=== PATIENT | male | born 1935 | race Caucasian/White ===

== ENCOUNTER 2016-11-05 12:48 | Emergency (ER) | payer OTHER ==
[~2016-11-05] VITALS: Ht 170.2 cm; Wt 73.5 kg
[~2016-11-05 12:48] MED LIST: ASPCH81X PO; ATOR10TA88 PO; DIPHTAB PO; FINA5TAB PO; FURO-85 PO; IPRA0.037 NAE; ISOS30TA3 PO; METO25TA3 PO; NTRSL3 UT; POTA10CA28 PO; TIMO0.2534 OPL; ZNTT/150 PO
[2016-11-05 12:53] VITALS: TEMP 36.5; Ht 170.2 cm; Wt 73.5 kg
--- NOTE | 2016-11-05 14:02 | DIAGNOSTIC IMAGING REPORT ---
SINGLE VIEW PELVIS CLINICAL HISTORY: Fall with pelvic pain. FINDINGS: An AP pelvic radiograph is compared to study dated 05/27/2009. The skeletal structures are osteopenic. No fracture is seen in the hips or bony pelvis. 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 No periprostatic lucency is identified. 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 Sclerotic change is noted in the sacroiliac joints. Lumbosacral spondylosis is partially imaged. Calcified enthesophytes arise from the anterior superior iliac spine bilaterally. The overlying soft tissues are within normal limits. Pelvic phleboliths are noted. IMPRESSION: 1. No fracture is seen in the hips or bony pelvis. 2. Osteopenia, right hip arthroplasty, and arthritic change as above. Electronically signed by: Michael Go M.D. 11/05/2016 2:01 PM Dictated Date/Time: 11/05/2016 2:00 PM
--- NOTE | 2016-11-05 14:33 | DIAGNOSTIC IMAGING REPORT ---
LUMBAR SPINE 5 VIEWS CLINICAL HISTORY: Fall with low back pain. FINDINGS: Five views of the lumbar spine are obtained. No prior studies are available for comparison at the time of dictation. The skeletal structures are osteopenic. There is no radiographic evidence of fracture or malalignment involving the lumbar spine. Vertebral body height is maintained. A mild and age indeterminant superior endplate compression deformity is noted involving T12. There is minimal anterolisthesis at L4-L5. Alignment is otherwise preserved. Anterior osteophytes are seen throughout. The transverse and spinous processes appear intact. There is no evidence of spondylolysis. Moderate facet arthropathy is seen in the mid to lower lumbar spine. Moderate degenerative disc space narrowing is seen at L4-L5 and L5-S1. Mild degenerative disc space narrowing is noted at the remaining lumbar levels. The visualized bony pelvis appears intact. A right hip arthroplasty is in near-anatomic alignment. There is a nonobstructed abdominal bowel gas pattern. A large phlebolith is noted in the left hemipelvis. There is mild atherosclerotic calcification of the abdominal aorta. IMPRESSION: 1. There is no radiographic evidence of fracture or malalignment involving the lumbosacral spine. 2. There is a mild and age-indeterminant superior endplate compression deformity of T12. No retropulsed fragments are identified. Correlate for point tenderness at this level. 3. Osteopenia and lumbosacral spondylosis as above. Dictated: 11/05/2016 1:57 PM Transcribed: 11/05/2016 2:33 PM Hiral Electronically signed by: Michael Go M.D. 11/05/2016 2:34 PM Dictated Date/Time: 11/05/2016 1:57 PM
--- NOTE | 2016-11-05 14:38 | EMERGENCY ROOM VISIT NOTE ---
History Report prepared by Shamikaibhardeep: Narda Robins Under the Supervision of: Dr. Pascual Maharaj D.O. First contact with patient: 12:50 Chief Complaint: FALL Stated Complaint: FALL, BACK AND HIP PAIN History of Present Illness The patient is a 81 year old male who presents to the Emergency Room from [facility] with complaints of constant mid-back pain that began this afternoon. The patient was trying to sit down on his bed, but missed his bed and sat straight on the floor. His back pain began after the incident. The pain is worse with movement. He denies any other injuries from the fall. Currently he does not have any hip pain. Source of History: patient Onset: this afternoon Position: back (mid) Timing: constant Modifying Factors (Worsening): movement Review of Systems See HPI for pertinent positives & negatives. A total of 10 systems reviewed and were otherwise negative. Past Medical & Surgical Medical Problems: (1) No Known Active Medical Problems Family History No pertinent family history stated. Social History Smoking Status: Never Smoker Housing Status: lives with significant other Occupation Status: retired Current/Historical Medications Scheduled Aspirin (Aspirin Chewable), 81 MG PO DAILY Atorvastatin (Lipitor), 10 MG PO DAILY Finasteride (Proscar), 5 MG PO DAILY Isosorbide Mononitrate Ext Rel (Imdur Ext Rel), 30 MG PO DAILY Metoprolol Succinate (Toprol Xl), 25 MG PO DAILY Nitroglycerin (Nitrostat), 0.3 MG UT PRN Ranitidine (Zantac), 150 MG PO BID Timolol Maleate 0.5% Oph (Timoptic 0.5% Oph), 1 DROPS OPL QPM Scheduled PRN Diphenhydramine-Acetaminophen (Pain Reliever Pm), 1 TAB PO DAILY PRN for Itching Furosemide (Lasix), 20 MG PO DAILY PRN for SWELLING Ipratropium [place] (Nasal) (Atrovent Nasal [place]), 2 SPRY BLANQUITA QID PRN for RHINITIS Potassium Chloride (Micro-K Ext Rel), 10 MEQ PO DAILY PRN for SWELLING Allergies Coded Allergies: Pseudoephedrine (Unverified Allergy, Severe, URINARY RETENTION, 10/01/09) Guaifenesin & Derivatives (Verified Allergy, Unknown, inability to urinate , 03/26/16) Sulfa Drugs (Unverified Allergy, Unknown, _, 03/26/16) Latex1 -Allergic Contact Dermititis (Unverified Adverse Reaction, Intermediate, ITCHING/BURNING, 05/10/09) Physical Exam Vital Signs Date Time Temp Pulse Resp B/P Pulse Ox O2 Delivery O2 Flow Rate FiO2 11/05/16 12:53 36.5 51 18 172/97 92 Room Air Physical Exam CONSTITUTIONAL/VITAL SIGNS: Reviewed / noted above. GENERAL: Non-toxic in appearance. INTEGUMENTARY: Warm, dry, and [place]. HEAD: Normocephalic. EYES: without scleral icterus or trauma. ENT/OROPHARYNX: clear and moist. LYMPHADENOPATHY/NECK: Is supple without lymphadenopathy or meningismus. RESPIRATORY: Lungs clear and equal. CARDIOVASCULAR: Regular rate and rhythm. GI/ABDOMEN: Soft and nontender. No organomegaly or pulsatile mass. No rebound or guarding. Normal bowel sounds. EXTREMITIES: Warm and well perfused. BACK: No CVA tenderness. NEUROLOGICAL: Intact without focal deficits. PSYCHIATRIC: normal affect. MUSCULOSKELETAL: Normally developed with good muscle tone. Medical Decision & Procedures ER Provider Diagnostic Interpretation: Radiology results as stated below per my review and radiologist interpretation: SINGLE VIEW PELVIS CLINICAL HISTORY: Fall with pelvic pain. FINDINGS: An AP pelvic radiograph is compared to study dated 05/27/2009. The skeletal structures are osteopenic. No fracture is seen in the hips or bony pelvis. 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 No periprostatic lucency is identified. 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 Sclerotic change is noted in the sacroiliac joints. Lumbosacral spondylosis is partially imaged. Calcified enthesophytes arise from the anterior superior iliac spine bilaterally. The overlying soft tissues are within normal limits. Pelvic phleboliths are noted. IMPRESSION: 1. No fracture is seen in the hips or bony pelvis. 2. Osteopenia, right hip arthroplasty, and arthritic change as above. Electronically signed by: Michael Go M.D. 11/05/2016 2:01 PM Dictated Date/Time: 11/05/2016 2:00 PM LUMBAR SPINE 5 VIEWS CLINICAL HISTORY: Fall with low back pain. FINDINGS: Five views of the lumbar spine are obtained. No prior studies are available for comparison at the time of dictation. The skeletal structures are osteopenic. There is no radiographic evidence of fracture or malalignment involving the lumbar spine. Vertebral body height is maintained. A mild and age indeterminant superior endplate compression deformity is noted involving T12. There is minimal anterolisthesis at L4-L5. Alignment is otherwise preserved. Anterior osteophytes are seen throughout. The transverse and spinous processes appear intact. There is no evidence of spondylolysis. Moderate facet arthropathy is seen in the mid to lower lumbar spine. Moderate degenerative disc space narrowing is seen at L4-L5 and L5-S1. Mild degenerative disc space narrowing is noted at the remaining lumbar levels. The visualized bony pelvis appears intact. A right hip arthroplasty is in near-anatomic alignment. There is a nonobstructed abdominal bowel gas pattern. A large phlebolith is noted in the left hemipelvis. There is mild atherosclerotic calcification of the abdominal aorta. IMPRESSION: 1. There is no radiographic evidence of fracture or malalignment involving the lumbosacral spine. 2. There is a mild and age-indeterminant superior endplate compression deformity of T12. No retropulsed fragments are identified. Correlate for point tenderness at this level. 3. Osteopenia and lumbosacral spondylosis as above. Dictated: 11/05/2016 1:57 PM Transcribed: 11/05/2016 2:33 PM Hiral Electronically signed by: Michael Go M.D. 11/05/2016 2:34 PM Dictated Date/Time: 11/05/2016 1:57 PM ED Course 1256: Previous medical records were reviewed. The patient was evaluated in room C6. A complete history and physical examination was performed. 1439: On reevaluation, the patient is resting comfortably. I discussed the results and findings with the patient. He verbalized agreement of the treatment plan. The patient was discharged home. Medical Decision Differential includes close head injury, intracranial bleed, facial trauma, cervical spine trauma, chest and thoracic trauma, abdominal and intra-abdominal trauma, spine neurologic trauma, extremity trauma. This is an 81-year-old male who presents to the ED after fall. The patient states that he was sitting down and missed his bed and sat on the floor. He states that he has pain in his back since the episode that occurred earlier today. He is brought here for evaluation. He denies loss of consciousness or striking his head. He denies any numbness or tingling or weakness in extremity. He has no abdominal pains or chest pains or shortness of breath. His exam did not reveal any obvious injuries. He is full range of motion of his legs and arms. There is no discomfort with this. He does report discomfort in the low back but this is not worsened with palpation. There is no obvious injury to the back. X-ray of the pelvis did not show any acute traumatic injury. X-ray of the lumbar spine did not show any acute process. There is an age indeterminate deformity in the T12 vertebrae. This does not represent the area of the patient's discomfort. Patient is felt to be stable for discharge. Impression Primary Impression: Fall Scribe Attestation The scribe's documentation has been prepared under my direction and personally reviewed by me in its entirety. I confirm that the note above accurately reflects all work, treatment, procedures, and medical decision making performed by me. Departure Information Dispostion Home / Self-Care Referrals ANDREA WEISS (PCP) Patient Instructions My [facility] Additional Instructions Follow-up with your doctor for further care and evaluation in 1-2 days as needed. Return to the emergency department for worsening or new symptoms or any concerns. You have been examined and treated today on an emergency basis only. This is not a substitute for, or an effort to provide, complete comprehensive medical care. It is impossible to recognize and treat all injuries or illnesses in a single emergency department visit. It is therefore important that you follow up closely with your doctor. Call as soon as possible for an appointment.
[2016-11-05 14:46] VITALS: BP 176/95; PULSE 50; O2SAT 96
[2016-11-05] MEDS ORDERED: PRED1SUS17 OPR (15:00)
[2016-11-05] MEDS ORDERED: [UNRECOGNIZED DRUG - CODE] PO (15:00)
[2016-11-05] MEDS ORDERED: ACET-1311 PO (15:00)
== END 2016-11-05 14:49 | disposition home or self-care (01) ==
LOC: C.EDC 12:48 → EDBD 12:48 → C.EDC 14:49
DX: M54.6 Pain in thoracic spine (principal); W17.89XA Other fall from one level to another, initial encounter; Z79.82 Long term (current) use of aspirin

== ENCOUNTER 2016-11-29 07:32 | Emergency (ER) | payer OTHER ==
[~2016-11-29] VITALS: Ht 162.6 cm; Wt 73.0 kg
[~2016-11-29 07:32] MED LIST changes: +ACET-1311 PO; +ATOR10TA82 PO; -ATOR10TA88 PO; +PRED1SUS17 OPR; +[UNRECOGNIZED DRUG - CODE] PO
[2016-11-29 07:38] VITALS: TEMP 37; Ht 162.6 cm; Wt 73.0 kg
[2016-11-29] MEDS ORDERED: CETI10TA62 PO (08:06)
--- NOTE | 2016-11-29 08:08 | DIAGNOSTIC IMAGING REPORT ---
PELVIS 1 OR 2 VIEW ROUTINE CLINICAL HISTORY: Hip pain status post trauma COMPARISON STUDY: 11/05/2016 FINDINGS: There are postsurgical changes of a total right hip arthroplasty. No fractures or dislocations are visualized. There are mild osteoarthritic changes present on the left. 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 No acute fractures or dislocations identified. Electronically signed by: Glen Olvera M.D. 11/29/2016 8:07 AM Dictated Date/Time: 11/29/2016 8:06 AM
[2016-11-29] MEDS ORDERED: IPRA0.03 NAE (08:12)
[2016-11-29] MEDS ORDERED: TIMO0.5S2 OPL (08:12)
--- NOTE | 2016-11-29 09:04 | EMERGENCY ROOM VISIT NOTE ---
History Report prepared by Malcolm: Susie Meza Under the Supervision of: Dr. Pascual Maharaj D.O. First contact with patient: 07:36 Chief Complaint: HIP PAIN Stated Complaint: HIP PAIN/FALL History of Present Illness The patient is a 81 year old male who presents to the Emergency Room with complaints of persistent right hip pain after falling out of bed this morning. [facility] from [facility] by EMS. He reports that he rolled out of bed and onto the floor.The patient's hip is red and sunken in which is not normal for him according to the nursing staff. He denies any other complaints. Source of History: patient, nursing staff Onset: this morning Position: pelvis Quality: other (pain) Timing: other (persistent) Note: Pt denies any other symptoms. Review of Systems See HPI for pertinent positives & negatives. A total of 10 systems reviewed and were otherwise negative. Past Medical & Surgical Medical Problems: (1) No Known Active Medical Problems Family History Noncontributory secondary to age. Social History Smoking Status: Never Smoker Marital Status: Housing Status: lives with significant other Occupation Status: retired Current/Historical Medications Scheduled Acetaminophen (Tylenol), 650 MG PO Q6 Aspirin (Aspirin Chewable), 81 MG PO DAILY Atorvastatin (Lipitor), 10 MG PO DAILY Cetirizine Hcl (Qc All Day Allergy), 1 TAB PO HS Finasteride (Proscar), 5 MG PO DAILY Ipratropium [place] (Nasal) (Ipratropium [place]), 2 SPRAYS BLANQUITA QID Isosorbide Mononitrate Ext Rel (Imdur Ext Rel), 30 MG PO DAILY Metoprolol Succinate (Toprol Xl), 25 MG PO DAILY Nitroglycerin (Nitrostat), 0.3 MG UT PRN Prednisolone Acetate (Ophth) (Prednisolone Acetate), 1 DROP OPR DAILY Ranitidine (Zantac), 150 MG PO BID Timolol Maleate (Ophth) (Timoptic-Xe 0.5% Oph), 1 DROPS OPL HS Scheduled PRN Diphenhydramine Hcl (Siladryl Allergy), 5-10 ML PO QID PRN for Itching Diphenhydramine-Acetaminophen (Pain Reliever Pm), 1 TAB PO DAILY PRN for Itching Furosemide (Lasix), 20 MG PO DAILY PRN for SWELLING Potassium Chloride (Micro-K Ext Rel), 10 MEQ PO DAILY PRN for SWELLING Allergies Coded Allergies: Pseudoephedrine (Unverified Allergy, Severe, URINARY RETENTION, 11/29/16) Guaifenesin & Derivatives (Verified Allergy, Unknown, inability to urinate , 11/29/16) Sulfa Drugs (Unverified Allergy, Unknown, _, 11/29/16) Latex1 -Allergic Contact Dermititis (Unverified Adverse Reaction, Intermediate, ITCHING/BURNING, 11/29/16) Physical Exam Vital Signs Date Time Temp Pulse Resp B/P Pulse Ox O2 Delivery O2 Flow Rate FiO2 11/29/16 08:32 65 18 190/104 93 Room Air 11/29/16 07:38 37.0 64 18 197/114 95 Room Air Physical Exam CONSTITUTIONAL/VITAL SIGNS: Reviewed / noted above. GENERAL: Non-toxic in appearance. INTEGUMENTARY: Warm, dry, and [place]. HEAD: Normocephalic. EYES: without scleral icterus or trauma. ENT/OROPHARYNX: clear and moist. LYMPHADENOPATHY/NECK: Is supple without lymphadenopathy or meningismus. RESPIRATORY: Lungs clear and equal. CARDIOVASCULAR: Regular rate and rhythm. GI/ABDOMEN: Soft and nontender. No organomegaly or pulsatile mass. No rebound or guarding. Normal bowel sounds. EXTREMITIES: Warm and well perfused. No obvious injuries, no pain with full ROM of both lower and upper extremities. BACK: No CVA tenderness. NEUROLOGICAL: Intact without focal deficits. PSYCHIATRIC: normal affect. MUSCULOSKELETAL: Normally developed with good muscle tone. Medical Decision & Procedures ER Provider Diagnostic Interpretation: X ray results and stated below per my interpretation and radiology interpretation. PELVIS 1 OR 2 VIEW ROUTINE CLINICAL HISTORY: Hip pain status post trauma COMPARISON STUDY: 11/05/2016 FINDINGS: There are postsurgical changes of a total right hip arthroplasty. No fractures or dislocations are visualized. There are mild osteoarthritic changes present on the left. 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 No acute fractures or dislocations identified. Electronically signed by: Glen Olvera M.D. 11/29/2016 8:07 AM Dictated Date/Time: 11/29/2016 8:06 AM ED Course 0739: Previous medical records were reviewed. The patient was evaluated in room B7. A complete history and physical examination was performed. 0859: On reevaluation, the patient is resting comfortably. I discussed the results and findings with the patient. He verbalized agreement of the treatment plan. He was discharged home. Medical Decision Differential includes close head injury, intracranial bleed, facial trauma, cervical spine trauma, chest and thoracic trauma, abdominal and intra-abdominal trauma, spine neurologic trauma, extremity trauma. This is a 81-year-old male who presents to the ED from a local nursing facility. He presents after a fall out of bed. He had reportedly complained of some right-sided hip pain but he has no complaints at this time on evaluation. His exam was essentially normal. There is no obvious trauma noted. He has full range of motion of all extremities. No pain. Pelvis x-ray did not show any acute abnormality. The patient was told the results of the test. He is felt to be stable for discharge. Impression Primary Impression: Fall Scribe Attestation The scribe's documentation has been prepared under my direction and personally reviewed by me in its entirety. I confirm that the note above accurately reflects all work, treatment, procedures, and medical decision making performed by me. Departure Information Dispostion Home / Self-Care Referrals ANDREA WEISS (PCP) Patient Instructions My [facility] Additional Instructions Follow-up with your doctor as needed. X-ray did not show any injury to the bony structures of your pelvis or hips.
[2016-11-29 10:40] VITALS: BP 169/109; PULSE 75; O2SAT 94
== END 2016-11-29 10:48 | disposition home or self-care (01) ==
LOC: EDBD 07:32 → C.EDB 07:33
DX: M25.551 Pain in right hip (principal); W06.XXXA Fall from bed, initial encounter; Y92.193 Bedroom in other specified residential institution as the place of occurrence of the external cause; Y93.84 Activity, sleeping; Z79.82 Long term (current) use of aspirin; Z96.641 Presence of right artificial hip joint

== ENCOUNTER 2016-12-05 10:34 | Emergency (ER) | payer OTHER ==
[~2016-12-05] VITALS: Ht 177.8 cm; Wt 70.0 kg
[~2016-12-05 10:34] MED LIST changes: +CETI10TA62 PO; +IPRA0.03 NAE; -IPRA0.037 NAE; -TIMO0.2534 OPL; +TIMO0.5S2 OPL
[2016-12-05 10:38] VITALS: TEMP 37; Ht 177.8 cm; Wt 70.0 kg
[2016-12-05] MEDS ORDERED: ACETAMINOPHEN 500 MG TAB PO STA (10:41)
--- NOTE | 2016-12-05 10:44 | EMERGENCY ROOM VISIT NOTE ---
History Report prepared by Malcolm: Jonathan Dang Under the Supervision of: Dr. Kunal Ingram D.O. First contact with patient: 10:34 Stated Complaint: FALL/ LF HIP PAIN History of Present Illness The patient is an 81 year old male who presents to the Emergency Room from [facility] with complaints of persistent left hip pain on movement that occurred 2 days ago after a fall. Per EMS, the patient's left hip does not bother him when he is not moving. When the patient is standing, the patient rates the pain as a 7 out of 10 in severity. He also notes back pain from the fall and left leg pain when sitting up in bed. The patient mentioned the fall to the staff at [facility] yesterday. Any loss of consciousness, abdominal pain, or neck pain was denied, and the patient got himself up after the fall. He has not had any x-rays of his hip yet. His current blood pressure is 150/90. The patient has a history of encephalopathy, per EMS. Source of History: patient, EMS Onset: 2 days ago Position: other (left hip) Symptom Intensity: 7/10 in severity Timing: other (persistent ) Modifying Factors (Worsening): movement Associated Symptoms: + back pain, No LOC, No abdominal pain, No neck pain Note: Associated symptoms: Left leg pain when sitting up in bed. Review of Systems See HPI for pertinent positives & negatives. A total of 10 systems reviewed and were otherwise negative. Past Medical & Surgical Medical Problems: (1) Encephalopathy Family History Family history omitted secondary to advanced age. Social History Marital Status: Housing Status: long-term Occupation Status: retired Current/Historical Medications Scheduled Acetaminophen (Tylenol), 650 MG PO Q6 Aspirin (Aspirin Chewable), 81 MG PO DAILY Atorvastatin (Lipitor), 10 MG PO DAILY Cetirizine Hcl (Qc All Day Allergy), 1 TAB PO HS Finasteride (Proscar), 5 MG PO DAILY Ipratropium [place] (Nasal) (Ipratropium [place]), 2 SPRAYS BLANQUITA QID Isosorbide Mononitrate Ext Rel (Imdur Ext Rel), 30 MG PO DAILY Metoprolol Succinate (Toprol Xl), 25 MG PO DAILY Nitroglycerin (Nitrostat), 0.3 MG UT PRN Prednisolone Acetate (Ophth) (Prednisolone Acetate), 1 DROP OPR DAILY Ranitidine (Zantac), 150 MG PO BID Timolol Maleate (Ophth) (Timoptic-Xe 0.5% Oph), 1 DROPS OPL HS Scheduled PRN Diphenhydramine Hcl (Siladryl Allergy), 5-10 ML PO QID PRN for Itching Diphenhydramine-Acetaminophen (Pain Reliever Pm), 1 TAB PO DAILY PRN for Itching Furosemide (Lasix), 20 MG PO DAILY PRN for SWELLING Potassium Chloride (Micro-K Ext Rel), 10 MEQ PO DAILY PRN for SWELLING Allergies Coded Allergies: Pseudoephedrine (Unverified Allergy, Severe, URINARY RETENTION, 11/29/16) Guaifenesin & Derivatives (Verified Allergy, Unknown, inability to urinate , 11/29/16) Sulfa Drugs (Unverified Allergy, Unknown, _, 11/29/16) Latex1 -Allergic Contact Dermititis (Unverified Adverse Reaction, Intermediate, ITCHING/BURNING, 11/29/16) Physical Exam Vital Signs Date Time Temp Pulse Resp B/P Pulse Ox O2 Delivery O2 Flow Rate FiO2 12/05/16 13:17 58 16 173/93 96 Room Air 12/05/16 12:46 53 12/05/16 12:20 57 16 195/110 98 Room Air 12/05/16 12:18 96 Room Air 12/05/16 12:18 95 Room Air 12/05/16 11:32 55 180/104 95 Room Air 53 182/95 55 182/112 12/05/16 11:24 58 16 140/86 12/05/16 10:38 37.0 55 16 173/95 92 Room Air Physical Exam GENERAL: Patient is awake but listless, starts to fall asleep easily when not verbally stimulated. EYES: The conjunctivae are clear. The pupils are round and reactive. EARS, NOSE, MOUTH AND THROAT: The nose is without any evidence of any deformity. Mucous membranes are dry tongue is midline NECK: The neck is nontender and supple. RESPIRATORY: Lung sounds diminished throughout but no tachypnea or conversational dyspnea noted CARDIOVASCULAR: Regular rate and rhythm noted there no murmurs rubs or gallops normal S1 normal S2 GASTROINTESTINAL: The abdomen is soft. Bowel sounds are present in all quadrants. Abdomen is nontender BACK: Diffuse lumbar spine tenderness to palpation, range of motion appeared intact. MUSCULOSKELETAL/EXTREMITIES: Patient had pain with range of motion of both hips , no shortening or deformity noted. SKIN: Pedal edema was noted bilaterally. NEUROLOGIC: Patient is oriented to person, place, and situation. Gait was slow and unsteady. No facial droop or unilateral weakness noted. Medical Decision & Procedures ER Provider Diagnostic Interpretation: Radiology results as stated below per my review and radiologist interpretation: LEFT PELVIS/UNILATERAL HIP 2-3VIEWS CLINICAL HISTORY: fall trauma. Pain. COMPARISON: None. DISCUSSION: Pre-existing total right hip arthroplasty. Moderate degenerative change left hip. No well-defined acute bony abnormality. No evidence for acetabular protrusion. There is no evidence for soft tissue swelling. IMPRESSION: Degenerative and postoperative change. No acute process. Electronically signed by: Desean Miller M.D. 12/05/2016 11:22 AM Dictated Date/Time: 12/05/2016 11:21 AM LUMBAR SPINE 5 VIEWS CLINICAL HISTORY: Fall with low back pain. FINDINGS: Five views of the lumbar spine are compared to study dated 11/05/2016. The skeletal structures are osteopenic. There is no radiographic evidence of fracture or malalignment involving the lumbar spine. Vertebral body height is maintained. A mild and chronic compression deformity is again seen involving T12. There is minimal anterolisthesis at L4-L5. Alignment is otherwise preserved. Anterior osteophytes are seen throughout. The transverse and spinous processes appear intact. There is no evidence of spondylolysis. Moderate facet arthropathy is seen in the mid to lower lumbar spine. Moderate degenerative disc space narrowing is seen at L4-L5 and L5-S1. Mild degenerative disc space narrowing is noted at the remaining lumbar levels. The visualized bony pelvis appears intact. A right hip arthroplasty is partially visualized. There is a nonobstructed abdominal bowel gas pattern. A large phlebolith is noted in the left hemipelvis. There is mild atherosclerotic calcification of the abdominal aorta. IMPRESSION: 1. There is no radiographic evidence of fracture or malalignment involving the lumbosacral spine. 2. There is a mild chronic superior endplate compression deformity of T12. 3. Osteopenia and lumbosacral spondylosis as above. Electronically signed by: Michael Go M.D. 12/05/2016 11:22 AM Dictated Date/Time: 12/05/2016 11:20 AM CHEST 2 VIEWS ROUTINE CLINICAL HISTORY: fall trauma COMPARISON STUDY: No previous studies for comparison. FINDINGS: Mild bibasilar atelectatic and or contusion-type change. Mid and upper lungs are clear. No evidence pneumothorax. IMPRESSION: Mild bibasilar atelectatic and/or contusion-type change given history of trauma. Electronically signed by: Desean Miller M.D. 12/05/2016 11:21 AM Dictated Date/Time: 12/05/2016 11:20 AM RIGHT FEMUR 2 VIEWS ROUTINE CLINICAL HISTORY: fall Right trauma. Pain. COMPARISON: None. DISCUSSION: Total right hip arthroplasty in good position. No acute bony abnormality. Cortical margins are intact. There is no evidence for soft tissue swelling. IMPRESSION: No acute process status post total right hip arthroplasty Electronically signed by: Desean Miller M.D. 12/05/2016 11:23 AM Dictated Date/Time: 12/05/2016 11:[address] CT DOSE: 638.56 mGycm HISTORY: Mental status change EVALUATE ALTERED MENTAL STATUS/WEAKNESS TECHNIQUE: Multiaxial CT images of the head were performed without the use of intravenous contrast. Comparison: 03/26/2016 Findings: The paranasal sinuses and mastoid air cells are clear. Moderate chronic small vessel change of periventricular deep white matter regions. No acute intracranial abnormality. No acute intracranial hemorrhage. No midline shift. Impression: Age-related chronic small vessel change as well as atrophy. No acute intracranial abnormality. Electronically signed by: Desean Miller M.D. 12/05/2016 12:03 PM Dictated Date/Time: 12/05/2016 12:[address] DOSE: 415.19 mGycm HISTORY: Trauma. Pain. fall TECHNIQUE: Multiaxial CT images of the cervical spine were performed and reformatted in the sagittal and coronal plane without the use of contrast. COMPARISON: None. FINDINGS: No fractures. No subluxation. Prevertebral soft tissues and the C1-C2 interval are intact. No pneumothorax. Considerable degenerative change throughout. Prevertebral soft tissues are unremarkable. IMPRESSION: Considerable degenerative change. No acute bony abnormality. Electronically signed by: Desean Miller M.D. 12/05/2016 12:09 PM Dictated Date/Time: 12/05/2016 12:07 PM Laboratory Results 12/05/16 11:30 Red Blood Count 4.49, Mean Corpuscular Volume 89.3, Mean Corpuscular Hemoglobin 30.7, Mean Corpuscular Hemoglobin Concent 34.4, Mean Platelet Volume 10.1, Neutrophils (%) (Auto) 56.7, Lymphocytes (%) (Auto) 24.5, Monocytes (%) (Auto) 13.9, Eosinophils (%) (Auto) 4.3, Basophils (%) (Auto) 0.4, Neutrophils # (Auto ) 4.64, Lymphocytes # (Auto) 2.01, Monocytes # (Auto) 1.14, Eosinophils # (Auto ) 0.35, Basophils # (Auto) 0.03 12/05/16 11:30 Test 12/05/16 11:30 12/05/16 12:10 White Blood Count 8.19 K/uL (4.8-10.8) Red Blood Count 4.49 M/uL (4.7-6.1) Hemoglobin 13.8 g/dL (14.0-18.0) Hematocrit 40.1 % (42-52) Mean Corpuscular Volume 89.3 fL (80-100) Mean Corpuscular Hemoglobin 30.7 pg (25-34) Mean Corpuscular Hemoglobin Concent 34.4 g/dl (32-36) Platelet Count 201 K/uL (130-400) Mean Platelet Volume 10.1 fL (7.4-10.4) Neutrophils (%) (Auto) 56.7 % Lymphocytes (%) (Auto) 24.5 % Monocytes (%) (Auto) 13.9 % Eosinophils (%) (Auto) 4.3 % Basophils (%) (Auto) 0.4 % Neutrophils # (Auto) 4.64 K/uL (1.4-6.5) Lymphocytes # (Auto) 2.01 K/uL (1.2-3.4) Monocytes # (Auto) 1.14 K/uL (0.11-0.59) Eosinophils # (Auto) 0.35 K/uL (0-0.5) Basophils # (Auto) 0.03 K/uL (0-0.2) RDW Standard Deviation 43.2 fL (36.4-46.3) RDW Coefficient of Variation 13.2 % (11.5-14.5) Immature Granulocyte % (Auto) 0.2 % Immature Granulocyte # (Auto) 0.02 K/uL (0.00-0.02) Prothrombin Time 10.3 SECONDS (9.0-12.0) Prothromb Time International Ratio 1.0 (0.9-1.1) Activated Partial Thromboplast Time 26.1 SECONDS (21.0-31.0) Partial Thromboplastin Ratio 1.0 Venous Blood pH 7.40 (7.36-7.41) Venous Blood Partial Pressure CO2 45 mmHg (38.0-50.0) Venous Blood Partial Pressure O2 24 mmHg Venous Blood HCO3 27 mmol/L Venous Blood Oxygen Saturation < 60.0 % Venous Blood Base Excess 1.9 mmol/L Anion Gap 6.0 mmol/L (3-11) Est Creatinine Clear Calc Drug Dose 51.3 ml/min Estimated GFR () 72.1 Estimated GFR (Non- 62.2 BUN/Creatinine Ratio 13.9 (10-20) Calcium Level 8.9 mg/dl (8.5-10.1) Phosphorus Level 2.8 mg/dl (2.5-4.9) Magnesium Level 2.4 mg/dl (1.8-2.4) Total Bilirubin 0.8 mg/dl (0.2-1) Direct Bilirubin 0.2 mg/dl (0-0.2) Aspartate Amino Transf (AST/SGOT) 43 U/L (15-37) Alanine Aminotransferase (ALT/SGPT) 50 U/L (12-78) Alkaline Phosphatase 69 U/L (45-117) Ammonia 15.0 umol/L (11-32) Total Creatine Kinase 91 U/L (39-308) Creatine Kinase MB 1.4 ng/ml (0.5-3.6) Creatine Kinase MB Ratio 1.5 (0-3.0) Troponin I < 0.015 ng/ml (0-0.045) Pro-B-Type Natriuretic Peptide 1798 pg/ml (0-1800) Total Protein 7.2 gm/dl (6.4-8.2) Albumin 3.4 gm/dl (3.4-5.0) Lipase 128 U/L (73-393) Thyroid Stimulating Hormone (TSH) 3.170 uIu/ml (0.300-4.500) Urine Color YELLOW Urine Appearance CLEAR (CLEAR) Urine pH 7.5 (4.5-7.5) Urine Specific [place] 1.014 (1.000-1.030) Urine Protein NEG (NEG) Urine Glucose (UA) NEG (NEG) Urine Ketones NEG (NEG) Urine Occult Blood NEG (NEG) Urine Nitrite NEG (NEG) Urine Bilirubin NEG (NEG) Urine Urobilinogen NEG (NEG) Urine Leukocyte Esterase NEG (NEG) Laboratory results per my review. ECG Indication: other (fall) Rate (beats per minute): 50 Rhythm: sinus bradycardia Findings: no ectopy, other (no acute ST segment abnormalities, LVH noted by voltage criteria) Change: no significant change (from May 10 2009) ED Course 1033: The patient was evaluated in room A12B. A complete history and physical examination were performed. 1041: Ordered Tylenol Tab 1000 mg PO. 1258: Upon reevaluation, the patient is resting comfortably. I discussed the results and treatment plan with him. He verbalized agreement of the treatment plan. The patient was discharged home. Medical Decision Nursing notes reviewed. Differential diagnosis: Etiologies such as metabolic, infection, hypo/hyperglycemia, electrolyte abnormalities, cardiac sources, intracerebral event, toxicologic, neurologic, as well as others were entertained. Additional history was obtained from the personal [facility]. Additional history is obtained from the prehospital personnel. The patient is an 81-year-old male who presented to the emergency department for multiple reasons. The patient lives at a personal [facility] and apparently he has frequent falls. The patient fell a few days ago and was complaining of hip pain. His story is not completely straightforward initially I was told he had left hip pain but then the patient also complained of right hip pain. We had to call the [facility] to get full history and apparently they were also concerned because the patient has been more confused than usual. I discussed the patient's laboratory and radiographic studies with him. He was not found have any acute disease on CT the head. He was awake and alert and able to follow commands. He was able to ambulate with assistance. It does appear the patient may be at his baseline at this time. The emergency Department manager case called the personal [facility] again to be sure that they were comfortable sending the patient back as no acute process was found at this time. I encouraged him to continue all medications as prescribed and have the patient evaluated by his primary care physician within the next few days. Her also encouraged to help the patient ambulate and encouraged him to use a walker is much possible. Her also encouraged return the emergency Department immediately if symptoms change worsen or the need arises. Impression Primary Impression: Altered mental status Additional Impressions: Frequent falls Low back pain Contusion of left hip Scribe Attestation The scribe's documentation has been prepared under my direction and personally reviewed by me in its entirety. I confirm that the note above accurately reflects all work, treatment, procedures, and medical decision making performed by me. Departure Information Dispostion Home / Self-Care Referrals Ronald Yang M.D. [facility] Forms HOME CARE DOCUMENTATION FORM, IMPORTANT VISIT INFORMATION, WORK / SCHOOL INSTRUCTIONS Patient Instructions ED Contusion Hip, Falls Prevent Home, [facility] Additional Instructions Follow-up with your family doctor soon as possible. Continue all medications as prescribed. Return to the emergency Department immediately if symptoms change worsen or the need arises. Continue to use your walker when you ambulate. Problem Qualifiers Primary Impression: Altered mental status Altered mental status type: unspecified Qualified Codes: R41.82 - Altered mental status, unspecified Additional Impressions: Low back pain Chronicity: chronic Back pain laterality: unspecified Sciatica presence: without sciatica Qualified Codes: M54.5 - Low back pain; G89.29 - Other chronic pain Contusion of left hip Encounter type: subsequent encounter Qualified Codes: S70.02XD - Contusion of left hip, subsequent encounter
--- NOTE | 2016-12-05 11:23 | DIAGNOSTIC IMAGING REPORT ---
CHEST 2 VIEWS ROUTINE CLINICAL HISTORY: fall trauma COMPARISON STUDY: No previous studies for comparison. FINDINGS: Mild bibasilar atelectatic and or contusion-type change. Mid and upper lungs are clear. No evidence pneumothorax. IMPRESSION: Mild bibasilar atelectatic and/or contusion-type change given history of trauma. Electronically signed by: Desean Miller M.D. 12/05/2016 11:21 AM Dictated Date/Time: 12/05/2016 11:20 AM
--- NOTE | 2016-12-05 11:24 | DIAGNOSTIC IMAGING REPORT ---
LEFT PELVIS/UNILATERAL HIP 2-3VIEWS CLINICAL HISTORY: fall trauma. Pain. COMPARISON: None. DISCUSSION: Pre-existing total right hip arthroplasty. Moderate degenerative change left hip. No well-defined acute bony abnormality. No evidence for acetabular protrusion. There is no evidence for soft tissue swelling. IMPRESSION: Degenerative and postoperative change. No acute process. Electronically signed by: Desean Miller M.D. 12/05/2016 11:22 AM Dictated Date/Time: 12/05/2016 11:21 AM
--- NOTE | 2016-12-05 11:24 | DIAGNOSTIC IMAGING REPORT ---
LUMBAR SPINE 5 VIEWS CLINICAL HISTORY: Fall with low back pain. FINDINGS: Five views of the lumbar spine are compared to study dated 11/05/2016. The skeletal structures are osteopenic. There is no radiographic evidence of fracture or malalignment involving the lumbar spine. Vertebral body height is maintained. A mild and chronic compression deformity is again seen involving T12. There is minimal anterolisthesis at L4-L5. Alignment is otherwise preserved. Anterior osteophytes are seen throughout. The transverse and spinous processes appear intact. There is no evidence of spondylolysis. Moderate facet arthropathy is seen in the mid to lower lumbar spine. Moderate degenerative disc space narrowing is seen at L4-L5 and L5-S1. Mild degenerative disc space narrowing is noted at the remaining lumbar levels. The visualized bony pelvis appears intact. A right hip arthroplasty is partially visualized. There is a nonobstructed abdominal bowel gas pattern. A large phlebolith is noted in the left hemipelvis. There is mild atherosclerotic calcification of the abdominal aorta. IMPRESSION: 1. There is no radiographic evidence of fracture or malalignment involving the lumbosacral spine. 2. There is a mild chronic superior endplate compression deformity of T12. 3. Osteopenia and lumbosacral spondylosis as above. Electronically signed by: Michael Go M.D. 12/05/2016 11:22 AM Dictated Date/Time: 12/05/2016 11:20 AM
--- NOTE | 2016-12-05 11:26 | DIAGNOSTIC IMAGING REPORT ---
RIGHT FEMUR 2 VIEWS ROUTINE CLINICAL HISTORY: fall Right trauma. Pain. COMPARISON: None. DISCUSSION: Total right hip arthroplasty in good position. No acute bony abnormality. Cortical margins are intact. There is no evidence for soft tissue swelling. IMPRESSION: No acute process status post total right hip arthroplasty Electronically signed by: Desean Miller M.D. 12/05/2016 11:23 AM Dictated Date/Time: 12/05/2016 11:22 AM
[2016-12-05 11:42] LABS: BASO % 0.4 %; BASO ABS # 0.03 K/uL (0-0.2); COMPLETE YES; EOS % 4.3 %; HEMATOCRIT 40.1 % (42-52); IG% 0.2 %; LYMPH % 24.5 %; LYMPH ABS # 2.01 K/uL (1.2-3.4); MEAN CELL VOLUME 89.3 fL (80-100); MEAN CORPUSCULAR HEMOGLOBIN 30.7 pg (25-34); MEAN CORPUSCULAR HGB CONC 34.4 g/dl (32-36); MEAN PLATELET VOLUME 10.1 fL (7.4-10.4); MONO % 13.9 %; NEUT % 56.7 %; PLATELET COUNT 201 K/uL (130-400); RED BLOOD COUNT 4.49 M/uL (4.7-6.1); WHITE BLOOD COUNT 8.19 K/uL (4.8-10.8)
[2016-12-05 11:45] LABS: VEN BLOOD GAS BASE EXCESS 1.9 mmol/L; VENOUS BLOOD GAS PCO2 45 mmHg (38.0-50.0); VENOUS BLOOD GAS PO2 24 mmHg
[2016-12-05 11:46] LABS: VEN BLD GAS O2 SATURATION < 60.0 %
[2016-12-05 11:55] LABS: PROTHROMBIN TIME (PATIENT) 10.3 SECONDS (9.0-12.0)
[2016-12-05 12:08] LABS: ALT/SGPT 50 U/L (12-78); AST/SGOT 43 U/L (15-37); BLOOD UREA NITROGEN 15 mg/dl (7-18); BUN/CREATININE RATIO 13.9 (10-20); CALCIUM 8.9 mg/dl (8.5-10.1); CARBON DIOXIDE 28 mmol/L (21-32); CHLORIDE 107 mmol/L (98-107); GLUCOSE 79 mg/dl (70-99); MAGNESIUM 2.4 mg/dl (1.8-2.4); POTASSIUM 3.9 mmol/L (3.5-5.1); SODIUM 141 mmol/L (136-145)
--- NOTE | 2016-12-05 12:08 | DIAGNOSTIC IMAGING REPORT ---
HEAD CT NONCONTRAST CT DOSE: 638.56 mGycm HISTORY: Mental status change EVALUATE ALTERED MENTAL STATUS/WEAKNESS TECHNIQUE: Multiaxial CT images of the head were performed without the use of intravenous contrast. Comparison: 03/26/2016 Findings: The paranasal sinuses and mastoid air cells are clear. Moderate chronic small vessel change of periventricular deep white matter regions. No acute intracranial abnormality. No acute intracranial hemorrhage. No midline shift. Impression: Age-related chronic small vessel change as well as atrophy. No acute intracranial abnormality. Electronically signed by: Desean Miller M.D. 12/05/2016 12:03 PM Dictated Date/Time: 12/05/2016 12:01 PM
--- NOTE | 2016-12-05 12:11 | DIAGNOSTIC IMAGING REPORT ---
CERVICAL SPINE CT CT DOSE: 415.19 mGycm HISTORY: Trauma. Pain. fall TECHNIQUE: Multiaxial CT images of the cervical spine were performed and reformatted in the sagittal and coronal plane without the use of contrast. COMPARISON: None. FINDINGS: No fractures. No subluxation. Prevertebral soft tissues and the C1-C2 interval are intact. No pneumothorax. Considerable degenerative change throughout. Prevertebral soft tissues are unremarkable. IMPRESSION: Considerable degenerative change. No acute bony abnormality. Electronically signed by: Desean Miller M.D. 12/05/2016 12:09 PM Dictated Date/Time: 12/05/2016 12:07 PM
[2016-12-05 12:16] LABS: ALKALINE PHOSPHATASE 69 U/L (45-117); CKMB/CK RATIO 1.5 (0-3.0); PHOSPHORUS 2.8 mg/dl (2.5-4.9)
[2016-12-05 12:18] VITALS: O2SAT 95
[2016-12-05 12:29] LABS: URINE APPEARANCE CLEAR (CLEAR); URINE BILIRUBIN NEG (NEG); URINE COLOR YELLOW; URINE NITRITE NEG (NEG); URINE PH 7.5 (4.5-7.5); URINE SPECIFIC GRAVITY 1.014 (1.000-1.030); UROBILINOGEN NEG (NEG)
[2016-12-05 12:36] LABS: MANUAL MICROSCOPIC REQUIRED? NO; REVIEW REQ? NO
[2016-12-05 13:17] VITALS: BP 173/93; PULSE 58; O2SAT 96
== END 2016-12-05 13:44 | disposition home or self-care (01) ==
LOC: EDBD 10:34 → C.EDA 10:36
DX: R41.82 Altered mental status, unspecified (principal); M54.5 Low back pain; S70.02XA Contusion of left hip, initial encounter; W19.XXXA Unspecified fall, initial encounter; Y92.129 Unspecified place in nursing home as the place of occurrence of the external cause; G93.40 Encephalopathy, unspecified; Z79.82 Long term (current) use of aspirin; Z79.899 Other long term (current) drug therapy

== ENCOUNTER → 2017-01-12 | Outpatient (CLI) | payer OTHER ==
[~2017-01-12] MED LIST changes: -ATOR10TA82 PO; +ATOR10TA88 PO
[2017-01-12 19:31] LABS: URINE APPEARANCE CLEAR (CLEAR); URINE BILIRUBIN NEG (NEG); URINE COLOR DK YELLOW; URINE NITRITE NEG (NEG); URINE SPECIFIC GRAVITY 1.028 (1.000-1.030); UROBILINOGEN NEG (NEG)
[2017-01-12 19:35] LABS: MANUAL MICROSCOPIC REQUIRED? NO; REVIEW REQ? NO
== END | disposition home or self-care (01) ==
LOC: C.LABSPEC 17:36
PROVIDERS: ATTEND Family Medicine
DX: R30.0 Dysuria (principal)

== ENCOUNTER → 2017-01-18 | Outpatient (CLI) | payer OTHER ==
[~2017-01-18] MED LIST changes: +ATOR10TA82 PO; -ATOR10TA88 PO
[2017-01-18 12:08] LABS: BASO % 0.3 %; BASO ABS # 0.02 K/uL (0-0.2); COMPLETE YES; EOS % 4.4 %; HEMATOCRIT 43.2 % (42-52); LYMPH % 36.8 %; LYMPH ABS # 2.53 K/uL (1.2-3.4); MEAN CELL VOLUME 91.5 fL (80-100); MEAN CORPUSCULAR HEMOGLOBIN 30.9 pg (25-34); MEAN CORPUSCULAR HGB CONC 33.8 g/dl (32-36); MEAN PLATELET VOLUME 10.7 fL (7.4-10.4); MONO % 9.9 %; NEUT % 48.6 %; PLATELET COUNT 212 K/uL (130-400); RED BLOOD COUNT 4.72 M/uL (4.7-6.1); WHITE BLOOD COUNT 6.88 K/uL (4.8-10.8)
[2017-01-18 12:54] LABS: ALT/SGPT 24 U/L (12-78); BLOOD UREA NITROGEN 14 mg/dl (7-18); BUN/CREATININE RATIO 12.5 (10-20); CARBON DIOXIDE 24 mmol/L (21-32); CHLORIDE 108 mmol/L (98-107); GLUCOSE 80 mg/dl (70-99); POTASSIUM 4.2 mmol/L (3.5-5.1); SODIUM 140 mmol/L (136-145)
[2017-01-18 12:59] LABS: CALCIUM 9.4 mg/dl (8.5-10.1)
[2017-01-18 13:05] LABS: ALB/GLOB RATIO 0.9 (0.9-2); ALKALINE PHOSPHATASE 63 U/L (45-117); AST/SGOT 22 U/L (15-37)
== END | disposition home or self-care (01) ==
LOC: C.LABWYN 15:48
PROVIDERS: ATTEND Family Medicine
DX: R41.82 Altered mental status, unspecified (principal)

== ENCOUNTER → 2017-04-20 | Outpatient (CLI) | payer OTHER ==
[~2017-04-20] MED LIST changes: -ATOR10TA82 PO; +ATOR10TA88 PO
[2017-04-20 08:43] LABS: URINE APPEARANCE TURBID (CLEAR); URINE BILIRUBIN NEG (NEG); URINE COLOR DK YELLOW; URINE EPITHELIAL CELL AUTO 0-5 /lpf (0-5); URINE NITRITE NEG (NEG); URINE SPECIFIC GRAVITY 1.028 (1.000-1.030); UROBILINOGEN NEG (NEG)
[2017-04-20 08:44] LABS: MANUAL MICROSCOPIC REQUIRED? NO; REVIEW REQ? NO
== END | disposition home or self-care (01) ==
LOC: C.LABWYN 07:39
PROVIDERS: ATTEND Family Medicine
DX: R41.82 Altered mental status, unspecified (principal); R35.0 Frequency of micturition

== ENCOUNTER → 2017-04-26 | Outpatient (CLI) | payer OTHER ==
[2017-04-26 12:28] LABS: HEMATOCRIT 39.2 % (42-52); MEAN CELL VOLUME 93.3 fL (80-100); MEAN CORPUSCULAR HEMOGLOBIN 30.2 pg (25-34); MEAN CORPUSCULAR HGB CONC 32.4 g/dl (32-36); PLATELET COUNT 179 K/uL (130-400); WHITE BLOOD COUNT 6.18 K/uL (4.8-10.8)
[2017-04-26 13:03] LABS: ALT/SGPT 16 U/L (12-78); AST/SGOT 15 U/L (15-37); BLOOD UREA NITROGEN 20 mg/dl (7-18); BUN/CREATININE RATIO 18.6 (10-20); CALCIUM 8.4 mg/dl (8.5-10.1); CARBON DIOXIDE 24 mmol/L (21-32); CHLORIDE 112 mmol/L (98-107); GLUCOSE 79 mg/dl (70-99); POTASSIUM 3.8 mmol/L (3.5-5.1); SODIUM 141 mmol/L (136-145)
[2017-04-26 13:05] LABS: ALB/GLOB RATIO 0.7 (0.9-2); ALKALINE PHOSPHATASE 62 U/L (45-117)
== END | disposition home or self-care (01) ==
LOC: C.LABWYN 15:19
PROVIDERS: ATTEND Internal Medicine
DX: I25.10 Atherosclerotic heart disease of native coronary artery without angina pectoris (principal); I10 Essential (primary) hypertension; G93.40 Encephalopathy, unspecified; R41.0 Disorientation, unspecified

== ENCOUNTER → 2017-08-02 | Outpatient (CLI) | payer OTHER ==
[~2017-08-02] MED LIST changes: +ATOR10TA82 PO; -ATOR10TA88 PO
[2017-08-02 12:55] LABS: BLOOD UREA NITROGEN 21 mg/dl (7-18); CALCIUM 9.1 mg/dl (8.5-10.1); CARBON DIOXIDE 26 mmol/L (21-32); CHLORIDE 106 mmol/L (98-107); CREATININE 1.28 mg/dl (0.60-1.40); GLUCOSE 84 mg/dl (70-99); POTASSIUM 4.1 mmol/L (3.5-5.1); SODIUM 139 mmol/L (136-145)
== END | disposition home or self-care (01) ==
LOC: C.LABWYN 10:07
PROVIDERS: ATTEND Internal Medicine
DX: E87.6 Hypokalemia (principal)

== ENCOUNTER 2017-10-24 09:48 | Emergency (ER) | payer OTHER ==
[~2017-10-24] VITALS: Ht 172.7 cm; Wt 78.0 kg
[~2017-10-24 09:48] MED LIST changes: -METO25TA3 PO; +METO25TA4 PO; +RANI150T85 PO; -ZNTT/150 PO
[2017-10-24] MEDS ORDERED: SODIUM CHLORIDE 0.9% 1000ML 1,000 ML IV STA (09:54)
[2017-10-24 10:06] VITALS: TEMP 36.6; Ht 172.7 cm; Wt 78.0 kg
[2017-10-24] MEDS ORDERED: ROPI0.25 PO (10:13)
--- NOTE | 2017-10-24 10:31 | DIAGNOSTIC IMAGING REPORT ---
CHEST ONE VIEW PORTABLE HISTORY: 82 years-old Male EVALUATE ALTERED MENTAL STATUS/WEAKNESS acute altered mental status with weakness and lethargy COMPARISON: Chest radiographs 12/05/2016 TECHNIQUE: Portable upright AP view of the chest FINDINGS: Cardiac silhouette is mildly enlarged, unchanged. Atherosclerosis of the aorta. Calcified granuloma the right lung base. There is mild pulmonary vascular congestion with linear subsegmental bibasilar opacities. The chest appear grossly intact. IMPRESSION: 1. Cardiomegaly with mild pulmonary vascular congestion. 2. Subsegmental bibasilar opacities favor atelectasis. The above report was generated using voice recognition software. It may contain grammatical, syntax or spelling errors. Electronically signed by: Michael Gan M.D. 10/24/2017 10:30 AM Dictated Date/Time: 10/24/2017 10:27 AM
[2017-10-24 10:33] LABS: BASO % 0.2 %; BASO ABS # 0.01 K/uL (0-0.2); EOS % 1.7 %; EOS ABS # 0.09 K/uL (0-0.5); HEMATOCRIT 39.8 % (42-52); HEMOGLOBIN 13.4 g/dL (14.0-18.0); IG# 0.01 K/uL (0.00-0.02); LYMPH % 28.6 %; LYMPH ABS # 1.48 K/uL (1.2-3.4); MEAN CELL VOLUME 90.7 fL (80-100); MEAN CORPUSCULAR HEMOGLOBIN 30.5 pg (25-34); MEAN CORPUSCULAR HGB CONC 33.7 g/dl (32-36); MEAN PLATELET VOLUME 10.4 fL (7.4-10.4); MONO % 7.7 %; NEUT % 61.6 %; NEUT ABS # 3.18 K/uL (1.4-6.5); PLATELET COUNT 198 K/uL (130-400); RED CELL DISTRIBUTION WIDTH CV 13.2 % (11.5-14.5); RED CELL DISTRIBUTION WIDTH SD 43.8 fL (36.4-46.3); WHITE BLOOD COUNT 5.17 K/uL (4.8-10.8)
[2017-10-24 10:48] LABS: PTT PATIENT 23.1 SECONDS (21.0-31.0)
[2017-10-24 10:52] LABS: ALBUMIN 3.2 gm/dl (3.4-5.0); ALT/SGPT 19 U/L (12-78); AST/SGOT 16 U/L (15-37); BLOOD UREA NITROGEN 20 mg/dl (7-18); CALCIUM 9.3 mg/dl (8.5-10.1); CARBON DIOXIDE 27 mmol/L (21-32); CREATININE 1.36 mg/dl (0.60-1.40); GLUCOSE 165 mg/dl (70-99); LIPASE 167 U/L (73-393); POTASSIUM 3.9 mmol/L (3.5-5.1); SODIUM 136 mmol/L (136-145)
--- NOTE | 2017-10-24 10:58 | DIAGNOSTIC IMAGING REPORT ---
HEAD WITHOUT CONTRAST (CT) CLINICAL HISTORY: 82 years-old Male with EVALUATE ALTERED MENTAL STATUS/WEAKNESS. Acutely altered mental status TECHNIQUE: Multiple axial CT images of the head were obtained without contrast. A dose lowering technique was utilized adhering to the principles of ALARA. CT DOSE: 537.48 mGy.cm COMPARISON: Head CT 12/05/2016 FINDINGS: No acute intracranial hemorrhage, midline shift, intracranial mass, hydrocephalus, territorial ischemia or abnormal extra-axial collection. Moderate atrophy with ex vacuo ventriculomegaly. Confluent areas of decreased attenuation are present within the subcortical, deep and periventricular white matter of the cerebral hemispheres bilaterally compatible with chronic microvascular ischemic changes. 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 Cerebral vascular calcifications are seen at the level of the skull base. The calvarium is intact. The paranasal sinuses, mastoid air cells, and middle ear cavities are clear. Mild rightward bowing and spurring of the nasal septum. Soft tissues are unremarkable. The orbits are symmetric. IMPRESSION: Chronic changes as above without acute intracranial abnormality. The above report was generated using voice recognition software. It may contain grammatical, syntax or spelling errors. Electronically signed by: Michael Gan M.D. 10/24/2017 10:57 AM Dictated Date/Time: 10/24/2017 10:53 AM
[2017-10-24 11:00] LABS: ALKALINE PHOSPHATASE 64 U/L (45-117); CKMB 1.2 ng/ml (0.5-3.6); TOTAL PROTEIN 7.6 gm/dl (6.4-8.2)
--- NOTE | 2017-10-24 13:03 | EMERGENCY ROOM VISIT NOTE ---
History Report prepared by Malcolm: Mahsa Sow Under the Supervision of: Dr. Pascual Maharaj D.O. 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 The patient is a resident at [facility]. Per EMS, the patient was found to be more tired than usual today and was sent to the ED by ambulance for further evaluation. The patient denies any pain at this time. The HPI is limited secondary to the patient's AMS. 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 Review of Systems ROS is limited secondary to the patient's AMS. Past Medical & Surgical Medical Problems: (1) Encephalopathy (2) Facial laceration (3) Head injury (4) Hypertension Family History Non-pertinent due to advanced age. Social History Smoking Status: Never Smoker Marital Status: Housing Status: prison Occupation Status: retired Current/Historical Medications Scheduled Acetaminophen (Tylenol), 650 MG PO Q6 Aspirin (Aspirin Chewable), 81 MG PO DAILY Atorvastatin (Lipitor), 10 MG PO DAILY Cetirizine Hcl (Qc All Day Allergy), 1 TAB PO HS Finasteride (Proscar), 5 MG PO DAILY Ipratropium [place] (Nasal) (Ipratropium [place]), 2 SPRAYS BLANQUITA QID Isosorbide Mononitrate Ext Rel (Imdur Ext Rel), 30 MG PO DAILY Metoprolol Succinate (Toprol Xl), 25 MG PO DAILY Nitroglycerin (Nitrostat), 0.3 MG UT PRN Ranitidine (Zantac), 150 MG PO BID Ropinirole (Requip), 0.25 MG PO HS Timolol Maleate (Ophth) (Timoptic-Xe 0.5% Oph), 1 DROPS OPL HS Scheduled PRN Diphenhydramine Hcl (Siladryl Allergy), 5-10 ML PO QID PRN for Itching Diphenhydramine-Acetaminophen (Pain Reliever Pm), 1 TAB PO DAILY PRN for Itching Furosemide (Lasix), 20 MG PO DAILY PRN for SWELLING Potassium Chloride (Micro-K Ext Rel), 10 MEQ PO DAILY PRN for SWELLING Allergies Coded Allergies: Pseudoephedrine (Unverified Allergy, Severe, URINARY RETENTION, 10/24/17) Guaifenesin & Derivatives (Verified Allergy, Unknown, inability to urinate , 10/24/17) Sulfa Drugs (Unverified Allergy, Unknown, _, 10/24/17) Latex1 -Allergic Contact Dermititis (Unverified Adverse Reaction, Intermediate, ITCHING/BURNING, 10/24/17) Physical Exam Vital Signs Date Time Temp Pulse Resp B/P (MAP) Pulse Ox O2 Delivery O2 Flow Rate FiO2 10/24/17 13:16 51 16 119/72 98 Room Air 10/24/17 13:02 49 20 134/75 96 Room Air 10/24/17 10:56 47 16 134/75 93 Room Air 10/24/17 10:06 36.6 49 16 135/86 94 Room Air 10/24/17 10:05 50 Physical Exam CONSTITUTIONAL/VITAL SIGNS: Reviewed / noted above. GENERAL: Non-toxic in appearance, generally weak slow to respond but answers questions. INTEGUMENTARY: Warm, dry, and [place]. HEAD: Normocephalic. EYES: without scleral icterus or trauma. ENT/OROPHARYNX: clear and moist. LYMPHADENOPATHY/NECK: Is supple without lymphadenopathy or meningismus. RESPIRATORY: Lungs clear and equal. CARDIOVASCULAR: Regular rate and rhythm. GI/ABDOMEN: Soft and nontender. No organomegaly or pulsatile mass. No rebound or guarding. Normal bowel sounds. EXTREMITIES: Warm and well perfused. BACK: No CVA tenderness. NEUROLOGICAL: Intact without focal deficits. PSYCHIATRIC: normal affect. MUSCULOSKELETAL: Normally developed with good muscle tone. Medical Decision & Procedures ER Provider Diagnostic Interpretation: Radiology results as stated below per my review and radiologist interpretation: HEAD WITHOUT CONTRAST (CT) CLINICAL HISTORY: 82 years-old Male with EVALUATE ALTERED MENTAL STATUS/WEAKNESS. Acutely altered mental status TECHNIQUE: Multiple axial CT images of the head were obtained without contrast. A dose lowering technique was utilized adhering to the principles of ALARA. CT DOSE: 537.48 mGy.cm COMPARISON: Head CT 12/05/2016 FINDINGS: No acute intracranial hemorrhage, midline shift, intracranial mass, hydrocephalus, territorial ischemia or abnormal extra-axial collection. Moderate atrophy with ex vacuo ventriculomegaly. Confluent areas of decreased attenuation are present within the subcortical, deep and periventricular white matter of the cerebral hemispheres bilaterally compatible with chronic microvascular ischemic changes. 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 Cerebral vascular calcifications are seen at the level of the skull base. The calvarium is intact. The paranasal sinuses, mastoid air cells, and middle ear cavities are clear. Mild rightward bowing and spurring of the nasal septum. Soft tissues are unremarkable. The orbits are symmetric. IMPRESSION: Chronic changes as above without acute intracranial abnormality. The above report was generated using voice recognition software. It may contain grammatical, syntax or spelling errors. Electronically signed by: Michael Gan M.D. 10/24/2017 10:57 AM Dictated Date/Time: 10/24/2017 10:53 AM CHEST ONE VIEW PORTABLE HISTORY: 82 years-old Male EVALUATE ALTERED MENTAL STATUS/WEAKNESS acute altered mental status with weakness and lethargy COMPARISON: Chest radiographs 12/05/2016 TECHNIQUE: Portable upright AP view of the chest FINDINGS: Cardiac silhouette is mildly enlarged, unchanged. Atherosclerosis of the aorta. Calcified granuloma the right lung base. There is mild pulmonary vascular congestion with linear subsegmental bibasilar opacities. The chest appear grossly intact. IMPRESSION: 1. Cardiomegaly with mild pulmonary vascular congestion. 2. Subsegmental bibasilar opacities favor atelectasis. The above report was generated using voice recognition software. It may contain grammatical, syntax or spelling errors. Electronically signed by: Michael Gan M.D. 10/24/2017 10:30 AM Dictated Date/Time: 10/24/2017 10:27 AM Laboratory Results 10/24/17 10:10 Red Blood Count 4.39, Mean Corpuscular Volume 90.7, Mean Corpuscular Hemoglobin 30.5, Mean Corpuscular Hemoglobin Concent 33.7, Mean Platelet Volume 10.4, Neutrophils (%) (Auto) 61.6, Lymphocytes (%) (Auto) 28.6, Monocytes (%) (Auto) 7.7, Eosinophils (%) (Auto) 1.7, Basophils (%) (Auto) 0.2, Neutrophils # (Auto) 3.18, Lymphocytes # (Auto) 1.48, Monocytes # (Auto) 0.40, Eosinophils # (Auto) 0.09, Basophils # (Auto) 0.01 10/24/17 10:10 Test 10/24/17 10:10 10/24/17 11:05 White Blood Count 5.17 K/uL (4.8-10.8) Red Blood Count 4.39 M/uL (4.7-6.1) Hemoglobin 13.4 g/dL (14.0-18.0) Hematocrit 39.8 % (42-52) Mean Corpuscular Volume 90.7 fL (80-100) Mean Corpuscular Hemoglobin 30.5 pg (25-34) Mean Corpuscular Hemoglobin Concent 33.7 g/dl (32-36) Platelet Count 198 K/uL (130-400) Mean Platelet Volume 10.4 fL (7.4-10.4) Neutrophils (%) (Auto) 61.6 % Lymphocytes (%) (Auto) 28.6 % Monocytes (%) (Auto) 7.7 % Eosinophils (%) (Auto) 1.7 % Basophils (%) (Auto) 0.2 % Neutrophils # (Auto) 3.18 K/uL (1.4-6.5) Lymphocytes # (Auto) 1.48 K/uL (1.2-3.4) Monocytes # (Auto) 0.40 K/uL (0.11-0.59) Eosinophils # (Auto) 0.09 K/uL (0-0.5) Basophils # (Auto) 0.01 K/uL (0-0.2) RDW Standard Deviation 43.8 fL (36.4-46.3) RDW Coefficient of Variation 13.2 % (11.5-14.5) Immature Granulocyte % (Auto) 0.2 % Immature Granulocyte # (Auto) 0.01 K/uL (0.00-0.02) Prothrombin Time 10.2 SECONDS (9.0-12.0) Prothromb Time International Ratio 1.0 (0.9-1.1) Activated Partial Thromboplast Time 23.1 SECONDS (21.0-31.0) Partial Thromboplastin Ratio 0.9 Anion Gap 6.0 mmol/L (3-11) Est Creatinine Clear Calc Drug Dose 39.8 ml/min Estimated GFR () 55.4 Estimated GFR (Non- 47.8 BUN/Creatinine Ratio 14.6 (10-20) Calcium Level 9.3 mg/dl (8.5-10.1) Magnesium Level 2.3 mg/dl (1.8-2.4) Total Bilirubin 0.5 mg/dl (0.2-1) Direct Bilirubin 0.1 mg/dl (0-0.2) Aspartate Amino Transf (AST/SGOT) 16 U/L (15-37) Alanine Aminotransferase (ALT/SGPT) 19 U/L (12-78) Alkaline Phosphatase 64 U/L (45-117) Total Creatine Kinase 44 U/L (39-308) Creatine Kinase MB 1.2 ng/ml (0.5-3.6) Creatine Kinase MB Ratio 2.7 (0-3.0) Troponin I < 0.015 ng/ml (0-0.045) Total Protein 7.6 gm/dl (6.4-8.2) Albumin 3.2 gm/dl (3.4-5.0) Lipase 167 U/L (73-393) Thyroid Stimulating Hormone (TSH) 4.400 uIu/ml (0.300-4.500) Urine Color YELLOW Urine Appearance CLEAR (CLEAR) Urine pH 5.5 (4.5-7.5) Urine Specific [place] 1.014 (1.000-1.030) Urine Protein NEG (NEG) Urine Glucose (UA) NEG (NEG) Urine Ketones NEG (NEG) Urine Occult Blood NEG (NEG) Urine Nitrite NEG (NEG) Urine Bilirubin NEG (NEG) Urine Urobilinogen NEG (NEG) Urine Leukocyte Esterase NEG (NEG) Urine WBC (Auto) 0 /hpf (0-5) Urine RBC (Auto) 0-4 /hpf (0-4) Urine Hyaline Casts (Auto) 0 /lpf (0-5) Urine Epithelial Cells (Auto) 0-5 /lpf (0-5) Urine Bacteria (Auto) NEG (NEG) Laboratory results as stated above per my review. Medications Administered Medications (Trade) Dose Ordered Sig/Omar Route Start Time Stop Time Status Last Admin Dose Admin Sodium Chloride 1,000 ml @ 250 mls/hr Q4H STAT IV 10/24/17 09:54 10/24/17 13:53 10/24/17 10:16 250 MLS/HR ECG Per My Interpretation Indication: altered mental status Rate (beats per minute): 50 Rhythm: sinus bradycardia Findings: no ectopy, other (no ST elevations) ED Course 0950: Previous medical records were reviewed. The patient was evaluated in room A2. A complete history and physical examination was performed. 0954: NSS 1000 ml @ 250 mls/hr IV 1303: I reassessed the patient at this time. He is feeling better and resting comfortably. I discussed the results and treatment plan with the patient. I answered all pertaining questions that he had. He expressed understanding and verbalized agreement. The patient will be discharged home. Medical Decision Differentials include: Acute coronary syndrome, myocardial infarction, CVA, TIA , anemia, infection, pneumonia, UTI, pyelonephritis, poor nutrition, dehydration , electrolyte disturbance, and hypoglycemia. This is an 82-year-old male who presents to the ED with a chief complaint of lethargy, per the nursing facility where he resides. The patient denies any complaints. He is somewhat of a poor historian but was able to answer basic questions without confusion. The patient's exam reveals some generalized weakness but no focal deficits. A CT scan of the brain was negative for acute disease as well as a chest x-ray. CBC, complete metabolic panel, troponin, TSH and urine did not show abnormality. The patient was told the results of the test. He is felt to be stable for [facility]. Medication Reconcilliation Current Medication List: was personally reviewed by me Blood Pressure Screening Patient's blood pressure: Normal blood pressure Impression Primary Impression: Weakness Scribe Attestation The scribe's documentation has been prepared under my direction and personally reviewed by me in its entirety. I confirm that the note above accurately reflects all work, treatment, procedures, and medical decision making performed by me. Departure Information Dispostion Home / Self[facility]Care [facility] Additional Instructions Follow-up with your doctor for further care and evaluation in 1-2 days. Return to the emergency department for worsening or new symptoms or any concerns. You have been examined and treated today on an emergency basis only. This is not a substitute for, or an effort to provide, complete comprehensive medical care. It is impossible to recognize and treat all injuries or illnesses in a single emergency department visit. It is therefore important that you follow up closely with your doctor. Call as soon as possible for an appointment.
[2017-10-24 16:11] VITALS: BP 142/76; PULSE 47; O2SAT 98
== END 2017-10-24 16:35 | disposition home or self-care (01) ==
LOC: EDBD 09:48 → C.EDA 09:49
DX: R53.1 Weakness (principal); R00.1 Bradycardia, unspecified; G93.40 Encephalopathy, unspecified; I10 Essential (primary) hypertension; Z79.82 Long term (current) use of aspirin; Z88.8 Allergy status to other drugs, medicaments and biological substances; Z88.2 Allergy status to sulfonamides; Z91.040 Latex allergy status

== ENCOUNTER 2017-11-08 06:15 | Inpatient (IN) | payer OTHER ==
[~2017-11-08] VITALS: Ht 175.3 cm; Wt 71.6 kg
[2017-11-08] VITALS (7 sets, daily range): BP systolic 161–182; BP diastolic 81–99; PULSE 55–82; TEMP 36.5–36.8; O2SAT 94–99; Ht 175.3 cm; Wt 71.6 kg
[~2017-11-08 06:15] MED LIST changes: -PRED1SUS17 OPR; +ROPI0.25 PO
[2017-11-08] MEDS ORDERED: DiphenhydrAMINE HCL 50 MG/ML VIAL IV STA (06:30)
[2017-11-08] MEDS ORDERED: EpINEphrine INJ 1MG/ML AMP 1 MG/ML AMP IM STA (06:30)
[2017-11-08] MEDS ORDERED: DEXAMETHASONE INJ 6 MG in SYRINGE 0 ML IV STA (06:30)
[2017-11-08] MEDS ORDERED: RANITIDINE HCL 50 MG/100 ML D5W IV STA (06:30)
[2017-11-08] MEDS ORDERED: SODIUM CHLORIDE 0.9% 1000ML 250 ML IV STA (06:32)
[2017-11-08] MEDS ORDERED: LEVALBUTEROL 1.25MG/0.5ML NEB INH STA (06:32)
[2017-11-08] MEDS ORDERED: IPRATROPIUM BROMIDE NEB SOLN 0.02% 2.5 ML VIAL INH STA (06:32)
[2017-11-08] MEDS ORDERED: METO50TA8 PO (06:41)
[2017-11-08 06:42] LABS: BASO % 0.2 %; BASO ABS # 0.02 K/uL (0-0.2); EOS % 2.1 %; EOS ABS # 0.19 K/uL (0-0.5); HEMATOCRIT 39.5 % (42-52); HEMOGLOBIN 14.3 g/dL (14.0-18.0); IG# 0.02 K/uL (0.00-0.02); LYMPH % 22.4 %; MEAN CELL VOLUME 89.2 fL (80-100); MEAN CORPUSCULAR HEMOGLOBIN 32.3 pg (25-34); MEAN CORPUSCULAR HGB CONC 36.2 g/dl (32-36); MEAN PLATELET VOLUME 10.6 fL (7.4-10.4); MONO % 11.2 %; NEUT % 63.9 %; NEUT ABS # 5.69 K/uL (1.4-6.5); PLATELET COUNT 187 K/uL (130-400); RED CELL DISTRIBUTION WIDTH CV 13.2 % (11.5-14.5); RED CELL DISTRIBUTION WIDTH SD 43.3 fL (36.4-46.3); WHITE BLOOD COUNT 8.92 K/uL (4.8-10.8)
[2017-11-08] MEDS ORDERED: DEXAMETHASONE **PF** INJ 10 MG/ML VIAL ONE (06:44)
[2017-11-08] MEDS ORDERED: CALC1CHW46 PO (06:49)
[2017-11-08 06:52] LABS: PTT PATIENT 26.8 SECONDS (21.0-31.0)
--- NOTE | 2017-11-08 06:52 | DIAGNOSTIC IMAGING REPORT ---
CHEST ONE VIEW PORTABLE CLINICAL HISTORY: 82 years-old Male presenting with EVALUATE RESPIRATORY DISTRESS.DYSPNEA. TECHNIQUE: Portable upright AP view of the chest was obtained. COMPARISON: 10/24/2017. FINDINGS: Atherosclerosis of aortic arch. Cardiac silhouette enlarged. Mildly low lung volumes, unchanged. Minimal basilar opacities, increased from prior. No large effusion or pneumothorax. Deformity of the proximal left humeral metaphysis likely posttraumatic. Upper abdomen normal. IMPRESSION: 1. Cardiomegaly. Bibasilar opacities increased from prior indicate developing pulmonary edema, bibasilar atelectasis, or aspiration. Electronically signed by: Demarcus Aguilar M.D. 11/08/2017 6:51 AM Dictated Date/Time: 11/08/2017 6:49 AM
[2017-11-08 06:53] LABS: ALBUMIN 3.1 gm/dl (3.4-5.0); ALT/SGPT 19 U/L (12-78); AST/SGOT 18 U/L (15-37); BLOOD UREA NITROGEN 12 mg/dl (7-18); CALCIUM 8.9 mg/dl (8.5-10.1); CARBON DIOXIDE 22 mmol/L (21-32); CREATININE 1.16 mg/dl (0.60-1.40); GLUCOSE 99 mg/dl (70-99); POTASSIUM 3.9 mmol/L (3.5-5.1); SODIUM 134 mmol/L (136-145)
[2017-11-08 07:02] LABS: ALKALINE PHOSPHATASE 64 U/L (45-117); TOTAL PROTEIN 7.6 gm/dl (6.4-8.2)
[2017-11-08] MEDS ORDERED: HydrALAZINE HCL 20 MG/ML VIAL IV STA (07:27)
--- NOTE | 2017-11-08 07:30 | EMERGENCY ROOM VISIT NOTE ---
History Report prepared by Malcolm: Jason Carbajal Under the Supervision of: Dr. Michael Navarrete M.D. First contact with patient: 06:26 Chief Complaint: RESPIRATORY PROBLEMS Stated Complaint: BREATHING DIFFICULTY History of Present Illness The patient is a 82 year old male who presents to the Emergency Room by EMS with complaints of constant shortness of breath beginning shortly prior to arrival. The patient is a resident at the [facility]. He was checked on this morning by staff and was found to be having difficulty breathing. EMS reports that the patient was complaining of the sensation of swelling to his throat. They deny any known new foods or medicines. Nursing staff notes that the inside of the patient's mouth may be swollen. They note that the patient's speech appears "garbled" which is abnormal for him. They state that the patient's oxygen saturation on room air was 94% en route. Nursing staff denies any known fevers. HPI limited secondary to dementia. Source of History: EMS, nursing staff History Limited By: dementia Onset: Shortly prior to arrival Quality: other (shortness of breath) Timing: constant Associated Symptoms: No fevers Review of Systems ROS limited secondary to dementia. Past Medical & Surgical Medical Problems: (1) Altered mental status (2) Angina pectoris (3) CAD (coronary artery disease) (4) Contusion of left hip (5) Dementia (6) Encephalopathy (7) Facial laceration (8) Fall (9) Frequent falls (10) Glaucoma (11) Head injury (12) Hyperlipemia (13) Hypertension (14) Low back pain (15) SIMÓN (obstructive sleep apnea) (16) PMR (polymyalgia rheumatica) Surgical Problems: (1) History of arthroplasty of right hip (2) Hx of cardiac cath (3) Hx of cataract removal with insertion of prosthetic lens (4) Hx of inguinal hernia repair Family History Unobtainable secondary to dementia. Social History Smoking Status: Never Smoker Marital Status: Housing Status: longterm Occupation Status: retired Current/Historical Medications Scheduled Aspirin (Aspirin Chewable), 81 MG PO DAILY Atorvastatin (Lipitor), 10 MG PO DAILY Cetirizine Hcl (Qc All Day Allergy), 1 TAB PO HS Finasteride (Proscar), 5 MG PO DAILY Isosorbide Mononitrate Ext Rel (Imdur Ext Rel), 30 MG PO DAILY Metoprolol Succ (Toprol Xl) (Toprol-Xl), 50 MG PO DAILY Ranitidine (Zantac), 150 MG PO BID Ropinirole (Requip), 0.25 MG PO HS Timolol Maleate (Ophth) (Timoptic-Xe 0.5% Oph), 1 DROPS OPL HS Scheduled PRN Acetaminophen (Tylenol), 650 MG PO Q6 PRN for Pain or Fever Calcium Carbonate-Mag Hydrox (Antacid), 500 MG PO UD PRN for Dyspepsia Nitroglycerin (Nitrostat), 0.3 MG UT UD PRN for Chest Pain Allergies Coded Allergies: Pseudoephedrine (Unverified Allergy, Severe, URINARY RETENTION, 10/24/17) Guaifenesin & Derivatives (Verified Allergy, Unknown, inability to urinate , 11/08/17) Sulfa Drugs (Unverified Allergy, Unknown, _, 11/08/17) Latex1 -Allergic Contact Dermititis (Unverified Adverse Reaction, Intermediate, ITCHING/BURNING, 10/24/17) Physical Exam Vital Signs Date Time Temp Pulse Resp B/P (MAP) Pulse Ox O2 Delivery O2 Flow Rate FiO2 11/08/17 08:39 61 24 171/67 92 Room Air 11/08/17 07:20 66 24 174/101 96 Room Air 11/08/17 07:03 58 16 95 Room Air 11/08/17 06:31 51 11/08/17 06:25 95 Room Air 11/08/17 06:23 37.0 55 24 182/129 94 Room Air Physical Exam GENERAL: Patient is in no acute distress. HEENT: Some edema noted to lower lip and possibly tongue. No uvular edema. Mucous membranes markedly dry. No facial cellulitis. No obvious facial trauma. NECK: No stridor, no adenopathy, no meningismus, trachea is midline. LUNGS: Clear to auscultation bilaterally, no wheeze, no rhonchi, breath sounds equal. HEART: Bradycardic with a regular rhythm. No murmurs. ABDOMEN: Soft, nontender, bowel sounds positive, no hernias, no peritonitis. EXTREMITIES: No cyanosis or edema, full range of motion of all the joints without pain or difficulty, no signs for acute trauma. NEUROLOGIC: Somnolent, arouses to loud voice or tactile stimulation. No obvious focal motor deficits. Somewhat garbled speech. Patient seems confused. SKIN: No rash, no jaundice, no diaphoresis. Medical Decision & Procedures ER Provider Diagnostic Interpretation: Radiology results as stated below per my review and radiologist interpretation: CT OF THE HEAD WITHOUT CONTRAST FINDINGS: No acute intracranial hemorrhage, midline shift or mass effect is present. Ventricular system is stable. Basilar cisterns are patent. There are no extra axial collections. Extensive white matter hypodensities are unchanged and suggest small vessel disease. 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 There are no findings to suggest acute dural sinus thrombosis or acute territorial infarct. The appearance of the brain is unchanged. There are no significant calvarial abnormalities. Visualized portions of the sinuses and mastoid air cells are clear. IMPRESSION: No acute intracranial findings. No change since previous exam. Electronically signed by: Isaias Rees M.D. 11/08/2017 7:57 AM CHEST ONE VIEW PORTABLE FINDINGS: Atherosclerosis of aortic arch. Cardiac silhouette enlarged. Mildly low lung volumes, unchanged. Minimal basilar opacities, increased from prior. No large effusion or pneumothorax. Deformity of the proximal left humeral metaphysis likely posttraumatic. Upper abdomen normal. IMPRESSION: 1. Cardiomegaly. Bibasilar opacities increased from prior indicate developing pulmonary edema, bibasilar atelectasis, or aspiration. Electronically signed by: Demarcus Aguilar M.D. 11/08/2017 6:51 AM Laboratory Results 11/08/17 06:26 Red Blood Count 4.43, Mean Corpuscular Volume 89.2, Mean Corpuscular Hemoglobin 32.3, Mean Corpuscular Hemoglobin Concent 36.2, Mean Platelet Volume 10.6, Neutrophils (%) (Auto) 63.9, Lymphocytes (%) (Auto) 22.4, Monocytes (%) (Auto) 11.2, Eosinophils (%) (Auto) 2.1, Basophils (%) (Auto) 0.2, Neutrophils # (Auto ) 5.69, Lymphocytes # (Auto) 2.00, Monocytes # (Auto) 1.00, Eosinophils # (Auto ) 0.19, Basophils # (Auto) 0.02 11/08/17 06:26 Test 11/08/17 06:26 11/08/17 06:45 11/08/17 08:05 White Blood Count 8.92 K/uL (4.8-10.8) Red Blood Count 4.43 M/uL (4.7-6.1) Hemoglobin 14.3 g/dL (14.0-18.0) Hematocrit 39.5 % (42-52) Mean Corpuscular Volume 89.2 fL (80-100) Mean Corpuscular Hemoglobin 32.3 pg (25-34) Mean Corpuscular Hemoglobin Concent 36.2 g/dl (32-36) Platelet Count 187 K/uL (130-400) Mean Platelet Volume 10.6 fL (7.4-10.4) Neutrophils (%) (Auto) 63.9 % Lymphocytes (%) (Auto) 22.4 % Monocytes (%) (Auto) 11.2 % Eosinophils (%) (Auto) 2.1 % Basophils (%) (Auto) 0.2 % Neutrophils # (Auto) 5.69 K/uL (1.4-6.5) Lymphocytes # (Auto) 2.00 K/uL (1.2-3.4) Monocytes # (Auto) 1.00 K/uL (0.11-0.59) Eosinophils # (Auto) 0.19 K/uL (0-0.5) Basophils # (Auto) 0.02 K/uL (0-0.2) RDW Standard Deviation 43.3 fL (36.4-46.3) RDW Coefficient of Variation 13.2 % (11.5-14.5) Immature Granulocyte % (Auto) 0.2 % Immature Granulocyte # (Auto) 0.02 K/uL (0.00-0.02) Prothrombin Time 10.3 SECONDS (9.0-12.0) Prothromb Time International Ratio 1.0 (0.9-1.1) Activated Partial Thromboplast Time 26.8 SECONDS (21.0-31.0) Partial Thromboplastin Ratio 1.0 Anion Gap 7.0 mmol/L (3-11) Est Creatinine Clear Calc Drug Dose 48.3 ml/min Estimated GFR () 67.1 Estimated GFR (Non- 57.9 BUN/Creatinine Ratio 10.6 (10-20) Calcium Level 8.9 mg/dl (8.5-10.1) Magnesium Level 2.0 mg/dl (1.8-2.4) Total Bilirubin 1.0 mg/dl (0.2-1) Aspartate Amino Transf (AST/SGOT) 18 U/L (15-37) Alanine Aminotransferase (ALT/SGPT) 19 U/L (12-78) Alkaline Phosphatase 64 U/L (45-117) Troponin I < 0.015 ng/ml (0-0.045) Pro-B-Type Natriuretic Peptide 4996 pg/ml (0-1800) Total Protein 7.6 gm/dl (6.4-8.2) Albumin 3.1 gm/dl (3.4-5.0) Globulin 4.5 gm/dl (2.5-4.0) Albumin/Globulin Ratio 0.7 (0.9-2) Thyroid Stimulating Hormone (TSH) 2.610 uIu/ml (0.300-4.500) Ammonia 27.0 umol/L (11-32) Venous Blood pH 7.40 (7.36-7.41) Venous Blood Partial Pressure CO2 41 mmHg (38.0-50.0) Venous Blood Partial Pressure O2 34 mmHg Venous Blood HCO3 25 mmol/L Venous Blood Oxygen Saturation 63.0 % Venous Blood Base Excess -0.1 mEq/L Laboratory results reviewed by me. Medications Administered Medications (Trade) Dose Ordered Sig/Omar Route Start Time Stop Time Status Last Admin Dose Admin Epinephrine HCl (EpINEphrine INJ 1MG/ML AMP/VIAL) 0.2 mg NOW STAT IM 11/08/17 06:30 11/08/17 06:33 DC 11/08/17 06:36 0.2 MG Ranitidine HCl (zANTac IV) 50 mg NOW STAT IV 11/08/17 06:30 11/08/17 06:33 DC 11/08/17 06:47 50 MG Diphenhydramine HCl (Benadryl Inj) 25 mg NOW STAT IV 11/08/17 06:30 11/08/17 06:33 DC 11/08/17 06:35 25 MG Sodium Chloride 250 ml @ 999 mls/hr Q16M STAT IV 11/08/17 06:32 11/08/17 06:47 DC 11/08/17 06:32 999 MLS/HR Levalbuterol (Xopenex 1.25MG/ 0.5ML Neb) 1.25 mg NOW STAT INH 11/08/17 06:32 11/08/17 06:36 DC 11/08/17 07:02 1.25 MG Ipratropium [place] (Atrovent 0.02% 0.5MG/2.5ML Neb) 0.5 mg NOW STAT INH 11/08/17 06:32 11/08/17 06:36 DC 11/08/17 07:02 0.5 MG Dexamethasone Sodium Phosphate (Dexamethasone Inj Pf) 10 mg STK-MED ONCE .ROUTE 11/08/17 06:44 11/08/17 06:45 DC 11/08/17 06:47 6 MG Hydralazine HCl (HydrALAZINE INJ) 10 mg NOW STAT IV 11/08/17 07:27 11/08/17 07:28 DC 11/08/17 07:59 10 MG ECG Per My Interpretation Indication: SOB/dyspnea Rate (beats per minute): 52 Rhythm: sinus bradycardia Findings: other (LVH. No ST elevation. No PVCs. ) ED Course 0625: The patient was evaluated in room B11B. A complete history and physical exam was performed. 0630: Ordered Dexamethasone Sodium Phosphate 6 mg/Syringe 1.5 mL @ 1 mL/min IV, Benadryl Inj 25 mg IV, Zantac 50 mg IV, Epinephrine Inj 1 mg/mL amp 0.2 mg IM. 0632: Ordered Atrovent 0.02% 0.5 mg/2.5 mL Neb 0.5 mg INH, Xopenex 1.25 mg/0.5 mL Neb 1.25 mg INH, Sodium Chloride 250 ml @ 999 mls/hr IV. 0727: Ordered Hydralazine Inj 10 mg IV. 0806: Upon reexamination the patient is resting comfortably. I discussed results and treatment plan with the patient. He verbalizes agreement and understanding. I [facility] with Melania [facility] We discussed the patient's results and findings. The patient will be evaluated by [facility] for further management. Medical Decision The patient is a 82 year old male who presents to the ED with complaints of shortness of breath. Differential diagnoses considered include allergic reaction, angioedema, thrush, uvular edema, anaphylaxis, pneumonia, bronchitis, CHF, electrolyte imbalance, infection and stroke. There is no leukocytosis or concerning anemia. No significant electrolyte abnormality, kidney failure or hepatitis. Ammonia level is not elevated. Patient appears to be in a euthyroid state. Urinalysis does not show infection. Brain CT shows no acute bleed or mass-effect. EKG shows a sinus rhythm, no acute ischemia. Cardiac enzyme testing 1 is not consistent with acute cardiac injury. VBG does not show evidence for acidosis or hypoxia. Chest film shows some congestion in the lungs, possibly atelectasis versus pneumonia versus CHF. BNP is elevated. On exam, the patient appears clinically dehydrated. He may have had some subtle lower lip edema/swelling but there was no uvular edema, no stridor. The patient received IM epinephrine, IV Zantac, IV Benadryl and IV Decadron. He received a small amount of IV saline. He was given a Xopenex Atrovent neb. The patient really had no change in his status with this medication. The patient is somnolent. He is arousable to tactile stimulation or loud voice. He definitely appears quite groggy. The cause for the mental status change is unclear. Apparently, he has had similar issues in the past although his mental status decline has not been as severe. For now, I do think a hospital stay and admission/observation is warranted. I did speak with case management. The case was discussed with the on-call hospitalist. Of note, the patient was given a dose of IV hydralazine as he was persistently hypertensive in the ER-this medication did help control the blood pressure. Medication Reconcilliation Current Medication List: was personally reviewed by me Blood Pressure Screening Patient's blood pressure: Elevated blood pressure Blood pressure disposition: Referred to PCP Consults Time Called: 811 Consulting Physician: Melania Adames Hospitalist Returned Call: 08 Discussed the patient's case. The patient will be evaluated for further management. Impression Primary Impression: Change in mental status Additional Impression: HTN (hypertension) Scribe Attestation The scribe's documentation has been prepared under my direction and personally reviewed by me in its entirety. I confirm that the note above accurately reflects all work, treatment, procedures, and medical decision making performed by me. Departure Information Dispostion Being Evaluated By Hospitalist Referrals ANDREA CHRISTOPHER (PCP) Patient Instructions My [facility] Problem Qualifiers
--- NOTE | 2017-11-08 07:59 | DIAGNOSTIC IMAGING REPORT ---
CT OF THE HEAD WITHOUT CONTRAST CLINICAL HISTORY: Mental status change. COMPARISON STUDY: Head CT October 24, 2017. CT DOSE: 1642.01 mGycm TECHNIQUE: Helical axial images of the head were obtained without IV contrast. Automated exposure control was utilized for the study. A dose lowering technique was utilized adhering to the principles of ALARA. FINDINGS: No acute intracranial hemorrhage, midline shift or mass effect is present. Ventricular system is stable. Basilar cisterns are patent. There are no extra axial collections. Extensive white matter hypodensities are unchanged and suggest small vessel disease. 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 There are no findings to suggest acute dural sinus thrombosis or acute territorial infarct. The appearance of the brain is unchanged. There are no significant calvarial abnormalities. Visualized portions of the sinuses and mastoid air cells are clear. IMPRESSION: No acute intracranial findings. No change since previous exam. Electronically signed by: Isaias Rees M.D. 11/08/2017 7:57 AM Dictated Date/Time: 11/08/2017 7:53 AM
[2017-11-08] MEDS ORDERED: ONDANSETRON INJ 2 MG/ML 2 ML VIAL IV PRN (09:30)
[2017-11-08] MEDS ORDERED: ACETAMINOPHEN 325 MG TAB PO PRN (09:30)
[2017-11-08] MEDS ORDERED: NITROGLYCERIN 0.4 MG SL PER TAB CHARGE SL PRN (09:30)
[2017-11-08] MEDS ORDERED: SODIUM CHLORIDE 0.9% 1000ML 1,000 ML IV SCH (09:45)
[2017-11-08] MEDS ORDERED: PIPERACILL/TAZOBAC CONSULT ACTIVE PRN (09:48)
[2017-11-08] MEDS ORDERED: PIPERACILLIN/TAZOBACTAM 4.5 GM/100ML D5W IV STA (10:02)
--- NOTE | 2017-11-08 12:29 | History and Physical ---
History & Physical Date & Time of Service: Nov 08, 2017 at 09:52 Chief Complaint: Breathing Difficulty Primary Care Physician: Dave Faye History of Present Illness Source: clinic records, hospital records, [facility] Pt is 82 y/o M with PMH dementia, HTN, hyperlipidemia, PMR, depression, CAD treated medically, angina, SIMÓN on CPAP, glaucoma presented to ER from [facility] with 3 reports of altered mental status. History unable to be obtained from patient secondary to altered mental status. Staff report checked on patient this morning and he was noted to have increased altered mental status and appeared to have difficulty breathing, and staff thought patient appeared to have swelling of lip and possible throat, and patient reported swelling sensation of throat. EMS was called and patient was transported to ER. Was able to speak with staff at [facility] who report the patient has altered mental status intermittently. Reports will have a day or 2 where he has severe altered mental status and then returns to baseline. Staff report a couple of days ago patient appeared very pale by sitting up in recliner and initially "thought patient was " as patient appeared to not be breathing. Staff reports patient uses CPAP at night and did have on last night. Staff also report that patient sleeps for sometimes 24 hours at a time and spends most of his time in a recliner during the day sleeping with noted very loud snoring and apneic episodes. Staff denies any recent or known fevers, cough, rashes, vomiting, diarrhea. Staff unaware of any choking. Staff report patient has had elevated blood pressures 180s/low 100s. His metoprolol was increased from 25 mg daily to 50 mg daily on 10/31/2017 secondary to elevated BP readings. Denies any other changes in medications, foods, products. Patient resides at [facility] with his . In ER reported that patient was somnolent however aroused with tactile stimulation. Patient was given Decadron IV, Benadryl 25 mg IV, Zantac 50 mg IV , epi IM, Xopenex neb, hydralazine 10 mg, 250 mL NSS bolus for possible anaphylaxis with the reported swelling of lip, however did not notice any uvula edema or stridor. Since patient with increased somnolence and loud snoring. Patient afebrile, negative troponin. CT head: No acute findings. Pending UA. CXR: Cardiomegaly, increased bibasilar opacities. Pt has POLST: DNR, comfort measures only. antibiotics: determine use or limitation of antibiotics when infection occurs, with comfort as goal. no hydration and artificial nutrition by tube. Past Medical/Surgical History Medical Problems: (1) Altered mental status Status: Resolved (2) Angina pectoris Status: Chronic (3) CAD (coronary artery disease) Status: Chronic (4) Contusion of left hip Status: Resolved (5) Dementia Status: Chronic (6) Encephalopathy Status: Chronic (7) Facial laceration Status: Resolved (8) Fall Status: Resolved (9) Frequent falls Status: Resolved (10) Glaucoma Status: Chronic (11) Head injury Status: Resolved (12) Hyperlipemia Status: Chronic (13) Hypertension Status: Chronic (14) Low back pain Status: Resolved (15) SIMÓN (obstructive sleep apnea) Status: Chronic (16) PMR (polymyalgia rheumatica) Status: Chronic Surgical Problems: (1) History of arthroplasty of right hip Status: Resolved (2) Hx of cardiac cath Status: Resolved (3) Hx of cataract removal with insertion of prosthetic lens Status: Resolved (4) Hx of inguinal hernia repair Status: Resolved Family History FH: CAD (coronary artery disease) FH: cancer Hypertension FH obtained from pt records Social History Smoking Status: Never Smoker Smokeless Tobacco Use: No Alcohol Use: none Drug Use: none Marital Status: Housing status: assisted living, other Occupational Status: retired Immunizations History of Influenza Vaccine: Yes History of Tetanus Vaccine?: Unknown History of Pneumococcal: Yes History of Hepatitis B Vaccine: No Allergies Coded Allergies: Pseudoephedrine (Unverified Allergy, Severe, URINARY RETENTION, 10/24/17) Guaifenesin & Derivatives (Verified Allergy, Unknown, inability to urinate , 11/08/17) Sulfa Drugs (Unverified Allergy, Unknown, _, 11/08/17) Latex1 -Allergic Contact Dermititis (Unverified Adverse Reaction, Intermediate, ITCHING/BURNING, 10/24/17) Home Medications Scheduled Aspirin (Aspirin Chewable), 81 MG PO DAILY Atorvastatin (Lipitor), 10 MG PO DAILY Cetirizine Hcl (Qc All Day Allergy), 1 TAB PO HS Finasteride (Proscar), 5 MG PO DAILY Isosorbide Mononitrate Ext Rel (Imdur Ext Rel), 30 MG PO DAILY Metoprolol Succ (Toprol Xl) (Toprol-Xl), 50 MG PO DAILY Ranitidine (Zantac), 150 MG PO BID Ropinirole (Requip), 0.25 MG PO HS Timolol Maleate (Ophth) (Timoptic-Xe 0.5% Oph), 1 DROPS OPL HS Scheduled PRN Acetaminophen (Tylenol), 650 MG PO Q6 PRN for Pain or Fever Calcium Carbonate-Mag Hydrox (Antacid), 500 MG PO UD PRN for Dyspepsia Nitroglycerin (Nitrostat), 0.3 MG UT UD PRN for Chest Pain Review of Systems Unable to be further obtained secondary to altered mental status Physical Exam Vital Signs Date Time Temp Pulse Resp B/P (MAP) Pulse Ox O2 Delivery O2 Flow Rate FiO2 11/08/17 08:39 61 24 171/67 92 Room Air 11/08/17 07:20 66 24 174/101 96 Room Air 11/08/17 07:03 58 16 95 Room Air 11/08/17 06:31 51 11/08/17 06:25 95 Room Air 11/08/17 06:23 37.0 55 24 182/129 94 Room Air General Appearance: + pertinent finding (somnolent, loud snoring, opens eyes with sternal rub) Head: normocephalic, atraumatic Eyes: PERRL, sclerae normal ENT: + pertinent finding (mucous membranes dry, tongue dry, does not appear enlarged, +dried mucous to palate, no uvula edema, possible slight edema lower lip without erythema) Neck: supple, no JVD, trachea midline Respiratory/Chest: lungs clear, normal breath sounds, no respiratory distress Cardiovascular: no murmur, normal peripheral pulses, + bradycardia Abdomen/GI: normal bowel sounds, soft, + pertinent finding (no apparent tenderness to palpation, pt without wincing, does not awake with palpation) Extremities/Musculoskelatal: no calf tenderness, normal capillary refill, no pedal edema Neurologic/Psych: + pertinent finding (somnolent, loud snoring, opens eyes with sternal rub) Skin: normal color, warm/dry Diagnostics Laboratory Results Results Past 24 Hours Test 11/08/17 06:26 11/08/17 06:45 11/08/17 08:05 11/08/17 09:35 Range/Units White Blood Count 8.92 4.8-10.8 K/uL Red Blood Count 4.43 4.7-6.1 M/uL Hemoglobin 14.3 14.0-18.0 g/dL Hematocrit 39.5 42-52 % Mean Corpuscular Volume 89.2 80-100 fL Mean Corpuscular Hemoglobin 32.3 25-34 pg Mean Corpuscular Hemoglobin Concent 36.2 32-36 g/dl Platelet Count 187 130-400 K/uL Mean Platelet Volume 10.6 7.4-10.4 fL Neutrophils (%) (Auto) 63.9 % Lymphocytes (%) (Auto) 22.4 % Monocytes (%) (Auto) 11.2 % Eosinophils (%) (Auto) 2.1 % Basophils (%) (Auto) 0.2 % Neutrophils # (Auto) 5.69 1.4-6.5 K/uL Lymphocytes # (Auto) 2.00 1.2-3.4 K/uL Monocytes # (Auto) 1.00 0.11-0.59 K/uL Eosinophils # (Auto) 0.19 0-0.5 K/uL Basophils # (Auto) 0.02 0-0.2 K/uL RDW Standard Deviation 43.3 36.4-46.3 fL RDW Coefficient of Variation 13.2 11.5-14.5 % Immature Granulocyte % (Auto) 0.2 % Immature Granulocyte # (Auto) 0.02 0.00-0.02 K/uL Prothrombin Time 10.3 9.0-12.0 SECONDS Prothromb Time International Ratio 1.0 0.9-1.1 Activated Partial Thromboplast Time 26.8 21.0-31.0 SECONDS Partial Thromboplastin Ratio 1.0 Sodium Level 134 136-145 mmol/L Potassium Level 3.9 3.5-5.1 mmol/L Chloride Level 105 98-107 mmol/L Carbon Dioxide Level 22 21-32 mmol/L Anion Gap 7.0 3-11 mmol/L Blood Urea Nitrogen 12 7-18 mg/dl Creatinine 1.16 0.60-1.40 mg/dl Est Creatinine Clear Calc Drug Dose 48.3 ml/min Estimated GFR () 67.1 Estimated GFR (Non- 57.9 BUN/Creatinine Ratio 10.6 10-20 Random Glucose 99 70-99 mg/dl Calcium Level 8.9 8.5-10.1 mg/dl Magnesium Level 2.0 1.8-2.4 mg/dl Total Bilirubin 1.0 0.2-1 mg/dl Aspartate Amino Transf (AST/SGOT) 18 15-37 U/L Alanine Aminotransferase (ALT/SGPT) 19 12-78 U/L Alkaline Phosphatase 64 45-117 U/L Troponin I < 0.015 0-0.045 ng/ml Pro-B-Type Natriuretic Peptide 4996 0-1800 pg/ml Total Protein 7.6 6.4-8.2 gm/dl Albumin 3.1 3.4-5.0 gm/dl Globulin 4.5 2.5-4.0 gm/dl Albumin/Globulin Ratio 0.7 0.9-2 Thyroid Stimulating Hormone (TSH) 2.610 0.300-4.500 uIu/ml Ammonia 27.0 11-32 umol/L Venous Blood pH 7.40 7.36-7.41 Venous Blood Partial Pressure CO2 41 38.0-50.0 mmHg Venous Blood Partial Pressure O2 34 mmHg Venous Blood HCO3 25 mmol/L Venous Blood Oxygen Saturation 63.0 % Venous Blood Base Excess -0.1 mEq/L Urine Color YELLOW Urine Appearance CLEAR CLEAR Urine pH 8.5 4.5-7.5 Urine Specific [place] 1.004 1.000-1.030 Urine Protein NEG NEG Urine Glucose (UA) NEG NEG Urine Ketones NEG NEG Urine Occult Blood TRACE NEG Urine Nitrite NEG NEG Urine Bilirubin NEG NEG Urine Urobilinogen NEG NEG Urine Leukocyte Esterase TRACE NEG Urine WBC (Auto) 1-5 0-5 /hpf Urine RBC (Auto) 0-4 0-4 /hpf Urine Hyaline Casts (Auto) 0 0-5 /lpf Urine Epithelial Cells (Auto) 0-5 0-5 /lpf Urine Bacteria (Auto) NEG NEG Diagnostic Radiology HEAD CT: IMPRESSION: No acute intracranial findings. No change since previous exam. CXR: IMPRESSION: 1. Cardiomegaly. Bibasilar opacities increased from prior indicate developing pulmonary edema, bibasilar atelectasis, or aspiration. EKG EKG: poor tracing, junctional rhythm, no ST elevation noted Impression Assessment and Plan ALTERED MENTAL STATUS [facility] staff report pt with intermittent increased altered mental status and non-responsiveness that can last approx 24 hours and reports pt been sleeping for most of day. Today noticed increased altered mental status again. Afebrile, BP: 171/67, P: 55, R: 16-24, 94% RA. No leukocytosis. Pt with increased somnolence in ER, suspect med side effects. -U/A pending -gentle IVF -aspiration precautions, holding po meds and food at this time until pt more awake and alert -Zosyn empiric treatment at this time -repeat cbc, bmp in am DIFFICULTY BREATHING [facility] staff report noted trouble breathing this am. Staff report notice frequent episodes of apnea during the day when pt sleeping. CXR: cardiomegaly, increased bibasilar opacities. no witnessed choking. Pt does not appear volume overloaded at this time, and clinically appears dry -zosyn at this time for possible pneumonia -supplemental oxygen per protocol POSSIBLE LIP EDEMA Staff reported noticing lip edema and possible tongue edema this morning. pt was wearing CPAP mask last night. No new meds/foods/products. Pt given Decadron , Benadryl 25 mg IV, Zantac 50 mg IV, epi IM, Xopenex neb, hydralazine 10 mg in ER for possible angioedema. Pt with increased somnolence, suspect med side effects. -at this time continue to monitor -mouth care as pt with very dry mouth HYPONATREMIA Na: 134 -gentle IVF -repeat bmp in am HX CAD negative troponin -continue statin, ASA, imdur when pt can tolerate po HTN -hydralazine prn SBP>180 -would reduce oral metoprolol back to 25mg daily from recently increased 50mg daily with pt's P in 50's HYPERLIPIDEMIA -continue statin when pt able to tolerate po SIMÓN -continue CPAP per home settings GERD -continue H2 iwona DVT Prophylaxis -heparin SQ Disposition admit tele DNR/DNI per POLST Follows with Dr Yang for routine care Pt was seen with Dr Sher. See addendum ADDENDUM: Saw/examined the patient in room 257 He presented from [facility] due to altered mental status daughter at bedside. when he presented to the ER - lower lip swelling was noted by ER doc - given Benadryl, [id number], steroids ER nurse noted patient to have significant apneic periods - CPAP ordered ( patient uses this nocturnally at [facility]) Delirium on Dementia vs. Metabolic Encephalopathy secondary to PNA * Head CT - negative * likely secondary to dementia, and worsening infection * initially given IVFs, but due to worsening shortness of breath, stop IVFs and given IV Lasix Possible Pneumonia? * Zosyn for broad spectrum for the next 1-2 days * continue CPAP nocturnally and while sleeping Daughter - aware of poor prognosis DNR/DNI if no improvement in 1-2 days, will consider palliative care Resuscitation Status DNR/DNI VTE Prophylaxis Will order VTE Prophylaxis: Yes Additional Copies To Ronald Yang M.D.
[2017-11-08] MEDS ORDERED: FUROSEMIDE INJ 20 MG in SYRINGE 0 ML IV ONE (15:45)
[2017-11-08] MEDS: PIPERACILL/TAZOBAC IV 3.375 GM in DEXTROSE 5% 100ML IV SCH (15:45)
[2017-11-08] MEDS: HydrALAZINE HCL 20 MG/ML VIAL IV. PRN (17:59)
[2017-11-08] MEDS: RANITIDINE HCL 150 MG TAB PO SCH (21:00)
[2017-11-08] MEDS: ROPINIROLE HCL 0.25 MG TAB PO SCH (21:00)
[2017-11-08] MEDS: CETIRIZINE HCL 10 MG TAB PO SCH (21:00)
[2017-11-08] MEDS: TIMOLOL GFS 0.5% OPH SOLN 74 DROPS/5 ML BTL OPL SCH (21:27)
[2017-11-08] MEDS: HEPARIN SOD 5000 UNIT/0.5 ML CARP SQ SCH (21:34)
[2017-11-09] MEDS: PIPERACILL/TAZOBAC IV 3.375 GM in DEXTROSE 5% 100ML IV SCH ×3 (00:31→16:26)
[2017-11-09 08:00] VITALS: O2SAT 98
[2017-11-09 08:02] VITALS: BP 176/95; PULSE 56; TEMP 36.5; O2SAT 100
[2017-11-09] MEDS: METOPROLOL SUCC 25MG EXT REL TAB PO SCH (08:46)
[2017-11-09] MEDS: RANITIDINE HCL 150 MG TAB PO SCH ×2 (08:46→19:49)
[2017-11-09] MEDS: ISOSORBIDE MONONITRATE 30 MG TABCR PO SCH (08:46)
[2017-11-09] MEDS: ATORVASTATIN 10 MG TAB PO SCH (08:46)
[2017-11-09] MEDS: ASPIRIN 81 MG ECTAB PO SCH (08:46)
[2017-11-09] MEDS: FINASTERIDE 5 MG TAB PO SCH (08:46)
[2017-11-09] MEDS: HEPARIN SOD 5000 UNIT/0.5 ML CARP SQ SCH ×2 (08:54→20:42)
[2017-11-09 09:25] LABS: HEMATOCRIT 43.7 % (42-52); MEAN CELL VOLUME 89.5 fL (80-100); MEAN CORPUSCULAR HEMOGLOBIN 30.7 pg (25-34); MEAN CORPUSCULAR HGB CONC 34.3 g/dl (32-36); MEAN PLATELET VOLUME 10.9 fL (7.4-10.4); PLATELET COUNT 204 K/uL (130-400); RED CELL DISTRIBUTION WIDTH CV 13.4 % (11.5-14.5); RED CELL DISTRIBUTION WIDTH SD 43.9 fL (36.4-46.3)
[2017-11-09 10:14] LABS: CALCIUM 9.6 mg/dl (8.5-10.1); CREATININE 1.41 mg/dl (0.60-1.40); POTASSIUM 3.5 mmol/L (3.5-5.1)
[2017-11-09 15:28] VITALS: BP 144/79; PULSE 49; TEMP 36.5; O2SAT 94
[2017-11-09 15:45] VITALS: O2SAT 98
[2017-11-09] MEDS ORDERED: SODIUM CHLORIDE 0.9% 1000ML 1,000 ML IV SCH (16:15)
[2017-11-09] MEDS: BOOST VANILLA PO SCH (16:55)
[2017-11-09] MEDS ORDERED: BOOST VANILLA PO SCH (17:00)
--- NOTE | 2017-11-09 17:58 | Progress Note ---
Subjective Date of Service: Nov 09, 2017. Subjective Pt evaluation today including: conversation w/ patient, physical exam, lab review, review of studies, review of inpatient medication list Saw/examined the patient in room 257 He is intermittently lethargic, still has apneic episodes CPAP while lethargic and sleeping. He awakens at times and wants to eat as per daughter, who is at bedside, he has episodes of coughing while eating, but she is okay with him continuing to eat for comfort reasons Problem List Medical Problems: (1) Altered mental status Status: Acute (2) Change in mental status Status: Acute (3) Contusion of left hip Status: Acute (4) Frequent falls Status: Acute (5) HTN (hypertension) Status: Acute (6) Low back pain Status: Acute (7) Weakness Status: Acute Medications Current Inpatient Medications Medications (Trade) Dose Ordered Sig/Omar Route Start Time Stop Time Status Last Admin Dose Admin Heparin Sodium (Porcine) (Heparin Sq 5000 Unit/0.5ml) 5,000 unit Q12 SQ 11/08/17 21:00 12/08/17 20:59 11/09/17 08:54 5,000 UNIT Acetaminophen (Tylenol Tab) 650 mg Q4H PRN PO 11/08/17 09:30 12/08/17 09:29 Ondansetron HCl (Zofran Inj) 4 mg Q6H PRN IV 11/08/17 09:30 12/08/17 09:29 Nitroglycerin (Nitrostat Tab) 0.4 mg UD PRN SL 11/08/17 09:30 12/08/17 09:29 Miscellaneous Information (Consult) 1 ea UD PRN N/A 11/08/17 09:48 12/08/17 09:47 Hydralazine HCl (HydrALAZINE INJ) 10 mg Q6 PRN IV. 11/08/17 09:45 12/08/17 09:44 11/08/17 17:59 10 MG Metoprolol Succinate (Toprol Xl Tab) 25 mg QAM PO 11/09/17 09:00 12/09/17 08:59 Aspirin (Ecotrin Tab) 81 mg DAILY PO 11/09/17 09:00 12/09/17 08:59 Atorvastatin Calcium (Lipitor Tab) 10 mg DAILY PO 11/09/17 09:00 12/09/17 08:59 Cetirizine HCl (zyrTEC TAB) 10 mg HS PO 11/08/17 21:00 12/08/17 20:59 Finasteride (Proscar Tab) 5 mg DAILY PO 11/09/17 09:00 12/09/17 08:59 Isosorbide Mononitrate (Imdur Ext Rel Tab) 30 mg DAILY PO 11/09/17 09:00 12/09/17 08:59 Ranitidine HCl (zANTac TAB) 150 mg BID PO 11/08/17 21:00 12/08/17 20:59 Ropinirole HCl (Requip Tab) 0.25 mg HS PO 11/08/17 21:00 12/08/17 20:59 Timolol Maleate (Timoptic-Xe 0.5% Oph Soln) 1 drops HS OPL 11/08/17 21:00 12/08/17 20:59 11/08/17 21:27 1 DROPS Piperacillin Sod/ Tazobactam Sod 3.375 gm/Dextrose 115 ml @ 28.75 mls/ hr Q8H IV 11/08/17 16:00 11/15/17 15:59 11/09/17 16:26 28.75 MLS/HR Sodium Chloride 1,000 ml @ 80 mls/hr [id number] IV 11/09/17 16:15 11/10/17 04:44 11/09/17 16:27 80 MLS/HR Enteral Nutritional Formula (Boost) 1 can BIDM PO 11/09/17 17:00 12/09/17 16:59 11/09/17 16:55 1 CAN Objective Vital Signs Date Time Temp Pulse Resp B/P (MAP) Pulse Ox O2 Delivery O2 Flow Rate FiO2 11/09/17 15:45 98 BiPAP 2.0 11/09/17 15:28 36.5 49 18 144/79 (100) 94 11/09/17 08:02 36.5 56 18 176/95 (122) 100 BiPAP 11/09/17 08:00 98 BiPAP 2.0 11/09/17 00:00 BiPAP 11/08/17 23:28 36.8 69 18 161/96 (117) 99 Nasal Cannula 2.0 11/08/17 22:30 55 98 2.0 11/08/17 20:00 BiPAP 11/08/17 19:07 36.6 69 19 168/99 (122) 96 Physical Exam General Appearance: + pertinent finding (laying in bed, lethargic with CPAP on ; at times wakes up and talks, but very sleepy and hard to get a history out of him.) ENT: + pertinent finding (dry mucous membranes) Respiratory/Chest: lungs clear, normal breath sounds, no respiratory distress, no accessory muscle use Cardiovascular: regular rate, rhythm, no edema, no murmur Extremities: normal inspection, no pedal edema Laboratory Results Last 24 Hours Test 11/09/17 08:22 White Blood Count 11.50 K/uL Red Blood Count 4.88 M/uL Hemoglobin 15.0 g/dL Hematocrit 43.7 % Mean Corpuscular Volume 89.5 fL Mean Corpuscular Hemoglobin 30.7 pg Mean Corpuscular Hemoglobin Concent 34.3 g/dl RDW Standard Deviation 43.9 fL RDW Coefficient of Variation 13.4 % Platelet Count 204 K/uL Mean Platelet Volume 10.9 fL Sodium Level 136 mmol/L Potassium Level 3.5 mmol/L Chloride Level 102 mmol/L Carbon Dioxide Level 25 mmol/L Anion Gap 9.0 mmol/L Blood Urea Nitrogen 22 mg/dl Creatinine 1.41 mg/dl Est Creatinine Clear Calc Drug Dose 39.7 ml/min Estimated GFR () 53.0 Estimated GFR (Non- 45.7 BUN/Creatinine Ratio 15.3 Random Glucose 93 mg/dl Calcium Level 9.6 mg/dl Assessment and Plan Delirium on Dementia vs. Metabolic Encephalopathy secondary to PNA 11/09 * slight improvement with intermittent awakening, but very somnolent/lethargic * added diet, though unsure if he can eat, speech therapy ordered, mechanical soft diet/nectar thick * boost BID added 11/08 * Head CT - negative * likely secondary to dementia, and worsening infection * initially given IVFs, but due to worsening shortness of breath, stop IVFs and given IV Lasix Possible Pneumonia? Obstructive Sleep Apnea * Zosyn for broad spectrum for the next 1-2 days * continue CPAP nocturnally and while sleeping Acute Kidney Injury * secondary to dehydration/diuretic use * will add back fluids for another 1L at a low rate hx. of CAD * continue current meds HTN * slightly on the elevated side * cannot tolerate PO meds yet, but will monitor and add IV meds if SBP >160 DVT ppx * subq heparin Daughter - aware of poor prognosis DNR/DNI if no improvement in 1-2 days, will consider palliative care
[2017-11-09] MEDS: ROPINIROLE HCL 0.25 MG TAB PO SCH (19:49)
[2017-11-09] MEDS: TIMOLOL GFS 0.5% OPH SOLN 74 DROPS/5 ML BTL OPL SCH (19:49)
[2017-11-09] MEDS: CETIRIZINE HCL 10 MG TAB PO SCH (19:49)
[2017-11-10] MEDS: PIPERACILL/TAZOBAC IV 3.375 GM in DEXTROSE 5% 100ML IV SCH ×4 (00:15→23:51)
[2017-11-10 00:21] VITALS: BP 160/73; PULSE 78; TEMP 36.8; O2SAT 92
[2017-11-10] MEDS: ASPIRIN 81 MG ECTAB PO SCH (07:53)
[2017-11-10] MEDS: FINASTERIDE 5 MG TAB PO SCH (07:54)
[2017-11-10] MEDS: ISOSORBIDE MONONITRATE 30 MG TABCR PO SCH (07:54)
[2017-11-10] MEDS: ATORVASTATIN 10 MG TAB PO SCH (07:54)
[2017-11-10] MEDS: METOPROLOL SUCC 25MG EXT REL TAB PO SCH (07:55)
[2017-11-10] MEDS: RANITIDINE HCL 150 MG TAB PO SCH ×2 (07:55→21:41)
[2017-11-10 07:56] VITALS: BP 132/82; PULSE 64; TEMP 36.5; O2SAT 98
[2017-11-10] MEDS: BOOST VANILLA PO SCH ×2 (08:00→21:46)
[2017-11-10] MEDS: HEPARIN SOD 5000 UNIT/0.5 ML CARP SQ SCH ×2 (10:25→21:45)
[2017-11-10 11:00] VITALS: O2SAT 94
--- NOTE | 2017-11-10 12:27 | Progress Note ---
Subjective Date of Service: Nov 10, 2017. Subjective Pt evaluation today including: conversation w/ patient, physical exam, lab review, review of studies, review of inpatient medication list Saw/examined the patient in room 257 No problems/issues at this time he is actually more awake/alert - answering questions Talking to me and answering some questions - underlying dementia noted. Denies any pain. Problem List Medical Problems: (1) Altered mental status Status: Acute (2) Change in mental status Status: Acute (3) Contusion of left hip Status: Acute (4) Frequent falls Status: Acute (5) HTN (hypertension) Status: Acute (6) Low back pain Status: Acute (7) Weakness Status: Acute Medications Current Inpatient Medications Medications (Trade) Dose Ordered Sig/Omar Route Start Time Stop Time Status Last Admin Dose Admin Heparin Sodium (Porcine) (Heparin Sq 5000 Unit/0.5ml) 5,000 unit Q12 SQ 11/08/17 21:00 12/08/17 20:59 11/10/17 10:25 5,000 UNIT Acetaminophen (Tylenol Tab) 650 mg Q4H PRN PO 11/08/17 09:30 12/08/17 09:29 11/09/17 22:03 650 MG Ondansetron HCl (Zofran Inj) 4 mg Q6H PRN IV 11/08/17 09:30 12/08/17 09:29 Nitroglycerin (Nitrostat Tab) 0.4 mg UD PRN SL 11/08/17 09:30 12/08/17 09:29 Miscellaneous Information (Consult) 1 ea UD PRN N/A 11/08/17 09:48 12/08/17 09:47 Hydralazine HCl (HydrALAZINE INJ) 10 mg Q6 PRN IV. 11/08/17 09:45 12/08/17 09:44 11/08/17 17:59 10 MG Metoprolol Succinate (Toprol Xl Tab) 25 mg QAM PO 11/09/17 09:00 12/09/17 08:59 11/10/17 07:55 25 MG Aspirin (Ecotrin Tab) 81 mg DAILY PO 11/09/17 09:00 12/09/17 08:59 11/10/17 07:53 81 MG Atorvastatin Calcium (Lipitor Tab) 10 mg DAILY PO 11/09/17 09:00 12/09/17 08:59 11/10/17 07:54 10 MG Cetirizine HCl (zyrTEC TAB) 10 mg HS PO 11/08/17 21:00 12/08/17 20:59 11/09/17 19:49 10 MG Finasteride (Proscar Tab) 5 mg DAILY PO 11/09/17 09:00 12/09/17 08:59 11/10/17 07:54 5 MG Isosorbide Mononitrate (Imdur Ext Rel Tab) 30 mg DAILY PO 11/09/17 09:00 12/09/17 08:59 11/10/17 07:54 30 MG Ranitidine HCl (zANTac TAB) 150 mg BID PO 11/08/17 21:00 12/08/17 20:59 11/10/17 07:55 150 MG Ropinirole HCl (Requip Tab) 0.25 mg HS PO 11/08/17 21:00 12/08/17 20:59 11/09/17 19:49 0.25 MG Timolol Maleate (Timoptic-Xe 0.5% Oph Soln) 1 drops HS OPL 11/08/17 21:00 12/08/17 20:59 11/09/17 19:49 1 DROPS Piperacillin Sod/ Tazobactam Sod 3.375 gm/Dextrose 115 ml @ 28.75 mls/ hr Q8H IV 11/08/17 16:00 11/15/17 15:59 11/10/17 07:49 28.75 MLS/HR Enteral Nutritional Formula (Boost) 1 can BIDM PO 11/09/17 17:00 12/09/17 16:59 11/09/17 16:55 1 CAN Objective Vital Signs Date Time Temp Pulse Resp B/P (MAP) Pulse Ox O2 Delivery O2 Flow Rate FiO2 11/10/17 11:00 94 Room Air 11/10/17 07:56 36.5 64 17 132/82 (99) 98 BiPAP 1.5 11/10/17 00:21 36.8 78 18 160/73 (102) 92 Room Air 11/10/17 00:15 BiPAP 2.0 11/09/17 21:00 BiPAP 2.0 11/09/17 15:45 98 BiPAP 2.0 11/09/17 15:28 36.5 49 18 144/79 (100) 94 Physical Exam General Appearance: no apparent distress Respiratory/Chest: lungs clear, normal breath sounds, no respiratory distress, no accessory muscle use, + pertinent finding (periodic apneic episodes) Cardiovascular: regular rate, rhythm, no edema, no murmur Neurologic/Psychiatric: + pertinent finding (underlying dementia) Assessment and Plan Delirium on Dementia vs. Metabolic Encephalopathy secondary to PNA 11/10 * improving * possibly from pneumonia * continue with abx. and continue aspiration precautions 11/09 * slight improvement with intermittent awakening, but very somnolent/lethargic * added diet, though unsure if he can eat, speech therapy ordered, mechanical soft diet/nectar thick * boost BID added 11/08 * Head CT - negative * likely secondary to dementia, and worsening infection * initially given IVFs, but due to worsening shortness of breath, stop IVFs and given IV Lasix Possible Pneumonia? Obstructive Sleep Apnea * Zosyn for broad spectrum for the next 1-2 days * continue CPAP nocturnally and while sleeping Acute Kidney Injury * secondary to dehydration/diuretic use * will add back fluids for another 1L at a low rate hx. of CAD * continue current meds HTN * slightly on the elevated side * cannot tolerate PO meds yet, but will monitor and add IV meds if SBP >160 DVT ppx * subq heparin Daughter - aware of poor prognosis DNR/DNI if no improvement in 1-2 days, will consider palliative care
[2017-11-10 16:01] VITALS: BP 118/69; PULSE 58; TEMP 36.6; O2SAT 94
[2017-11-10 17:33] VITALS: O2SAT 94
[2017-11-10] MEDS: ROPINIROLE HCL 0.25 MG TAB PO SCH (21:41)
[2017-11-10] MEDS: TIMOLOL GFS 0.5% OPH SOLN 74 DROPS/5 ML BTL OPL SCH (21:42)
[2017-11-10] MEDS: CETIRIZINE HCL 10 MG TAB PO SCH (21:42)
[2017-11-11 00:11] VITALS: BP 165/89; PULSE 57; TEMP 36.7; O2SAT 95
[2017-11-11 07:31] VITALS: BP 174/89; PULSE 58; TEMP 36.4; O2SAT 94
[2017-11-11 07:38] LABS: HEMATOCRIT 39.3 % (42-52); HEMOGLOBIN 13.1 g/dL (14.0-18.0); MEAN CELL VOLUME 90.3 fL (80-100); MEAN CORPUSCULAR HEMOGLOBIN 30.1 pg (25-34); MEAN CORPUSCULAR HGB CONC 33.3 g/dl (32-36); MEAN PLATELET VOLUME 10.3 fL (7.4-10.4); PLATELET COUNT 174 K/uL (130-400); RED CELL DISTRIBUTION WIDTH CV 13.5 % (11.5-14.5); RED CELL DISTRIBUTION WIDTH SD 44.6 fL (36.4-46.3); WHITE BLOOD COUNT 7.91 K/uL (4.8-10.8)
[2017-11-11 08:00] LABS: CALCIUM 8.7 mg/dl (8.5-10.1); CREATININE 1.26 mg/dl (0.60-1.40); POTASSIUM 3.7 mmol/L (3.5-5.1)
[2017-11-11] MEDS: BOOST VANILLA PO SCH ×2 (08:00→15:53)
[2017-11-11] MEDS: ASPIRIN 81 MG ECTAB PO SCH (08:44)
[2017-11-11] MEDS: ISOSORBIDE MONONITRATE 30 MG TABCR PO SCH (08:44)
[2017-11-11] MEDS: PIPERACILL/TAZOBAC IV 3.375 GM in DEXTROSE 5% 100ML IV SCH ×3 (08:44→23:26)
[2017-11-11] MEDS: ATORVASTATIN 10 MG TAB PO SCH (08:45)
[2017-11-11] MEDS: METOPROLOL SUCC 25MG EXT REL TAB PO SCH (08:46)
[2017-11-11] MEDS: RANITIDINE HCL 150 MG TAB PO SCH ×2 (08:49→21:00)
[2017-11-11] MEDS: HEPARIN SOD 5000 UNIT/0.5 ML CARP SQ SCH ×2 (08:51→21:06)
[2017-11-11] MEDS: FINASTERIDE 5 MG TAB PO SCH (09:00)
[2017-11-11 11:05] VITALS: O2SAT 94
[2017-11-11] MEDS ORDERED: SODIUM CHLORIDE 0.65% NA SOLN 45 ML (OCEAN) ONE (13:30)
[2017-11-11] MEDS ORDERED: SODIUM CHLORIDE 0.65% NA SOLN 45 ML (OCEAN) PRN (13:30)
--- NOTE | 2017-11-11 13:54 | Progress Note ---
Subjective Date of Service: Nov 11, 2017. Subjective Pt evaluation today including: conversation w/ patient, conversation w/ family , physical exam, lab review, review of studies, review of inpatient medication list Saw/examined the patient in room 257 Daughter at bedside Pleasantly demented - awake, no acute issues good PO intake, no coughing Problem List Medical Problems: (1) Altered mental status Status: Acute (2) Change in mental status Status: Acute (3) Contusion of left hip Status: Acute (4) Frequent falls Status: Acute (5) HTN (hypertension) Status: Acute (6) Low back pain Status: Acute (7) Weakness Status: Acute Medications Current Inpatient Medications Medications (Trade) Dose Ordered Sig/Omar Route Start Time Stop Time Status Last Admin Dose Admin Heparin Sodium (Porcine) (Heparin Sq 5000 Unit/0.5ml) 5,000 unit Q12 SQ 11/08/17 21:00 12/08/17 20:59 11/11/17 08:51 5,000 UNIT Acetaminophen (Tylenol Tab) 650 mg Q4H PRN PO 11/08/17 09:30 12/08/17 09:29 11/09/17 22:03 650 MG Ondansetron HCl (Zofran Inj) 4 mg Q6H PRN IV 11/08/17 09:30 12/08/17 09:29 Nitroglycerin (Nitrostat Tab) 0.4 mg UD PRN SL 11/08/17 09:30 12/08/17 09:29 Miscellaneous Information (Consult) 1 ea UD PRN N/A 11/08/17 09:48 12/08/17 09:47 Hydralazine HCl (HydrALAZINE INJ) 10 mg Q6 PRN IV. 11/08/17 09:45 12/08/17 09:44 11/08/17 17:59 10 MG Metoprolol Succinate (Toprol Xl Tab) 25 mg QAM PO 11/09/17 09:00 12/09/17 08:59 11/11/17 08:46 25 MG Aspirin (Ecotrin Tab) 81 mg DAILY PO 11/09/17 09:00 12/09/17 08:59 11/11/17 08:44 81 MG Atorvastatin Calcium (Lipitor Tab) 10 mg DAILY PO 11/09/17 09:00 12/09/17 08:59 11/11/17 08:45 10 MG Cetirizine HCl (zyrTEC TAB) 10 mg HS PO 11/08/17 21:00 12/08/17 20:59 11/10/17 21:42 10 MG Finasteride (Proscar Tab) 5 mg DAILY PO 11/09/17 09:00 12/09/17 08:59 11/10/17 07:54 5 MG Isosorbide Mononitrate (Imdur Ext Rel Tab) 30 mg DAILY PO 11/09/17 09:00 12/09/17 08:59 11/11/17 08:44 30 MG Ranitidine HCl (zANTac TAB) 150 mg BID PO 11/08/17 21:00 12/08/17 20:59 11/11/17 08:49 150 MG Ropinirole HCl (Requip Tab) 0.25 mg HS PO 11/08/17 21:00 12/08/17 20:59 11/10/17 21:41 0.25 MG Timolol Maleate (Timoptic-Xe 0.5% Oph Soln) 1 drops HS OPL 11/08/17 21:00 12/08/17 20:59 11/10/17 21:42 1 DROPS Piperacillin Sod/ Tazobactam Sod 3.375 gm/Dextrose 115 ml @ 28.75 mls/ hr Q8H IV 11/08/17 16:00 11/15/17 15:59 11/11/17 08:44 28.75 MLS/HR Enteral Nutritional Formula (Boost) 1 can BIDM PO 11/09/17 17:00 12/09/17 16:59 11/11/17 08:00 1 CAN Sodium Chloride ([place] Nasal [place]) 2 sprays BID PRN NA 11/11/17 13:30 12/11/17 13:29 Objective Vital Signs Date Time Temp Pulse Resp B/P (MAP) Pulse Ox O2 Delivery O2 Flow Rate FiO2 11/11/17 11:05 94 Room Air 11/11/17 07:31 36.4 58 18 174/89 (117) 94 Room Air 11/11/17 00:11 36.7 57 18 165/89 (114) 95 Room Air 11/11/17 00:00 Room Air 11/10/17 20:00 Room Air 11/10/17 17:33 94 Room Air 11/10/17 16:01 36.6 58 18 118/69 (85) 94 Room Air Physical Exam General Appearance: no apparent distress Respiratory/Chest: lungs clear, normal breath sounds, no respiratory distress, no accessory muscle use Cardiovascular: regular rate, rhythm, no edema, no murmur Laboratory Results Last 24 Hours Test 11/11/17 07:11 White Blood Count 7.91 K/uL Red Blood Count 4.35 M/uL Hemoglobin 13.1 g/dL Hematocrit 39.3 % Mean Corpuscular Volume 90.3 fL Mean Corpuscular Hemoglobin 30.1 pg Mean Corpuscular Hemoglobin Concent 33.3 g/dl RDW Standard Deviation 44.6 fL RDW Coefficient of Variation 13.5 % Platelet Count 174 K/uL Mean Platelet Volume 10.3 fL Sodium Level 140 mmol/L Potassium Level 3.7 mmol/L Chloride Level 107 mmol/L Carbon Dioxide Level 27 mmol/L Anion Gap 6.0 mmol/L Blood Urea Nitrogen 25 mg/dl Creatinine 1.26 mg/dl Est Creatinine Clear Calc Drug Dose 44.4 ml/min Estimated GFR () 60.7 Estimated GFR (Non- 52.4 BUN/Creatinine Ratio 19.9 Random Glucose 86 mg/dl Calcium Level 8.7 mg/dl Assessment and Plan Delirium on Dementia vs. Metabolic Encephalopathy secondary to PNA 11/11 * will continue IV Zosyn for today * swallow evaluation and barium swallow pending for tomorrow * will switch to Levaquin or Augmentin in AM * aspiration precautions - mechanical soft, nectar thick diet for now * PT/OT ordered 11/10 * improving * possibly from pneumonia * continue with abx. and continue aspiration precautions 11/09 * slight improvement with intermittent awakening, but very somnolent/lethargic * added diet, though unsure if he can eat, speech therapy ordered, mechanical soft diet/nectar thick * boost BID added 11/08 * Head CT - negative * likely secondary to dementia, and worsening infection * initially given IVFs, but due to worsening shortness of breath, stop IVFs and given IV Lasix Possible Pneumonia? Obstructive Sleep Apnea * Zosyn for broad spectrum for the next 1-2 days * continue CPAP nocturnally and while sleeping Acute Kidney Injury * secondary to dehydration/diuretic use * will add back fluids for another 1L at a low rate hx. of CAD * continue current meds HTN * slightly on the elevated side * cannot tolerate PO meds yet, but will monitor and add IV meds if SBP >160 DVT ppx * subq heparin DNR/DNI
[2017-11-11 14:48] VITALS: BP 131/84; PULSE 61; TEMP 36.5; O2SAT 96
[2017-11-11] MEDS: CETIRIZINE HCL 10 MG TAB PO SCH (20:59)
[2017-11-11] MEDS: ROPINIROLE HCL 0.25 MG TAB PO SCH (21:00)
[2017-11-11] MEDS: TIMOLOL GFS 0.5% OPH SOLN 74 DROPS/5 ML BTL OPL SCH (21:00)
[2017-11-11 23:30] VITALS: BP 162/99; PULSE 57; TEMP 36.7; O2SAT 96
[2017-11-12] VITALS (9 sets, daily range): BP systolic 124–194; BP diastolic 68–100; PULSE 48–85; TEMP 36–36.7; O2SAT 95–97
[2017-11-12] MEDS: BOOST VANILLA PO SCH ×2 (08:00→15:42)
[2017-11-12] MEDS: FINASTERIDE 5 MG TAB PO SCH (10:01)
[2017-11-12] MEDS: ASPIRIN 81 MG ECTAB PO SCH (10:01)
[2017-11-12] MEDS: RANITIDINE HCL 150 MG TAB PO SCH ×2 (10:01→19:28)
[2017-11-12] MEDS: METOPROLOL SUCC 25MG EXT REL TAB PO SCH (10:01)
[2017-11-12] MEDS: ISOSORBIDE MONONITRATE 30 MG TABCR PO SCH (10:02)
[2017-11-12] MEDS: HEPARIN SOD 5000 UNIT/0.5 ML CARP SQ SCH ×2 (10:06→20:36)
[2017-11-12] MEDS: PIPERACILL/TAZOBAC IV 3.375 GM in DEXTROSE 5% 100ML IV SCH ×3 (10:31→23:25)
[2017-11-12] MEDS: ATORVASTATIN 10 MG TAB PO SCH (10:48)
--- NOTE | 2017-11-12 11:49 | DIAGNOSTIC IMAGING REPORT ---
VIDEO SWALLOW HISTORY: Dysphagia determine safest liquids TECHNIQUE: Video fluoroscopic evaluation of swallowing was performed in the AP and lateral projections by the speech pathology staff. The patient is fed nectar-thick and thin liquid barium, a barium coated wafer, and barium pudding. FLUOROSCOPY TIME: 1.6 minutes. COMPARISON STUDY: None. FINDINGS: There is normal hyoid excursion and epiglottic deflection. Considerable aspiration with thin liquids. No significant aspiration with thicker liquids. IMPRESSION: 1. Aspiration is confirmed with thin liquids. 2. Please see the speech pathologist report for detailed findings and recommendations. The above report was generated using voice recognition software. It may contain grammatical, syntax or spelling errors. Electronically signed by: Desean Miller M.D. 11/12/2017 11:48 AM Dictated Date/Time: 11/12/2017 11:47 AM
--- NOTE | 2017-11-12 17:46 | Progress Note ---
Subjective Date of Service: Nov 12, 2017. Subjective Pt evaluation today including: conversation w/ patient, physical exam, lab review, review of studies, review of inpatient medication list Saw/examined the patient in room 257 +aspiration noted on video swallow He's doing well, tolerating his honey thick liquids Daughter at bedside Problem List Medical Problems: (1) Altered mental status Status: Acute (2) Change in mental status Status: Acute (3) Contusion of left hip Status: Acute (4) Frequent falls Status: Acute (5) HTN (hypertension) Status: Acute (6) Low back pain Status: Acute (7) Weakness Status: Acute Medications Current Inpatient Medications Medications (Trade) Dose Ordered Sig/Omar Route Start Time Stop Time Status Last Admin Dose Admin Heparin Sodium (Porcine) (Heparin Sq 5000 Unit/0.5ml) 5,000 unit Q12 SQ 11/08/17 21:00 12/08/17 20:59 11/12/17 10:06 5,000 UNIT Acetaminophen (Tylenol Tab) 650 mg Q4H PRN PO 11/08/17 09:30 12/08/17 09:29 11/09/17 22:03 650 MG Ondansetron HCl (Zofran Inj) 4 mg Q6H PRN IV 11/08/17 09:30 12/08/17 09:29 Nitroglycerin (Nitrostat Tab) 0.4 mg UD PRN SL 11/08/17 09:30 12/08/17 09:29 Miscellaneous Information (Consult) 1 ea UD PRN N/A 11/08/17 09:48 12/08/17 09:47 Hydralazine HCl (HydrALAZINE INJ) 10 mg Q6 PRN IV. 11/08/17 09:45 12/08/17 09:44 11/08/17 17:59 10 MG Metoprolol Succinate (Toprol Xl Tab) 25 mg QAM PO 11/09/17 09:00 12/09/17 08:59 11/12/17 10:01 25 MG Aspirin (Ecotrin Tab) 81 mg DAILY PO 11/09/17 09:00 12/09/17 08:59 11/12/17 10:01 81 MG Atorvastatin Calcium (Lipitor Tab) 10 mg DAILY PO 11/09/17 09:00 12/09/17 08:59 11/12/17 10:48 10 MG Cetirizine HCl (zyrTEC TAB) 10 mg HS PO 11/08/17 21:00 12/08/17 20:59 11/11/17 20:59 10 MG Finasteride (Proscar Tab) 5 mg DAILY PO 11/09/17 09:00 12/09/17 08:59 11/12/17 10:01 5 MG Isosorbide Mononitrate (Imdur Ext Rel Tab) 30 mg DAILY PO 11/09/17 09:00 12/09/17 08:59 11/12/17 10:02 30 MG Ranitidine HCl (zANTac TAB) 150 mg BID PO 11/08/17 21:00 12/08/17 20:59 11/12/17 10:01 150 MG Ropinirole HCl (Requip Tab) 0.25 mg HS PO 11/08/17 21:00 12/08/17 20:59 11/11/17 21:00 0.25 MG Timolol Maleate (Timoptic-Xe 0.5% Oph Soln) 1 drops HS OPL 11/08/17 21:00 12/08/17 20:59 11/11/17 21:00 1 DROPS Piperacillin Sod/ Tazobactam Sod 3.375 gm/Dextrose 115 ml @ 28.75 mls/ hr Q8H IV 11/08/17 16:00 11/15/17 15:59 11/12/17 15:42 28.75 MLS/HR Enteral Nutritional Formula (Boost) 1 can BIDM PO 11/09/17 17:00 12/09/17 16:59 11/12/17 15:42 1 CAN Sodium Chloride ([place] Nasal [place]) 2 sprays BID PRN NA 11/11/17 13:30 12/11/17 13:29 Objective Vital Signs Date Time Temp Pulse Resp B/P (MAP) Pulse Ox O2 Delivery O2 Flow Rate FiO2 11/12/17 14:52 36.5 85 18 124/82 (96) 95 11/12/17 12:33 48 133/79 (97) 11/12/17 10:47 55 95 11/12/17 10:01 67 194/96 (128) 11/12/17 08:00 95 Room Air 11/12/17 07:43 175/90 (118) 11/12/17 06:56 36.7 56 18 186/100 (128) 95 Room Air 11/12/17 00:08 BiPAP 11/11/17 23:30 36.7 57 18 162/99 (120) 96 Room Air Physical Exam General Appearance: no apparent distress, + pertinent finding (underlying dementia, intermittently still gets tired) Respiratory/Chest: lungs clear, normal breath sounds, no respiratory distress, no accessory muscle use Cardiovascular: regular rate, rhythm, no murmur Neurologic/Psychiatric: alert, + pertinent finding (awake, underlying dementia) Assessment and Plan Delirium on Dementia vs. Metabolic Encephalopathy secondary to PNA 11/12 * video swallow - patient aspirating * plan to change to honey thick liquids and dental soft diet * continued PT/OT/speech * plan to d/c to [facility] as soon as possible 11/11 * will continue IV Zosyn for today * swallow evaluation and barium swallow pending for tomorrow * will switch to Levaquin or Augmentin in AM * aspiration precautions - mechanical soft, nectar thick diet for now * PT/OT ordered 11/10 * improving * possibly from pneumonia * continue with abx. and continue aspiration precautions 11/09 * slight improvement with intermittent awakening, but very somnolent/lethargic * added diet, though unsure if he can eat, speech therapy ordered, mechanical soft diet/nectar thick * boost BID added 11/08 * Head CT - negative * likely secondary to dementia, and worsening infection * initially given IVFs, but due to worsening shortness of breath, stop IVFs and given IV Lasix Possible Pneumonia? Obstructive Sleep Apnea * Zosyn for broad spectrum for the next 1-2 days * continue CPAP nocturnally and while sleeping Acute Kidney Injury * secondary to dehydration/diuretic use * will add back fluids for another 1L at a low rate hx. of CAD * continue current meds HTN * slightly on the elevated side * cannot tolerate PO meds yet, but will monitor and add IV meds if SBP >160 DVT ppx * subq heparin DNR/DNI
[2017-11-12] MEDS: TIMOLOL GFS 0.5% OPH SOLN 74 DROPS/5 ML BTL OPL SCH (19:27)
[2017-11-12] MEDS: ROPINIROLE HCL 0.25 MG TAB PO SCH (19:28)
[2017-11-12] MEDS: CETIRIZINE HCL 10 MG TAB PO SCH (19:28)
[2017-11-13 07:26] VITALS: BP_SYST 181; BP_SYST 188; BP_DIAS 105; BP_DIAS 107; PULSE 53; TEMP 36.7; O2SAT 98
[2017-11-13] MEDS: HydrALAZINE HCL 20 MG/ML VIAL IV. PRN (07:36)
[2017-11-13] MEDS: PIPERACILL/TAZOBAC IV 3.375 GM in DEXTROSE 5% 100ML IV SCH (07:36)
[2017-11-13] MEDS ORDERED: ASPIRIN 81 MG CHEW PO SCH (09:00)
[2017-11-13] MEDS: ATORVASTATIN 10 MG TAB PO SCH (09:05)
[2017-11-13] MEDS: ISOSORBIDE MONONITRATE 30 MG TABCR PO SCH (09:05)
[2017-11-13] MEDS: FINASTERIDE 5 MG TAB PO SCH (09:05)
[2017-11-13] MEDS: METOPROLOL SUCC 25MG EXT REL TAB PO SCH (09:06)
[2017-11-13] MEDS: RANITIDINE HCL 150 MG TAB PO SCH (09:06)
[2017-11-13] MEDS: BOOST VANILLA PO SCH (09:06)
[2017-11-13] MEDS: HEPARIN SOD 5000 UNIT/0.5 ML CARP SQ SCH (09:07)
--- NOTE | 2017-11-13 10:55 | Progress Note ---
Subjective Date of Service: Nov 13, 2017. Subjective Pt evaluation today including: conversation w/ patient, physical exam, lab review, review of studies, review of inpatient medication list Saw/examined the patient in room 257 pleasantly demented lethargic, periods of apnea during sleep improved PO intake with diet change Problem List Medical Problems: (1) Altered mental status Status: Acute (2) Change in mental status Status: Acute (3) Contusion of left hip Status: Acute (4) Frequent falls Status: Acute (5) HTN (hypertension) Status: Acute (6) Low back pain Status: Acute (7) Weakness Status: Acute Medications Current Inpatient Medications Medications (Trade) Dose Ordered Sig/Omar Route Start Time Stop Time Status Last Admin Dose Admin Heparin Sodium (Porcine) (Heparin Sq 5000 Unit/0.5ml) 5,000 unit Q12 SQ 11/08/17 21:00 12/08/17 20:59 11/13/17 09:07 5,000 UNIT Acetaminophen (Tylenol Tab) 650 mg Q4H PRN PO 11/08/17 09:30 12/08/17 09:29 11/09/17 22:03 650 MG Ondansetron HCl (Zofran Inj) 4 mg Q6H PRN IV 11/08/17 09:30 12/08/17 09:29 11/13/17 07:33 4 MG Nitroglycerin (Nitrostat Tab) 0.4 mg UD PRN SL 11/08/17 09:30 12/08/17 09:29 Miscellaneous Information (Consult) 1 ea UD PRN N/A 11/08/17 09:48 12/08/17 09:47 Hydralazine HCl (HydrALAZINE INJ) 10 mg Q6 PRN IV. 11/08/17 09:45 12/08/17 09:44 11/13/17 07:36 10 MG Metoprolol Succinate (Toprol Xl Tab) 25 mg QAM PO 11/09/17 09:00 12/09/17 08:59 11/13/17 09:06 25 MG Atorvastatin Calcium (Lipitor Tab) 10 mg DAILY PO 11/09/17 09:00 12/09/17 08:59 11/13/17 09:05 10 MG Cetirizine HCl (zyrTEC TAB) 10 mg HS PO 11/08/17 21:00 12/08/17 20:59 11/12/17 19:28 10 MG Finasteride (Proscar Tab) 5 mg DAILY PO 11/09/17 09:00 12/09/17 08:59 11/13/17 09:05 5 MG Isosorbide Mononitrate (Imdur Ext Rel Tab) 30 mg DAILY PO 11/09/17 09:00 12/09/17 08:59 11/13/17 09:05 30 MG Ranitidine HCl (zANTac TAB) 150 mg BID PO 11/08/17 21:00 12/08/17 20:59 11/13/17 09:06 150 MG Ropinirole HCl (Requip Tab) 0.25 mg HS PO 11/08/17 21:00 12/08/17 20:59 11/12/17 19:28 0.25 MG Timolol Maleate (Timoptic-Xe 0.5% Oph Soln) 1 drops HS OPL 11/08/17 21:00 12/08/17 20:59 11/12/17 19:27 1 DROPS Piperacillin Sod/ Tazobactam Sod 3.375 gm/Dextrose 115 ml @ 28.75 mls/ hr Q8H IV 11/08/17 16:00 11/15/17 15:59 11/13/17 07:36 28.75 MLS/HR Enteral Nutritional Formula (Boost) 1 can BIDM PO 11/09/17 17:00 12/09/17 16:59 11/13/17 09:06 1 CAN Sodium Chloride ([place] Nasal [place]) 2 sprays BID PRN NA 11/11/17 13:30 12/11/17 13:29 Aspirin (Aspirin Chew) 81 mg DAILY PO 11/13/17 09:00 12/13/17 08:59 11/13/17 09:34 81 MG Objective Vital Signs Date Time Temp Pulse Resp B/P (MAP) Pulse Ox O2 Delivery O2 Flow Rate FiO2 11/13/17 07:26 36.7 53 18 188/107 (134) 98 BiPAP 181/105 (130) 11/13/17 00:02 BiPAP 11/12/17 23:09 62 178/95 (122) 11/12/17 23:00 36.0 54 18 193/68 (109) 97 CPAP 11/12/17 22:30 BiPAP 11/12/17 16:00 Room Air 11/12/17 14:52 36.5 85 18 124/82 (96) 95 11/12/17 12:33 48 133/79 (97) Physical Exam General Appearance: no apparent distress, + pertinent finding (dementia, lethargy) Respiratory/Chest: lungs clear, normal breath sounds, no respiratory distress, no accessory muscle use Cardiovascular: regular rate, rhythm, no edema, no murmur Assessment and Plan Delirium on Dementia vs. Metabolic Encephalopathy secondary to PNA 11/13 * plan for [facility] discharge * will continue PT/OT/speech * aspiration precautions * honey thick liquids and dental soft diet 11/12 * video swallow - patient aspirating * plan to change to honey thick liquids and dental soft diet * continued PT/OT/speech * plan to d/c to [facility] as soon as possible 11/11 * will continue IV Zosyn for today * swallow evaluation and barium swallow pending for tomorrow * will switch to Levaquin or Augmentin in AM * aspiration precautions - mechanical soft, nectar thick diet for now * PT/OT ordered 11/10 * improving * possibly from pneumonia * continue with abx. and continue aspiration precautions 11/09 * slight improvement with intermittent awakening, but very somnolent/lethargic * added diet, though unsure if he can eat, speech therapy ordered, mechanical soft diet/nectar thick * boost BID added 11/08 * Head CT - negative * likely secondary to dementia, and worsening infection * initially given IVFs, but due to worsening shortness of breath, stop IVFs and given IV Lasix Possible Pneumonia? Obstructive Sleep Apnea * Zosyn for broad spectrum for the next 1-2 days * continue CPAP nocturnally and while sleeping Acute Kidney Injury * secondary to dehydration/diuretic use * will add back fluids for another 1L at a low rate hx. of CAD * continue current meds HTN * slightly on the elevated side * cannot tolerate PO meds yet, but will monitor and add IV meds if SBP >160 DVT ppx * subq heparin DNR/DNI
[2017-11-13] MEDS ORDERED: Enteral Nutrition Formula PO (10:56)
[2017-11-13] MEDS ORDERED: AMOX500T PO (10:59)
--- NOTE | 2017-11-13 11:00 | Discharge Instructions ---
Discharge Instructions Date of Service Nov 13, 2017. Admission Reason for Admission: Altered Mental Status Discharge Discharge Diagnosis / Problem: Dementia, Aspiration Pneumonia Discharge Goals Goal(s): Decrease discomfort, Improve function, Diagnostic testing, Therapeutic intervention Activity Recommendations Activity Limitations: resume your previous activity . Instructions / Follow-Up Instructions / Follow-Up Aspiration Precautions Honey Thick liquids/dental soft diet Current Hospital Diet Patient's current hospital diet: Regular Diet Discharge Diet Recommended Diet: Regular Diet Diet Texture: Dental Soft (bite-sized) Liquid Consistency: Honey Thick Pending Studies Studies pending at discharge: no Medical Emergencies . Who to Call and When: Medical Emergencies: If at any time you feel your situation is an emergency, please call 911 immediately. . Non-Emergent Contact Non-Emergency issues call your: Primary Care Provider . . "Provider Documentation" section prepared by Vipul Sher. .
--- NOTE | 2017-11-13 11:01 | Discharge Summary ---
Discharge Summary Date of Service Nov 13, 2017. Discharge Summary Admission Date: Nov 08, 2017 at 09:24 Discharge Date: Nov 13, 2017 Discharge Disposition: Rehab Principal Diagnosis: Dementia Aspiration Pneumonia Obstructive Sleep Apnea on nocturnal CPAP Medication Reconciliation New Medications: Amoxicillin & Pot Clavulanate (Augmentin 500MG) 1 Tab Tab 500 MG PO Q8H for 4 Days, #12 TAB [Enteral Nutrition Formula] () 1 LIQD 1 CAN PO BIDM for 30 Days, #60 CAN Continued Medications: Acetaminophen (Tylenol) 325 Mg Tab 650 MG PO Q6 PRN for Pain or Fever max 3gm/24hr Aspirin (Aspirin Chewable) 81 Mg Chew 81 MG PO DAILY Atorvastatin (Lipitor) 10 Mg Tab 10 MG PO DAILY Calcium Carbonate-Mag Hydrox (Antacid) 1 Chw Chw 500 MG PO UD PRN for Dyspepsia Cetirizine Hcl (Qc All Day Allergy) 10 Mg Tab 1 TAB PO HS Finasteride (Proscar) 5 Mg Tab 5 MG PO DAILY Isosorbide Mononitrate Ext Rel (Imdur Ext Rel) 30 Mg Ertab 30 MG PO DAILY Metoprolol Succ (Toprol Xl) (Toprol-Xl) 50 Mg Tabcr 50 MG PO DAILY, #30 TAB Nitroglycerin (Nitrostat) 0.3 Mg Sub 0.3 MG UT UD PRN for Chest Pain may repeat every 5 min's ..3 doses Ranitidine (Zantac) 150 Mg Tab 150 MG PO BID Ropinirole (Requip) 0.25 Mg Tab 0.25 MG PO HS Timolol Maleate (Ophth) (Timoptic-Xe 0.5% Oph) 0.5 % [place] 1 DROPS OPL HS Admission Information HPI (per Admitting provider): Pt is 82 y/o M with PMH dementia, HTN, hyperlipidemia, PMR, depression, CAD treated medically, angina, SIMÓN on CPAP, glaucoma presented to ER from [facility] with 3 reports of altered mental status. History unable to be obtained from patient secondary to altered mental status. Staff report checked on patient this morning and he was noted to have increased altered mental status and appeared to have difficulty breathing, and staff thought patient appeared to have swelling of lip and possible throat, and patient reported swelling sensation of throat. EMS was called and patient was transported to ER. Was able to speak with staff at [facility] who report the patient has altered mental status intermittently. Reports will have a day or 2 where he has severe altered mental status and then returns to baseline. Staff report a couple of days ago patient appeared very pale by sitting up in recliner and initially "thought patient was " as patient appeared to not be breathing. Staff reports patient uses CPAP at night and did have on last night. Staff also report that patient sleeps for sometimes 24 hours at a time and spends most of his time in a recliner during the day sleeping with noted very loud snoring and apneic episodes. Staff denies any recent or known fevers, cough, rashes, vomiting, diarrhea. Staff unaware of any choking. Staff report patient has had elevated blood pressures 180s/low 100s. His metoprolol was increased from 25 mg daily to 50 mg daily on 10/31/2017 secondary to elevated BP readings. Denies any other changes in medications, foods, products. Patient resides at [facility] with his . In ER reported that patient was somnolent however aroused with tactile stimulation. Patient was given Decadron IV, Benadryl 25 mg IV, Zantac 50 mg IV , epi IM, Xopenex neb, hydralazine 10 mg, 250 mL NSS bolus for possible anaphylaxis with the reported swelling of lip, however did not notice any uvula edema or stridor. Since patient with increased somnolence and loud snoring. Patient afebrile, negative troponin. CT head: No acute findings. Pending UA. CXR: Cardiomegaly, increased bibasilar opacities. Pt has POLST: DNR, comfort measures only. antibiotics: determine use or limitation of antibiotics when infection occurs, with comfort as goal. no hydration and artificial nutrition by tube. Physical Exam (per Admitting): General Appearance: + pertinent finding (somnolent, loud snoring, opens eyes with sternal rub) Head: normocephalic, atraumatic Eyes: PERRL, sclerae normal ENT: + pertinent finding (mucous membranes dry, tongue dry, does not appear enlarged, +dried mucous to palate, no uvula edema, possible slight edema lower lip without erythema) Neck: supple, no JVD, trachea midline Respiratory/Chest: lungs clear, normal breath sounds, no respiratory distress Cardiovascular: no murmur, normal peripheral pulses, + bradycardia Abdomen/GI: normal bowel sounds, soft, + pertinent finding (no apparent tenderness to palpation, pt without wincing, does not awake with palpation) Extremities/Musculoskelatal: no calf tenderness, normal capillary refill, no pedal edema Neurologic/Psych: + pertinent finding (somnolent, loud snoring, opens eyes with sternal rub) Skin: normal color, warm/dry Hospital Course Delirium on Dementia vs. Metabolic Encephalopathy secondary to PNA 11/13 * plan for [facility] discharge * will continue PT/OT/speech * aspiration precautions * honey thick liquids and dental soft diet 11/12 * video swallow - patient aspirating * plan to change to honey thick liquids and dental soft diet * continued PT/OT/speech * plan to d/c to [facility] as soon as possible 11/11 * will continue IV Zosyn for today * swallow evaluation and barium swallow pending for tomorrow * will switch to Levaquin or Augmentin in AM * aspiration precautions - mechanical soft, nectar thick diet for now * PT/OT ordered 11/10 * improving * possibly from pneumonia * continue with abx. and continue aspiration precautions 11/09 * slight improvement with intermittent awakening, but very somnolent/lethargic * added diet, though unsure if he can eat, speech therapy ordered, mechanical soft diet/nectar thick * boost BID added 11/08 * Head CT - negative * likely secondary to dementia, and worsening infection * initially given IVFs, but due to worsening shortness of breath, stop IVFs and given IV Lasix Possible Pneumonia? Obstructive Sleep Apnea * Zosyn for broad spectrum for the next 1-2 days * continue CPAP nocturnally and while sleeping Acute Kidney Injury * secondary to dehydration/diuretic use * will add back fluids for another 1L at a low rate hx. of CAD * continue current meds HTN * slightly on the elevated side * cannot tolerate PO meds yet, but will monitor and add IV meds if SBP >160 DVT ppx * subq heparin DNR/DNI Total time spent on discharge = 40 minutes This includes examination of the patient, discharge planning, medication reconciliation, and communication with other providers. Discharge Instructions Aspiration Precautions Honey Thick liquids/dental soft diet
[2017-11-13 15:48] VITALS: BP 130/74; PULSE 62
[2017-11-13 15:51] VITALS: BP 130/74; PULSE 62; TEMP 36.7; O2SAT 98
--- NOTE | 2017-11-14 13:14 | EDITING REQUIRED CODING QUERY ---
CODING QUERY To promote full compliance with coding requirements relating to patient care, provider participation is requested in all cases of orthopedic coder uncertainty. Please assist us with the question(s) below: Coding Question(s): Please clarify below, in your clinical opinion, regarding the Metabolic Encephalopathy. ( X ) Possible Metabolic Encephalopathy vs. Delirium on Dementia ( ) Metabolic Encephalopathy was ruled-out Physician's Response(s): Thank you Deepa Jorgensen Principal Diagnosis: "_that condition established after study, to be chiefly responsible for occasioning the admission of the patient to the hospital for care." Co-Existing Principal Diagnosis: "_when two or more diagnoses equally meet the criteria for principal diagnosis as determined by the circumstances of admission, diagnostic work up, and/or therapy provided, and the Alphabetic Index, Tabular List, or another coding guideline does not provide sequencing direction, any one of the diagnoses may be sequenced first." "When the physician has documented what appears to be a current diagnosis in the body of the record, but has not included the diagnosis in the final diagnostic statement, the physician should be asked whether the diagnosis should be added." ([facility] 2 QTR90. p3-4)
== END 2017-11-13 16:44 | DRG 177 ==
LOC: EDBD 06:15 → C.EDB 06:17 → C.EDINP 09:24 → EDBEDREQSVC 15:08 → ENRESERV 15:26 → C.MS2W 16:29
PROVIDERS: ADMIT Family Medicine; ATTEND Family Medicine
DX: J69.0 Pneumonitis due to inhalation of food and vomit (principal); G93.41 Metabolic encephalopathy; E87.1 Hypo-osmolality and hyponatremia; N17.9 Acute kidney failure, unspecified; T50.2X5A Adverse effect of carbonic-anhydrase inhibitors, benzothiadiazides and other diuretics, initial encounter; R60.0 Localized edema; F03.90 Unspecified dementia, unspecified severity, without behavioral disturbance, psychotic disturbance, mood disturbance, and anxiety; G47.33 Obstructive sleep apnea (adult) (pediatric); I25.119 Atherosclerotic heart disease of native coronary artery with unspecified angina pectoris; H40.9 Unspecified glaucoma; I11.9 Hypertensive heart disease without heart failure; E78.5 Hyperlipidemia, unspecified; Z51.81 Encounter for therapeutic drug level monitoring; Z79.899 Other long term (current) drug therapy; Z79.82 Long term (current) use of aspirin; Z66 Do not resuscitate; Z91.81 History of falling; Z88.8 Allergy status to other drugs, medicaments and biological substances; Z88.2 Allergy status to sulfonamides; Z91.040 Latex allergy status; Z82.49 Family history of ischemic heart disease and other diseases of the circulatory system

== ENCOUNTER → 2018-04-04 | Outpatient (CLI) | payer OTHER ==
[~2018-04-04] MED LIST changes: +ACET-1256 PO; -ACET-1311 PO; +BISA10SU7 PR; -DIPHTAB PO; +DOCU100C31 PO; +FAMO20TA11 PO; -FURO-85 PO; -IPRA0.03 NAE; -METO25TA4 PO; +MIRT15TA3 PO; +NITR0.4S UT; -NTRSL3 UT; -POTA10CA28 PO; -RANI150T85 PO; -ROPI0.25 PO; +SENN-63 PO; +TPRSR50 PO; -[UNRECOGNIZED DRUG - CODE] PO
[2018-04-04 12:47] LABS: HEMATOCRIT 37.3 % (42-52); HEMOGLOBIN 12.1 g/dL (14.0-18.0); MEAN CELL VOLUME 91.9 fL (80-100); MEAN CORPUSCULAR HEMOGLOBIN 29.8 pg (25-34); MEAN CORPUSCULAR HGB CONC 32.4 g/dl (32-36); MEAN PLATELET VOLUME 10.8 fL (7.4-10.4); PLATELET COUNT 188 K/uL (130-400); RED CELL DISTRIBUTION WIDTH CV 13.4 % (11.5-14.5); RED CELL DISTRIBUTION WIDTH SD 44.6 fL (36.4-46.3); WHITE BLOOD COUNT 8.81 K/uL (4.8-10.8)
[2018-04-04 13:09] LABS: BLOOD UREA NITROGEN 21 mg/dl (7-18); CALCIUM 8.3 mg/dl (8.5-10.1); CARBON DIOXIDE 23 mmol/L (21-32); CREATININE 1.21 mg/dl (0.60-1.40); GLUCOSE 88 mg/dl (70-99); SODIUM 138 mmol/L (136-145)
== END | disposition home or self-care (01) ==
LOC: C.LABWYN 14:46
PROVIDERS: ATTEND Internal Medicine
DX: I10 Essential (primary) hypertension (principal)

== ENCOUNTER 2018-10-09 21:39 | Inpatient (IN) ==
[2018-10-09] MEDS ORDERED: SODIUM CHLORIDE 0.9% 1000ML 500 ML IV ONE (22:07)
--- NOTE | 2018-10-09 22:41 | Emergency Department Note ---
History of Present Illness General Chief complaint: Hypertension Stated complaint: HYPERTENSION, POOR CIRCULATION IN HANDS & FEET History of Present Illness This 83-year-old presents to the ER complaining of elevated blood pressure and cool extremities Location: Generalized Quality: Elevated blood pressure Severity: Unable to obtain Duration: Today Timing: Today Context: [facility] was concerned and sent the patient in Modifying factors: better with unable to obtain secondary to patient being demented; worse with unable to obtain secondary to patient being demented Patient is demented and unable to obtain history. Patient is able to say his name and follow commands. He himself has no complaints. I spoke to the nurse at the [facility] Charissa, and states she sent the patient and as the [employer] told her that the blood pressure was elevated and his extremities were cool. Patient is currently on cefdinir for possible UTI. Nurse states she has not seen this patient and does not know if his extremities normally looks like this. Home Medications Home Medications Medication Instructions Recorded Confirmed Type aspirin [Aspir-81] 81 mg PO DAILY 10/06/18 10/09/18 History atorvastatin 10 mg PO DAILY 10/06/18 10/09/18 History cefdinir 300 mg PO BID 7 Days #14 cap 10/06/18 10/09/18 Rx docusate sodium [Colace] 100 mg PO UD PRN 10/06/18 10/09/18 History famotidine 20 mg PO BID 10/06/18 10/09/18 History finasteride 5 mg PO DAILY 10/06/18 10/09/18 History isosorbide mononitrate 30 mg PO DAILY 10/06/18 10/09/18 History metoprolol succinate 50 mg PO DAILY 10/06/18 10/09/18 History timolol maleate 1 dose OPB UD 10/06/18 10/09/18 History cetirizine 10 mg PO DAILY 10/09/18 10/09/18 History Allergies Allergy/AdvReac Type Severity Reaction Status Date / Time pseudoephedrine Allergy Severe URINARY Unverified 10/09/18 23:01 RETENTION guaifenesin Allergy Unknown inability Verified 10/09/18 23:01 to urinate Sulfa (Sulfonamide Allergy Unknown _ Unverified 10/09/18 23:01 Antibiotics) latex AdvReac Intermediate ITCHING/BUR Unverified 10/09/18 23:01 DONNIE Past Med/Surg History Medical History Dementia (Chronic) Hyperlipemia (Chronic) Angina pectoris (Chronic) Hypertension (Chronic) SIMÓN (obstructive sleep apnea) (Chronic) CAD (coronary artery disease) (Chronic) Social History Current Living Situation: Personal Care Facility Other Information That Helps Us Care for You: No Feels Safe at Home: Yes Smoking Status: Unknown if ever smoked Beliefs That Will Affect Care: None Preferred Language: Bolivian Communication Ability: Effective Communication Ability Comment: unable to assess, dementia 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 Physical Exam Vital Signs Vital Signs - 24 hr 10/09/18 23:08 10/10/18 01:25 10/10/18 01:48 Temperature Temperature Source Pulse Rate Pulse Rate [Forehead] 69 69 Pulse Rhythm [Forehead] Regular Regular Pulse Strength [Forehead] Normal Normal Respiratory Rate 16 16 Respiratory Effort / Characteristics Non-Labored Non-Labored Respiratory Depth Normal Normal Respiratory Pattern Regular Regular Blood Pressure Blood Pressure [Left Arm] Blood Pressure [Right Arm] 166/104 H 148/88 H Blood Pressure Mean [Left Arm] Blood Pressure Mean [Right Arm] 124 108 Blood Pressure Position [Right Arm] Lying Lying Pulse Oximetry 100 97 97 Oxygen Delivery Method Room Air Room Air 10/10/18 02:26 10/10/18 02:45 10/10/18 05:08 Temperature 37.5 C Temperature Source Oral Pulse Rate 72 70 Pulse Rate [Forehead] 70 Pulse Rhythm [Forehead] Regular Pulse Strength [Forehead] Normal Respiratory Rate 16 18 Respiratory Effort / Characteristics Non-Labored Respiratory Depth Normal Respiratory Pattern Regular Blood Pressure 144/86 H Blood Pressure [Left Arm] Blood Pressure [Right Arm] 149/96 H Blood Pressure Mean [Left Arm] Blood Pressure Mean [Right Arm] 113 Blood Pressure Position [Right Arm] Lying Pulse Oximetry 98 99 Oxygen Delivery Method Room Air Room Air 10/10/18 06:53 10/10/18 10:40 10/10/18 11:31 Temperature 36.6 C 36.6 C Temperature Source Oral Oral Pulse Rate 70 Pulse Rate [Forehead] 69 57 L Pulse Rhythm [Forehead] Pulse Strength [Forehead] Respiratory Rate 18 18 Respiratory Effort / Characteristics Non-Labored Spontaneous Respiratory Depth Normal Respiratory Pattern Regular Blood Pressure Blood Pressure [Left Arm] Blood Pressure [Right Arm] 146/83 H 93/55 L Blood Pressure Mean [Left Arm] Blood Pressure Mean [Right Arm] 104 67 Blood Pressure Position [Right Arm] Lying Pulse Oximetry 92 96 Oxygen Delivery Method Room Air Room Air 10/10/18 12:03 10/10/18 15:05 10/10/18 17:11 Temperature 36.5 C Temperature Source Oral Pulse Rate 53 L Pulse Rate [Forehead] 55 L 52 L Pulse Rhythm [Forehead] Pulse Strength [Forehead] Respiratory Rate 16 Respiratory Effort / Characteristics Respiratory Depth Respiratory Pattern Blood Pressure Blood Pressure [Left Arm] 95/57 L Blood Pressure [Right Arm] 109/67 Blood Pressure Mean [Left Arm] 69 Blood Pressure Mean [Right Arm] 81 Blood Pressure Position [Right Arm] Pulse Oximetry 99 Oxygen Delivery Method Room Air 10/10/18 19:00 Temperature 36.6 C Temperature Source Oral Pulse Rate Pulse Rate [Forehead] 55 L Pulse Rhythm [Forehead] Pulse Strength [Forehead] Respiratory Rate 17 Respiratory Effort / Characteristics Respiratory Depth Respiratory Pattern Blood Pressure Blood Pressure [Left Arm] 125/64 Blood Pressure [Right Arm] Blood Pressure Mean [Left Arm] 84 Blood Pressure Mean [Right Arm] Blood Pressure Position [Right Arm] Pulse Oximetry 99 Oxygen Delivery Method VITALS: Vitals are noted on the nurse's note and reviewed by myself. Vital signs hypertensive. GENERAL: Elderly male confused appearing able to follow commands, in no acute distress, nondiaphoretic SKIN: The skin was without rashes, or bruising. There is no tenting of the skin. Capillary reflex less than 2 seconds. HEAD: Normocephalic atraumatic. EARS: External auditory canals clear, tympanic membranes pearly bain without erythema or effusion bilaterally. EYES: Pupils equal round and reactive to light and accommodation. Conjunctivae without injection, sclerae without icterus. Extraocular movements intact. NOSE: Patent, turbinates without inflammation or discharge. MOUTH: Mucous membranes mildly dry. Pharynx without erythema or exudate. Uvula midline. Airway patent. Tongue does not deviate. NECK: Supple without nuchal rigidity. No lymphadenopathy. No thyromegaly. Cervical spine is nontender. No JVD. HEART: Regular rate and rhythm LUNGS: Clear to auscultation bilaterally without wheezes, rales or rhonchi. No retractions or accessory muscle use. ABDOMEN: Positive bowel sounds x 4. Normal tympanic percussion. Soft, nontender, without masses or organomegaly. Rader sign negative. No guarding or rebound tenderness. No CVA tenderness MUSCULOSKELETAL: No muscle atrophy, erythema, noted. Pedal edema +1 bilaterally. Feet are slightly cool but pulses are present bilaterally, +2. NEURO: Patient was alert and oriented to person but not to place and time. Patient is able to follow commands. Course Administered Medications Acetaminophen (Tylenol) 650 mg PO Q4H PRN PRN Reason: Pain or Fever Stop: 11/09/18 03:06 Last Admin: 10/10/18 15:49 Dose: 650 mg Admin: 10/10/18 09:47 Dose: 650 mg Aspirin (Ecotrin Ectab) 81 mg PO DAILY [facility] Stop: 11/09/18 08:59 Last Admin: 10/10/18 09:43 Dose: 81 mg Atorvastatin Calcium (Lipitor) 10 mg PO DAILY [facility] Stop: 11/09/18 08:59 Last Admin: 10/10/18 09:43 Dose: 10 mg Cetirizine HCl (Zyrtec) 10 mg PO DAILY [facility] Stop: 11/09/18 08:59 Last Admin: 10/10/18 09:43 Dose: 10 mg Famotidine (Pepcid) 20 mg PO BID [facility] Stop: 11/09/18 08:59 Last Admin: 10/10/18 21:10 Dose: 20 mg Admin: 10/10/18 11:32 Dose: 20 mg Finasteride (Proscar) 5 mg PO DAILY [facility] Stop: 11/09/18 08:59 Last Admin: 10/10/18 09:42 Dose: 5 mg Piperacillin Sod/Tazobactam (Sod 3.375 gm/ Dextrose) 115 mls @ 28.75 mls/hr IV Q8H [facility]; Protocol Stop: 10/17/18 05:59 Last Infusion: 10/10/18 17:27 Dose: 0 mls/hr Admin: 10/10/18 13:27 Dose: 28.8 mls/hr Infusion: 10/10/18 09:24 Dose: 0 mls/hr Admin: 10/10/18 05:22 Dose: 28.8 mls/hr Sodium Chloride (Nss 1000ml) 1,000 mls @ 100 mls/hr IV .Q10H [facility] Stop: 11/09/18 03:06 Last Admin: 10/10/18 13:54 Dose: 100 mls/hr Infusion: 10/10/18 13:54 Dose: 100 mls/hr Admin: 10/10/18 04:21 Dose: 100 mls/hr Doxycycline Hyclate 100 mg/ (Dextrose) 110 mls @ 50 mls/hr IV Q12H [facility] Stop: 10/17/18 03:59 Last Infusion: 10/10/18 17:57 Dose: 0 mls/hr Admin: 10/10/18 15:43 Dose: 50 mls/hr Infusion: 10/10/18 06:46 Dose: 0 mls/hr Admin: 10/10/18 04:21 Dose: 50 mls/hr Heparin Sodium/Dextrose (Heparin Sodium/Dextrose) 25,000 units in 500 mls @ 15 mls/hr IV .Q0M [facility]; Protocol Stop: 11/09/18 04:20 Last Titration: 10/10/18 21:04 Dose: 750 units/hr, 15 mls/hr Titration: 10/10/18 21:04 Dose: 15 units/hr, 0.3 mls/hr Titration: 10/10/18 20:00 Dose: 0 units/hr, 0 mls/hr Titration: 10/10/18 10:55 Dose: 950 units/hr, 19 mls/hr Titration: 10/10/18 07:09 Dose: 900 units/hr, 18 mls/hr Admin: 10/10/18 04:34 Dose: 900 units/hr, 18 mls/hr Ceftriaxone Sodium 1,000 mg/ (Sodium Chloride) 50 mls @ 100 mls/hr IV Q24H [facility] ; Protocol Stop: 10/20/18 16:59 Last Infusion: 10/10/18 17:57 Dose: 0 mls/hr Admin: 10/10/18 17:16 Dose: 100 mls/hr Isosorbide Mononitrate (Imdur Extended Rel) 30 mg PO DAILY [facility] Stop: 11/09/18 08:59 Last Admin: 10/10/18 09:42 Dose: 30 mg Magnesium Oxide (Mag-Ox) 400 mg PO TID [facility] Stop: 10/13/18 20:59 Last Admin: 10/10/18 21:10 Dose: 400 mg Metoprolol Succinate (Toprol Xl) 12.5 mg PO BID [facility] Stop: 11/09/18 20:59 Last Admin: 10/10/18 21:12 Dose: Not Given Discontinued Medications Sodium Chloride (Nss 1000ml) 500 mls @ 999 mls/hr IV .Q31M [facility] Stop: 10/09/18 22:37 Last Infusion: 10/10/18 03:12 Dose: 0 mls/hr Admin: 10/10/18 01:44 Dose: 999 mls/hr Levofloxacin/Dextrose (Levaquin/D5w) 750 mg in 150 mls @ 100 mls/hr IV NOW STA Stop: 10/10/18 01:06 Last Infusion: 10/10/18 04:02 Dose: 0 mls/hr Admin: 10/10/18 01:44 Dose: 100 mls/hr Piperacillin Sod/Tazobactam Sod (Zosyn) 4.5 gm in 120 mls @ 240 mls/hr IV NOW ONE Stop: 10/10/18 00:06 Last Infusion: 10/10/18 03:12 Dose: 0 mls/hr Admin: 10/10/18 01:44 Dose: 240 mls/hr Heparin Sodium (Porcine) 3,000 (units/ Syringe) 3 mls @ 1 mls/min IV 1130 ONE Stop: 10/10/18 11:32 Last Admin: 10/10/18 13:02 Dose: 1 mls/min Metoprolol Succinate (Toprol Xl) 50 mg PO DAILY [facility] Stop: 11/09/18 08:59 Last Admin: 10/10/18 09:43 Dose: 50 mg Medical Decision Making Medical Records Attestation: I reviewed the patient's medical records. Home Medications Current Medication List: was personally reviewed by me Laboratory Data Attestation: I reviewed the patient's lab results. Result diagrams: 10/10/18 05:58 10/10/18 05:58 Lab Results 10/09/18 10/09/18 10/09/18 Range/Units 22:55 22:55 22:55 WBC 6.55 (4.8-10.8) K/uL RBC 4.66 L (4.7-6.1) M/uL Hgb 13.8 L (14.0-18.0) g/dL Hct 42.6 (42-52) % MCV 91.4 (80-100) fL MCH 29.6 (25-34) pg MCHC 32.4 (32-36) g/dL RDW Std Deviation 49.7 H (36.4-46.3) fL RDW Coeff of Geraldine 14.8 H (11.5-14.5) % Plt Count 241 (130-400) K/uL MPV 11.0 H (7.4-10.4) fL Immature Gran % (Auto) 0.2 % Neut % (Auto) 86.9 % Lymph % (Auto) 7.8 % [place] % (Auto) 4.6 % Eos % (Auto) 0.3 % Baso % (Auto) 0.2 % Immature Gran # (Auto) 0.01 (0.00-0.02) K/uL Neut # (Auto) 5.70 (1.4-6.5) K/uL Lymph # (Auto) 0.51 L (1.2-3.4) K/uL [place] # (Auto) 0.30 (0.11-0.59) K/uL Eos # (Auto) 0.02 (0-0.5) K/uL Baso # (Auto) 0.01 (0-0.2) K/uL PT Cancelled INR Cancelled APTT Cancelled PTT Ratio Cancelled Sodium 136 (136-145) mmol/L Potassium 4.3 (3.5-5.1) mmol/L Chloride 106 (98-107) mmol/L Carbon Dioxide 24 (21-32) mmol/L Anion Gap 7.0 (3-11) BUN 19 H (7-18) mg/dl Creatinine 1.14 (0.6-1.4) mg/dl Est Cr Clr Drug Dosing 49.8 ml/min Est GFR ( Amer) 68.1 Est GFR (Non-Af Amer) 58.7 BUN/Creatinine Ratio 17.0 (10-20) Glucose 100 H (70-99) mg/dl POC Lactic Acid Tj (0.90-1.70) mmol/L Lactate (0.4-2.0) mmol/L Calcium 8.7 (8.5-10.1) mg/dl Magnesium 1.9 (1.8-2.4) mg/dl Total Bilirubin 0.5 (0.2-1) mg/dl AST 22 (15-37) U/L ALT 20 (12-78) U/L Alkaline Phosphatase 66 (45-117) U/L Total Creatine Kinase 32 L (39-308) U/L Troponin I < 0.015 (0-0.045) ng/ml Total Protein 8.0 (6.4-8.2) gm/dl Albumin 3.0 L (3.4-5.0) gm/dl Globulin 5.0 H (2.5-4.0) gm/dl Albumin/Globulin Ratio 0.6 L (0.9-2) Stl C. diff Tox B Gene (Neg) 10/09/18 10/10/18 10/10/18 Range/Units 23:25 01:25 05:20 WBC (4.8-10.8) K/uL RBC (4.7-6.1) M/uL Hgb (14.0-18.0) g/dL Hct (42-52) % MCV (80-100) fL MCH (25-34) pg MCHC (32-36) g/dL RDW Std Deviation (36.4-46.3) fL RDW Coeff of Geraldine (11.5-14.5) % Plt Count (130-400) K/uL MPV (7.4-10.4) fL Immature Gran % (Auto) % Neut % (Auto) % Lymph % (Auto) % [place] % (Auto) % Eos % (Auto) % Baso % (Auto) % Immature Gran # (Auto) (0.00-0.02) K/uL Neut # (Auto) (1.4-6.5) K/uL Lymph # (Auto) (1.2-3.4) K/uL [place] # (Auto) (0.11-0.59) K/uL Eos # (Auto) (0-0.5) K/uL Baso # (Auto) (0-0.2) K/uL PT 10.2 INR 1.0 APTT 23.9 PTT Ratio 0.9 Sodium (136-145) mmol/L Potassium (3.5-5.1) mmol/L Chloride (98-107) mmol/L Carbon Dioxide (21-32) mmol/L Anion Gap (3-11) BUN (7-18) mg/dl Creatinine (0.6-1.4) mg/dl Est Cr Clr Drug Dosing ml/min Est GFR ( Amer) Est GFR (Non-Af Amer) BUN/Creatinine Ratio (10-20) Glucose (70-99) mg/dl POC Lactic Acid Tj 2.51 H (0.90-1.70) mmol/L Lactate (0.4-2.0) mmol/L Calcium (8.5-10.1) mg/dl Magnesium (1.8-2.4) mg/dl Total Bilirubin (0.2-1) mg/dl AST (15-37) U/L ALT (12-78) U/L Alkaline Phosphatase (45-117) U/L Total Creatine Kinase (39-308) U/L Troponin I (0-0.045) ng/ml Total Protein (6.4-8.2) gm/dl Albumin (3.4-5.0) gm/dl Globulin (2.5-4.0) gm/dl Albumin/Globulin Ratio (0.9-2) Stl C. diff Tox B Gene Neg C.diff Toxin B (Neg) 10/10/18 10/10/18 10/10/18 Range/Units 05:58 05:58 05:58 WBC 5.25 (4.8-10.8) K/uL RBC 4.41 L (4.7-6.1) M/uL Hgb 12.9 L (14.0-18.0) g/dL Hct 40.2 L (42-52) % MCV 91.2 (80-100) fL MCH 29.3 (25-34) pg MCHC 32.1 (32-36) g/dL RDW Std Deviation 49.5 H (36.4-46.3) fL RDW Coeff of Geraldine 14.8 H (11.5-14.5) % Plt Count 192 (130-400) K/uL MPV 10.4 (7.4-10.4) fL Immature Gran % (Auto) 0.2 % Neut % (Auto) 76.7 % Lymph % (Auto) 16.2 % [place] % (Auto) 6.3 % Eos % (Auto) 0.4 % Baso % (Auto) 0.2 % Immature Gran # (Auto) 0.01 (0.00-0.02) K/uL Neut # (Auto) 4.03 (1.4-6.5) K/uL Lymph # (Auto) 0.85 L (1.2-3.4) K/uL [place] # (Auto) 0.33 (0.11-0.59) K/uL Eos # (Auto) 0.02 (0-0.5) K/uL Baso # (Auto) 0.01 (0-0.2) K/uL PT INR APTT PTT Ratio Sodium 137 (136-145) mmol/L Potassium 3.8 (3.5-5.1) mmol/L Chloride 107 (98-107) mmol/L Carbon Dioxide 24 (21-32) mmol/L Anion Gap 6.0 (3-11) BUN 18 (7-18) mg/dl Creatinine 1.17 (0.6-1.4) mg/dl Est Cr Clr Drug Dosing 48.5 ml/min Est GFR ( Amer) 66.0 Est GFR (Non-Af Amer) 56.9 BUN/Creatinine Ratio 15.7 (10-20) Glucose 100 H (70-99) mg/dl POC Lactic Acid Tj (0.90-1.70) mmol/L Lactate 1.4 (0.4-2.0) mmol/L Calcium 8.3 L (8.5-10.1) mg/dl Magnesium 1.7 L (1.8-2.4) mg/dl Total Bilirubin (0.2-1) mg/dl AST (15-37) U/L ALT (12-78) U/L Alkaline Phosphatase (45-117) U/L Total Creatine Kinase (39-308) U/L Troponin I (0-0.045) ng/ml Total Protein (6.4-8.2) gm/dl Albumin (3.4-5.0) gm/dl Globulin (2.5-4.0) gm/dl Albumin/Globulin Ratio (0.9-2) Stl C. diff Tox B Gene (Neg) 10/10/18 10/10/18 Range/Units 10:15 19:05 WBC (4.8-10.8) K/uL RBC (4.7-6.1) M/uL Hgb (14.0-18.0) g/dL Hct (42-52) % MCV (80-100) fL MCH (25-34) pg MCHC (32-36) g/dL RDW Std Deviation (36.4-46.3) fL RDW Coeff of Geraldine (11.5-14.5) % Plt Count (130-400) K/uL MPV (7.4-10.4) fL Immature Gran % (Auto) % Neut % (Auto) % Lymph % (Auto) % [place] % (Auto) % Eos % (Auto) % Baso % (Auto) % Immature Gran # (Auto) (0.00-0.02) K/uL Neut # (Auto) (1.4-6.5) K/uL Lymph # (Auto) (1.2-3.4) K/uL [place] # (Auto) (0.11-0.59) K/uL Eos # (Auto) (0-0.5) K/uL Baso # (Auto) (0-0.2) K/uL PT INR APTT 44.8 H 129.1 H* PTT Ratio 1.7 5.0 Sodium (136-145) mmol/L Potassium (3.5-5.1) mmol/L Chloride (98-107) mmol/L Carbon Dioxide (21-32) mmol/L Anion Gap (3-11) BUN (7-18) mg/dl Creatinine (0.6-1.4) mg/dl Est Cr Clr Drug Dosing ml/min Est GFR ( Amer) Est GFR (Non-Af Amer) BUN/Creatinine Ratio (10-20) Glucose (70-99) mg/dl POC Lactic Acid Tj (0.90-1.70) mmol/L Lactate (0.4-2.0) mmol/L Calcium (8.5-10.1) mg/dl Magnesium (1.8-2.4) mg/dl Total Bilirubin (0.2-1) mg/dl AST (15-37) U/L ALT (12-78) U/L Alkaline Phosphatase (45-117) U/L Total Creatine Kinase (39-308) U/L Troponin I (0-0.045) ng/ml Total Protein (6.4-8.2) gm/dl Albumin (3.4-5.0) gm/dl Globulin (2.5-4.0) gm/dl Albumin/Globulin Ratio (0.9-2) Stl C. diff Tox B Gene (Neg) Blood Pressure Blood Pressure Findings: Elevated blood pressure Blood Pressure Disposition: Referred to patients primary care provider MDM Narrative Prior records/ancillary studies reviewed and summarized above. Nursing notes reviewed. Additional history obtained from nurse from the [facility]. The patient's history was concerning for elevated blood pressure and cool extremities. Differential diagnosis: Etiologies such as metabolic, infection, hypo/hyperglycemia, electrolyte abnormalities, cardiac sources, intracerebral event, toxicologic, neurologic, as well as others were entertained. Physical examination: As above. ER treatment provided: IV Lock IV fluids I spoke to the nurse at the [facility] and states the patient was sent in for elevated blood pressure and cool extremities. The nurse, Charissa, states she did not evaluate the patient was informed from the [facility] about the blood pressure possible cool extremities and sent the patient in. On reassessment the patient felt better. Diagnostics interpretation by me: ECG: Poor baseline, normal sinus, normal intervals, no acute ST-T wave changes. Impression normal sinus rhythm interpreted by myself I think arrhythmia is unlikely. EKG shows normal sinus rhythm with no interval abnormalities such as QT prolongation or WPW. There are no findings to suggest Brugada syndrome. Cardiac monitoring in the emergency department reveals no tachycardic or bradycardic dysrhythmia. Hypertrophic cardiomyopathy was considered but there are no clear historical elements pointing toward this. EKG is not suggestive. The QRS voltage is not extremely large and there are no suggestive Q waves. The labs revealed no leukocytosis Blood cultures pending Imaging studies: Chest x-ray concerning for pneumonia Ultrasound of the arterial study was reviewed and given to the hospitalist Consultation: A consultation was placed with the hospitalist. The case was discussed and diagnostics were reviewed. The patient was evaluated in the ER for further treatment. 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 Patient was given Zosyn and Levaquin. He will be admitted to medicine. Blood cultures are pending. Elevated lactic acid. No leukocytosis. By the evaluation outlined above emergent etiologies such as electrolyte abnormalities, cardiac sources, intracerebral event, toxologic, neurologic, abnormalities blood glucose, metabolic, as well as others were deemed relatively unlikely. The pt informed about the findings as listed above. All questions were answered and pleased with the treatment. Case reviewed with my attending The chart was completed utilizing [employer] Speech voice recognition software. Grammatical errors, random word insertions, pronoun errors, and incomplete sentences are an occassional consequence of this system due to software limitations, ambient noise, and hardware issues. Any formal questions or concerns about the content, text, or information contained within the body of this dictation should be directly addressed to the physician pediatric medical assistant for clarification. Impression & Plan Pneumonia Discharge Plan Visit Data *Final* Discharge Date/Time: 10/10/18 02:26 Chief Complaint: Hypertension Stated Complaint: HYPERTENSION, POOR CIRCULATION IN HANDS & FEET ED Provider: Carmencita Rudd ED Midlevel Provider: Corie Knight Discharge Problem: Pneumonia Patient Disposition: Admitted As Inpatient Condition: Fair Discharge Instructions Interventions: ED Discharge Assessment Last Done: 10/10/18 02:26
--- NOTE | 2018-10-09 22:51 | XRay Report ---
XR chest 1V portable CLINICAL HISTORY: AMS COMPARISON STUDY: Chest radiograph December 04, 2018. FINDINGS: Deformity of the proximal shaft of the left humerus with a possible 3.5 cm sclerotic focus is noted. Lung volumes are diminished. Right basilar opacity is increased. There is persistent left b asilar opacity. Cardiomediastinal silhouette is stable. There is no evidence for overt pulmonary norbert a. IMPRESSION: 1. Increase in right basilar opacity which may reflect pneumonia or atelectasis. 2. Persistent mild left basilar opacity. 3. Deformity of the proximal shaft of the left humerus. This favors a healed fracture and correlation with traumatic history is recommended. An osseous lesion could appear similar. Follow-up left should er radiographs are recommended. Electronically signed by: Isaias Rees M.D. 10/09/2018 10:49 PM
[2018-10-09 23:32] LABS: Basophils # (auto) 0.01 K/uL (0-0.2); Basophils % (auto) 0.2 %; Eosinophils # (auto) 0.02 K/uL (0-0.5); Eosinophils % (auto) 0.3 %; Hematocrit (blood only) 42.6 % (42-52); Hemoglobin 13.8 g/dL (14.0-18.0); Immature Granulocytes # (auto) 0.01 K/uL (0.00-0.02); Immature Granulocytes % (auto) 0.2 %; Lymphocytes # (auto) 0.51 K/uL (1.2-3.4); Lymphocytes % (auto) 7.8 %; Mean Corpuscular Hgb Conc 32.4 g/dL (32-36); Mean Corpuscular Volume 91.4 fL (80-100); Monocytes % (auto) 4.6 %; Neutrophils % (auto) 86.9 %; Platelet Count 241 K/uL (130-400); RDW Coefficient of Variation 14.8 % (11.5-14.5); RDW Standard Deviation 49.7 fL (36.4-46.3); Red Blood Count 4.66 M/uL (4.7-6.1); White Blood Count 6.55 K/uL (4.8-10.8)
[2018-10-09] MEDS ORDERED: LEVOFLOXACIN/D5W 750 MG/150 ML BAG IV STA (23:37)
[2018-10-09] MEDS ORDERED: PIPERACILL/TAZOBAC CONSULT ACTIVE PRN (23:37)
[2018-10-09] MEDS ORDERED: PIPERACILLIN/TAZOBACTAM 4.5 GM/120 ML BAG IV ONE (23:37)
[2018-10-09 23:53] LABS: Alanine Aminotransferase 20 U/L (12-78); Aspartate Aminotransferase 22 U/L (15-37); Blood Urea Nitrogen 19 mg/dl (7-18); Calcium 8.7 mg/dl (8.5-10.1); Carbon Dioxide 24 mmol/L (21-32); Chloride 106 mmol/L (98-107); Creatinine Clr Calc Pharmacy 49.8 ml/min; Est GFR (African American) 68.1; Est GFR (Non-African American) 58.7; Glucose 100 mg/dl (70-99); Magnesium 1.9 mg/dl (1.8-2.4); Potassium 4.3 mmol/L (3.5-5.1); Sodium 136 mmol/L (136-145)
[2018-10-09 23:58] LABS: Albumin Globulin Ratio 0.6 (0.9-2); Alkaline Phosphatase 66 U/L (45-117); Bilirubin,Total 0.5 mg/dl (0.2-1); Creatine Kinase 32 U/L (39-308); Troponin I < 0.015 ng/ml (0-0.045)
[2018-10-10 01:43] LABS: Partial Thromboplastin Ratio 0.9; Partial Thromboplastin Time 23.9 Seconds (21.0-31.0); Prothrombin Time 10.2 Seconds (9.0-12.0)
--- NOTE | 2018-10-10 01:45 | Emergency Department Note ---
ED Visit Note Patient seen and evaluated at bedside after discussion with physician pediatric dental assistant. Please refer to her note for additional details. Patient with a history of dementia and cannot provide any additional history and is an unreliable historian. Patient here found to have pneumonia and was started on IV antibiotics. Patient is hemodynamically stable in the emergency room. .
[2018-10-10] MEDS ORDERED: TIMOLOL MALEATE 0.25% OP SOLN 5 ML BTL OPB SCH (03:07)
[2018-10-10] MEDS ORDERED: LABETALOL HCL IV 5 MG/ML 20ML IV PRN (03:07)
[2018-10-10] MEDS ORDERED: NITROGLYCERIN SL 0.4 MG/TAB TAB SL PRN (03:07)
[2018-10-10] MEDS ORDERED: PIPERACILL/TAZOBAC CONSULT ACTIVE PRN (03:07)
[2018-10-10] MEDS ORDERED: ALUMINUM/MAGNESIUM SUSP 30 ML UDC PO PRN (03:07)
[2018-10-10] MEDS ORDERED: Heparin IV Low Dose *NO* Bolus IV ONE (03:07)
[2018-10-10] MEDS: DOXYCYCLINE HYCLATE 100 MG in DEXTROSE 5% 100 ML IV SCH ×2 (04:21→15:43)
[2018-10-10] MEDS: SODIUM CHLORIDE 0.9% 1000ML 1,000 ML IV SCH ×3 (04:21→23:27)
[2018-10-10] MEDS: HEPARIN LOW DOSE DEXTROSE 25,000 UNITS/500 ML IV SCH (04:34)
--- NOTE | 2018-10-10 04:59 | History and Physical Report ---
DATE OF ADMISSION: 10/10/2018 CHIEF COMPLAINT: Elevated blood pressure and cold extremities. HISTORY OF PRESENT ILLNESS: This is an 83-year-old male with past medical history significant for dementia, hypertension, hyperlipidemia, polymyalgia rheumatica, depression, CAD treated medically , obstructive sleep apnea on CPAP, glaucoma, who lives at [facility] in [place]. Was brought in because of elevated blood pressure and hypoxia and cold extremities. The patient was recently started on cefdinir for UTI on 10/07/2018. On 10/09/2018 afternoon, he had some diarrhea and later in the nigh when checked his blood pressure was high in 200s and he was hypoxic and also cold lower extremities and was brought to the ER. As per nursing staff, patient has dementia, but he walks with help of walker and eats regular diet and he can communicate and he knows his name and he answers appropriately. But right now, the patient is more lethargic. The patient does complain that he is cold, but does not answer any other questions. He had an episode of diarrhea in the ER. He is hemodynamically stable, currently afebrile. As per prison, there is no complaint of any shortness of breath, chest pain, or any nausea, vomiting except for diarrhea. His appetite is okay. Could not get any complete review of symptoms currently.Talked with daughter. As per daughter patient is getting more confused lately and sometimes oriented to his name and sometimes not.Says his dementia is getting worse. ALLERGIES: PSEUDOEPHEDRINE, GUAIFENESIN, SULFA ANTIBIOTICS, AND LATEX. PAST MEDICAL HISTORY: As mentioned above. PAST SURGICAL HISTORY: Cardiac catheterization, colonoscopy, cataract surgery, repair of inguinal hernia, right total hip replacement, TURP. MEDICATIONS: The patient is on aspirin 81 mg p.o. daily, atorvastatin 10 mg p.o. daily, cetirizine 10 mg p.o. at bedtime, Proscar 5 mg p.o. daily, Imdur 30 mg p.o. daily, metoprolol succinate 50 mg p.o. daily, Zantac 150 mg p.o. b.i.d., timolol ophthalmic drops at bedtime, Pepcid 20 mg b.i.d., Tylenol 650 mg p.o. q. 6 hours p.r.n., calcium carbonate 500 mg p.o. p.r.n., nitroglycerin 0.3 mg p.r.n. FAMILY HISTORY: Significant for coronary artery disease, cancer, and hypertension. SOCIAL HISTORY: No smoke history, no alcohol use, no drug use as per records. Currently living in assisted living at [facility]. REVIEW OF SYSTEMS: Unobtainable at this time. PHYSICAL EXAMINATION: GENERAL: The patient is somewhat drowsy. VITAL SIGNS: Temperature 36.8, pulse 69, respiratory rate 16, blood pressure 148/88, oxygen 97% on room air. HEENT: No pallor, no icterus. Pupils equal, round, reactive to light. NECK: No neck masses. CARDIOVASCULAR: S1, S2 heard, regular rate and rhythm, no murmur, no gallop. RESPIRATORY SYSTEM: Normal AP diameter, no accessory muscle use. No wheezing, no crackles. ABDOMEN: Soft, bowel sounds present. No distention seen. CENTRAL NERVOUS SYSTEM: The patient is currently lethargic and not obeying any commands, not oriented. Moves his extremities. EXTREMITIES: Lower extremities are cold and has edema, mild erythema of lower extremity.. LABORATORY DATA: WBC 6.5, hemoglobin 13.8, hematocrit 42.6, platelets 241. PT 10.2, INR 1, APTT 23.9. Sodium 136, potassium 4.3, chloride 106, bicarb 24, BUN 19, creatinine 1.14, serum glucose 100, point of care lactic acid is 2.5, calcium 8.7, magnesium 1.9, total bilirubin 0.5, AST 22, ALT 20, alkaline phosphatase 66, total creatine kinase 32. Troponin I less than 0.015. IMAGING DATA: Chest x-ray, increase in right basilar opacity possible pneumonia or atelectasis. EKG: Junctional rhythm at rate of 70. ASSESSMENT AND PLAN: This is an 83-year-old male who presents with elevated blood pressure and cold extremities and some hypoxia and found to have pneumonia . At [place] was recently started on Omnicef for urinary tract infection and he is also having diarrhea. 1. Possible pneumonia on chest x-ray. In the ER he was empirically treated today with Zosyn and IV Levaquin. We will place him on Zosyn and doxycycline and follow the cultures. Follow the response. IV fluids, normal saline at 100 mL per hour and monitor .POC Lactic acid 2.5. Will follow repeat levels. 2. Hypertension, hypertensive urgency. Blood pressure was 200/135 when he came in. Currently the systolic blood pressure is in the 140s. Will continue home medication of Toprol-XL, Imdur, and place him on IV labetalol p.r.n. Monitor his blood pressure. 3. Cold lower extremities. Arterial doppler shows significant PVD but no arterial occlusion. Also shows thrombus in left femoral vein. 4. Possible DVT from arterial ultrasound. Started on iv heparin and follow venous Doppler. 5. Diarrhea, recently started on antibiotics. We will check stool for C. diff. 6. History of obstructive sleep apnea, on CPAP at bedtime. 7. History of coronary artery disease. Continue his home medication of aspirin, statin, and beta-iwona. 8. Question of aspiration. The patient had video swallow last admission and supposed to be on soft diet and honey thick liquids, but as per [facility], is on regular diet. We will ask speech to see him again. We will place him on a clear liquid diet for now. 9. Deep venous thrombosis prophylaxis. We will place him on subQ heparin. 10. Chronic kidney disease stage III, we will follow his labs. Code status DNR as per prison and also daughter. WALTER
[2018-10-10] MEDS: PIPERACILLIN/TAZOBACTAM 3.375 GM in DEXTROSE 5% 100 ML IV SCH ×3 (05:22→22:17)
[2018-10-10 06:15] LABS: Basophils # (auto) 0.01 K/uL (0-0.2); Basophils % (auto) 0.2 %; Eosinophils # (auto) 0.02 K/uL (0-0.5); Eosinophils % (auto) 0.4 %; Hematocrit (blood only) 40.2 % (42-52); Hemoglobin 12.9 g/dL (14.0-18.0); Immature Granulocytes # (auto) 0.01 K/uL (0.00-0.02); Immature Granulocytes % (auto) 0.2 %; Lymphocytes # (auto) 0.85 K/uL (1.2-3.4); Lymphocytes % (auto) 16.2 %; Mean Corpuscular Hgb Conc 32.1 g/dL (32-36); Mean Corpuscular Volume 91.2 fL (80-100); Mean Platelet Volume 10.4 fL (7.4-10.4); Monocytes # (auto) 0.33 K/uL (0.11-0.59); Monocytes % (auto) 6.3 %; Neutrophils # (auto) 4.03 K/uL (1.4-6.5); Neutrophils % (auto) 76.7 %; Platelet Count 192 K/uL (130-400); RDW Coefficient of Variation 14.8 % (11.5-14.5); RDW Standard Deviation 49.5 fL (36.4-46.3); Red Blood Count 4.41 M/uL (4.7-6.1); White Blood Count 5.25 K/uL (4.8-10.8)
[2018-10-10 06:44] LABS: BUN Creatinine Ratio 15.7 (10-20); Calcium 8.3 mg/dl (8.5-10.1); Creatinine Clr Calc Pharmacy 48.5 ml/min; Est GFR (Non-African American) 56.9; Magnesium 1.7 mg/dl (1.8-2.4); Potassium 3.8 mmol/L (3.5-5.1)
--- NOTE | 2018-10-10 06:59 | Ultrasound Report ---
US arterial duplex LE BI CLINICAL HISTORY: discolored feet/cool, dimished pusles; demented pt COMPARISON STUDY: None FINDINGS: Real-time as well as Doppler evaluation of the arterial structures of the lower legs was p erformed. Waveforms and velocities indicate a degree of stenosis of the right mid anterior tibial art adelina, moderate degree of stenosis of the left mid anterior tibial artery, peroneal, and distal left pe roneal artery. No significant stenotic change of the thighs. Ankle brachial adnexa on the right is 1.12. Dorsalis pedis right ankle brachial index is 1.03. It was not obtainable on the left involving the posterior tibial artery. Dorsalis pedis and left is 1 .12. IMPRESSION: 1. Moderate to rather significant multifocal atherosclerotic narrowing throughout both lower extremit ies. 2. note is made of acute deep venous thrombosis focally within the left common femoral vein. The above report was generated using voice recognition software. It may contain grammatical, syntax or spelling errors. Electronically signed by: Desean Miller M.D. 10/10/2018 6:58 AM
[2018-10-10] MEDS ORDERED: HEPARIN SOD 5,000 UNIT/0.5 ML VIAL SQ SCH (09:00)
[2018-10-10] MEDS ORDERED: METOPROLOL SUCC 50MG EXT REL TAB PO SCH (09:00)
[2018-10-10] MEDS: ISOSORBIDE MONO EXTENDED REL 30 MG TABCR PO SCH (09:42)
[2018-10-10] MEDS: FINASTERIDE 5 MG TAB PO SCH (09:42)
[2018-10-10] MEDS: ASPIRIN 81 MG ECTAB PO SCH (09:43)
[2018-10-10] MEDS: CETIRIZINE HCL 10 MG TABLET PO SCH (09:43)
[2018-10-10] MEDS: ATORVASTATIN 10 MG TAB PO SCH (09:43)
[2018-10-10] MEDS: ACETAMINOPHEN 325 MG TAB PO PRN ×2 (09:47→15:49)
[2018-10-10 10:40] LABS: Partial Thromboplastin Ratio 1.7; Partial Thromboplastin Time 44.8 Seconds (21.0-31.0)
[2018-10-10] MEDS ORDERED: HEPARIN IV BOLUS 3,000 UNITS in SYRINGE 0 ML IV ONE (11:30)
[2018-10-10] MEDS: FAMOTIDINE 20 MG TAB PO SCH ×2 (11:32→21:10)
--- NOTE | 2018-10-10 11:56 | Ultrasound Report ---
ULTRASOUND BILATERAL LOWER EXTREMITY VENOUS CLINICAL HISTORY: Deep venous thrombosis. COMPARISON STUDY: Lower extremity arterial ultrasound dated 10/10/2018. TECHNIQUE: Real-time, grayscale, and color Doppler sonography of the deep veins of the right and left lower extremity was performed from the inguinal crease to the calf. Compression and augmentation wer e utilized. FINDINGS: Right lower extremity: There is no sonographic evidence of deep venous thrombosis identified in the r ight lower extremity. The common femoral, superficial femoral, and popliteal veins are patent and nor chichi compressible. The greater saphenous vein and the profunda femoris vein at the junction with the common femoral vein are clear. The visualized calf veins are patent. Left lower extremity: There is nonocclusive deep venous thrombosis identified within the left common femoral vein. Nonocclusive thrombus is also seen within one of two paired distal superficial femoral and popliteal veins. The proximal and mid portions of the superficial femoral vein are patent And nor chichi compressible. The greater saphenous vein and the profunda femoris vein at the junction with the common femoral vein are clear. Thrombus is seen within the posterior tibial and peroneal veins in th e calf. Occlusive superficial venous thrombus is seen throughout the saphenous vein in the thigh. IMPRESSION: 1. Left lower extremity deep venous thrombosis as above. 2. Occlusive superficial venous thrombus is seen within the left saphenous vein. 3. There is no sonographic evidence of deep venous thrombosis identified in the right lower extremity . Electronically signed by: Michael Go M.D. 10/10/2018 11:54 AM
--- NOTE | 2018-10-10 14:58 | Hospitalist Progress Note ---
Date of Service October 10, 2018 Subjective 83-year-old male with past medical history significant for dementia, hypertension, hyperlipidemia, polymyalgia rheumatica, depression, CAD treated medically, obstructive sleep apnea on CPAP, glaucoma, who lives at [facility] in [place]. Was brought in because of elevated blood pressure and hypoxia and cold extremities. The patient was recently started on cefdinir for UTI on 10/07/2018. On 10/09/2018 afternoon, he had some diarrhea and later in the night when checked his blood pressure was high in 200s and he was hypoxic and also cold lower extremities and was brought to the ER. As per nursing staff , patient has dementia, but he walks with help of walker and eats regular diet and he can communicate and he knows his name and he answers appropriately. But right now, the patient is more lethargic. The patient does complain that he is cold, but does not answer any other questions. He had an episode of diarrhea in the ER. He is hemodynamically stable, currently afebrile. As per [facility] , there is no complaint of any shortness of breath, chest pain, or any nausea, vomiting except for diarrhea. His appetite is okay. Could not get any complete review of symptoms currently. Per daughter patient is getting more confused lately and sometimes oriented to his name and sometimes not. Says his dementia is getting worse. Assessment and Plan 83-year-old male who presents with elevated blood pressure and cold extremities and some hypoxia and found to have pneumonia . At [place] was recently started on Omnicef for urinary tract infection and he is also having diarrhea. 1. Possible pneumonia on chest x-ray. In the ER he was empirically treated with Zosyn and IV Levaquin. We will place him on Zosyn and doxycycline and follow the cultures. Follow the response. IV fluids, normal saline at 100 mL per hour and monitor. POC Lactic acid 2.5. Will follow repeat levels. 2. Hypertension, hypertensive urgency. Blood pressure was 200/135 when he came in. Currently the systolic blood pressure is in the 140s. Will continue home medication of Toprol-XL, Imdur, and place him on IV labetalol p.r.n. Monitor his blood pressure. 3. Cold lower extremities. Arterial doppler shows significant PVD but no arterial occlusion. Also shows thrombus in left femoral vein. 4. Possible DVT from arterial ultrasound. Started on iv heparin and follow venous Doppler. 5. Diarrhea, recently started on antibiotics. We will check stool for C.diff. 6. History of obstructive sleep apnea, on CPAP at bedtime. 7. History of coronary artery disease. Continue his home medication of aspirin , statin, and beta-iwona. 8. Question of aspiration. The patient had video swallow last admission and supposed to be on soft diet and honey thick liquids, but as per [facility], is on regular diet. We will ask speech to see him again. We will place him on a clear liquid diet for now. 9. Deep venous thrombosis prophylaxis. We will place him on subQ heparin. 10. Chronic kidney disease stage III, we will follow his labs. 11. Dementia 12. CAD/OSAS/HLD Code status DNR as per [facility] and also daughter. Lactate normal, ROS-Did not offer a reilable history to me today Physical Exam Gen-AAO x 1, NAD, Afebrile, [place]-NCAT, EOMI, PERRLA, Anicteric Sclera, No Posterior Pharyngeal Erythema Neck-Supple, No JVD, No Thyromegaly, No Masses, No LAD, No Bruits Lungs-Clear to Auscultation Bilaterally, No Rales, No Rhonchi, No Wheezing, No Crepitus Chest-No S4, +S1, +S2, No S3, No Murmurs, No Rubs, No Gallops, No Ectopy Abdomen-Soft, Bowel Sounds Present, Non Tender, Non Distended, No Hepatomegaly, No Splenomegaly, No Palpable Masses, No Rebound, No Rigidity, No Guarding Musculoskeletal-Full Range of Motion Bilaterally, No CVAT Extremities-No Cyanosis, No Clubbing, No Edema Nuero-Cranial Nerves II-XII grossly intact, Motor WNL, DTRs WNL, Strength WNL, Non Focal Psych-Normal Mood Physical Exam 2 Vital Signs (Past 24 Hours): Last Vital Signs Temp 36.6 C 10/10/18 11:31 Pulse 55 L 10/10/18 12:03 Resp 18 10/10/18 11:31 BP 109/67 10/10/18 12:03 Pulse Ox 96 10/10/18 11:31 Results & Data Laboratory Results Allergies pseudoephedrine Allergy (Severe, Unverified 10/09/18 23:01) URINARY RETENTION guaifenesin Allergy (Unknown, Verified 10/09/18 23:01) inability to urinate Sulfa (Sulfonamide Antibiotics) Allergy (Unknown, Unverified 10/09/18 23:01) _ latex Adverse Reaction (Intermediate, Unverified 10/09/18 23:01) ITCHING/BURNING Height/Weight/Isolation Height 5 ft 10 in Weight 73 kg Chemistry 10/09/18 10/10/18 22:55 05:58 Sodium 136 137 Potassium 4.3 3.8 Chloride 106 107 Carbon Dioxide 24 24 Anion Gap 7.0 6.0 BUN 19 H 18 Creatinine 1.14 1.17 Glucose 100 H 100 H Microbiology 10/09/18 22:55 Blood Blood Culture - Pending 10/09/18 23:11 Blood Blood Culture - Pending
[2018-10-10] MEDS: cefTRIAXone SODIUM 1,000 MG in SODIUM CHLOR 0.9% AD-VAN 50 ML IV SCH (17:16)
[2018-10-10 19:46] LABS: Partial Thromboplastin Time 129.1 Seconds (21.0-31.0)
[2018-10-10] MEDS: MAGNESIUM OXIDE 400 MG TAB PO SCH (21:10)
[2018-10-10] MEDS: METOPROLOL SUCC 25MG EXT REL TAB PO SCH (21:12)
[2018-10-10] MEDS: TIMOLOL MALEATE 0.25% OP SOLN 5 ML BTL OPL SCH (22:17)
[2018-10-11 03:10] LABS: Basophils # (auto) 0.02 K/uL (0-0.2); Basophils % (auto) 0.4 %; Eosinophils % (auto) 2.2 %; Hematocrit (blood only) 36.2 % (42-52); Hemoglobin 11.6 g/dL (14.0-18.0); Lymphocytes # (auto) 1.94 K/uL (1.2-3.4); Lymphocytes % (auto) 43.3 %; Mean Corpuscular Volume 92.3 fL (80-100); Mean Platelet Volume 9.9 fL (7.4-10.4); Monocytes # (auto) 0.57 K/uL (0.11-0.59); Monocytes % (auto) 12.7 %; Neutrophils # (auto) 1.85 K/uL (1.4-6.5); Neutrophils % (auto) 41.4 %; Platelet Count 170 K/uL (130-400); RDW Coefficient of Variation 14.9 % (11.5-14.5); RDW Standard Deviation 50.9 fL (36.4-46.3); Red Blood Count 3.92 M/uL (4.7-6.1); White Blood Count 4.48 K/uL (4.8-10.8)
[2018-10-11 03:26] LABS: BUN Creatinine Ratio 11.4 (10-20); Creatinine Clr Calc Pharmacy 48.1 ml/min; Est GFR (African American) 65.3; Est GFR (Non-African American) 56.3; Magnesium 1.8 mg/dl (1.8-2.4); Partial Thromboplastin Ratio 2.1; Potassium 4.1 mmol/L (3.5-5.1)
[2018-10-11 03:28] LABS: Partial Thromboplastin Time 55.8 Seconds (21.0-31.0)
[2018-10-11] MEDS: DOXYCYCLINE HYCLATE 100 MG in DEXTROSE 5% 100 ML IV SCH ×2 (03:46→15:34)
[2018-10-11] MEDS: ACETAMINOPHEN 325 MG TAB PO PRN (05:49)
[2018-10-11] MEDS: PIPERACILLIN/TAZOBACTAM 3.375 GM in DEXTROSE 5% 100 ML IV SCH ×3 (05:49→22:07)
[2018-10-11] MEDS: SODIUM CHLORIDE 0.9% 1000ML 1,000 ML IV SCH (09:07)
[2018-10-11] MEDS: METOPROLOL SUCC 25MG EXT REL TAB PO SCH ×2 (09:09→22:10)
[2018-10-11] MEDS: ASPIRIN 81 MG ECTAB PO SCH (09:09)
[2018-10-11] MEDS: LISINOPRIL 10 MG TAB PO SCH (09:09)
[2018-10-11] MEDS: FAMOTIDINE 20 MG TAB PO SCH ×2 (09:09→22:08)
[2018-10-11] MEDS: CETIRIZINE HCL 10 MG TABLET PO SCH (09:09)
[2018-10-11] MEDS: MAGNESIUM OXIDE 400 MG TAB PO SCH ×3 (09:10→22:08)
[2018-10-11] MEDS: FINASTERIDE 5 MG TAB PO SCH (09:10)
[2018-10-11] MEDS: ATORVASTATIN 10 MG TAB PO SCH (09:10)
[2018-10-11] MEDS: ISOSORBIDE MONO EXTENDED REL 30 MG TABCR PO SCH (09:10)
[2018-10-11] MEDS: HEPARIN LOW DOSE DEXTROSE 25,000 UNITS/500 ML IV SCH (09:15)
--- NOTE | 2018-10-11 09:54 | Hospitalist Progress Note ---
Date of Service October 11, 2018 Subjective 83-year-old male with past medical history significant for dementia, hypertension, hyperlipidemia, polymyalgia rheumatica, depression, CAD treated medically, obstructive sleep apnea on CPAP, glaucoma, who lives at [facility] in [place]. Was brought in because of elevated blood pressure and hypoxia and cold extremities. The patient was recently started on cefdinir for UTI on 10/07/2018. On 10/09/2018 afternoon, he had some diarrhea and later in the night when checked his blood pressure was high in 200s and he was hypoxic and also cold lower extremities and was brought to the ER. As per nursing staff , patient has dementia, but he walks with help of walker and eats regular diet and he can communicate and he knows his name and he answers appropriately. But right now, the patient is more lethargic. The patient does complain that he is cold, but does not answer any other questions. He had an episode of diarrhea in the ER. He is hemodynamically stable, currently afebrile. As per shelter , there is no complaint of any shortness of breath, chest pain, or any nausea, vomiting except for diarrhea. His appetite is okay. Could not get any complete review of symptoms currently. Per daughter patient is getting more confused lately and sometimes oriented to his name and sometimes not. Says his dementia is getting worse. Assessment and Plan 83-year-old male who presents with elevated blood pressure and cold extremities and some hypoxia and found to have pneumonia at [place] and was recently started on Omnicef for urinary tract infection and is also having diarrhea. 1. Possible pneumonia on chest x-ray. In the ER he was empirically treated with Zosyn and IV Levaquin. We will place him on Zosyn and doxycycline and follow the cultures. Follow the response. IV fluids, normal saline at 100 mL per hour and monitor. POC Lactic acid 2.5. Will follow repeat levels. 2. Hypertension, hypertensive urgency. Blood pressure was 200/135 when he came in. Currently the systolic blood pressure is in the 140s. Will continue home medication of Toprol-XL, Imdur, and place him on IV labetalol p.r.n. Monitor his blood pressure. 3. Cold lower extremities. Arterial doppler shows significant PVD but no arterial occlusion. Also shows thrombus in left femoral vein. 4. LLE DVT, Arteries are narrowing. IV Heparin +LLE DVT on Venous Doppler. 5. Diarrhea, recently started on antibiotics. Stool neg for C.diff. 6. History of obstructive sleep apnea, on CPAP at bedtime. 7. History of coronary artery disease. Continue his home medication of aspirin , statin, and beta-iwona. 8. Question of aspiration. The patient had video swallow last admission and supposed to be on soft diet and honey thick liquids, but as per [facility], is on regular diet. We will ask speech to see him again. We will place him on a clear liquid diet for now. 9. Deep venous thrombosis prophylaxis. We will place him on subQ heparin. 10. Chronic kidney disease stage III, we will follow his labs. 11. Dementia 12. CAD/OSAS/HLD Code status DNR as per shelter and also daughter. Lactate normal, ROS-Did not offer a reilable history to me today Physical Exam Gen-AAO x 1, NAD, Afebrile, [place]-NCAT, EOMI, PERRLA, Anicteric Sclera, No Posterior Pharyngeal Erythema Neck-Supple, No JVD, No Thyromegaly, No Masses, No LAD, No Bruits Lungs-Clear to Auscultation Bilaterally, No Rales, No Rhonchi, No Wheezing, No Crepitus Chest-No S4, +S1, +S2, No S3, No Murmurs, No Rubs, No Gallops, No Ectopy Abdomen-Soft, Bowel Sounds Present, Non Tender, Non Distended, No Hepatomegaly, No Splenomegaly, No Palpable Masses, No Rebound, No Rigidity, No Guarding Musculoskeletal-Full Range of Motion Bilaterally, No CVAT Extremities-No Cyanosis, No Clubbing, No Edema Nuero-Cranial Nerves II-XII grossly intact, Motor WNL, DTRs WNL, Strength WNL, Non Focal Psych-Normal Mood Physical Exam 2 Vital Signs (Past 24 Hours): Last Vital Signs Temp 36.3 C L 10/11/18 07:00 Pulse 56 L 10/11/18 07:00 Resp 18 10/11/18 07:00 BP 168/75 H 10/11/18 07:00 Pulse Ox 98 10/11/18 07:00 Results & Data Laboratory Results Allergies pseudoephedrine Allergy (Severe, Unverified 10/09/18 23:01) URINARY RETENTION guaifenesin Allergy (Unknown, Verified 10/09/18 23:01) inability to urinate Sulfa (Sulfonamide Antibiotics) Allergy (Unknown, Unverified 10/09/18 23:01) _ latex Adverse Reaction (Intermediate, Unverified 10/09/18 23:01) ITCHING/BURNING Height/Weight/Isolation Height 5 ft 10 in Weight 75 kg Chemistry 10/09/18 10/10/18 10/11/18 22:55 05:58 03:01 Sodium 136 137 138 Potassium 4.3 3.8 4.1 Chloride 106 107 113 H Carbon Dioxide 24 24 23 Anion Gap 7.0 6.0 2.0 L BUN 19 H 18 14 Creatinine 1.14 1.17 1.18 Glucose 100 H 100 H 79 Microbiology 10/09/18 23:11 Blood Blood Culture - Preliminary No growth to date. 10/09/18 22:55 Blood Blood Culture - Preliminary No growth to date.
--- NOTE | 2018-10-11 10:13 | Consultation ---
Addendum entered and electronically signed by Radha Centeno 10/11/18 10:13 : Addendum (Blank) Addendum October 11, 2018 10:13 Original Note: Date of Consultation October 11, 2018 Assessment & Plan (1) Peripheral arterial disease: Pt with severe dementia and moderate arterial disease. No sign of ischemic limb or ulcerations. Weakly palpable distal pulses. No indications for vascular surgical intervention at this time. Please call if needed. Patient was seen, examined, and chart reviewed. Agree with exam and treatment plan of the Vascular PA. Present on Admission?: Yes History of Present Illness Reason for Consultation: PAD Attending Physician: Hussain Salas DO History of Present Illness 83 yo m with multiple medical problems, including severe dementia, PMR, SIMÓN, HTN , CAD, hyperlipidemia, admitted with HTN and cold extremities, seen in consultation today for PAD noted on US. Pt with severe dementia and unable to answer questions. Arterial US demonstrates moderate diffuse arterial disease Allergies Allergy/AdvReac Type Severity Reaction Status Date / Time pseudoephedrine Allergy Severe URINARY Unverified 10/09/18 23:01 RETENTION guaifenesin Allergy Unknown inability Verified 10/09/18 23:01 to urinate Sulfa (Sulfonamide Allergy Unknown _ Unverified 10/09/18 23:01 Antibiotics) latex AdvReac Intermediate ITCHING/BUR Unverified 10/09/18 23:01 DONNIE Home Medications Home Medications Medication Instructions Recorded Confirmed Type aspirin [Aspir-81] 81 mg PO DAILY 10/06/18 10/09/18 History atorvastatin 10 mg PO DAILY 10/06/18 10/09/18 History docusate sodium [Colace] 100 mg PO UD PRN 10/06/18 10/09/18 History famotidine 20 mg PO BID 10/06/18 10/09/18 History finasteride 5 mg PO DAILY 10/06/18 10/09/18 History isosorbide mononitrate 30 mg PO DAILY 10/06/18 10/09/18 History metoprolol succinate 50 mg PO DAILY 10/06/18 10/09/18 History timolol maleate 1 dose OPB UD 10/06/18 10/09/18 History cetirizine 10 mg PO DAILY 10/09/18 10/09/18 History Patient History Medical History Dementia (Chronic) Hyperlipemia (Chronic) Angina pectoris (Chronic) Hypertension (Chronic) SIMÓN (obstructive sleep apnea) (Chronic) CAD (coronary artery disease) (Chronic) Social History Current Living Situation: Personal Care Facility Other Information That Helps Us Care for You: No Feels Safe at Home: Yes Smoking Status: Unknown if ever smoked Beliefs That Will Affect Care: None Communication Ability: Effective Review of Systems Unable to elicit d/t dementia Physical Exam 2 Vital Signs (Past 24 Hours): Last Vital Signs Temp 36.3 C L 10/11/18 07:00 Pulse 56 L 10/11/18 07:00 Resp 18 10/11/18 07:00 BP 168/75 H 10/11/18 07:00 Pulse Ox 98 10/11/18 07:00 Constitutional: WD/WN, vitals as above well developed, well nourished, + ill appearing, + thin, + cachectic, + frail appearing, + disheveled, comfortable and + lethargic (pt sleeping, refuses to wake for exam, just moans when his name is said); + uncooperative, not in distress and not combative Eyes: Pt refused to open eyes ENMT: external ear and nose normal, oropharynx normal Nose: no nasal discharge Neck: no tracheal deviation and no neck crepitus Respiratory: normal respiratory effort, lungs clear to auscultation does not use accessory muscles, no cough, not tachypneic and no audible wheezes Auscultation: lungs clear to auscultation bilaterally and + diminished lung sounds; no rhonchi and no wheezes Cardiovascular: RRR, no murmur, no edema Heart Sounds: no gallop and no murmur Vessels: abdominal aortic pulse present, femoral pulses present, posterior tibial pulses present, dorsalis pedis pulses present, brachial pulses present and radial pulses present; no carotid bruit, no femoral bruit and + abnormal peripheral pulses Extremities: normal capillary refill, + pedal edema and + edema Gastrointestinal (Abdomen): Inspection/Auscultation: abdomen normal to inspection and normal bowel sounds; abdomen not distended Percussion/ Palpation: abdomen soft; no guarding, abdomen not rigid and no abdominal mass Musculoskeletal: Head/Neck/Chest: normocephalic, head atraumatic and neck supple Extremities: + extremities abnormal to inspection (BLE contractures noted) Skin: no rashes, warm and dry normal turgor; no rashes, no lesions, no ulcers and no induration Neurologic: + focal motor deficit (does not speak or follow directions, exam limited); + not awake Motor/Sensory: no tremor Psychiatric: Orientation: oriented to person; + not alert, + not oriented to place, + not oriented to time and + uncooperative Apperance: appropriately dressed, appropriately groomed and appeared stated age Affect: + affect not euthymic Cognition: + recent memory not intact and + remote memory not intact Lymphatic: no lymphedema
[2018-10-11] MEDS ORDERED: MICONAZOLE NITRATE POWDER 43 GM EXT PRN (11:29)
[2018-10-11] MEDS: cefTRIAXone SODIUM 1,000 MG in SODIUM CHLOR 0.9% AD-VAN 50 ML IV SCH (17:45)
[2018-10-11] MEDS: TIMOLOL MALEATE 0.25% OP SOLN 5 ML BTL OPL SCH (22:09)
[2018-10-12 03:13] LABS: Appearance Urine Clear (Clear); Bilirubin Urine Negative (Negative); Color Urine Yellow; Glucose Urine UA Negative (Negative); Ketones Urine Negative (Negative); Leukocyte Esterase Urine Negative (Negative); Nitrite Urine Negative (Negative); Protein Urine Negative (Negative); Specific Gravity Urine 1.014 (1.000-1.030); Urobilinogen Urine Negative (Negative)
[2018-10-12] MEDS: DOXYCYCLINE HYCLATE 100 MG in DEXTROSE 5% 100 ML IV SCH ×2 (04:15→17:03)
[2018-10-12] MEDS: PIPERACILLIN/TAZOBACTAM 3.375 GM in DEXTROSE 5% 100 ML IV SCH ×3 (05:21→21:53)
[2018-10-12 05:50] LABS: Hematocrit (blood only) 35.1 % (42-52); Hemoglobin 11.4 g/dL (14.0-18.0); Mean Corpuscular Hgb Conc 32.5 g/dL (32-36); Mean Corpuscular Volume 89.8 fL (80-100); Mean Platelet Volume 10.1 fL (7.4-10.4); Platelet Count 184 K/uL (130-400); RDW Coefficient of Variation 14.6 % (11.5-14.5); RDW Standard Deviation 48.2 fL (36.4-46.3); Red Blood Count 3.91 M/uL (4.7-6.1); White Blood Count 6.15 K/uL (4.8-10.8)
[2018-10-12 06:16] LABS: BUN Creatinine Ratio 7.7 (10-20); Calcium 8.1 mg/dl (8.5-10.1); Creatinine Clr Calc Pharmacy 45.1 ml/min; Est GFR (African American) 60.3; Potassium 3.6 mmol/L (3.5-5.1)
[2018-10-12 07:04] LABS: Partial Thromboplastin Ratio 2.1
--- NOTE | 2018-10-12 07:27 | XRay Report ---
XR chest 1V portable CLINICAL HISTORY: Hypoxia. COMPARISON STUDY: Chest radiograph October 09, 2018. FINDINGS: Deformity of the proximal shaft of the left humerus with sclerosis is noted. Moderate cardi ac megaly is noted. No evidence for pulmonary edema. There is no pneumothorax or pleural effusion. Th ere are mild bibasilar opacities. IMPRESSION: 1. Mild bibasilar opacities which may reflect pneumonia or atelectasis. 2. Cardiomegaly without evidence for pulmonary edema. Electronically signed by: Isaias Rees M.D. 10/12/2018 7:26 AM
[2018-10-12] MEDS: LISINOPRIL 10 MG TAB PO SCH (08:06)
[2018-10-12] MEDS: CETIRIZINE HCL 10 MG TABLET PO SCH (08:06)
[2018-10-12] MEDS: ASPIRIN 81 MG ECTAB PO SCH (08:06)
[2018-10-12] MEDS: FINASTERIDE 5 MG TAB PO SCH (08:07)
[2018-10-12] MEDS: MAGNESIUM OXIDE 400 MG TAB PO SCH ×3 (08:07→21:46)
[2018-10-12] MEDS: FAMOTIDINE 20 MG TAB PO SCH ×2 (08:07→21:47)
[2018-10-12] MEDS: ATORVASTATIN 10 MG TAB PO SCH (08:07)
[2018-10-12] MEDS: METOPROLOL SUCC 25MG EXT REL TAB PO SCH ×2 (08:07→21:52)
[2018-10-12] MEDS: ISOSORBIDE MONO EXTENDED REL 60 MG TABCR PO SCH (08:50)
[2018-10-12] MEDS ORDERED: PNEUMOCOCCAL POLYSACCHARIDES 25 MCG/0.5 ML VIAL/SYR IM ONE (10:15)
[2018-10-12] MEDS ORDERED: PNEUMOCOCCAL ADMINISTRATION CHARGE ONE (10:15)
--- NOTE | 2018-10-12 13:06 | Hospitalist Progress Note ---
Date of Service October 12, 2018 Subjective 83-year-old male with past medical history significant for dementia, hypertension, hyperlipidemia, polymyalgia rheumatica, depression, CAD treated medically, obstructive sleep apnea on CPAP, glaucoma, who lives at [facility] in [place]. Was brought in because of elevated blood pressure and hypoxia and cold extremities. The patient was recently started on cefdinir for UTI on 10/07/2018. On 10/09/2018 afternoon, he had some diarrhea and later in the night when checked his blood pressure was high in 200s and he was hypoxic and also cold lower extremities and was brought to the ER. As per nursing staff , patient has dementia, but he walks with help of walker and eats regular diet and he can communicate and he knows his name and he answers appropriately. But right now, the patient is more lethargic. The patient does complain that he is cold, but does not answer any other questions. He had an episode of diarrhea in the ER. He is hemodynamically stable, currently afebrile. As per retirement , there is no complaint of any shortness of breath, chest pain, or any nausea, vomiting except for diarrhea. His appetite is okay. Could not get any complete review of symptoms currently. Per daughter patient is getting more confused lately and sometimes oriented to his name and sometimes not. Says his dementia is getting worse. Assessment and Plan 83-year-old male who presents with elevated blood pressure and cold extremities and some hypoxia and found to have pneumonia at [place] and was recently started on Omnicef for urinary tract infection and is also having diarrhea. 1. Possible pneumonia on chest x-ray. In the ER he was empirically treated with Zosyn and IV Levaquin. On Zosyn and doxycycline. Follow up CXR. Stop IV fluids, 2. Hypertension, hypertensive urgency. Blood pressure 115/71. Monitor his blood pressure. 3. Cold lower extremities. Arterial doppler shows significant PVD but no arterial occlusion. Also shows thrombus in left femoral vein. Vascular on Case, IV Heparin 4. LLE DVT, Arteries are narrowing. IV Heparin +LLE DVT on Venous Doppler. 5. Diarrhea, recently started on antibiotics. Stool neg for C.diff. 6. History of obstructive sleep apnea, on CPAP at bedtime. 7. History of coronary artery disease. Continue his home medication of aspirin , statin, and beta-iwona. 8. Question of aspiration. The patient had video swallow last admission and supposed to be on soft diet and honey thick liquids, but as per [facility], is on regular diet. We will ask speech to see him again. We will place him on a clear liquid diet for now. 9. Deep venous thrombosis prophylaxis. We will place him on subQ heparin. 10. Chronic kidney disease stage III, we will follow his labs. 11. Dementia 12. CAD/OSAS/HLD Code status DNR as per retirement and also daughter. Lactate normal, Repeat CXR ROS-Did not offer a reilable history to me today Physical Exam Gen-AAO x 1, NAD, Afebrile, [place]-NCAT, EOMI, PERRLA, Anicteric Sclera, No Posterior Pharyngeal Erythema Neck-Supple, No JVD, No Thyromegaly, No Masses, No LAD, No Bruits Lungs-Clear to Auscultation Bilaterally, No Rales, No Rhonchi, No Wheezing, No Crepitus Chest-No S4, +S1, +S2, No S3, No Murmurs, No Rubs, No Gallops, No Ectopy Abdomen-Soft, Bowel Sounds Present, Non Tender, Non Distended, No Hepatomegaly, No Splenomegaly, No Palpable Masses, No Rebound, No Rigidity, No Guarding Musculoskeletal-Full Range of Motion Bilaterally, No CVAT Extremities-No Cyanosis, No Clubbing, No Edema Nuero-Cranial Nerves II-XII grossly intact, Motor WNL, DTRs WNL, Strength WNL, Non Focal Psych-Normal Mood Physical Exam 2 Vital Signs (Past 24 Hours): Last Vital Signs Temp 36.3 C L 10/12/18 11:44 Pulse 57 L 10/12/18 11:44 Resp 20 10/12/18 11:44 BP 115/71 10/12/18 11:44 Pulse Ox 98 10/12/18 11:44 Results & Data Laboratory Results Current Diagnoses Peripheral vascular disease, unspecified (10/10/18) Allergies pseudoephedrine Allergy (Severe, Unverified 10/09/18 23:01) URINARY RETENTION guaifenesin Allergy (Unknown, Verified 10/09/18 23:01) inability to urinate Sulfa (Sulfonamide Antibiotics) Allergy (Unknown, Unverified 10/09/18 23:01) _ latex Adverse Reaction (Intermediate, Unverified 10/09/18 23:01) ITCHING/BURNING Height/Weight/Isolation Height 5 ft 10 in Weight 75.6 kg Chemistry 10/11/18 10/12/18 03:01 05:35 Sodium 138 138 Potassium 4.1 3.6 Chloride 113 H 111 H Carbon Dioxide 23 21 Anion Gap 2.0 L 6.0 BUN 14 10 Creatinine 1.18 1.26 Glucose 79 93 Urinalysis 10/12/18 03:00 Urine Color Yellow Urine Appearance Clear Urine pH 5.0 Ur Specific [place] 1.014 Urine Protein Negative Urine Glucose (UA) Negative Urine Ketones Negative Urine Blood Negative Urine Nitrite Negative Urine Bilirubin Negative Microbiology 10/09/18 23:11 Blood Blood Culture - Preliminary No growth to date. 10/09/18 22:55 Blood Blood Culture - Preliminary No growth to date.
[2018-10-12] MEDS: cefTRIAXone SODIUM 1,000 MG in SODIUM CHLOR 0.9% AD-VAN 50 ML IV SCH (17:03)
[2018-10-12] MEDS: HEPARIN LOW DOSE DEXTROSE 25,000 UNITS/500 ML IV SCH (18:37)
[2018-10-12] MEDS: TIMOLOL MALEATE 0.25% OP SOLN 5 ML BTL OPL SCH (21:50)
[2018-10-13] MEDS ORDERED: HALOPERIDOL LACTATE 5 MG/ML 1 ML VIAL IM PRN (00:42)
[2018-10-13] MEDS: DOXYCYCLINE HYCLATE 100 MG in DEXTROSE 5% 100 ML IV SCH ×2 (04:09→17:23)
[2018-10-13 04:53] LABS: Hematocrit (blood only) 33.5 % (42-52); Mean Corpuscular Hgb Conc 32.8 g/dL (32-36); Mean Corpuscular Volume 90.8 fL (80-100); Mean Platelet Volume 9.9 fL (7.4-10.4); Platelet Count 174 K/uL (130-400); RDW Coefficient of Variation 14.6 % (11.5-14.5); RDW Standard Deviation 48.7 fL (36.4-46.3); Red Blood Count 3.69 M/uL (4.7-6.1); White Blood Count 6.85 K/uL (4.8-10.8)
[2018-10-13 05:11] LABS: BUN Creatinine Ratio 9.6 (10-20); Calcium 8.1 mg/dl (8.5-10.1); Creatinine Clr Calc Pharmacy 44.7 ml/min; Est GFR (African American) 59.7; Est GFR (Non-African American) 51.5; Partial Thromboplastin Ratio 1.8; Potassium 3.7 mmol/L (3.5-5.1)
[2018-10-13] MEDS: PIPERACILLIN/TAZOBACTAM 3.375 GM in DEXTROSE 5% 100 ML IV SCH ×3 (06:10→21:43)
[2018-10-13] MEDS ORDERED: HEPARIN IV BOLUS 3,000 UNITS in SYRINGE 0 ML IV ONE (07:30)
[2018-10-13] MEDS: ASPIRIN 81 MG ECTAB PO SCH (09:00)
[2018-10-13] MEDS: CETIRIZINE HCL 10 MG TABLET PO SCH (09:00)
[2018-10-13] MEDS: LISINOPRIL 10 MG TAB PO SCH (09:00)
[2018-10-13] MEDS: ISOSORBIDE MONO EXTENDED REL 60 MG TABCR PO SCH (09:01)
[2018-10-13] MEDS: FAMOTIDINE 20 MG TAB PO SCH ×2 (09:01→21:02)
[2018-10-13] MEDS: MAGNESIUM OXIDE 400 MG TAB PO SCH ×2 (09:01→14:26)
[2018-10-13] MEDS: METOPROLOL SUCC 25MG EXT REL TAB PO SCH ×2 (09:01→21:37)
[2018-10-13] MEDS: FINASTERIDE 5 MG TAB PO SCH (09:01)
[2018-10-13] MEDS: ATORVASTATIN 10 MG TAB PO SCH (09:01)
--- NOTE | 2018-10-13 09:26 | Discharge Summary ---
Date of Service October 13, 2018 Admission HPI Per Admitting Provider 83-year-old male with past medical history significant for dementia, hypertension, hyperlipidemia, polymyalgia rheumatica, depression, CAD treated medically , obstructive sleep apnea on CPAP, glaucoma, who lives at [facility] in [place]. Was brought in because of elevated blood pressure and hypoxia and cold extremities. The patient was recently started on cefdinir for UTI on 10/07/2018. On 10/09/2018 afternoon, he had some diarrhea and later in the nigh when checked his blood pressure was high in 200s and he was hypoxic and also cold lower extremities and was brought to the ER. As per nursing staff, patient has dementia, but he walks with help of walker and eats regular diet and he can communicate and he knows his name and he answers appropriately. But right now, the patient is more lethargic. The patient does complain that he is cold, but does not answer any other questions. He had an episode of diarrhea in the ER. He is hemodynamically stable, currently afebrile. As per long-term, there is no complaint of any shortness of breath, chest pain, or any nausea, vomiting except for diarrhea. His appetite is okay. Could not get any complete review of symptoms currently.Talked with daughter. As per daughter patient is getting more confused lately and sometimes oriented to his name and sometimes not.Says his dementia is getting worse. Admission Exam Per Admitting Provider PHYSICAL EXAMINATION: GENERAL: The patient is somewhat drowsy. VITAL SIGNS: Temperature 36.8, pulse 69, respiratory rate 16, blood pressure 148/88, oxygen 97% on room air. HEENT: No pallor, no icterus. Pupils equal, round, reactive to light. NECK: No neck masses. CARDIOVASCULAR: S1, S2 heard, regular rate and rhythm, no murmur, no gallop. RESPIRATORY SYSTEM: Normal AP diameter, no accessory muscle use. No wheezing, no crackles. ABDOMEN: Soft, bowel sounds present. No distention seen. CENTRAL NERVOUS SYSTEM: The patient is currently lethargic and not obeying any commands, not oriented. Moves his extremities. EXTREMITIES: Lower extremities are cold and has edema, mild erythema of lower extremity.. Principal Diagnosis 1. Pneumonia on chest x-ray 2. Hypertension, hypertensive urgency. 3. Cold lower extremities. 4. LLE DVT, Arteries are narrowing. IV Heparin +LLE DVT on Venous Doppler. 5. Diarrhea, recently started on antibiotics. Stool neg for C.diff. 6. History of obstructive sleep apnea, on CPAP at bedtime. 7. History of coronary artery disease. Continue his home medication of aspirin , statin, and beta-iwona. 8. Question of aspiration. 9. Deep venous thrombosis prophylaxis. iv heparin. 10. Chronic kidney disease stage III 11. Dementia 12. CAD/OSAS/HLD Discharge Exam ROS-Did not offer a reilable history to me today Physical Exam Gen-AAO x 1, NAD, Afebrile, [place]-NCAT, EOMI, PERRLA, Anicteric Sclera, No Posterior Pharyngeal Erythema Neck-Supple, No JVD, No Thyromegaly, No Masses, No LAD, No Bruits Lungs-Clear to Auscultation Bilaterally, No Rales, No Rhonchi, No Wheezing, No Crepitus Chest-No S4, +S1, +S2, No S3, No Murmurs, No Rubs, No Gallops, No Ectopy Abdomen-Soft, Bowel Sounds Present, Non Tender, Non Distended, No Hepatomegaly, No Splenomegaly, No Palpable Masses, No Rebound, No Rigidity, No Guarding Musculoskeletal-Full Range of Motion Bilaterally, No CVAT Extremities-No Cyanosis, No Clubbing, No Edema Nuero-Cranial Nerves II-XII grossly intact, Motor WNL, DTRs WNL, Strength WNL, Non Focal Psych-Normal Mood Discharge Data Allergies Allergy/AdvReac Type Severity Reaction Status Date / Time pseudoephedrine Allergy Severe URINARY Unverified 10/09/18 23:01 RETENTION guaifenesin Allergy Unknown inability Verified 10/09/18 23:01 to urinate Sulfa (Sulfonamide Allergy Unknown _ Unverified 10/09/18 23:01 Antibiotics) latex AdvReac Intermediate ITCHING/BUR Unverified 10/09/18 23:01 DONNIE Consultations 10/10/18 03:07 Consult Case Management - Discharge Planning Routine 10/10/18 08:00 Consult Vascular Surgery Routine Ordered Studies 10/09/18 22:21 US arterial duplex LE BI Urgent 10/10/18 03:07 US venous doppler LE Routine Current Diagnoses Peripheral vascular disease, unspecified (10/10/18) Allergies pseudoephedrine Allergy (Severe, Unverified 10/09/18 23:01) URINARY RETENTION guaifenesin Allergy (Unknown, Verified 10/09/18 23:01) inability to urinate Sulfa (Sulfonamide Antibiotics) Allergy (Unknown, Unverified 10/09/18 23:01) _ latex Adverse Reaction (Intermediate, Unverified 10/09/18 23:01) ITCHING/BURNING Height/Weight/Isolation Height 5 ft 10 in Weight 75.8 kg Chemistry 10/12/18 10/13/18 05:35 04:44 Sodium 138 137 Potassium 3.6 3.7 Chloride 111 H 110 H Carbon Dioxide 21 24 Anion Gap 6.0 3.0 BUN 10 12 Creatinine 1.26 1.27 Glucose 93 89 Urinalysis 10/12/18 03:00 Urine Color Yellow Urine Appearance Clear Urine pH 5.0 Ur Specific [place] 1.014 Urine Protein Negative Urine Glucose (UA) Negative Urine Ketones Negative Urine Blood Negative Urine Nitrite Negative Urine Bilirubin Negative Microbiology 10/09/18 23:11 Blood Blood Culture - Preliminary No growth to date. 10/09/18 22:55 Blood Blood Culture - Preliminary No growth to date. Hospital Course (1) Pneumonia: See below Patient came in short of breath and altered mental status. He was found to have a pneumonia and a urinary tract infection he was placed on IV antibiotics. He was also found to have a left lower extremity DVT and was started on IV heparin. We will transition him to warfarin. Assessment and plan 1. Pneumonia on chest x-ray. DC on Augmentin and doxycycline 2. Hypertension, hypertensive urgency. Monitor as outpatient 3. Cold lower extremities. Arterial doppler shows significant PVD but no arterial occlusion. Also shows thrombus in left femoral vein. DC on oral anticoagulant as per insurance 4. LLE DVT, Arteries are narrowing. IV Heparin +LLE DVT on Venous Doppler. 5. Diarrhea, recently started on antibiotics. Stool neg for C.diff. 6. History of obstructive sleep apnea, on CPAP at bedtime. 7. History of coronary artery disease. Continue his home medication of aspirin , statin, and beta-iwona. 8. Question of aspiration. The patient had video swallow last admission and supposed to be on soft diet and honey thick liquids, but as per [facility], is on regular diet. 9. Chronic kidney disease stage III, we will follow his labs. 11. Dementia 12. CAD/OSAS/HLD Total Time Total Time Spent Total Time Spent (In Minutes): 45 minutes Total Time Includes: Examination of the Patient, Discharge Planning, Medication Reconciliation and Communication With Other Providers Discharge Plan Discharge Items Patient Disposition: Trans Resident Long-Term Care Reason For Visit: HTN AND HYPOXIA Discharge Diagnosis: DVT Hypertension Pneumonia UTI Dementia Fall Hyperlipidemia Altered mental status Polymyalgia rheumatica Hip contusion on the left Hypertension Sleep apnea CAD Glaucoma Condition: Fair Discharge Goals: Decrease discomfort Activity: Resume your previous activity Lifting: None Bathing: No limitations Exercise/Sports: None Weightbearing: Left weightbearing and Right weightbearing Weightbearing Comment: As tolerated Non-emergency contact: Primary Care Provider Call non-emergency contact if: you have any medication questions Diet: Regular Addtl Provider Instructions: Follow-up with family physician in 7-10 days Prescriptions: New lisinopril [Zestril] 10 mg Tablet 10 mg PO QAM Qty: 30 RF: 0 doxycycline monohydrate 100 mg capsule 100 mg PO Q12H 10 Days Qty: 20 RF: 0 cefuroxime axetil 500 mg tablet 500 mg PO BID 10 Days Qty: 20 RF: 0 apixaban [Eliquis] 5 mg tablet 5 mg PO BID Qty: 74 RF: 0 Continue atorvastatin 10 mg tablet 10 mg PO DAILY RF: 0 metoprolol succinate 50 mg tablet extended release 24 hr 50 mg PO DAILY RF: 0 isosorbide mononitrate 30 mg tablet extended release 24 hr 30 mg PO DAILY RF: 0 famotidine 20 mg tablet 20 mg PO BID RF: 0 timolol maleate 0.5 % drops 1 dose OPB UD RF: 0 finasteride 5 mg tablet 5 mg PO DAILY RF: 0 aspirin [Aspir-81] 81 mg Tablet,Delayed Release (Dr/Ec) 81 mg PO DAILY RF: 0 docusate sodium [Colace] 100 mg Capsule 100 mg PO UD PRN (Reason: Constipation) RF: 0 cetirizine 10 mg tablet 10 mg PO DAILY RF: 0 Stand-Alone Forms: [facility] Discharge Orders: Discharge Order (Routine); Ordered 10/14/18 Ordered By: Hussain Salas Admission Data Admit Date/Time: 10/10/18 01:54 Attending Provider: Hussain Salas Admmohinder Provider: Bethel Szymanski Primary Care Provider: Gen Buitrago Other Providers: Zhao Contreras Service: Telemetry Medical Other Pending Studies at Discharge: No
--- NOTE | 2018-10-13 09:38 | Hospitalist Progress Note ---
Date of Service October 13, 2018 Assessment & Plan (1) Pneumonia: See below Patient came in short of breath and altered mental status. He was found to have a pneumonia and a urinary tract infection he was placed on IV antibiotics. He was also found to have a left lower extremity DVT and was started on IV heparin. We will transition him to warfarin. Assessment and plan 1. Pneumonia on chest x-ray. DC on Augmentin and doxycycline in 1-2 days 2. Hypertension, hypertensive urgency. Monitor as outpatient 3. Cold lower extremities. Arterial doppler shows significant PVD but no arterial occlusion. Also shows thrombus in left femoral vein. DC on oral anticoagulant as per insurance 4. LLE DVT, Arteries are narrowing. IV Heparin +LLE DVT on Venous Doppler. 5. Diarrhea, recently started on antibiotics. Stool neg for C.diff. 6. History of obstructive sleep apnea, on CPAP at bedtime. 7. History of coronary artery disease. Continue his home medication of aspirin , statin, and beta-iwona. 8. Question of aspiration. The patient had video swallow last admission and supposed to be on soft diet and honey thick liquids, but as per [facility], is on regular diet. 9. Chronic kidney disease stage III, we will follow his labs. 11. Dementia 12. CAD/OSAS/HLD Subjective 83-year-old male with past medical history significant for dementia, hypertension, hyperlipidemia, polymyalgia rheumatica, depression, CAD treated medically, obstructive sleep apnea on CPAP, glaucoma, who lives at [facility] in [place]. Was brought in because of elevated blood pressure and hypoxia and cold extremities. The patient was recently started on cefdinir for UTI on 10/07/2018. On 10/09/2018 afternoon, he had some diarrhea and later in the night when checked his blood pressure was high in 200s and he was hypoxic and also cold lower extremities and was brought to the ER. As per nursing staff , patient has dementia, but he walks with help of walker and eats regular diet and he can communicate and he knows his name and he answers appropriately. But right now, the patient is more lethargic. The patient does complain that he is cold, but does not answer any other questions. He had an episode of diarrhea in the ER. He is hemodynamically stable, currently afebrile. As per long term , there is no complaint of any shortness of breath, chest pain, or any nausea, vomiting except for diarrhea. His appetite is okay. Could not get any complete review of symptoms currently. Per daughter patient is getting more confused lately and sometimes oriented to his name and sometimes not. Says his dementia is getting worse. Code status DNR as per long term and also daughter. Lactate normal, Repeat CXR ROS-Did not offer a reilable history to me today Physical Exam Gen-AAO x 1, NAD, Afebrile, [place]-NCAT, EOMI, PERRLA, Anicteric Sclera, No Posterior Pharyngeal Erythema Neck-Supple, No JVD, No Thyromegaly, No Masses, No LAD, No Bruits Lungs-Clear to Auscultation Bilaterally, No Rales, No Rhonchi, No Wheezing, No Crepitus Chest-No S4, +S1, +S2, No S3, No Murmurs, No Rubs, No Gallops, No Ectopy Abdomen-Soft, Bowel Sounds Present, Non Tender, Non Distended, No Hepatomegaly, No Splenomegaly, No Palpable Masses, No Rebound, No Rigidity, No Guarding Musculoskeletal-Full Range of Motion Bilaterally, No CVAT Extremities-No Cyanosis, No Clubbing, No Edema Nuero-Cranial Nerves II-XII grossly intact, Motor WNL, DTRs WNL, Strength WNL, Non Focal Psych-Normal Mood Physical Exam 2 Vital Signs (Past 24 Hours): Last Vital Signs Temp 36.5 C 10/13/18 07:00 Pulse 57 L 10/13/18 07:00 Resp 20 10/13/18 07:00 BP 153/74 H 10/13/18 07:00 Pulse Ox 99 10/13/18 07:00 Results & Data Laboratory Results Current Diagnoses Peripheral vascular disease, unspecified (10/10/18) Allergies pseudoephedrine Allergy (Severe, Unverified 10/09/18 23:01) URINARY RETENTION guaifenesin Allergy (Unknown, Verified 10/09/18 23:01) inability to urinate Sulfa (Sulfonamide Antibiotics) Allergy (Unknown, Unverified 10/09/18 23:01) _ latex Adverse Reaction (Intermediate, Unverified 10/09/18 23:01) ITCHING/BURNING Height/Weight/Isolation Height 5 ft 10 in Weight 75.8 kg CBC 02/10/09/18 10/09/18 22:55 22:55 22:55 WBC 6.55 RBC 4.66 L Hgb 13.8 L Hct 42.6 MCV 91.4 MCH 29.6 MCHC 32.4 RDW Std Deviation 49.7 H RDW Coeff of Geraldine 14.8 H Plt Count 241 MPV 11.0 H Immature Gran % (Auto) 0.2 Neut % (Auto) 86.9 Lymph % (Auto) 7.8 [place] % (Auto) 4.6 Eos % (Auto) 0.3 Baso % (Auto) 0.2 Immature Gran # (Auto) 0.01 Neut # (Auto) 5.70 Lymph # (Auto) 0.51 L [place] # (Auto) 0.30 Eos # (Auto) 0.02 Baso # (Auto) 0.01 PT Cancelled INR Cancelled APTT Cancelled PTT Ratio Cancelled Sodium 136 Potassium 4.3 Chloride 106 Carbon Dioxide 24 Anion Gap 7.0 BUN 19 H Creatinine 1.14 Est Cr Clr Drug Dosing 49.8 Est GFR ( Amer) 68.1 Est GFR (Non-Af Amer) 58.7 BUN/Creatinine Ratio 17.0 Glucose 100 H POC Lactic Acid Tj Lactate Calcium 8.7 Magnesium 1.9 Total Bilirubin 0.5 AST 22 ALT 20 Alkaline Phosphatase 66 Total Creatine Kinase 32 L Troponin I < 0.015 Total Protein 8.0 Albumin 3.0 L Globulin 5.0 H Albumin/Globulin Ratio 0.6 L Urine Color Urine Appearance Urine pH Ur Specific [place] Urine Protein Urine Glucose (UA) Urine Ketones Urine Blood Urine Nitrite Urine Bilirubin Urine Urobilinogen Ur Leukocyte Esterase Stl C. diff Tox B Gene 10/09/18 10/10/18 10/10/18 23:25 01:25 05:20 WBC RBC Hgb Hct MCV MCH MCHC RDW Std Deviation RDW Coeff of Geraldine Plt Count MPV Immature Gran % (Auto) Neut % (Auto) Lymph % (Auto) [place] % (Auto) Eos % (Auto) Baso % (Auto) Immature Gran # (Auto) Neut # (Auto) Lymph # (Auto) [place] # (Auto) Eos # (Auto) Baso # (Auto) PT 10.2 INR 1.0 APTT 23.9 PTT Ratio 0.9 Sodium Potassium Chloride Carbon Dioxide Anion Gap BUN Creatinine Est Cr Clr Drug Dosing Est GFR ( Amer) Est GFR (Non-Af Amer) BUN/Creatinine Ratio Glucose POC Lactic Acid Tj 2.51 H Lactate Calcium Magnesium Total Bilirubin AST ALT Alkaline Phosphatase Total Creatine Kinase Troponin I Total Protein Albumin Globulin Albumin/Globulin Ratio Urine Color Urine Appearance Urine pH Ur Specific [place] Urine Protein Urine Glucose (UA) Urine Ketones Urine Blood Urine Nitrite Urine Bilirubin Urine Urobilinogen Ur Leukocyte Esterase Stl C. diff Tox B Gene Neg C.diff Toxin B 10/10/18 10/10/18 10/10/18 05:58 05:58 05:58 WBC 5.25 RBC 4.41 L Hgb 12.9 L Hct 40.2 L MCV 91.2 MCH 29.3 MCHC 32.1 RDW Std Deviation 49.5 H RDW Coeff of Geraldine 14.8 H Plt Count 192 MPV 10.4 Immature Gran % (Auto) 0.2 Neut % (Auto) 76.7 Lymph % (Auto) 16.2 [place] % (Auto) 6.3 Eos % (Auto) 0.4 Baso % (Auto) 0.2 Immature Gran # (Auto) 0.01 Neut # (Auto) 4.03 Lymph # (Auto) 0.85 L [place] # (Auto) 0.33 Eos # (Auto) 0.02 Baso # (Auto) 0.01 PT INR APTT PTT Ratio Sodium 137 Potassium 3.8 Chloride 107 Carbon Dioxide 24 Anion Gap 6.0 BUN 18 Creatinine 1.17 Est Cr Clr Drug Dosing 48.5 Est GFR ( Amer) 66.0 Est GFR (Non-Af Amer) 56.9 BUN/Creatinine Ratio 15.7 Glucose 100 H POC Lactic Acid Tj Lactate 1.4 Calcium 8.3 L Magnesium 1.7 L Total Bilirubin AST ALT Alkaline Phosphatase Total Creatine Kinase Troponin I Total Protein Albumin Globulin Albumin/Globulin Ratio Urine Color Urine Appearance Urine pH Ur Specific [place] Urine Protein Urine Glucose (UA) Urine Ketones Urine Blood Urine Nitrite Urine Bilirubin Urine Urobilinogen Ur Leukocyte Esterase Stl C. diff Tox B Gene 10/10/18 10/10/18 10/11/18 10:15 19:05 03:01 WBC 4.48 L RBC 3.92 L Hgb 11.6 L Hct 36.2 L MCV 92.3 MCH 29.6 MCHC 32.0 RDW Std Deviation 50.9 H RDW Coeff of Geraldine 14.9 H Plt Count 170 MPV 9.9 Immature Gran % (Auto) 0.0 Neut % (Auto) 41.4 Lymph % (Auto) 43.3 [place] % (Auto) 12.7 Eos % (Auto) 2.2 Baso % (Auto) 0.4 Immature Gran # (Auto) 0.00 Neut # (Auto) 1.85 Lymph # (Auto) 1.94 [place] # (Auto) 0.57 Eos # (Auto) 0.10 Baso # (Auto) 0.02 PT INR APTT 44.8 H 129.1 H* PTT Ratio 1.7 5.0 Sodium Potassium Chloride Carbon Dioxide Anion Gap BUN Creatinine Est Cr Clr Drug Dosing Est GFR ( Amer) Est GFR (Non-Af Amer) BUN/Creatinine Ratio Glucose POC Lactic Acid Tj Lactate Calcium Magnesium Total Bilirubin AST ALT Alkaline Phosphatase Total Creatine Kinase Troponin I Total Protein Albumin Globulin Albumin/Globulin Ratio Urine Color Urine Appearance Urine pH Ur Specific [place] Urine Protein Urine Glucose (UA) Urine Ketones Urine Blood Urine Nitrite Urine Bilirubin Urine Urobilinogen Ur Leukocyte Esterase Stl C. diff Tox B Gene 10/11/18 10/11/18 10/12/18 03:01 03:01 03:00 WBC RBC Hgb Hct MCV MCH MCHC RDW Std Deviation RDW Coeff of Geraldine Plt Count MPV Immature Gran % (Auto) Neut % (Auto) Lymph % (Auto) [place] % (Auto) Eos % (Auto) Baso % (Auto) Immature Gran # (Auto) Neut # (Auto) Lymph # (Auto) [place] # (Auto) Eos # (Auto) Baso # (Auto) PT INR APTT 55.8 H* PTT Ratio 2.1 Sodium 138 Potassium 4.1 Chloride 113 H Carbon Dioxide 23 Anion Gap 2.0 L BUN 14 Creatinine 1.18 Est Cr Clr Drug Dosing 48.1 Est GFR ( Amer) 65.3 Est GFR (Non-Af Amer) 56.3 BUN/Creatinine Ratio 11.4 Glucose 79 POC Lactic Acid Tj Lactate Calcium 8.0 L Magnesium 1.8 Total Bilirubin AST ALT Alkaline Phosphatase Total Creatine Kinase Troponin I Total Protein Albumin Globulin Albumin/Globulin Ratio Urine Color Yellow Urine Appearance Clear Urine pH 5.0 Ur Specific [place] 1.014 Urine Protein Negative Urine Glucose (UA) Negative Urine Ketones Negative Urine Blood Negative Urine Nitrite Negative Urine Bilirubin Negative Urine Urobilinogen Negative Ur Leukocyte Esterase Negative Stl C. diff Tox B Gene 10/12/18 10/12/18 10/12/18 05:35 05:35 05:35 WBC 6.15 RBC 3.91 L Hgb 11.4 L Hct 35.1 L MCV 89.8 MCH 29.2 MCHC 32.5 RDW Std Deviation 48.2 H RDW Coeff of Geraldine 14.6 H Plt Count 184 MPV 10.1 Immature Gran % (Auto) Neut % (Auto) Lymph % (Auto) [place] % (Auto) Eos % (Auto) Baso % (Auto) Immature Gran # (Auto) Neut # (Auto) Lymph # (Auto) [place] # (Auto) Eos # (Auto) Baso # (Auto) PT INR APTT 55.0 H* PTT Ratio 2.1 Sodium 138 Potassium 3.6 Chloride 111 H Carbon Dioxide 21 Anion Gap 6.0 BUN 10 Creatinine 1.26 Est Cr Clr Drug Dosing 45.1 Est GFR ( Amer) 60.3 Est GFR (Non-Af Amer) 52.0 BUN/Creatinine Ratio 7.7 L Glucose 93 POC Lactic Acid Tj Lactate Calcium 8.1 L Magnesium Total Bilirubin AST ALT Alkaline Phosphatase Total Creatine Kinase Troponin I Total Protein Albumin Globulin Albumin/Globulin Ratio Urine Color Urine Appearance Urine pH Ur Specific [place] Urine Protein Urine Glucose (UA) Urine Ketones Urine Blood Urine Nitrite Urine Bilirubin Urine Urobilinogen Ur Leukocyte Esterase Stl C. diff Tox B Gene 10/13/18 10/13/18 10/13/18 04:44 04:44 04:44 WBC 6.85 RBC 3.69 L Hgb 11.0 L Hct 33.5 L MCV 90.8 MCH 29.8 MCHC 32.8 RDW Std Deviation 48.7 H RDW Coeff of Geraldine 14.6 H Plt Count 174 MPV 9.9 Immature Gran % (Auto) Neut % (Auto) Lymph % (Auto) [place] % (Auto) Eos % (Auto) Baso % (Auto) Immature Gran # (Auto) Neut # (Auto) Lymph # (Auto) [place] # (Auto) Eos # (Auto) Baso # (Auto) PT INR APTT 46.0 H* PTT Ratio 1.8 Sodium 137 Potassium 3.7 Chloride 110 H Carbon Dioxide 24 Anion Gap 3.0 BUN 12 Creatinine 1.27 Est Cr Clr Drug Dosing 44.7 Est GFR ( Amer) 59.7 Est GFR (Non-Af Amer) 51.5 BUN/Creatinine Ratio 9.6 L Glucose 89 POC Lactic Acid Tj Lactate Calcium 8.1 L Magnesium Total Bilirubin AST ALT Alkaline Phosphatase Total Creatine Kinase Troponin I Total Protein Albumin Globulin Albumin/Globulin Ratio Urine Color Urine Appearance Urine pH Ur Specific [place] Urine Protein Urine Glucose (UA) Urine Ketones Urine Blood Urine Nitrite Urine Bilirubin Urine Urobilinogen Ur Leukocyte Esterase Stl C. diff Tox B Gene Chemistry 10/12/18 10/13/18 05:35 04:44 Sodium 138 137 Potassium 3.6 3.7 Chloride 111 H 110 H Carbon Dioxide 21 24 Anion Gap 6.0 3.0 BUN 10 12 Creatinine 1.26 1.27 Glucose 93 89 Urinalysis 10/12/18 03:00 Urine Color Yellow Urine Appearance Clear Urine pH 5.0 Ur Specific [place] 1.014 Urine Protein Negative Urine Glucose (UA) Negative Urine Ketones Negative Urine Blood Negative Urine Nitrite Negative Urine Bilirubin Negative Microbiology 10/09/18 23:11 Blood Blood Culture - Preliminary No growth to date. 10/09/18 22:55 Blood Blood Culture - Preliminary No growth to date. _ (1) Pneumonia Aspiration pneumonia type: Laterality: unspecified laterality Lung location : unspecified part of lung Pneumonia type: due to unspecified organism Qualified Code(s): J18.9 - Pneumonia, unspecified organism
[2018-10-13 14:04] LABS: Partial Thromboplastin Time 52.9 Seconds (21.0-31.0)
[2018-10-13] MEDS ORDERED: WARFARIN SOD 7.5 MG TAB PO SCH (16:00)
[2018-10-13] MEDS: cefTRIAXone SODIUM 1,000 MG in SODIUM CHLOR 0.9% AD-VAN 50 ML IV SCH (16:45)
[2018-10-13 17:33] LABS: INR 1.1 (0.9-1.1); Prothrombin Time 11.3 Seconds (9.0-12.0)
[2018-10-13] MEDS: ACETAMINOPHEN 325 MG TAB PO PRN (20:13)
[2018-10-13] MEDS: TIMOLOL MALEATE 0.25% OP SOLN 5 ML BTL OPL SCH (21:02)
[2018-10-14] MEDS: HEPARIN LOW DOSE DEXTROSE 25,000 UNITS/500 ML IV SCH ×2 (03:42→12:03)
[2018-10-14] MEDS: DOXYCYCLINE HYCLATE 100 MG in DEXTROSE 5% 100 ML IV SCH (03:43)
[2018-10-14] MEDS: PIPERACILLIN/TAZOBACTAM 3.375 GM in DEXTROSE 5% 100 ML IV SCH ×2 (05:51→12:35)
[2018-10-14 06:27] LABS: INR 1.2 (0.9-1.1); Partial Thromboplastin Ratio 2.2; Prothrombin Time 11.7 Seconds (9.0-12.0)
[2018-10-14 06:30] LABS: Partial Thromboplastin Time 57.6 Seconds (21.0-31.0)
[2018-10-14] MEDS: ATORVASTATIN 10 MG TAB PO SCH (08:48)
[2018-10-14] MEDS: CETIRIZINE HCL 10 MG TABLET PO SCH (08:49)
[2018-10-14] MEDS: METOPROLOL SUCC 25MG EXT REL TAB PO SCH (08:49)
[2018-10-14] MEDS: ISOSORBIDE MONO EXTENDED REL 60 MG TABCR PO SCH (08:49)
[2018-10-14] MEDS: LISINOPRIL 10 MG TAB PO SCH (08:50)
[2018-10-14] MEDS: FINASTERIDE 5 MG TAB PO SCH (08:50)
[2018-10-14] MEDS: FAMOTIDINE 20 MG TAB PO SCH (08:50)
[2018-10-14] MEDS: ASPIRIN 81 MG ECTAB PO SCH (08:51)
[2018-10-14] MEDS ORDERED: APIXABAN 5 MG TABLET PO ONE (12:15)
[2018-10-14] MEDS ORDERED: APIXABAN 5 MG TABLET PO SCH (21:00)
== END 2018-10-14 16:00 | disposition home or self-care (01) | DRG 194 ==
LOC: ED 21:39 → 2N 10-10 01:54

== ENCOUNTER 2019-10-02 06:59 | Inpatient (IN) ==
--- NOTE | 2019-10-02 07:13 | Emergency Department Note ---
History of Present Illness General Chief complaint: Fall Stated complaint: fall/ hip & leg pain Time Seen by Provider: 10/02/19 07:01 History of Present Illness This is an 84-year-old male that presents to the emergency department via ambulance with complaints of "fall". Per report, the patient attempted to amb ulate outside of his bed towards the bathroom and fell. He has been complaining of pain in his hips since that time. He has a past medical history of cervical spondylitis, glaucoma, encephalopathy, polymyalgia rheumatica, nonallergic rhinitis, pruritic disorder, benign neoplasm large bowel, deviated nasal septum, hearing loss, vertigo, dyslipidemia, CAD, hypertension, left inguinal hernia, SIMÓN, dimension, among others that presents with the above-stated complaint. Per report, there are abrasions to the bilateral knees. When he is asked where the pain is he continues to say his hips. Unfortunately given baseline mentation, numeric rating is unavailable at this time. Also per report, there was no sign of head trauma. In addition, I was informed that there was a witnessed bright red blood per rectum with his last bowel movement comparatively yesterday's bowel movement were normal. He is on Eliquis as well as aspirin. Home Medications Home Medications Medication Instructions Recorded Confirmed Type aspirin [Aspir-81] 81 mg PO QAM 10/06/18 10/02/19 History atorvastatin 10 mg PO HS 10/06/18 10/02/19 History famotidine 20 mg PO BID 10/06/18 10/02/19 History finasteride 5 mg PO QAM 10/06/18 10/02/19 History isosorbide mononitrate 30 mg PO QAM 10/06/18 10/02/19 History metoprolol succinate 50 mg PO QAM 10/06/18 10/02/19 History timolol maleate 1 dose OPB HS 10/06/18 10/02/19 History cetirizine 10 mg PO HS 10/09/18 10/02/19 History apixaban [Eliquis] 5 mg PO BID #74 tab 10/14/18 10/02/19 Rx lisinopril [Zestril] 10 mg PO QAM #30 tab 10/14/18 10/02/19 Rx melatonin 5 mg PO HS 10/02/19 10/02/19 History multivitamin 1 tab PO QAM 10/02/19 10/02/19 History Allergies Allergy/AdvReac Type Severity Reaction Status Date / Time pseudoephedrine Allergy Severe URINARY Unverified 10/02/19 08:22 RETENTION guaifenesin Allergy Unknown inability Verified 10/02/19 08:22 to urinate Sulfa (Sulfonamide Allergy Unknown _ Unverified 10/02/19 08:22 Antibiotics) latex AdvReac Intermediate ITCHING/BUR Unverified 10/02/19 08:22 DONNIE Past Med/Surg History Medical History (Updated 10/02/19 @ 09:50 by Freddie Barnes PA-C) Angina pectoris (Chronic) CAD (coronary artery disease) (Chronic) Dementia (Chronic) Hyperlipemia (Chronic) Hypertension (Chronic) SIMÓN (obstructive sleep apnea) (Chronic) Surgical History No pertinent past surgical history Social History Preferred Language: Icelandic Communication Ability: Effective Supervisor Word Processing Required: Yes Beliefs That Will Affect Care: None Current Living Situation: Personal Care Facility Feels Safe at Home: Yes Smoking Status: Unknown if ever smoked Review of Systems A total of 10 systems reviewed and were otherwise negative Physical Exam Vital Signs Vital Signs - 24 hr 10/02/19 07:09 10/02/19 07:14 10/02/19 07:52 Temperature 36.8 C Temperature Source Oral Pulse Rate 54 L Pulse Rate from SpO2 Sensor 54 L Respiratory Rate 16 17 Blood Pressure 184/101 H 167/85 H Blood Pressure Mean 128 106 Pulse Oximetry 94 94 95 Oxygen Delivery Method Room Air Room Air Sepsis Recent Fever Within 48 Hours No Sepsis New/Unexplained Change in Mental Status No Sepsis Action Taken by Nursing No Action Required 10/02/19 09:20 10/02/19 09:52 10/02/19 10:20 Temperature Temperature Source Pulse Rate 56 L 62 63 Pulse Rate from SpO2 Sensor 56 L 65 64 Respiratory Rate 20 16 16 Blood Pressure 191/104 H 177/115 H 174/110 H Blood Pressure Mean 138 143 131 Pulse Oximetry 94 94 92 Oxygen Delivery Method Sepsis Recent Fever Within 48 Hours Sepsis New/Unexplained Change in Mental Status Sepsis Action Taken by Nursing 10/02/19 10:54 Temperature Temperature Source Pulse Rate 56 L Pulse Rate from SpO2 Sensor 57 L Respiratory Rate 26 H Blood Pressure 187/107 H Blood Pressure Mean 154 Pulse Oximetry 94 Oxygen Delivery Method Sepsis Recent Fever Within 48 Hours Sepsis New/Unexplained Change in Mental Status Sepsis Action Taken by Nursing VITAL SIGNS - Vital signs and nursing notes were reviewed. Stable, bradycardic in the 50's and hypertensive. GENERAL - 84-year-old male appearing her stated age who is in no acute distress. Communicates well with provider and answers questions appropriately. SKIN - Without rashes. Abrasions over the bilat anterior knees. HEAD - NC/AT. EYES - Sclera anicteric. EARS - No deformities of external structures noted on gross examination bilaterally. NOSE - Midline and without cyanosis. No epistaxis or purulent drainage noted. MOUTH/OROPHARYNX - Without perioral cyanosis. NECK -no identifiable C-spine tenderness. LUNGS - Chest wall symmetric without accessory muscle use, intercostals retractions, or central cyanosis. Normal vesicular breath sounds CTA B/L. No wheezes, rales, or rhonchi appreciated. CARDIAC - RRR with S1/S2. No murmur, rubs, or gallops appreciated. ABDOMEN - Abdominal contour normal without pulsations or visible masses. BS normoactive all four quadrants. No tenderness, palpable masses, hepatosplenomegaly, or ascites noted. EXTREMITIES - No clubbing or peripheral cyanosis. No pretibial edema present. +5/5 strength noted in UE/LE bilaterally. NEUROLOGIC - Cranial nerves II through XII grossly intact. Sensory intact to light touch throughout. PSYCH -patient is alert but appears do have dementia at baseline and only replies with "my hips". He is cooperative. Pt is very pleasant and interacts well with examiner. Course Administered Medications Lactated Ringer's (Lr) 1,000 mls @ 100 mls/hr IV .Q10H ANGEL Stop: 10/02/19 20:44 Last Admin: 10/02/19 11:24 Dose: 100 mls/hr Documented by: [id number] Medical Decision Making Laboratory Data Result diagrams: 10/02/19 07:23 10/02/19 07:23 Lab Results 10/02/19 10/02/19 10/02/19 Range/Units 07:19 07:23 07:23 WBC 7.68 (4.8-10.8) K/uL RBC 3.96 L (4.7-6.1) M/uL Hgb 12.0 L (14.0-18.0) g/dL Hct 36.7 L (42-52) % MCV 92.7 (80-100) fL MCH 30.3 (25-34) pg MCHC 32.7 (32-36) g/dL RDW Std Deviation 50.2 H (36.4-46.3) fL RDW Coeff of Geraldine 14.7 H (11.5-14.5) % Plt Count 195 (130-400) K/uL MPV 10.9 H (7.4-10.4) fL Immature Gran % (Auto) 0.1 % Neut % (Auto) 66.8 % Lymph % (Auto) 21.4 % Washburn % (Auto) 9.0 % Eos % (Auto) 2.6 % Baso % (Auto) 0.1 % Immature Gran # (Auto) 0.01 (0.00-0.02) K/uL Neut # (Auto) 5.13 (1.4-6.5) K/uL Lymph # (Auto) 1.64 (1.2-3.4) K/uL Wash[place] # (Auto) 0.69 H (0.11-0.59) K/uL Eos # (Auto) 0.20 (0-0.5) K/uL Baso # (Auto) 0.01 (0-0.2) K/uL PT 10.2 (9.0-12.0) Seconds INR 1.0 (0.9-1.1) APTT 22.6 (21.0-31.0) Seconds PTT Ratio 0.8 Sodium (136-145) mmol/L Potassium (3.5-5.1) mmol/L Chloride (98-107) mmol/L Carbon Dioxide (21-32) mmol/L Anion Gap (3-11) BUN (7-18) mg/dl Creatinine (0.6-1.4) mg/dl Est Cr Clr Drug Dosing Est GFR ( Amer) Est GFR (Non-Af Amer) BUN/Creatinine Ratio (10-20) Glucose (70-99) mg/dl Calcium (8.5-10.1) mg/dl Magnesium (1.8-2.4) mg/dl Total Bilirubin (0.2-1) mg/dl AST (15-37) U/L ALT (12-78) U/L Alkaline Phosphatase (45-117) U/L Total Protein (6.4-8.2) gm/dl Albumin (3.4-5.0) gm/dl Globulin (2.5-4.0) gm/dl Albumin/Globulin Ratio (0.9-2) Specimen Hemolysis Blood Type O Positive Antibody Screen NEGATIVE 10/02/19 Range/Units 07:23 WBC (4.8-10.8) K/uL RBC (4.7-6.1) M/uL Hgb (14.0-18.0) g/dL Hct (42-52) % MCV (80-100) fL MCH (25-34) pg MCHC (32-36) g/dL RDW Std Deviation (36.4-46.3) fL RDW Coeff of Geraldine (11.5-14.5) % Plt Count (130-400) K/uL MPV (7.4-10.4) fL Immature Gran % (Auto) % Neut % (Auto) % Lymph % (Auto) % [place] % (Auto) % Eos % (Auto) % Baso % (Auto) % Immature Gran # (Auto) (0.00-0.02) K/uL Neut # (Auto) (1.4-6.5) K/uL Lymph # (Auto) (1.2-3.4) K/uL Washburn # (Auto) (0.11-0.59) K/uL Eos # (Auto) (0-0.5) K/uL Baso # (Auto) (0-0.2) K/uL PT (9.0-12.0) Seconds INR (0.9-1.1) APTT (21.0-31.0) Seconds PTT Ratio Sodium 140 (136-145) mmol/L Potassium 4.3 (3.5-5.1) mmol/L Chloride 111 H (98-107) mmol/L Carbon Dioxide 24 (21-32) mmol/L Anion Gap 5.0 (3-11) BUN 19 H (7-18) mg/dl Creatinine 1.33 (0.6-1.4) mg/dl Est Cr Clr Drug Dosing Not Reportable Est GFR ( Amer) 56.1 Est GFR (Non-Af Amer) 48.4 BUN/Creatinine Ratio 14.4 (10-20) Glucose 99 (70-99) mg/dl Calcium 9.0 (8.5-10.1) mg/dl Magnesium 2.2 (1.8-2.4) mg/dl Total Bilirubin 0.5 (0.2-1) mg/dl AST 31 (15-37) U/L ALT 40 (12-78) U/L Alkaline Phosphatase 109 (45-117) U/L Total Protein 7.8 (6.4-8.2) gm/dl Albumin 2.9 L (3.4-5.0) gm/dl Globulin 4.9 H (2.5-4.0) gm/dl Albumin/Globulin Ratio 0.6 L (0.9-2) Specimen Hemolysis Blood Type Antibody Screen Imaging Data Radiologist's Impression: CT SCAN OF THE BRAIN WITHOUT IV CONTRAST CLINICAL HISTORY: Fall. Headache. COMPARISON STUDY: CT of the brain dated 10/06/2018. TECHNIQUE: Unenhanced axial CT scan of the brain is performed from the vertex to the skull base. A dose lowering technique was utilized adhering to the principles of ALARA. The skull base was scanned twice due to motion artifact. FINDINGS: Brain parenchyma: There are age-related involutional changes noting advanced confluent subcortical and periventricular microangiopathic change. There is no hemorrhage, mass effect, or evidence of acute territorial ischemia by CT criteria. Foci of left cerebellar and high right frontal encephalomalacia are unchanged and consistent with remote insults. Weston-white matter differentiation is preserved. No extra-axial fluid collection is seen. Ventricles, sulci, cisterns: Prominent secondary to involutional change. Intracranial vasculature: There is atherosclerotic calcification of the cavernous carotid and vertebral arteries. Calvarium: The Skeletal structures are osteopenic. There is no depressed calvarial fracture. Sinuses and mastoids: The visualized paranasal sinuses are clear. The mastoid air cells are well pneumatized. Orbits: The bony orbits are grossly intact. There are bilateral ocular lens implants. IMPRESSION: Chronic changes as above with no hemorrhage, mass effect, or evidence of acute territorial ischemia by CT criteria. ACT 112: Negative or not required by law. Electronically signed by: Michael Go M.D. 10/02/2019 7:[address] DOSE: 1170.64 mGy.cm HISTORY: fall TECHNIQUE: Multiaxial CT images of the cervical spine were performed and reformatted in the sagittal and coronal plane without the use of contrast. A dose lowering technique was utilized adhering to the principles of ALARA. COMPARISON: Cervical spine CT 03/01/2018. FINDINGS: No fractures. No subluxation. Prevertebral soft tissues and the C1-C2 interval are intact. No pneumothorax. Degenerative changes are again noted. There is fusion of the C3-C4 vertebral bodies and facets. IMPRESSION: No fractures within the cervical spine. ACT 112: Negative or not required by law. Electronically signed by: Shiva Mina M.D. 10/02/2019 8:[address] SCAN OF THE BONY PELVIS WITHOUT IV CONTRAST CLINICAL HISTORY: Fall. Pelvic pain. COMPARISON STUDY: Pelvic CT dated 10/06/2018. TECHNIQUE: CT scan of the bony pelvis is performed from the pelvic inlet to the proximal femora. Images are reviewed in the axial, sagittal, and coronal planes. IV contrast was not administered for this examination. The examination is degraded by streak artifact from a right hip arthroplasty. A dose lowering tech nique was utilized adhering to the principles of ALARA. CT DOSE: 410.89 mGy.cm FINDINGS: The skeletal structures are osteopenic. There is no evidence of acute fracture involving the hips or bony pelvis. A right hip arthroplasty is in place. Moderate osteoarthritic change and joint space narrowing is seen in the left hip. Mild degenerative change is noted in the sacroiliac joints. Lumbosacral spondylosis is partially visualized. There is generalized atrophy of the regional musculature. There is asymmetric atrophy of the right iliopsoas musculature as compared to left. No muscular hematoma is seen. The prostate gland is diminutive and heterogeneous. The bladder is normal as visualized. Bilateral fat-containing inguinal hernias are noted, right larger than left. Question circumferential rectal wall thickening. There is moderate diverticulosis of visualized left colon without CT evidence of acute diverticulitis. There is no evidence of bowel obstruction. No intraperitoneal free air or free fluid is seen in the pelvis. Atherosclerotic calcification is noted in the iliac vessels. There is no pelvic sidewall or inguinal adenopathy. IMPRESSION: 1. There is no evidence of fracture involving the hips or bony pelvis. 2. A right hip arthroplasty is in place. 3. Question circumferential rectal wall thickening. Clinical correlation will be required. This could be further assessed with endoscopy if clinically warranted. 4. Additional findings as above. ACT 112: Negative or not required by law. Dictated: 10/02/2019 7:58 AM Transcribed: 10/02/2019 8:10 AM Alison [id number] [email or web address] Electronically signed by: Michael Go M.D. 10/02/2019 8:11 AM SINGLE VIEW CHEST CLINICAL HISTORY: Fall. FINDINGS: An AP, portable, upright chest radiograph is compared to study dated . The examination is degraded by portable technique and patient rotation. The heart is enlarged noting atherosclerotic calcification of the thoracic aorta. There is mild pulmonary vascular congestion. Atelectasis is noted at the lung bases. No airspace consolidation or large pleural effusion is identified. No pneumothorax is seen. The skeletal structures are osteopenic. There is chronic posttraumatic deformity of the left proximal humerus. Advanced arthritic change is seen in the shoulders and thoracic spine. IMPRESSION: Cardiomegaly with mild pulmonary vascular congestion. ACT 112: Negative or not required by law. Electronically signed by: Michael Go M.D. 10/02/2019 8:57 AM RIGHT FEMUR 3 VIEWS CLINICAL HISTORY: Fall. Right leg pain. FINDINGS: AP, frog-leg, and crosstable lateral views of the right femur are correlated with pelvic CT performed the same day 10/02/2019. The skeletal structures are osteopenic. There is no radiographic evidence of right femoral fracture. The visualized right hemipelvis appears intact. A right hip arthroplasty is in near anatomic alignment. No periprosthetic lucency is seen. The soft tissues of the thigh are normal in appearance. IMPRESSION: There is no radiographic evidence of right femoral fracture. Electronically signed by: Michael Go M.D. 10/02/2019 8:58 AM LEFT FEMUR 3 VIEWS CLINICAL HISTORY: Fall. Left leg pain. FINDINGS: AP, frog-leg, and crosstable lateral views of the left femur are compared to study dated 12/05/2016 and correlated with pelvic CT performed concurrently on 10/02/2019. The skeletal structures are osteopenic. There is no radiographic evidence of left femoral fracture. The visualized left hemipelvis appears intact. Moderate osteoarthritic change and joint space narrowing is seen in the left hip. The joint is grossly maintained. The overlying soft tissues are normal as imaged. A large phlebolith is noted in the left hemipelvis. IMPRESSION: There is no radiographic evidence of left femoral fracture. Electronically signed by: Michael Go M.D. 10/02/2019 9:09 AM MDM Narrative Patient was seen and evaluated as above in room A12. Review was performed of nursing notes and vital signs. After obtaining a thorough history and physical examination the above work up was performed. He presents to us today status post suspected fall. In addition, there was witnessed bright red blood per rectum with his last BM. On examination he is alert, but when asked any questions he responds with his hips. There is very little history able to be o btained from the patient but this does not appear to be far from baseline. He can converse with somewhat simple conversation. IV access was established. The above work-up was performed. He is on anticoagulants. Per review of pertinent visits it appears that this is secondary to lower extremity DVT/moderate to rather significant multifocal atherosclerotic narrowing throughout both lower extremities as per recent ultrasound both arterial and venous of the lower extremities. CBC reveals no leukocytosis. There is stable hemoglobin at 12.0. Given the patient's fall, and inability to converse about any other areas of pain and with his anticoagulated state I felt reasonable to obtain a CT scan of the head, C-spine and pelvis without contrast. X-rays were also obtained of the chest as well as the bilateral femurs. Coags are normal. Metabolic panel reveals no emergent process. Mild elevation of the BUN. No evidence of liver failure. No concerning electrolyte disturbance. CT scan of head results as above. No traumatic/emergent process. X-rays reveal no fracture. The CT scan of the pelvis displays question circumferential rectal wall thickening. Rectal exam was performed after the patient was able to acknowledge rationale and consent and this was performed in the presence of a male french comber. The rectal exam was trace heme positive. There was no bright red blood. No lesions. Given the patient's reported bright red blood per rectum being on Eliquis as well as aspirin, trace heme positive rectal exam here, as well as questionable circumferential rectal wall thickening do believe that further evaluation and management in the inpatient setting is warranted. Case discussed with the attending physician. Case then discussed with Radha Virgen [facility]-C [facility] Please refer to further documentation regarding his stay. Case was discussed with the attending physician. In the evaluation and treatment of this patient, the following differential diagnoses were considered: Hip Fracture, Hip Dislocation, Greater Trochanteric Bursitis, Musculoskeletal Pain, Lumbar Radiculopathy,, acute trauma, among others GI bleed. Impression & Plan Fall, BRBPR (bright red blood per rectum) Discharge Plan Visit Data Chief Complaint: Fall Stated Complaint: fall/ hip & leg pain ED Provider: Ameya Callahan ED Midlevel Provider: Freddie Barnes Discharge Problem: Fall, BRBPR (bright red blood per rectum) Patient Disposition: Admitted As Inpatient Condition: Good Forms Stand Alone Forms: [facility], Important Visit Information Prescriptions Prescriptions: No Action atorvastatin 10 mg tablet 10 mg PO HS RF: 0 metoprolol succinate 50 mg tablet extended release 24 hr 50 mg PO QAM RF: 0 isosorbide mononitrate 30 mg tablet extended release 24 hr 30 mg PO QAM RF: 0 famotidine 20 mg tablet 20 mg PO BID RF: 0 timolol maleate 0.5 % drops 1 dose OPB HS RF: 0 finasteride 5 mg tablet 5 mg PO QAM RF: 0 aspirin [Aspir-81] 81 mg Tablet,Delayed Release (Dr/Ec) 81 mg PO QAM RF: 0 multivitamin Tablet 1 tab PO QAM RF: 0 melatonin 5 mg Tablet 5 mg PO HS RF: 0 cetirizine 10 mg tablet 10 mg PO HS RF: 0 lisinopril [Zestril] 10 mg Tablet 10 mg PO QAM Qty: 30 RF: 0 Eliquis 5 mg tablet 5 mg PO BID Qty: 74 RF: 0 Referrals Referrals: ASHWIN MARTINEZ [Primary Care Provider] -
[2019-10-02 07:31] LABS: Basophils # (auto) 0.01 K/uL (0-0.2); Basophils % (auto) 0.1 %; Eosinophils % (auto) 2.6 %; Hematocrit (blood only) 36.7 % (42-52); Immature Granulocytes # (auto) 0.01 K/uL (0.00-0.02); Immature Granulocytes % (auto) 0.1 %; Lymphocytes # (auto) 1.64 K/uL (1.2-3.4); Lymphocytes % (auto) 21.4 %; Mean Corpuscular Hemoglobin 30.3 pg (25-34); Mean Corpuscular Hgb Conc 32.7 g/dL (32-36); Mean Corpuscular Volume 92.7 fL (80-100); Mean Platelet Volume 10.9 fL (7.4-10.4); Monocytes # (auto) 0.69 K/uL (0.11-0.59); Neutrophils # (auto) 5.13 K/uL (1.4-6.5); Neutrophils % (auto) 66.8 %; Platelet Count 195 K/uL (130-400); RDW Coefficient of Variation 14.7 % (11.5-14.5); RDW Standard Deviation 50.2 fL (36.4-46.3); Red Blood Count 3.96 M/uL (4.7-6.1); White Blood Count 7.68 K/uL (4.8-10.8)
[2019-10-02 07:47] LABS: Partial Thromboplastin Ratio 0.8; Partial Thromboplastin Time 22.6 Seconds (21.0-31.0); Prothrombin Time 10.2 Seconds (9.0-12.0)
[2019-10-02 07:54] LABS: Alanine Aminotransferase 40 U/L (12-78); Albumin Globulin Ratio 0.6 (0.9-2); Albumin Level 2.9 gm/dl (3.4-5.0); Alkaline Phosphatase 109 U/L (45-117); Aspartate Aminotransferase 31 U/L (15-37); BUN Creatinine Ratio 14.4 (10-20); Bilirubin,Total 0.5 mg/dl (0.2-1); Blood Urea Nitrogen 19 mg/dl (7-18); Carbon Dioxide 24 mmol/L (21-32); Chloride 111 mmol/L (98-107); Est GFR (African American) 56.1; Est GFR (Non-African American) 48.4; Globulin 4.9 gm/dl (2.5-4.0); Glucose 99 mg/dl (70-99); Magnesium 2.2 mg/dl (1.8-2.4); Potassium 4.3 mmol/L (3.5-5.1); Sodium 140 mmol/L (136-145); Total Protein 7.8 gm/dl (6.4-8.2)
--- NOTE | 2019-10-02 07:58 | CT Scan Report ---
CT SCAN OF THE BRAIN WITHOUT IV CONTRAST CLINICAL HISTORY: Fall. Headache. COMPARISON STUDY: CT of the brain dated 10/06/2018. TECHNIQUE: Unenhanced axial CT scan of the brain is performed from the vertex to the skull base. A do se lowering technique was utilized adhering to the principles of ALARA. The skull base was scanned tw ice due to motion artifact. FINDINGS: Brain parenchyma: There are age-related involutional changes noting advanced confluent subcortical a nd periventricular microangiopathic change. There is no hemorrhage, mass effect, or evidence of acute territorial ischemia by CT criteria. Foci of left cerebellar and high right frontal encephalomalacia are unchanged and consistent with remote insults. Weston-white matter differentiation is preserved. No extra-axial fluid collection is seen. Ventricles, sulci, cisterns: Prominent secondary to involutional change. Intracranial vasculature: There is atherosclerotic calcification of the cavernous carotid and vertebr al arteries. Calvarium: The Skeletal structures are osteopenic. There is no depressed calvarial fracture. Sinuses and mastoids: The visualized paranasal sinuses are clear. The mastoid air cells are well pneu matized. Orbits: The bony orbits are grossly intact. There are bilateral ocular lens implants. IMPRESSION: Chronic changes as above with no hemorrhage, mass effect, or evidence of acute territoria l ischemia by CT criteria. ACT 112: Negative or not required by law. Electronically signed by: Michael Go M.D. 10/02/2019 7:56 AM
--- NOTE | 2019-10-02 08:13 | CT Scan Report ---
CT SCAN OF THE BONY PELVIS WITHOUT IV CONTRAST CLINICAL HISTORY: Fall. Pelvic pain. COMPARISON STUDY: Pelvic CT dated 10/06/2018. TECHNIQUE: CT scan of the bony pelvis is performed from the pelvic inlet to the proximal femora. Imag es are reviewed in the axial, sagittal, and coronal planes. IV contrast was not administered for this examination. The examination is degraded by streak artifact from a right hip arthroplasty. A dose lo wering technique was utilized adhering to the principles of ALARA. CT DOSE: 410.89 mGy.cm FINDINGS: The skeletal structures are osteopenic. There is no evidence of acute fracture involving th e hips or bony pelvis. A right hip arthroplasty is in place. Moderate osteoarthritic change and joint space narrowing is seen in the left hip. Mild degenerative change is noted in the sacroiliac joints. Lumbosacral spondylosis is partially visualized. There is generalized atrophy of the regional musculature. There is asymmetric atrophy of the right il iopsoas musculature as compared to left. No muscular hematoma is seen. The prostate gland is diminuti ve and heterogeneous. The bladder is normal as visualized. Bilateral fat-containing inguinal hernias are noted, right larger than left. Question circumferential rectal wall thickening. There is moderate diverticulosis of visualized left colon without CT evidence of acute diverticulitis. There is no bryant dence of bowel obstruction. No intraperitoneal free air or free fluid is seen in the pelvis. Atherosc lerotic calcification is noted in the iliac vessels. There is no pelvic sidewall or inguinal adenopat hy. IMPRESSION: 1. There is no evidence of fracture involving the hips or bony pelvis. 2. A right hip arthroplasty is in place. 3. Question circumferential rectal wall thickening. Clinical correlation will be required. This could be further assessed with endoscopy if clinically warranted. 4. Additional findings as above. ACT 112: Negative or not required by law. Dictated: 10/02/2019 7:58 AM Transcribed: 10/02/2019 8:10 AM Alison [id number] [email or web address] Electronically signed by: Michael Go M.D. 10/02/2019 8:11 AM
--- NOTE | 2019-10-02 08:28 | CT Scan Report ---
CERVICAL SPINE CT CT DOSE: 1170.64 mGy.cm HISTORY: fall TECHNIQUE: Multiaxial CT images of the cervical spine were performed and reformatted in the sagittal and coronal plane without the use of contrast. A dose lowering technique was utilized adhering to th e principles of ALARA. COMPARISON: Cervical spine CT 03/01/2018. FINDINGS: No fractures. No subluxation. Prevertebral soft tissues and the C1-C2 interval are intact. No pneumothorax. Degenerative changes are again noted. There is fusion of the C3-C4 vertebral bodies and facets. IMPRESSION: No fractures within the cervical spine. ACT 112: Negative or not required by law. Electronically signed by: Shiva Mina M.D. 10/02/2019 8:27 AM
--- NOTE | 2019-10-02 08:58 | XRay Report ---
SINGLE VIEW CHEST CLINICAL HISTORY: Fall. FINDINGS: An AP, portable, upright chest radiograph is compared to study dated 10/12/2018. The examina tion is degraded by portable technique and patient rotation. The heart is enlarged noting atheroscl erotic calcification of the thoracic aorta. There is mild pulmonary vascular congestion. Atelectasis is noted at the lung bases. No airspace consolidation or large pleural effusion is identified. No pne umothorax is seen. The skeletal structures are osteopenic. There is chronic posttraumatic deformity o f the left proximal humerus. Advanced arthritic change is seen in the shoulders and thoracic spine. IMPRESSION: Cardiomegaly with mild pulmonary vascular congestion. ACT 112: Negative or not required by law. Electronically signed by: Michael Go M.D. 10/02/2019 8:57 AM
--- NOTE | 2019-10-02 09:00 | XRay Report ---
RIGHT FEMUR 3 VIEWS CLINICAL HISTORY: Fall. Right leg pain. FINDINGS: AP, frog-leg, and crosstable lateral views of the right femur are correlated with pelvic CT performed the same day 10/02/2019. The skeletal structures are osteopenic. There is no radiographic ev idence of right femoral fracture. The visualized right hemipelvis appears intact. A right hip arthrop lasty is in near anatomic alignment. No periprosthetic lucency is seen. The soft tissues of the thigh are normal in appearance. IMPRESSION: There is no radiographic evidence of right femoral fracture. Electronically signed by: Michael Go M.D. 10/02/2019 8:58 AM
--- NOTE | 2019-10-02 09:10 | XRay Report ---
LEFT FEMUR 3 VIEWS CLINICAL HISTORY: Fall. Left leg pain. FINDINGS: AP, frog-leg, and crosstable lateral views of the left femur are compared to study dated 06/2017 and correlated with pelvic CT performed concurrently on 10/02/2019. The skeletal structures are osteopenic. There is no radiographic evidence of left femoral fracture. The visualized left hemipelv is appears intact. Moderate osteoarthritic change and joint space narrowing is seen in the left hip. The joint is grossly maintained. The overlying soft tissues are normal as imaged. A large phlebolith is noted in the left hemipelvis. IMPRESSION: There is no radiographic evidence of left femoral fracture. Electronically signed by: Michael Go M.D. 10/02/2019 9:09 AM
[2019-10-02] MEDS ORDERED: METOPROLOL SUCC 50MG EXT REL TAB PO SCH (10:45)
[2019-10-02] MEDS ORDERED: LACTATED RINGER'S 1,000 ML IV SCH (10:45)
[2019-10-02] MEDS ORDERED: HydrALAZINE HCL 20 MG/ML VIAL IV PRN (11:05)
[2019-10-02 11:08] LABS: Appearance Urine Cloudy (Clear); Bacteria Urine Automated 3+ (Negative); Bilirubin Urine Negative (Negative); Blood Urine Trace (Negative); Color Urine Yellow; Epithelial Cell Urine Auto 0-5 /lpf (0-5); Glucose Urine UA Negative (Negative); Ketones Urine Negative (Negative); Leukocyte Esterase Urine 2+ (Negative); Nitrite Urine Positive (Negative); Protein Urine Trace (Negative); RBC Urine Automated 0-4 /hpf (0-4); Specific Gravity Urine 1.018 (1.000-1.030); Urobilinogen Urine Negative (Negative); WBC Urine Automated >30 /hpf (0-5)
--- NOTE | 2019-10-02 11:20 | Hospitalist Progress Note ---
Date of Service October 02, 2019 Subjective Attending addendum: Patient seen and examined, care coordinated with Radha Virgen PA-C, This 84-year-old male with multiple comorbidities, dementia hypertension, glaucoma, hyperlipidemia, history of lower extremity DVT approximate 1 year back, on [facility] Resident at [facility] Sent to ER this morning as patient was found kneeling on the floor at approximately 6:30 AM Patient was appears to be more confused, Was attempting to get to the bathroom, sustained a fall Nursing managed to put patient on the bedside commode, patient had a bowel movement with bright red blood in stool Patient continues to complain of severe knee pain Per nursing at the [facility] patient was also hypotensive In the ER -digital per rectal exam done by ER physician, with trace heme positive stool, hemoglobin appears to be stable at 12, Patient's BP was elevated SBP in more than 180 (has not got any a.m. antihypertensive meds) Imaging: CT head, CT cervical spine, pelvic, and femur x-ray showed no evidence of any fracture or bleeding Patient will be admitted to medical telemetry for further evaluation Physical exam: General: Elderly male, appears to be confused, clinically dehydrated, very dry oral mucous membrane, complains of pain HEENT: Nonicteric sclera, dry oral mucosa Heart: Regular S1 and S2 no murmur gallop Lungs clear to auscultate Abdomen: Soft nontender Neuro: No focal neurological deficit, baseline dementia, oriented to person only Review of system: All 10 systems reviewed pertinent positive as per H&P above Assessment and plan: Fall: Sustained a fall earlier, imaging shows no evidence of fracture or bleeding Patient complains of severe pain on touch on left knee, x-ray of knee ordered rule out hematoma Ordered to hold aspirin/Eliquis Fall precaution, bed alarm PT OT evaluation Concern for GI bleed/bright red blood per rectum And one episode of bright blood blood per rectum noted at [facility] As per nursing at [facility] no prior history of GI bleed Patient is on aspirin/Eliquis which is ordered to keep on hold Clear liquid diet Repeat H&H in afternoon CT abdomen pelvis with contrast to assess for diverticular bleed GI evaluation requested Metabolic encephalopathy/dementia Baseline dementia, worsening of mental status, more confusion noted possibly secondary to dehydration, acute illness CT head shows no evidence of acute CVA or bleed appears to be clinically dry, gentle IV fluids ordered Check UA and culture rule out UTI Continue to monitor Increased risk for delirium/sundowning Hypertensive urgency Was reported to be hypotensive at the personal retirement, did not get any of his a.m. meds Presents with hypertensive urgency with systolic blood pressure 180/170 Ordered to resume patient's a.m. antihypertensives Imdur, Lisinopril will be kept on hold for concern for dehydration, PRN IV hydralazine ordered, continue to monitor in medical telemetry CODE STATUS: DNR/DNI: Discussed with patient's daughter Hodan /ANMOL Disposition: Admit to medical telemetry Will need PT OT evaluation Social service consult for discharge planning Please refer to further documentation by Radha Virgen PA-C for discussion of other chronic issues Melinda Alegre MD Results & Data ([facility]) Vital Signs (Past 12 Hours) Vital Signs Temp Pulse Resp BP Pulse Ox 10/02/19 10:54 56 L 26 H 187/107 H 94 10/02/19 10:20 63 16 174/110 H 92 10/02/19 09:52 62 16 177/115 H 94 10/02/19 09:20 56 L 20 191/104 H 94 10/02/19 07:52 17 167/85 H 95 10/02/19 07:14 94 10/02/19 07:09 36.8 C 54 L 16 184/101 H 94
[2019-10-02] MEDS: ISOSORBIDE MONO EXTENDED REL 30 MG TABCR PO SCH (11:48)
--- NOTE | 2019-10-02 11:51 | XRay Report ---
XR knee LT 3V CLINICAL HISTORY: Left knee pain following fall. COMPARISON: Left femur radiographs October 02, 2019. Left knee radiographs March 01, 2018. FINDINGS: No acute fracture is identified. There is a moderate-sized left knee joint effusion. No li pohemarthrosis is identified. Moderate osteophytosis of the patellofemoral compartment is noted. Ther e is mild osteophytosis within the medial and lateral compartments. IMPRESSION: 1. No acute fracture identified. 2. Moderate-sized left knee joint effusion. If persistent left knee pain, a CT could be obtained to e xclude an occult fracture. 3. Moderate left knee osteoarthritis, most pronounced within the patellofemoral compartment. ACT 112: Negative or not required by law. Electronically signed by: Isaias Rees M.D. 10/02/2019 11:50 AM
[2019-10-02] MEDS ORDERED: IOVERSOL 100ml IV PRN (12:04)
--- NOTE | 2019-10-02 12:34 | CT Scan Report ---
CT SCAN OF THE ABDOMEN AND PELVIS WITH IV CONTRAST CLINICAL HISTORY: GI bleeding. COMPARISON STUDY: Abdominal CT dated 10/06/2018. TECHNIQUE: Following the IV administration of end 4 cc of Optiray 320, CT scan of the abdomen and pe lvis is performed from the lung bases to the proximal femora. Images are reviewed in the axial, sagit wendy, and coronal planes. IV contrast was administered without complication. The examination is degrad ed by motion artifact, as well as by streak artifact from the arms which could not be elevated above the abdomen. A dose lowering technique was utilized adhering to the principles of ALARA. CT DOSE: 918.11 mGy.cm FINDINGS: Lung bases: The heart is enlarged and there is trace pericardial effusion. Dependent scarring/atelect asis is present both lung bases. A calcified granuloma is seen on the right. There is a small hiatal hernia. Liver: The contrast-enhanced liver is normal in size, contour, and attenuation. There is no intrahepa tic biliary ductal dilatation. The hepatic veins and portal veins are patent. There are numerous larg e hepatic cysts. The largest in the right lobe on image #70 measures up to 5 cm. This contains comple x internal debris. Gallbladder: There are numerous calcified gallstones with no CT evidence of acute cholecystitis. Spleen: Normal in size and attenuation. There are calcified splenic granulomas. Pancreas: Unremarkable. Adrenal glands: Unremarkable. Kidneys: The contrast enhanced kidneys are atrophic and without hydronephrosis. The kidneys enhance s ymmetrically. A 1.5 cm parapelvic cyst is noted on the left. Abdominal vasculature: The abdominal aorta is normal in course and caliber. Bowel: There is moderate sigmoid diverticulosis without CT evidence of acute diverticulitis. No bowel obstruction is seen. The appendix is well-visualized and normal. Question circumferential rectal wa ll thickening. Peritoneum: There is no intraperitoneal free air or abdominal ascites. Lymphadenopathy: None. Pelvic viscera: Evaluation of the pelvis is degraded by streak artifact from a right hip arthroplasty . The prostate gland is diminutive and heterogeneous. The bladder wall appears thickened and trabecul ated suggesting chronic outlet obstruction. There are bilateral fat-containing inguinal hernias, righ t larger than left. Skeletal structures: The skeletal structures are osteopenic. Lumbosacral spondylosis is observed. The re is a mild compression deformity of T12. No lytic or blastic lesions are seen. A right hip arthropl asty is in place. Advanced arthritic changes seen in the left hip. IMPRESSION: 1. There is a 5 cm cyst in the right lobe of liver which has increased in size from 10/06/2018 and now contains complex internal debris. This could represent intraluminal proteinaceous contents or hemorr ja. There is no CT evidence of infection. Clinical correlation will be essential. 2. Question circumferential rectal wall thickening which is not well assessed by CT. Clinical correla tion will be required, and consider direct visualization if clinically indicated. 3. Moderate diverticulosis of the left colon without CT evidence of acute diverticulitis. 4. Cardiomegaly. 5. Cholelithiasis. 6. Additional findings as above. ACT 112: Negative or not required by law. Electronically signed by: Michael Go M.D. 10/02/2019 12:32 PM
[2019-10-02] MEDS ORDERED: ACETAMINOPHEN 325 MG TAB PO PRN (12:53)
[2019-10-02] MEDS ORDERED: ALUMINUM/MAGNESIUM SUSP 30 ML UDC PO PRN (12:53)
[2019-10-02] MEDS ORDERED: ONDANSETRON INJ 2 MG/ML 2 ML VIAL IV PRN (12:53)
--- NOTE | 2019-10-02 13:12 | Gastrointestinal Consultation ---
Date of Consultation October 02, 2019 Assessment & Plan (1) BRBPR (bright red blood per rectum): There was reported bright red blood with a BM this morning. This along with the rectal wall thickening suggests constipation. Other etiologies considered are hemorrhoids, stercoral ulcer, diverticular bleed. Recommend hold ASA/Eliquis. Will order one dose of dulcolax and a daily dose of Miralax. Will follow along. At this time, with normal Hb and no gross bleeding since prior to arrival will defer endoscopy unless increasing gross bleeding and significant drop in Hb/Hct. Present on Admission?: Yes Supervising Physician Co-Signing Physician Notes I have personally seen and examined the patient with GRACE Perkins. Her note reflects my exam and findings. I agree with her impression and plan. No current indication for endoscopy. I performed patient's colonoscopy in 2013 which showed diverticulosis and no polyps. Josue Pichardo M.D. History of Present Illness Reason for Consultation: blood in stool Requesting Physician: Dr. Alegre Attending Physician: Melinda Alegre MD History of Present Illness Mr. William Arriaga is an 84 yr old male pt with a hx of CAD, dementia, HTN, SIMÓN who was brought from [facility] for a fall. He is maintained on Eliquis and ASA. On arrival,Hb 12, BUN 17, CT abd/pelvis with IV, no oral contrast with questions of circumferential rectal wall thickening. The pt is seen and examined while resting. He was awake, alert, but unable to provide any answers to questions about his health. He did c/o being cold and he did protest loudy when I started to look at his anus, stating, "don't do that again," thus a digital rectal exam was deferred. The PA who assisted with his admission tells me that he was found on his knees in his room this morning. They helped him up to the BR and he passed a BM with some red blood. She also received report from the ED physician that he did a digital rectal with findings of weakly hem + stool. His most recent colonoscopy was in 2013 for surveillance of polyps (3mm on 2008) with diverticulosis, no polyps. Allergies Allergy/AdvReac Type Severity Reaction Status Date / Time pseudoephedrine Allergy Severe URINARY Unverified 10/02/19 08:22 RETENTION guaifenesin Allergy Unknown inability Verified 10/02/19 08:22 to urinate Sulfa (Sulfonamide Allergy Unknown _ Unverified 10/02/19 08:22 Antibiotics) latex AdvReac Intermediate ITCHING/BUR Unverified 10/02/19 08:22 DONNIE Home Medications Home Medications Medication Instructions Recorded Confirmed Type aspirin [Aspir-81] 81 mg PO QAM 10/06/18 10/02/19 History atorvastatin 10 mg PO HS 10/06/18 10/02/19 History famotidine 20 mg PO BID 10/06/18 10/02/19 History finasteride 5 mg PO QAM 10/06/18 10/02/19 History isosorbide mononitrate 30 mg PO QAM 10/06/18 10/02/19 History metoprolol succinate 50 mg PO QAM 10/06/18 10/02/19 History timolol maleate 1 dose OPB HS 10/06/18 10/02/19 History cetirizine 10 mg PO HS 10/09/18 10/02/19 History apixaban [Eliquis] 5 mg PO BID #74 tab 10/14/18 10/02/19 Rx lisinopril [Zestril] 10 mg PO QAM #30 tab 10/14/18 10/02/19 Rx melatonin 5 mg PO HS 10/02/19 10/02/19 History multivitamin 1 tab PO QAM 10/02/19 10/02/19 History Patient History Medical History (Updated 10/02/19 @ 13:55 by Radha Perry PA-C) Angina pectoris (Chronic) CAD (coronary artery disease) (Chronic) Dementia (Chronic) Hyperlipemia (Chronic) Hypertension (Chronic) Monoclonal paraproteinemia SIMÓN (obstructive sleep apnea) (Chronic) noncompliant with CPAP per patient Surgical History (Updated 10/02/19 @ 13:47 by Radha Perry PA-C) H/O total hip arthroplasty R Family History Other Family history unknown Social History Preferred Language: Syrian Communication Ability: Effective Knapsack Sprayer Required: Yes Beliefs That Will Affect Care: None Current Living Situation: Personal Care Facility Feels Safe at Home: Yes Smoking Status: Never smoker Hx Alcohol Use: No Review of Systems Review of Systems: unable to obtain ROS from pt and no family or care providers available at the bedside. Physical Exam Constitutional: WD/WN, vitals as above + obese; no acute distress Eyes: PERRL, conjunctivae normal, anicteric sclerae ENMT: external ear and nose normal, oropharynx normal Neck: trachea midline, no thyromegaly Respiratory: normal respiratory effort, lungs clear to auscultation Cardiovascular: RRR, no murmur, no edema Gastrointestinal (Abdomen): Abdomen feels slightly firm (but pt did not seem to relax well), not distended, no palpable masses. Musculoskeletal: Extremities: no cyanosis and no clubbing Skin: no rashes, warm and dry no wound and no jaundice Neurologic: PERRL, EOMI, accommodation nl, no face palsy, no dysarthria Psychiatric: Orientation: alert Memory deficits. Results & Data Vital Signs (Past 12 Hours) Vital Signs Temp Pulse Resp BP Pulse Ox 10/02/19 11:26 58 L 26 H 193/99 H 92 10/02/19 10:54 56 L 26 H 187/107 H 94 10/02/19 10:20 63 16 174/110 H 92 10/02/19 09:52 62 16 177/115 H 94 10/02/19 09:20 56 L 20 191/104 H 94 10/02/19 07:52 17 167/85 H 95 10/02/19 07:14 94 10/02/19 07:09 36.8 C 54 L 16 184/[address] abd/pelvis with IV contrast 10/02/19: 1. There is a 5 cm cyst in the right lobe of liver which has increased in size from 10/06/2018 and now contains complex internal debris. This could represent intraluminal proteinaceous contents or hemorrhage. There is no CT evidence of infection. Clinical correlation will be essential. 2. Question circumferential rectal wall thickening which is not well assessed by CT. Clinical correlation will be required, and consider direct visualization if clinically indicated. 3. Moderate diverticulosis of the left colon without CT evidence of acute diverticulitis. 4. Cardiomegaly. 5. Cholelithiasis. 6. Additional findings as above.
[2019-10-02 13:24] LABS: Blood Urea Nitrogen 17 mg/dl (7-18); Calcium 9.1 mg/dl (8.5-10.1); Carbon Dioxide 26 mmol/L (21-32); Chloride 108 mmol/L (98-107); Est GFR (African American) 62.3; Est GFR (Non-African American) 53.7; Glucose 95 mg/dl (70-99); Potassium 4.4 mmol/L (3.5-5.1); Sodium 138 mmol/L (136-145)
--- NOTE | 2019-10-02 13:31 | History & Physical Report ---
Date of Service October 02, 2019 Assessment & Plan (1) Fall: Patient sustained a fall prior to arrival of unknown etiology Current imaging shows no acute fracture; however patient has significant left knee pain X-ray reveals moderate left knee joint effusion Consult PT/OT Pain control Fall precaution/bed alarm If pain persist would recommend CT scan and ortho eval (2) BRBPR (bright red blood per rectum): Reported from nursing at [facility] of one episode of bright red blood per rectum while moving bowels Hold aspirin and Eliquis for now Clear liquid diet Repeat H&H this afternoon CT abdomen pelvis reviewed Discussed with GI Heme test stool Start docusate/senna twice daily to promote bowel habit, hold for loose stool (3) Metabolic encephalopathy: 09/28 to UTI treat with IV rocephin (4) UTI (urinary tract infection): Urinalysis appears positive for likely UTI He is afebrile and WBC is WNL; however his mental status is reported as more confused therefore will treat Continue IV Rocephin, treat culture (5) Dementia: Exacerbated in setting of UTI Monitor (6) CAD (coronary artery disease): Patient denies chest pain or shortness of breath On ASA, statin, metoprolol, lisinopril, Imdur and Eliquis as outpatient (7) Hypertension: Blood pressure significantly elevated upon admission, he did not take any a.m. meds Continue metoprolol and Imdur but hold lisinopril for now PRN hydralazine for SBP greater than 180 (8) Hyperlipemia: Continue statin (9) Liver cyst: Incidental finding on CT scan of abdomen pelvis There is a 5 cm cyst in the right lobe of liver which has increased in size from 10/06/2018 and now contains complex internal debris. This could represent intraluminal proteinaceous contents or hemorrhage. There is no CT evidence of infection. Clinical correlation will be essential. (10) Dysphagia: pt with history of dysphasia and prior video swallow study He follows a honey thickened chopped diet (11) History of DVT in adulthood: On Eliquis as outpatient Hold Eliquis and aspirin for now given concern for possible GI bleed Disposition: Admit to medical floor Follow-up: PCP Dr. Buitrago at [facility] Pt was seen and examined in collaboration with Dr. Alegre, please see addendum History of Present Illness Chief Complaint: Fall prior to arrival Primary Care Provider: [facility] This is an 84-year-old male with significant PMH of dementia, history of LLE DVT on Eliquis, PAD, HTN, HLD, SIMÓN on CPAP, CAD who presents to ED from [facility] secondary to fall prior to arrival and increased confusion. History and ROS unable to be obtained from patient. Per ED providers and [facility] staff he was found kneeling on the floor at approximately 6:30 AM. Per nursing staff he appeared to be more confused when he was attempting to get up from the bathroom and sustained a fall. Unknown if hit head or loss of consciousness. Nursing staff was able to turn patient to commode whenever he had BM with bright red blood in stool. Because of blood in stool and patient complaining of persistent knee pain he was sent to ED for further evaluation. In ED patient underwent numerous imaging studies which did not reveal acute fracture. ED provider did VAISHNAVI with trace heme positive stool without evidence of hemorrhoid. His H&H today was stable at 12.0 and 36.7. He remained hemodynamically stable except for hypertension which was felt to be due to pain and not taking a.m. meds. He was afebrile and WBC was WNL. BMP was relatively unremarkable with BUN and creatinine 17 and 1.22. Due to concern for knee pain, difficulty with ambulation and bright red blood while on anticoagulation he was recommended for admission. Unable to obtain patient's past medical history, surgical history, surgeries, family history from patient due to underlying dementia. All history is obtained from prior records. Allergies Allergy/AdvReac Type Severity Reaction Status Date / Time pseudoephedrine Allergy Severe URINARY Unverified 10/02/19 08:22 RETENTION guaifenesin Allergy Unknown inability Verified 10/02/19 08:22 to urinate Sulfa (Sulfonamide Allergy Unknown _ Unverified 10/02/19 08:22 Antibiotics) latex AdvReac Intermediate ITCHING/BUR Unverified 10/02/19 08:22 DONNIE Home Medications Home Medications Medication Instructions Recorded Confirmed Type aspirin [Aspir-81] 81 mg PO QAM 10/06/18 10/02/19 History atorvastatin 10 mg PO HS 10/06/18 10/02/19 History famotidine 20 mg PO BID 10/06/18 10/02/19 History finasteride 5 mg PO QAM 10/06/18 10/02/19 History isosorbide mononitrate 30 mg PO QAM 10/06/18 10/02/19 History metoprolol succinate 50 mg PO QAM 10/06/18 10/02/19 History timolol maleate 1 dose OPB HS 10/06/18 10/02/19 History cetirizine 10 mg PO HS 10/09/18 10/02/19 History apixaban [Eliquis] 5 mg PO BID #74 tab 10/14/18 10/02/19 Rx lisinopril [Zestril] 10 mg PO QAM #30 tab 10/14/18 10/02/19 Rx melatonin 5 mg PO HS 10/02/19 10/02/19 History multivitamin 1 tab PO QAM 10/02/19 10/02/19 History Past Med/Surg History Medical History (Updated 10/02/19 @ 13:55 by Radha Perry PA-C) Angina pectoris (Chronic) CAD (coronary artery disease) (Chronic) Dementia (Chronic) Hyperlipemia (Chronic) Hypertension (Chronic) Monoclonal paraproteinemia SIMÓN (obstructive sleep apnea) (Chronic) noncompliant with CPAP per patient Surgical History (Updated 10/02/19 @ 13:47 by Radha Perry PA-C) H/O total hip arthroplasty R Family History Other Family history unknown Social History Preferred Language: Tajik Communication Ability: Effective Marketing Writer Required: Yes Beliefs That Will Affect Care: None Current Living Situation: Personal Care Facility Feels Safe at Home: Yes Smoking Status: Never smoker Hx Alcohol Use: No Review of Systems Review of Systems: Unobtainable due to cognitive status Physical Exam Physical Exam: Constitutional: Elderly, male, lying in bed, alert and arousable, pleasantly confused,vitals as above, NAD Head: Normocephalic, Atraumatic Eyes: PERRL, conjunctivae normal, anicteric sclerae ENMT: external ear and nose normal, oropharynx with significant dry mucous membranes Neck: trachea midline, no thyromegaly normal visual inspection Respiratory: normal respiratory effort, lungs clear to auscultation, no wheeze, rales, rhonchi. Normal insp/exp effort, no accessory muscle use Cardiovascular: RRR, no murmur, no edema Vessels: no JVD or carotid bruit Chest: normal inspection of chest Abdomen: normal bowel sounds, soft, nontender, no hepatosplenomegaly Musculoskeletal: no cyanosis or clubbing, patient with abrasion superior to right knee, patient with active and passive range of motion of bilateral upper extremities. Bilateral lower extremities very rigid and difficult to move. Patient with significant pain to palpation on medial aspect of left knee. Medial aspect of left knee mild effusion. Skin: no rashes, warm and dry normal turgor Neurologic: PERRL, EOMI, accommodation nl, no face palsy, no dysarthria CN's II-XI intact bilaterally and moves all extremities Psychiatric: A and oriented to self only, euthymic affect Lymphatic: no cervical or axillary lymphadenopathy : deferred Results & Data Vital Signs (Past 12 Hours) Vital Signs Temp Pulse Resp BP Pulse Ox 10/02/19 11:26 58 L 26 H 193/99 H 92 10/02/19 10:54 56 L 26 H 187/107 H 94 10/02/19 10:20 63 16 174/110 H 92 10/02/19 09:52 62 16 177/115 H 94 10/02/19 09:20 56 L 20 191/104 H 94 10/02/19 07:52 17 167/85 H 95 10/02/19 07:14 94 10/02/19 07:09 36.8 C 54 L 16 184/101 H 94 Laboratory Results Short CBC 10/02/19 10/02/19 10/02/19 Range/Units 07:23 07:23 13:01 WBC 7.68 (4.8-10.8) K/uL Hgb 12.0 L (14.0-18.0) g/dL Hct 36.7 L (42-52) % Plt Count 195 (130-400) K/uL Sodium 140 138 (136-145) mmol/L Potassium 4.3 4.4 (3.5-5.1) mmol/L Chloride 111 H 108 H (98-107) mmol/L Carbon Dioxide 24 26 (21-32) mmol/L BUN 19 H 17 (7-18) mg/dl Creatinine 1.33 1.22 (0.6-1.4) mg/dl BMP 10/02/19 10/02/19 07:23 13:01 Sodium 140 138 Potassium 4.3 4.4 Chloride 111 H 108 H Carbon Dioxide 24 26 BUN 19 H 17 Creatinine 1.33 1.22 Glucose 99 95 Calcium 9.0 9.1 Liver Function 10/02/19 Range/Units 07:23 Total Bilirubin 0.5 (0.2-1) mg/dl AST 31 (15-37) U/L ALT 40 (12-78) U/L Alkaline Phosphatase 109 (45-117) U/L Albumin 2.9 L (3.4-5.0) gm/dl Urine 10/02/19 Range/Units 10:57 Urine Color Yellow Urine Appearance Cloudy A (Clear) Urine pH 7.0 (4.5-7.5) Ur Specific [place] 1.018 (1.000-1.030) Urine Protein Trace H (Negative) Urine Glucose (UA) Negative (Negative) Diagnostic Findings Cspine CT: IMPRESSION: No fractures within the cervical spine. Pelvis CT: IMPRESSION: 1. There is no evidence of fracture involving the hips or bony pelvis. 2. A right hip arthroplasty is in place. 3. Question circumferential rectal wall thickening. Clinical correlation will be required. This could be further assessed with endoscopy if clinically warranted. 4. Additional findings as above. CXR: IMPRESSION: Cardiomegaly with mild pulmonary vascular congestion. Femur Xray: IMPRESSION: There is no radiographic evidence of left femoral fracture. IMPRESSION: There is no radiographic evidence of right femoral fracture. Head CT: IMPRESSION: Chronic changes as above with no hemorrhage, mass effect, or evidence of acute territorial ischemia by CT criteria. Knee Xray: IMPRESSION: 1. No acute fracture identified. 2. Moderate-sized left knee joint effusion. If persistent left knee pain, a CT could be obtained to exclude an occult fracture. 3. Moderate left knee osteoarthritis, most pronounced within the patellofemoral compartment. Abd/pelvis CT: IMPRESSION: 1. There is a 5 cm cyst in the right lobe of liver which has increased in size from 10/06/2018 and now contains complex internal debris. This could represent intraluminal proteinaceous contents or hemorrhage. There is no CT evidence of infection. Clinical correlation will be essential. 2. Question circumferential rectal wall thickening which is not well assessed by CT. Clinical correlation will be required, and consider direct visualization if clinically indicated. 3. Moderate diverticulosis of the left colon without CT evidence of acute diverticulitis. 4. Cardiomegaly. 5. Cholelithiasis. 6. Additional findings as above. Medications Administered Lactated Ringer's (Lr) 1,000 mls @ 100 mls/hr IV .Q10H [facility] Stop: 10/02/19 20:44 Last Admin: 10/02/19 11:24 Dose: 100 mls/hr Documented by: [id number] Ioversol (Optiray 320 100ml) 94 ml IV ONCE PRN PRN Reason: Interaction Checking Stop: 10/06/19 12:03 Last Admin: 10/02/19 12:05 Dose: 94 ml Documented by: [id number] Isosorbide Mononitrate (Imdur Extended Rel) 30 mg PO [facility] Stop: 11/01/19 10:30 Last Admin: 10/02/19 11:48 Dose: 30 mg Documented by: [id number] Discontinued Medications Metoprolol Succinate (Toprol Xl) 50 mg PO [facility] Stop: 11/01/19 10:44 Last Admin: 10/02/19 11:24 Dose: Not Given Documented by: [id number] Code Status & VTE Plan Code Status DNR VTE Prophylaxis Plan VTE Prophylaxis will be ordered: Yes Reason for no VTE drug order: Contraindicated Supervising Physician Co-Signing Physician Notes Attending addendum: Patient seen and examined, care coordinated with Radha Virgen PA-C, This 84-year-old male with multiple comorbidities, dementia hypertension, glaucoma, hyperlipidemia, history of lower extremity DVT approximate 1 year back, on [facility] Resident at [facility] Sent to ER this morning as patient was found kneeling on the floor at approximately 6:30 AM Patient was appears to be more confused, Was attempting to get to the bathroom, sustained a fall Nursing managed to put patient on the bedside commode, patient had a bowel movement with bright red blood in stool Patient continues to complain of severe knee pain Per nursing at the [facility] patient was also hypotensive In the ER -digital per rectal exam done by ER physician, with trace heme positive stool, hemoglobin appears to be stable at 12, Patient's BP was elevated SBP in more than 180 (has not got any a.m. antihypertensive meds) Imaging: CT head, CT cervical spine, pelvic, and femur x-ray showed no evidence of any fracture or bleeding Patient will be admitted to medical telemetry for further evaluation Physical exam: General: Elderly male, appears to be confused, clinically dehydrated, very dry oral mucous membrane, complains of pain HEENT: Nonicteric sclera, dry oral mucosa Heart: Regular S1 and S2 no murmur gallop Lungs clear to auscultate Abdomen: Soft nontender Neuro: No focal neurological deficit, baseline dementia, oriented to person only Review of system: All 10 systems reviewed pertinent positive as per H&P above Assessment and plan: Fall: Sustained a fall earlier, imaging shows no evidence of fracture or bleeding Patient complains of severe pain on touch on left knee, x-ray of knee ordered rule out hematoma Ordered to hold aspirin/Eliquis Fall precaution, bed alarm PT OT evaluation Concern for GI bleed/bright red blood per rectum And one episode of bright blood blood per rectum noted at [facility] As per nursing at [facility] no prior history of GI bleed Patient is on aspirin/Eliquis which is ordered to keep on hold Clear liquid diet Repeat H&H in afternoon CT abdomen pelvis with contrast to assess for diverticular bleed GI evaluation requested Metabolic encephalopathy/dementia Baseline dementia, worsening of mental status, more confusion noted possibly secondary to dehydration, acute illness CT head shows no evidence of acute CVA or bleed appears to be clinically dry, gentle IV fluids ordered Check UA and culture rule out UTI Continue to monitor Increased risk for delirium/sundowning Hypertensive urgency Was reported to be hypotensive at the personal retirement, did not get any of his a.m. meds Presents with hypertensive urgency with systolic blood pressure 180/170 Ordered to resume patient's a.m. antihypertensives Imdur, Lisinopril will be kept on hold for concern for dehydration, PRN IV hydralazine ordered, continue to monitor in medical telemetry CODE STATUS: DNR/DNI: Discussed with patient's daughter Hodan /ANMOL Disposition: Admit to medical telemetry Will need PT OT evaluation Social service consult for discharge planning Please refer to further documentation by Radha Virgen PA-C for discussion of other chronic issues Melinda Alegre MD
[2019-10-02] MEDS ORDERED: bisacodyL 5 MG TABEC PO ONE (13:46)
[2019-10-02] MEDS: cefTRIAXone SODIUM 1,000 MG in DEXTROSE 5% 50 ML IV SCH (14:34)
[2019-10-02] MEDS: LIDOCAINE 5% 1 PATCH TD SCH (14:39)
[2019-10-02] MEDS: POLYETHYLENE (MIRALAX) 17 GM PACK PO SCH (14:43)
[2019-10-02] MEDS: lisinopriL 10 MG TAB PO SCH (16:15)
[2019-10-02] MEDS ORDERED: INFLUENZA Vaccine HIGH DOSE 65+yrs 0.5 mL Syr IM ONE (16:30)
[2019-10-02] MEDS ORDERED: PNEUMOCOCCAL Polysaccharide Vaccine 25mcg/0.5mL vial/Syr IM ONE (16:30)
[2019-10-02 18:46] LABS: Hematocrit (blood only) 37.5 % (42-52); Hemoglobin 12.9 g/dL (14.0-18.0)
[2019-10-02] MEDS ORDERED: NON-FORMULARY MEDICATION (Melatonin 5 MG) PO SCH (21:00)
[2019-10-02] MEDS: DOCUSATE SODIUM/SENNA 50/8.6MG TAB PO SCH (21:30)
[2019-10-02] MEDS: ATORVASTATIN 10 MG TAB PO SCH (21:30)
[2019-10-02] MEDS: CETIRIZINE HCL 10 MG TABLET PO SCH (21:30)
[2019-10-02] MEDS: FAMOTIDINE 20 MG TAB PO SCH (21:30)
[2019-10-02] MEDS: TIMOLOL MALEATE 0.25% OP SOLN 5 ML BTL OPB SCH (21:31)
[2019-10-03 05:54] LABS: Hematocrit (blood only) 36.6 % (42-52); Hemoglobin 12.4 g/dL (14.0-18.0); Mean Corpuscular Hemoglobin 30.5 pg (25-34); Mean Corpuscular Hgb Conc 33.9 g/dL (32-36); Mean Corpuscular Volume 89.9 fL (80-100); Mean Platelet Volume 10.2 fL (7.4-10.4); Platelet Count 211 K/uL (130-400); RDW Coefficient of Variation 14.8 % (11.5-14.5); RDW Standard Deviation 48.5 fL (36.4-46.3); Red Blood Count 4.07 M/uL (4.7-6.1); White Blood Count 9.48 K/uL (4.8-10.8)
[2019-10-03 06:30] LABS: BUN Creatinine Ratio 12.4 (10-20); Blood Urea Nitrogen 15 mg/dl (7-18); Calcium 9.5 mg/dl (8.5-10.1); Carbon Dioxide 24 mmol/L (21-32); Chloride 107 mmol/L (98-107); Est GFR (African American) 64.2; Est GFR (Non-African American) 55.4; Glucose 100 mg/dl (70-99); Potassium 3.9 mmol/L (3.5-5.1); Sodium 137 mmol/L (136-145)
[2019-10-03] MEDS: LIDOCAINE 5% 1 PATCH TD SCH (09:42)
[2019-10-03] MEDS: POLYETHYLENE (MIRALAX) 17 GM PACK PO SCH (09:42)
[2019-10-03] MEDS: FAMOTIDINE 20 MG TAB PO SCH ×2 (09:45→20:23)
[2019-10-03] MEDS: METOPROLOL SUCC 50MG EXT REL TAB PO SCH (09:46)
[2019-10-03] MEDS: MULTIVITAMIN TAB PO SCH (09:47)
[2019-10-03] MEDS: DOCUSATE SODIUM/SENNA 50/8.6MG TAB PO SCH ×2 (09:47→20:23)
[2019-10-03] MEDS: FINASTERIDE 5 MG TAB PO SCH (09:48)
[2019-10-03] MEDS: lisinopriL 10 MG TAB PO SCH (09:49)
[2019-10-03] MEDS: ISOSORBIDE MONO EXTENDED REL 30 MG TABCR PO SCH (09:49)
--- NOTE | 2019-10-03 10:33 | Gastroenterology Progress Note ---
Date of Service October 03, 2019 Assessment & Plan (1) BRBPR (bright red blood per rectum): Because there does not appear to be evidence of a significant GI bleed (stable Hb, brown stool), would defer endoscopy and advance diet as tolerated. Present on Admission?: Yes Supervising Physician Co-Signing Physician Notes I have personally seen and examined the patient with GRACE Perkins. Her note reflects my exam and findings. I agree with her impression and plan. No signs of active on going GI bleeding. Josue Pichardo M.D. Subjective Mr. William Arriaga is an 84 yr old male transferred here from [place] yesterday for a fall, weakness and because he passed some bright red blood with a BM yesterday prior to admission. No BMs since arrival, though was incontinent of a brown smear yesterday afternoon. Hb stable 12.0->12.4 Pt unable to provide a history/ROS due to dementia. Appears comfortable. Review of Systems Review of Systems: Unable to provide a ROS Physical Exam Constitutional: WD/WN, vitals as above + obese Eyes: PERRL, conjunctivae normal, anicteric sclerae ENMT: external ear and nose normal, oropharynx normal Neck: trachea midline, no thyromegaly Respiratory: normal respiratory effort, lungs clear to auscultation Cardiovascular: RRR, no murmur, no edema Gastrointestinal (Abdomen): normal bowel sounds, soft, nontender, no hepatosp lenomegaly Skin: flushed face, skin warm, no rashes or jaundice Neurologic: PERRL, EOMI, accommodation nl, no face palsy, no dysarthria Psychiatric: A+Ox3, euthymic affect Lymphatic: no cervical or axillary lymphadenopathy Results & Data Vital Signs (Past 12 Hours) Vital Signs Temp Pulse Pulse Resp BP Pulse Ox 10/03/19 07:15 37.2 C 62 20 174/90 H 96 10/03/19 06:42 171/97 H 10/03/19 03:40 75 16 97 10/03/19 03:20 36.6 C 73 20 182/100 H 97 10/03/19 00:13 88 10/02/19 22:38 160/82 H 10/02/19 22:28 37.4 C 87 19 179/104 H 96
[2019-10-03] MEDS: cefTRIAXone SODIUM 1,000 MG in DEXTROSE 5% 50 ML IV SCH (14:09)
--- NOTE | 2019-10-03 14:57 | Hospitalist Progress Note ---
Date of Service October 03, 2019 Assessment & Plan (1) Fall: Left knee joint pain/effusion Patient sustained a fall prior to arrival y X-ray Of left knee reveals moderate left knee joint effusion Orthopedics consulted appreciate input CT of left knee will be ordered to assess occult fracture Continue to hold Eliquis for concern of possible hematoma/bleeding in joint (2) BRBPR (bright red blood per rectum): No further episode of bright red blood per rectum since admission On admission Reported from nursing at [facility] of one episode of bright red blood per rectum while moving bowels Hold aspirin and Eliquis for now H&H remained stable 12 CT abdomen pelvis reviewed:Shows diverticulosis without evidence of diverticulitis Appreciate input from gastroenterology There is no evidence of active bleeding no hemodynamic instability no drop in hemoglobin, colonoscopy procedure is not indicated (3) Metabolic encephalopathy: Baseline dementia, presented with worsening of confusion secondary to metabolic encephalopathy Possible secondary to infection/UTI dehydration CT head noncontrast shows no evidence of acute CVA no hemorrhage no midline shift Continue supportive care fall precaution High risk for sundowning, frequent orientation From nursing (4) UTI (urinary tract infection): Urinalysis appears positive for likely UTI He is afebrile and WBC is WNL; however his mental status is reported as more confused therefore will treat Continue IV Rocephin, treat culture (5) Dementia: (6) CAD (coronary artery disease): Stable, no acute cardiac issue no chest pain or shortness of breath On , statin, metoprolol, lisinopril, Imdur Aspirin Was kept on hold with concern for GI bleed, will be resumed tomorrow (7) Hypertension: Continue outpatient meds (8) Hyperlipemia: Continue statin (9) Liver cyst: Incidental finding on CT scan of abdomen pelvis There is a 5 cm cyst in the right lobe of liver which has increased in size from 10/06/2018 and now contains complex internal debris. This could represent intraluminal proteinaceous contents or hemorrhage. There is no CT evidence of infection. Clinical correlation will be essential. (10) Dysphagia: pt with history of dysphasia and prior video swallow study He follows a honey thickened chopped diet-Diet resumed (11) History of DVT in adulthood: On Eliquis as outpatient Hold Eliquis and aspirin for now given concern for possible GI bleed Disposition: Patient is a resident at [facility] house Plan to return back to personal [facility] when medically stable Subjective Patient appears to be comfortable unable to provide any information secondary to baseline dementia Review of Systems Review of Systems: Unobtainable due to cognitive status (Dementia) Physical Exam Constitutional: WD/WN, vitals as above + ill appearing; no acute distress Eyes: PERRL, conjunctivae normal, anicteric sclerae ENMT: external ear and nose normal, oropharynx normal Neck: trachea midline, no thyromegaly Respiratory: normal respiratory effort, lungs clear to auscultation Cardiovascular: RRR, no murmur, no edema Gastrointestinal (Abdomen): Percussion/Palpation: abdomen soft; abdomen nontender Musculoskeletal: Extremities: + joint enlargement (Left knee pain/Tenderness with movement) Neurologic: no focal motor deficits Psychiatric: Baseline advanced dementia, oriented to person only Results & Data (MN) Vital Signs (Past 12 Hours) Vital Signs Temp Pulse Pulse Resp BP Pulse Ox 10/03/19 12:10 36.3 C L 76 18 139/83 100 10/03/19 07:15 37.2 C 62 20 174/90 H 96 10/03/19 06:42 171/97 H 10/03/19 03:40 75 16 97 10/03/19 03:20 36.6 C 73 20 182/100 H 97
--- NOTE | 2019-10-03 16:33 | CT Scan Report ---
CT knee LT wo con CLINICAL HISTORY: 84 years-old Male presenting with left knee pain after fall, joint effusion, possib le occult fracture. TECHNIQUE: Multidetector CT of the left knee was performed without the use of intravenous contrast. I V contrast: None. One or more dose lowering techniques were used consistent with the principles of AL ROGERS (as low as reasonably achievable), including automatic exposure control, mA or kV adjustment to i ndividual patient size, and/or use of iterative reconstruction. COMPARISON: Plain radiographs performed the previous day. CT DOSE (mGy.cm): The estimated cumulative dose is 247.03 mGy.cm. FINDINGS: Community Relations Liaison topogram: Unremarkable. Small knee joint effusion is present. No evidence of a lipohemarthrosis. Diffuse muscle atrophy, likely related to the patient's age. Knee joint congruent. Underlying osteopenia is noted. Mild joint space loss is evident medially. Mild osteophytosis in the patellofemoral compartment. No fracture or subluxation. There is moderate joint space loss at the lateral patellar facet. Infiltration of the anterior subcutaneous tissue with trace irregularity of the cutis. IMPRESSION: 1. No acute osseous injury of the left knee. 2. Small knee joint effusion. This may be on a reactive/traumatic basis. 3. Osteopenia. 4. Mild to moderate degenerative changes primarily in the patellofemoral compartment. 5. Anterior subcutaneous contusion with possible laceration. No subcutaneous hematoma. ACT 112: Negative or not required by law. Electronically signed by: Demarcus Aguilar M.D. 10/03/2019 4:32 PM
--- NOTE | 2019-10-03 19:12 | Orthopedic Consultation ---
Date of Consultation October 03, 2019 Assessment & Plan (1) Left knee pain: X-rays and CT scan reviewed. No obvious fractures noted. Small effusion noted on CT scan. I do not believe there is any evidence of infection at this time. He does have some mild degenerative arthritis in the knee. With a likely fall, this probably caused a flare of his mild arthritis and coupled with a small effusion causing some increased pain. Continue the tramadol for pain control. With recent bright red rectal bleeding, we will not use any anti- inflammatories. Lidoderm patch recommended for the left knee. We can start him on PT and OT protocols. Weightbearing as tolerated. Consider aspiration of the left knee with possible steroid injection if patient is not improving. History of Present Illness Reason for Consultation: Left knee pain Attending Physician: Melinda Alegre MD History of Present Illness Patient is an 84-year-old white male who resides at an assisted living home. Nursing staff found him in his room kneeling on the floor. There is a question of an unwitnessed fall. Nurses noted that he was not acting himself and there was some mental status changes. He was complaining of knee pain throughout that time and the nurses also noted when they got him to the bathroom that he had some bright red bleeding from the rectum. He was brought to the emergency room and was thus admitted by the hospitalist service. We have been asked to see him for his left knee pain. Currently he is lying in bed and awake but pleasantly confused. He does not recall falling but states that his knee has been hurting and is about the same since yesterday. He states that he is able to bear weight on the left lower extremity with his dementia I am unsure if this is true or not. He currently denies any fevers or chills. Allergies Allergy/AdvReac Type Severity Reaction Status Date / Time pseudoephedrine Allergy Severe URINARY Unverified 10/02/19 08:22 RETENTION guaifenesin Allergy Unknown inability Verified 10/02/19 08:22 to urinate Sulfa (Sulfonamide Allergy Unknown _ Unverified 10/02/19 08:22 Antibiotics) latex AdvReac Intermediate ITCHING/BUR Unverified 10/02/19 08:22 DONNIE Home Medications Home Medications Medication Instructions Recorded Confirmed Type aspirin [Aspir-81] 81 mg PO QAM 10/06/18 10/02/19 History atorvastatin 10 mg PO HS 10/06/18 10/02/19 History famotidine 20 mg PO BID 10/06/18 10/02/19 History finasteride 5 mg PO QAM 10/06/18 10/02/19 History isosorbide mononitrate 30 mg PO QAM 10/06/18 10/02/19 History metoprolol succinate 50 mg PO QAM 10/06/18 10/02/19 History timolol maleate 1 dose OPB HS 10/06/18 10/02/19 History cetirizine 10 mg PO HS 10/09/18 10/02/19 History apixaban [Eliquis] 5 mg PO BID #74 tab 10/14/18 10/02/19 Rx lisinopril [Zestril] 10 mg PO QAM #30 tab 10/14/18 10/02/19 Rx melatonin 5 mg PO HS 10/02/19 10/02/19 History multivitamin 1 tab PO QAM 10/02/19 10/02/19 History Patient History Medical History Angina pectoris (Chronic) CAD (coronary artery disease) (Chronic) Dementia (Chronic) Hyperlipemia (Chronic) Hypertension (Chronic) Monoclonal paraproteinemia SIMÓN (obstructive sleep apnea) (Chronic) noncompliant with CPAP per patient Surgical History H/O total hip arthroplasty R Family History Other Family history unknown Social History Preferred Language: Somali Communication Ability: Effective Eight Arm Operator Required: Yes Beliefs That Will Affect Care: None Current Living Situation: Personal Care Facility Feels Safe at Home: Yes Smoking Status: Never smoker Physical Exam Physical Exam: Focusing the exam on his left lower extremity, he has his knee in a slightly flexed position while it is lying on the bed. Is able to do straight leg raise without difficulty. He states he has some pain in the knee during that time. He does have a slight flexion contracture. The knee itself is not overtly warm at all and has no erythema. He does have a small effusion compared to the right. He is mildly tender on palpation more over the lateral aspect of the knee. He has limited flexion at this time. He can actively flex the knee to approximately 30 degrees before he says he is having pain. I can get him slightly past this point with gentle passive range of motion. He has good range of motion of his left ankle and toes. He does not have any pain in his left hip during range of motion. He denies numbness or tingling in his toes and foot at this time. Results & Data ([facility]) Vital Signs (Past 12 Hours) Vital Signs Temp Pulse Pulse Resp BP Pulse Ox 10/03/19 16:23 36.9 C 70 18 165/83 H 93 10/03/19 15:01 61 10/03/19 12:10 36.3 C L 76 18 139/83 100 10/03/19 07:15 37.2 C 62 20 174/90 H 96 Diagnostic Findings Patient: ANATOLY MAO Date: 10/02/19 MR#: [id number] DISCOVERY Acct ID:[id number]: [facility] Zip: [place] [address] Age: 84Location: ED Sex: M Room/Bed: Att Phy:Diagnosis: fall/ hip & leg pain Flavia Phy: [facility] Date: 10/02/19 Fam Phy:Interpreting Phy: Isaias Rees MD Admit Phy: Ordering Phy: Radha Perry PA-C cc: ~ XR knee LT 3V CLINICAL HISTORY: Left knee pain following fall. COMPARISON: Left femur radiographs October 02, 2019. Left knee radiographs March 01, 2018. FINDINGS: No acute fracture is identified. There is a moderate-sized left knee joint effusion. No lipohemarthrosis is identified. Moderate osteophytosis of the patellofemoral compartment is noted. There is mild osteophytosis within the medial and lateral compartments. IMPRESSION: 1. No acute fracture identified. 2. Moderate-sized left knee joint effusion. If persistent left knee pain, a CT could be obtained to exclude an occult fracture. 3. Moderate left knee osteoarthritis, most pronounced within the patellofemoral compartment. CT knee LT wo con CLINICAL HISTORY: 84 years-old Male presenting with left knee pain after fall, joint effusion, possible occult fracture. TECHNIQUE: Multidetector CT of the left knee was performed without the use of intravenous contrast. IV contrast: None. One or more dose lowering techniques were used consistent with the principles of ALARA (as low as reasonably achievable), including automatic exposure control, mA or kV adjustment to individual patient size, and/or use of iterative reconstruction. COMPARISON: Plain radiographs performed the previous day. CT DOSE (mGy.cm): The estimated cumulative dose is 247.03 mGy.cm. FINDINGS: Broke Beater Operator topogram: Unremarkable. Small knee joint effusion is present. No evidence of a lipohemarthrosis. Diffuse muscle atrophy, likely related to the patient's age. Knee joint congruent. Underlying osteopenia is noted. Mild joint space loss is evident medially. Mild osteophytosis in the patellofemoral compartment. No fracture or subluxation. There is moderate joint space loss at the lateral patellar facet. Infiltration of the anterior subcutaneous tissue with trace irregularity of the cutis. IMPRESSION: 1. No acute osseous injury of the left knee. 2. Small knee joint effusion. This may be on a reactive/traumatic basis. 3. Osteopenia. 4. Mild to moderate degenerative changes primarily in the patellofemoral compartment. 5. Anterior subcutaneous contusion with possible laceration. No subcutaneous hematoma. ACT 112: Negative or not required by law.
[2019-10-03] MEDS: ATORVASTATIN 10 MG TAB PO SCH (20:23)
[2019-10-03] MEDS: CETIRIZINE HCL 10 MG TABLET PO SCH (20:23)
[2019-10-03] MEDS: TIMOLOL MALEATE 0.25% OP SOLN 5 ML BTL OPB SCH (20:37)
[2019-10-04] MEDS: MULTIVITAMIN TAB PO SCH (08:01)
[2019-10-04] MEDS: ASPIRIN 81 MG ECTAB PO SCH (08:01)
[2019-10-04] MEDS: ISOSORBIDE MONO EXTENDED REL 30 MG TABCR PO SCH (08:01)
[2019-10-04] MEDS: METOPROLOL SUCC 50MG EXT REL TAB PO SCH (08:02)
[2019-10-04] MEDS: FAMOTIDINE 20 MG TAB PO SCH ×2 (08:02→20:40)
[2019-10-04] MEDS: FINASTERIDE 5 MG TAB PO SCH (08:02)
[2019-10-04] MEDS: lisinopriL 10 MG TAB PO SCH (08:02)
[2019-10-04] MEDS: DOCUSATE SODIUM/SENNA 50/8.6MG TAB PO SCH ×2 (08:02→20:41)
[2019-10-04] MEDS: POLYETHYLENE (MIRALAX) 17 GM PACK PO SCH (08:04)
[2019-10-04] MEDS: TRAMADOL HCL 50 MG TABLET PO PRN (08:04)
[2019-10-04] MEDS: LIDOCAINE 5% 1 PATCH TD SCH (08:04)
--- NOTE | 2019-10-04 12:18 | Orthopedic Progress Note ---
Date of Service October 04, 2019 Assessment & Plan (1) Left knee pain: Continue with conservative treatments at this time. Will obtain Lyme and uric acid labs. Pain control, Lidoderm patch, follow-up lab results once available. Participate in physical therapy and Occupational Therapy, weight- bear as tolerates. Subjective Patient examined in bed, complaining of pain to left knee however improved slightly. Denies fevers, chills, nausea, vomiting, shortness of breath or chest pain currently. Review of Systems Review of Systems: All systems reviewed & are unremarkable except as noted in HPI & below Constitutional: as per Subjective / HPI Physical Exam Physical Exam: LLE NVSI +EHL/FHL/TA/GS SILT grossly, +2 DP pulse, compartments soft NT, mild effusion, no erythema or gross signs for infection, pain with range of motion. Constitutional: WD/WN, vitals as above Results & Data ([facility]) Vital Signs (Past 12 Hours) Vital Signs Temp Pulse Resp BP Pulse Ox 10/04/19 07:57 36.8 C 60 18 158/93 H 94
[2019-10-04 13:28] LABS: Lyme Ab IgG w/WB Rflx Negative (Negative); Lyme Ab IgM w/WB Rflx Negative (Negative)
[2019-10-04] MEDS: cefTRIAXone SODIUM 1,000 MG in DEXTROSE 5% 50 ML IV SCH (14:04)
--- NOTE | 2019-10-04 14:58 | Hospitalist Progress Note ---
Date of Service October 04, 2019 Assessment & Plan (1) Fall: Left knee joint pain/effusion Patient sustained a fall prior to arrival X-ray Of left knee reveals moderate left knee joint effusion Orthopedics consulted appreciate input CT of left knee shows: 1. No acute osseous injury of the left knee. 2. Small knee joint effusion. This may be on a reactive/traumatic basis. 3. Osteopenia. 4. Mild to moderate degenerative changes primarily in the patellofemoral compartment. 5. Anterior subcutaneous contusion with possible laceration. No subcutaneous hematoma. Continue to hold Eliquis for concern of possible hematoma/bleeding in joint (2) BRBPR (bright red blood per rectum): No further episode of bright red blood per rectum since admission On admission Reported from nursing at [facility] of one episode of bright red blood per rectum while moving bowels H&H been stable, will resume aspirin and Eliquis tomorrow CT abdomen pelvis reviewed:Shows diverticulosis without evidence of diverticulitis Appreciate input from gastroenterology There is no evidence of active bleeding no hemodynamic instability no drop in hemoglobin, colonoscopy procedure is not indicated (3) Metabolic encephalopathy: Baseline dementia, presented with worsening of confusion secondary to metabolic encephalopathy Possible secondary to infection/UTI dehydration CT head noncontrast shows no evidence of acute CVA no hemorrhage no midline shift Continue supportive care fall precaution High risk for sundowning, frequent orientation From nursing (4) UTI (urinary tract infection): Positive for Klebsiella pneumoniae Pansensitive On IV Rocephin, will change to p.o. antibiotic tomorrow (5) Dementia: Exacerbated in setting of UTI Mental status gradually improved appears to be some at baseline Monitor (6) CAD (coronary artery disease): Stable, no acute cardiac issue no chest pain or shortness of breath On , statin, metoprolol, lisinopril, Imdur Aspirin Was kept on hold with concern for GI bleed, will be resumed tomorrow (7) Hypertension: Continue outpatient meds (8) Hyperlipemia: Continue statin (9) Liver cyst: Incidental finding on CT scan of abdomen pelvis There is a 5 cm cyst in the right lobe of liver which has increased in size from 10/06/2018 and now contains complex internal debris. This could represent intraluminal proteinaceous contents or hemorrhage. There is no CT evidence of infection. Clinical correlation will be essential. (10) Dysphagia: pt with history of dysphasia and prior video swallow study He follows a honey thickened chopped diet-Diet resumed (11) History of DVT in adulthood: On Eliquis as outpatient Given DVT episode of almost 1 year ago, did not had any recurrence, patient will not need to continue with long-term anticoagulation will continue take aspirin 81 mg daily for history of coronary artery disease Disposition: Patient is a resident at [facility] Plan to return back to personal fci in next 24-48 hours if remains medically stable Subjective Baseline dementia, no agitation noted, oriented to person only Vitals stable no fever or chills, denies of any pain on right knee Review of Systems Review of Systems: Unobtainable due to cognitive status (Dementia) Constitutional: no fever and no chills Physical Exam Constitutional: WD/WN, vitals as above + ill appearing; no acute distress Eyes: PERRL, conjunctivae normal, anicteric sclerae ENMT: external ear and nose normal, oropharynx normal Neck: trachea midline, no thyromegaly Respiratory: normal respiratory effort, lungs clear to auscultation Cardiovascular: RRR, no murmur, no edema Gastrointestinal (Abdomen): Percussion/Palpation: abdomen soft; abdomen nontender Musculoskeletal: Extremities: + joint enlargement (Left knee pain/Tenderness with movement) Neurologic: no focal motor deficits Results & Data ([facility]) Vital Signs (Past 12 Hours) Vital Signs Temp Pulse Resp BP Pulse Ox 10/04/19 07:57 36.8 C 60 18 158/93 H 94
[2019-10-04] MEDS: TIMOLOL MALEATE 0.25% OP SOLN 5 ML BTL OPB SCH (20:40)
[2019-10-04] MEDS: CETIRIZINE HCL 10 MG TABLET PO SCH (20:40)
[2019-10-04] MEDS: ATORVASTATIN 10 MG TAB PO SCH (20:41)
[2019-10-05] MEDS: POLYETHYLENE (MIRALAX) 17 GM PACK PO SCH (07:51)
[2019-10-05] MEDS: TRAMADOL HCL 50 MG TABLET PO PRN ×2 (07:51→15:03)
[2019-10-05] MEDS: ASPIRIN 81 MG ECTAB PO SCH (07:52)
[2019-10-05] MEDS: ISOSORBIDE MONO EXTENDED REL 30 MG TABCR PO SCH (07:52)
[2019-10-05] MEDS: LIDOCAINE 5% 1 PATCH TD SCH (07:53)
[2019-10-05] MEDS: MULTIVITAMIN TAB PO SCH (07:54)
[2019-10-05] MEDS: FAMOTIDINE 20 MG TAB PO SCH ×2 (07:55→20:49)
[2019-10-05] MEDS: lisinopriL 10 MG TAB PO SCH (07:55)
[2019-10-05] MEDS: METOPROLOL SUCC 50MG EXT REL TAB PO SCH (07:55)
[2019-10-05] MEDS: DOCUSATE SODIUM/SENNA 50/8.6MG TAB PO SCH ×2 (07:55→20:49)
[2019-10-05] MEDS: FINASTERIDE 5 MG TAB PO SCH (07:55)
--- NOTE | 2019-10-05 08:52 | Hospitalist Progress Note ---
Date of Service October 05, 2019 Assessment & Plan (1) Fall: Left knee joint pain/effusion Patient sustained a fall prior to arrival Symptom for pain swelling and discomfort has resolved X-ray Of left knee reveals moderate left knee joint effusion Orthopedics consulted appreciate input CT of left knee shows: 1. No acute osseous injury of the left knee. 2. Small knee joint effusion. This may be on a reactive/traumatic basis. 3. Osteopenia. 4. Mild to moderate degenerative changes primarily in the patellofemoral compartment. 5. Anterior subcutaneous contusion with possible laceration. No subcutaneous hematoma. Eliquis discontinued for concern of possible hematoma/bleeding in joint Patient's pain symptoms, has improved, appreciate input from orthopedics, no further orthopedic procedure, knee aspiration needed Given a very remote history of DVT, with no recurrence Eliquis discontinued Aspirin 81 mg daily for history of coronary artery disease resumed Plan to return back to personal residential on Sunday (2) BRBPR (bright red blood per rectum): No further episode of bright red blood per rectum since admission Reported from nursing at [facility] of one episode of bright red blood per rectum while moving bowels H&H been stable, will resume aspirin and Eliquis tomorrow CT abdomen pelvis reviewed:Shows diverticulosis without evidence of diverticulitis Appreciate input from gastroenterology There is no evidence of active bleeding no hemodynamic instability no drop in hemoglobin, colonoscopy procedure is not indicated Aspirin 81 mg daily resumed, with no evidence of GI bleed (3) Metabolic encephalopathy: Mental status gradually improved, oriented to person only, approximate baseline? Baseline dementia, presented with worsening of confusion secondary to metabolic encephalopathy Possible secondary to infection/UTI dehydration CT head noncontrast shows no evidence of acute CVA no hemorrhage no midline shift Continue supportive care /fall precaution/low BiPAP bed, bed alarm ordered High risk for , frequent orientation From nursing (4) UTI (urinary tract infection): Urine culture: Positive for Klebsiella pneumoniae Pansensitive Changed to p.o. ciprofloxacin, total 7 days of treatment will be adequate (5) Dementia: Baseline at dementia, presented with worsening confusion metabolic encephalopathy Exacerbated in setting of UTI Mental status gradually improved appears to be some at baseline (6) CAD (coronary artery disease): Stable, no acute cardiac issue no chest pain or shortness of breath On , statin, metoprolol, lisinopril, Imdur Aspirin 81 mg p.o. daily resumed, no further episode of (7) Hypertension: Continue outpatient meds (8) Hyperlipemia: Continue statin (9) Liver cyst: Incidental finding on CT scan of abdomen pelvis There is a 5 cm cyst in the right lobe of liver which has increased in size from 10/06/2018 and now contains complex internal debris. This could represent intraluminal proteinaceous contents or hemorrhage. There is no CT evidence of infection. Clinical correlation will be essential. (10) Dysphagia: pt with history of dysphasia and prior video swallow study He follows a honey thickened chopped diet-Diet resumed Patient has been tolerating diet well, no overt sign symptoms of aspiration (11) History of DVT in adulthood: Was on on Eliquis as outpatient Given DVT episode of almost 1 year ago, did not had any recurrence, patient will not need to continue with long-term anticoagulation will continue take aspirin 81 mg daily for history of coronary artery disease Disposition: Patient is a resident at [facility] Return back to personal residential tomorrow, Daughter updated over phone Subjective Patient appears to be comfortable, opens eyes with the voice, baseline advanced dementia Talks about ankle injury that happened years ago No sign of pain or discomfort When asked about knee pain, patient could not answer appropriately, Has been afebrile, vitals stable No cough no shortness of breath no fever or chills No blood in stool noted Review of Systems Review of Systems: Unobtainable due to cognitive status (Baseline advanced dementia) Physical Exam Constitutional: WD/WN, vitals as above + ill appearing; no acute distress Eyes: PERRL, conjunctivae normal, anicteric sclerae ENMT: external ear and nose normal, oropharynx normal Neck: trachea midline, no thyromegaly Respiratory: normal respiratory effort, lungs clear to auscultation Cardiovascular: RRR, no murmur, no edema Gastrointestinal (Abdomen): Percussion/Palpation: abdomen soft; abdomen nontender Musculoskeletal: Extremities: + joint enlargement (Right knee, no swelling, no erythema, noted, no tenderness on palpation) Neurologic: no focal motor deficits Psychiatric: Orientation: alert; + not oriented x 3 (Baseline dementia,) Results & Data ([facility]) Vital Signs (Past 12 Hours) Vital Signs Temp Pulse Pulse Resp BP Pulse Ox 10/05/19 07:51 36.4 C L 60 18 180/96 H 93 10/05/19 03:17 56 L 14 91 10/04/19 22:54 36.8 C 55 L 20 167/93 H 93 10/04/19 22:11 55 L 16 93 (1) UTI (urinary tract infection) Urinary tract infection type: site unspecified Hematuria presence: without hematuria Qualified Code(s): N39.0 - Urinary tract infection, site not specified (2) Dementia Dementia type: Alzheimer's disease Alzheimer's disease onset: unspecified onset Dementia behavioral disturbance: without behavioral disturbance Qualified Code(s): G30.9 - Alzheimer's disease, unspecified; F02.80 - Dementia in other diseases classified elsewhere without behavioral disturbance (3) CAD (coronary artery disease) Coronary Disease-Associated Artery/Lesion type: [place] artery [place] vs. transplanted heart: [place] heart Associated angina: without angina Qualified Code(s): I25.10 - Atherosclerotic heart disease of [place] coronary artery without angina pectoris (4) Hypertension Hypertension type: essential hypertension Qualified Code(s): I10 - Essential (primary) hypertension
[2019-10-05] MEDS: CIPROFLOXACIN 250 MG TAB PO SCH ×2 (09:55→20:48)
[2019-10-05] MEDS ORDERED: bisacodyL 10 MG SUPP PR STA (14:59)
[2019-10-05] MEDS ORDERED: MICONAZOLE NITRATE POWDER 43 GM EXT PRN (18:28)
[2019-10-05] MEDS: TIMOLOL MALEATE 0.25% OP SOLN 5 ML BTL OPB SCH (20:47)
[2019-10-05] MEDS: ATORVASTATIN 10 MG TAB PO SCH (20:49)
[2019-10-05] MEDS: CETIRIZINE HCL 10 MG TABLET PO SCH (20:50)
[2019-10-06] MEDS: MULTIVITAMIN TAB PO SCH (07:50)
[2019-10-06] MEDS: FINASTERIDE 5 MG TAB PO SCH (07:50)
[2019-10-06] MEDS: METOPROLOL SUCC 50MG EXT REL TAB PO SCH (07:51)
[2019-10-06] MEDS: CIPROFLOXACIN 250 MG TAB PO SCH (07:51)
[2019-10-06] MEDS: ISOSORBIDE MONO EXTENDED REL 30 MG TABCR PO SCH (07:51)
[2019-10-06] MEDS: DOCUSATE SODIUM/SENNA 50/8.6MG TAB PO SCH (07:51)
[2019-10-06] MEDS: ASPIRIN 81 MG ECTAB PO SCH (07:51)
[2019-10-06] MEDS: FAMOTIDINE 20 MG TAB PO SCH (07:51)
[2019-10-06] MEDS: lisinopriL 10 MG TAB PO SCH (07:51)
[2019-10-06] MEDS: LIDOCAINE 5% 1 PATCH TD SCH (07:52)
[2019-10-06] MEDS: POLYETHYLENE (MIRALAX) 17 GM PACK PO SCH (07:52)
--- NOTE | 2019-10-06 11:31 | Hospitalist Progress Note ---
Date of Service October 06, 2019 Assessment & Plan (1) Fall: Left knee joint pain/effusion Patient sustained a fall prior to arrival Symptom for pain swelling and discomfort has resolved X-ray Of left knee reveals moderate left knee joint effusion Orthopedics consulted appreciate input CT of left knee shows: 1. No acute osseous injury of the left knee. 2. Small knee joint effusion. This may be on a reactive/traumatic basis. 3. Osteopenia. 4. Mild to moderate degenerative changes primarily in the patellofemoral compartment. 5. Anterior subcutaneous contusion with possible laceration. No subcutaneous hematoma. Eliquis discontinued for concern of possible hematoma/bleeding in joint Patient's pain symptoms, has improved, appreciate input from orthopedics, no further orthopedic procedure, knee aspiration needed Given a very remote history of DVT, with no recurrence Eliquis discontinued Aspirin 81 mg daily for history of coronary artery disease resumed stable to return back to personal correction today (2) BRBPR (bright red blood per rectum): No further episode of bright red blood per rectum since admission Reported from nursing at [facility] of one episode of bright red blood per rectum while moving bowels H&H been stable, will resume aspirin and Eliquis tomorrow CT abdomen pelvis reviewed:Shows diverticulosis without evidence of diverticulitis Appreciate input from gastroenterology There is no evidence of active bleeding no hemodynamic instability no drop in hemoglobin, colonoscopy procedure is not indicated Aspirin 81 mg daily resumed, with no evidence of GI bleed (3) Metabolic encephalopathy: Mental status gradually improved, oriented to person only, approximate baseline? Baseline dementia, presented with worsening of confusion secondary to metabolic encephalopathy Possible secondary to infection/UTI dehydration CT head noncontrast shows no evidence of acute CVA no hemorrhage no midline shift Continue supportive care /fall precaution/low BiPAP bed, bed alarm ordered High risk for sundowning, frequent orientation From nursing (4) UTI (urinary tract infection): Urine culture: Positive for Klebsiella pneumoniae Pansensitive Changed to p.o. ciprofloxacin, total 7 days of treatment will be adequate (5) Dementia: Baseline at dementia, presented with worsening confusion metabolic encephalopathy Exacerbated in setting of UTI Mental status gradually improved appears to be some at baseline (6) CAD (coronary artery disease): Stable, no acute cardiac issue no chest pain or shortness of breath On , statin, metoprolol, lisinopril, Imdur Aspirin 81 mg p.o. daily resumed, no further episode of (7) Hypertension: Continue outpatient meds (8) Hyperlipemia: Continue statin (9) Liver cyst: Incidental finding on CT scan of abdomen pelvis There is a 5 cm cyst in the right lobe of liver which has increased in size from 10/06/2018 and now contains complex internal debris. This could represent intraluminal proteinaceous contents or hemorrhage. There is no CT evidence of infection. Clinical correlation will be essential. (10) Dysphagia: pt with history of dysphasia and prior video swallow study He follows a honey thickened chopped diet-Diet resumed Patient has been tolerating diet well, no overt sign symptoms of aspiration (11) History of DVT in adulthood: Was on on Eliquis as outpatient Given DVT episode of almost 1 year ago, did not had any recurrence, patient will not need to continue with long-term anticoagulation will continue take aspirin 81 mg daily for history of coronary artery disease Disposition: Patient is a resident at [facility] Return back to personal correction todayb Admission and Anticipated Discharge Date Admission Date: October 02, 2019 Subjective offers no new complain baseline dementia oriented to person only no fever or chills vitals stable Physical Exam Constitutional: WD/WN, vitals as above + ill appearing; no acute distress Eyes: PERRL, conjunctivae normal, anicteric sclerae ENMT: external ear and nose normal, oropharynx normal Neck: trachea midline, no thyromegaly Respiratory: normal respiratory effort, lungs clear to auscultation Cardiovascular: RRR, no murmur, no edema Gastrointestinal (Abdomen): Percussion/Palpation: abdomen soft; abdomen nontender Musculoskeletal: Extremities: + joint enlargement (Right knee, no swelling, no erythema, noted, no tenderness on palpation) Neurologic: no focal motor deficits Psychiatric: Orientation: alert; + not oriented x 3 (Baseline dementia,) Results & Data ([facility]) Vital Signs (Past 12 Hours) Vital Signs Temp Pulse Pulse Resp BP Pulse Ox 10/06/19 07:41 16 94 10/06/19 07:19 36.7 C 58 L 16 161/81 H 94 10/06/19 02:48 50 L 18 93 10/05/19 23:55 37.0 C 61 18 173/96 H 95 (1) UTI (urinary tract infection) Hematuria presence: without hematuria Urinary tract infection type: site unspecified Qualified Code(s): N39.0 - Urinary tract infection, site not specif ied (2) CAD (coronary artery disease) Associated angina: without angina Coronary Disease-Associated Artery/Lesion type: [place] artery [place] vs. transplanted heart: [place] heart Qualified Code(s): I25.10 - Atherosclerotic heart disease of [place] coronary artery without angina pectoris (3) Dementia Alzheimer's disease onset: unspecified onset Dementia behavioral disturbance: without behavioral disturbance Dementia type: Alzheimer's disease Qualified Code(s): G30.9 - Alzheimer's disease, unspecified; F02.80 - Dementia in other diseases classified elsewhere without behavioral disturbance (4) Hypertension Hypertension type: essential hypertension Qualified Code(s): I10 - Essential (primary) hypertension
--- NOTE | 2019-10-06 22:58 | Discharge Summary ---
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 History and ROS unable to be obtained from patient. Per ED providers and [facility] staff he was found kneeling on the floor at approximately 6:30 AM. Per nursing staff he appeared to be more confused when he was attempting to get up from the bathroom and sustained a fall. Unknown if hit head or loss of consciousness. Nursing staff was able to turn patient to commode whenever he had BM with bright red blood in stool. Because of blood in stool and patient complaining of persistent knee pain he was sent to ED for further evaluation. In ED patient underwent numerous imaging studies which did not reveal acute fracture. ED provider did VAISHNAVI with trace heme positive stool without evidence of hemorrhoid. His H&H today was stable at 12.0 and 36.7. He remained hemodynamically stable except for hypertension which was felt to be due to pain and not taking a.m. meds. He was afebrile and WBC was WNL. BMP was relatively unremarkable with BUN and creatinine 17 and 1.22. Due to concern for knee pain, difficulty with ambulation and bright red blood while on anticoagulation he was recommended for admission. Unable to obtain patient's past medical history, surgical history, surgeries, family history from patient due to underlying dementia. All history is obtained from prior records. Principal Diagnosis fall/ ambulatory dysfunction/ UTI/ baseline dementia Discharge Exam Constitutional WD/WN, vitals as above + ill appearing; no acute distress Eyes PERRL, conjunctivae normal, anicteric sclerae ENMT external ear and nose normal, oropharynx normal Neck trachea midline, no thyromegaly Respiratory normal respiratory effort, lungs clear to auscultation Cardiovascular RRR, no murmur, no edema Gastrointestinal (Abdomen) Percussion/Palpation: abdomen soft; abdomen nontender Musculoskeletal Extremities: + joint enlargement (Right knee, no swelling, no erythema, noted, no tenderness on palpation) Neurologic no focal motor deficits Psychiatric Orientation: alert; + not oriented x 3 (Baseline dementia,) Discharge Data Allergies Allergy/AdvReac Type Severity Reaction Status Date / Time pseudoephedrine Allergy Severe URINARY Unverified 10/02/19 08:22 RETENTION guaifenesin Allergy Unknown inability Verified 10/02/19 08:22 to urinate Sulfa (Sulfonamide Allergy Unknown _ Unverified 10/02/19 08:22 Antibiotics) latex AdvReac Intermediate ITCHING/BUR Unverified 10/02/19 08:22 DONNIE Consultations 10/02/19 09:46 ED Decision to Admit Stat 10/02/19 12:53 Consult Case Management - Discharge Planning Routine Consult Gastroenterology Routine 10/02/19 12:57 Consult Orthopedic Surgery Routine Ordered Studies 10/02/19 07:08 CT cervical spine wo con Stat CT pelvis wo con Stat 10/02/19 07:09 CT head/brain wo con Stat 10/02/19 11:01 CT abd pelvis IV con only Stat 10/03/19 15:42 CT knee LT wo con Urgent Hospital Course (1) Fall: Left knee joint pain/effusion Patient sustained a fall prior to arrival Symptom for pain swelling and discomfort has resolved X-ray Of left knee reveals moderate left knee joint effusion Orthopedics consulted appreciate input CT of left knee shows: 1. No acute osseous injury of the left knee. 2. Small knee joint effusion. This may be on a reactive/traumatic basis. 3. Osteopenia. 4. Mild to moderate degenerative changes primarily in the patellofemoral compartment. 5. Anterior subcutaneous contusion with possible laceration. No subcutaneous hematoma. Eliquis discontinued for concern of possible hematoma/bleeding in joint Patient's pain symptoms, has improved, appreciate input from orthopedics, no further orthopedic procedure, knee aspiration needed Given a very remote history of DVT, with no recurrence Eliquis discontinued Aspirin 81 mg daily for history of coronary artery disease resumed stable to return back to personal assisted today (2) BRBPR (bright red blood per rectum): No further episode of bright red blood per rectum since admission Reported from nursing at [facility] of one episode of bright red blood per rectum while moving bowels H&H been stable, will resume aspirin and Eliquis tomorrow CT abdomen pelvis reviewed:Shows diverticulosis without evidence of diverticulitis Appreciate input from gastroenterology There is no evidence of active bleeding no hemodynamic instability no drop in hemoglobin, colonoscopy procedure is not indicated Aspirin 81 mg daily resumed, with no evidence of GI bleed (3) Metabolic encephalopathy: Mental status gradually improved, oriented to person only, approximate baseline? Baseline dementia, presented with worsening of confusion secondary to metabolic encephalopathy Possible secondary to infection/UTI dehydration CT head noncontrast shows no evidence of acute CVA no hemorrhage no midline shift Continue supportive care /fall precaution/low BiPAP bed, bed alarm ordered High risk for sundowning, frequent orientation From nursing (4) UTI (urinary tract infection): Urine culture: Positive for Klebsiella pneumoniae Pansensitive Changed to p.o. ciprofloxacin, total 7 days of treatment will be adequate (5) Dementia: Baseline at dementia, presented with worsening confusion metabolic encephalopathy Exacerbated in setting of UTI Mental status gradually improved appears to be some at baseline (6) CAD (coronary artery disease): Stable, no acute cardiac issue no chest pain or shortness of breath On , statin, metoprolol, lisinopril, Imdur Aspirin 81 mg p.o. daily resumed, no further episode of (7) Hypertension: Continue outpatient meds (8) Hyperlipemia: Continue statin (9) Liver cyst: Incidental finding on CT scan of abdomen pelvis There is a 5 cm cyst in the right lobe of liver which has increased in size from 10/06/2018 and now contains complex internal debris. This could represent intraluminal proteinaceous contents or hemorrhage. There is no CT evidence of infection. Clinical correlation will be essential. (10) Dysphagia: pt with history of dysphasia and prior video swallow study He follows a honey thickened chopped diet-Diet resumed Patient has been tolerating diet well, no overt sign symptoms of aspiration (11) History of DVT in adulthood: Was on on Eliquis as outpatient Given DVT episode of almost 1 year ago, did not had any recurrence, patient will not need to continue with long-term anticoagulation will continue take aspirin 81 mg daily for history of coronary artery disease Disposition: Patient is a resident at [facility] Return back to personal assisted todayb Total Time Total Time Spent Total Time Spent (In Minutes): 35 mins Total Time Includes: Examination of the Patient, Discharge Planning and Medication Reconciliation Discharge Plan Discharge Items Patient Disposition: Personal Group Home Reason For Visit: FALL/BLOOD IN STOOL Discharge Diagnosis: Fall/ambulatory dysfunction/urinary tract infection/baseline advanced dementia Condition on Discharge: Good Activity: Resume your previous activity Non-emergency contact: Primary Care Provider Call non-emergency contact if: you have any medication questions Follow-up/Referrals: ASHWIN MARTINEZ [Primary Care Provider] - Diet: Heart Healthy Diet Texture: Dental soft (bite-sized) Liquid Consistency: Honey thick Addtl Attending Provider Instructions: Complete antibiotic: Ciprofloxacin 250 mg by mouth twice daily for 3 more days: Treatment for urinary tract infection Do not take Eliquis Pending Studies at Discharge: No Stand-Alone Forms: My [facility] icix, Smoking Cessation Skilled Items Patient informed of condition?: Yes DNR: Yes Discharge Level of Care: Other Communicable Disease: No Discharge Prognosis: Stable Lines: None Urinary Catheter: No Medications and DC Order Prescriptions: New ciprofloxacin HCl 250 mg Tablet 250 mg PO Q12 3 Days Qty: 6 RF: 0 Continued atorvastatin 10 mg tablet 10 mg PO HS RF: 0 metoprolol succinate 50 mg tablet extended release 24 hr 50 mg PO QAM RF: 0 isosorbide mononitrate 30 mg tablet extended release 24 hr 30 mg PO QAM RF: 0 famotidine 20 mg tablet 20 mg PO BID RF: 0 timolol maleate 0.5 % drops 1 dose OPB HS RF: 0 finasteride 5 mg tablet 5 mg PO QAM RF: 0 aspirin [Aspir-81] 81 mg Tablet,Delayed Release (Dr/Ec) 81 mg PO QAM RF: 0 multivitamin Tablet 1 tab PO QAM RF: 0 melatonin 5 mg Tablet 5 mg PO HS RF: 0 cetirizine 10 mg tablet 10 mg PO HS RF: 0 lisinopril [Zestril] 10 mg Tablet 10 mg PO QAM Qty: 30 RF: 0 Discontinued Eliquis 5 mg tablet 5 mg PO BID Qty: 74 RF: 0 Discharge Orders: Discharge Order (Routine); Ordered 10/06/19 Ordered By: Melinda Alegre Admission Data Admit Date/Time: 10/02/19 10:35 Attending Provider: Melinda Alegre Admit Provider: Melinda Alegre Primary Care Provider: ASHWIN MARTINEZ Other Providers: Melinda Alegre ; Patrick Dent ; Leta Renteria ; Nicolás Contreras ; Lacie Fernandez ; Floyd Patel ; Alejandro Duke ; Segun Rodriguez ; Christina Carrion ; Kunal Humphrey ; Josue Pichardo ; Ana Lee ; Lorenza Alex ; Cece Quintero ; Elena Harris ; Lola Andrade ; Reece Sampson ; Kalen Hatch ; Kaleb Denis ; Amanda Foster ; Filipe Olivera ; Melany Blackburn ; Izaiah Schmidt ; Desean Lopez ; Donald Sanford ; Desean Cuevas ; Justice Chavez ; Donald Pham ; Gen Castillo ; Walt Cunningham ; Moy Bills ; Demarcus Nichols ; Gelacio Craig ; Melany Cummins ; Suraj Olmedo ; Estevan Shea ; William Kngiht Other Interventions: Discharge Summary Assessment (RN) Last Done: 10/06/19 14:41 DC Date/Time DO NOT enter until pt leaves facility: 10/06/19 16:47
== END 2019-10-06 16:47 | disposition home or self-care (01) | DRG 377 ==
LOC: ED 06:59 → 2N 10:35

== ENCOUNTER 2019-10-10 13:52 | Inpatient (IN) ==
[2019-10-10] MEDS ORDERED: SODIUM CHLORIDE 0.9% 1000ML 1,000 ML IV ONE (14:34)
[2019-10-10 15:03] LABS: Basophils # (auto) 0.02 K/uL (0-0.2); Basophils % (auto) 0.1 %; Hematocrit (blood only) 40.1 % (42-52); Hemoglobin 13.4 g/dL (14.0-18.0); Immature Granulocytes # (auto) 0.05 K/uL (0.00-0.02); Immature Granulocytes % (auto) 0.3 %; Lymphocytes # (auto) 1.38 K/uL (1.2-3.4); Lymphocytes % (auto) 8.3 %; Mean Corpuscular Hemoglobin 30.5 pg (25-34); Mean Corpuscular Hgb Conc 33.4 g/dL (32-36); Mean Corpuscular Volume 91.1 fL (80-100); Mean Platelet Volume 10.4 fL (7.4-10.4); Monocytes # (auto) 1.47 K/uL (0.11-0.59); Monocytes % (auto) 8.9 %; Neutrophils # (auto) 13.68 K/uL (1.4-6.5); Neutrophils % (auto) 82.4 %; Platelet Count 280 K/uL (130-400); RDW Coefficient of Variation 14.7 % (11.5-14.5); RDW Standard Deviation 49.9 fL (36.4-46.3)
[2019-10-10 15:12] LABS: HCO3 VBG 25 mmol/L; Oxygen Saturation VBG > 60.0 %; PCO2 VBG 44 mmHg (38-50); PO2 VBG 23 mmHg; pH VBG 7.36 (7.36-7.41)
--- NOTE | 2019-10-10 15:25 | XRay Report ---
XR chest 1V portable CLINICAL HISTORY: Weakness, hypoxia. COMPARISON STUDY: October 02, 2019 FINDINGS: The heart remains enlarged. There are low lung volumes with basilar opacity statistically a telectatic. There is mild vascular prominence without evidence of overt failure. There are no signifi cant pleural effusions. There is an old proximal left humeral deformity.[ IMPRESSION: Mild cardiomegaly. Low lung volumes with basilar opacities, statistically atelectatic ACT 112: Negative or not required by law. Electronically signed by: Glen Olvera M.D. 10/10/2019 3:24 PM
[2019-10-10 15:30] LABS: Alanine Aminotransferase 23 U/L (12-78); BUN Creatinine Ratio 16.7 (10-20); Blood Urea Nitrogen 30 mg/dl (7-18); Calcium 9.9 mg/dl (8.5-10.1); Carbon Dioxide 26 mmol/L (21-32); Chloride 108 mmol/L (98-107); Creatinine Clr Calc Pharmacy 30.3 ml/min; Est GFR (African American) 38.6; Est GFR (Non-African American) 33.3; Glucose 139 mg/dl (70-99); Potassium 4.1 mmol/L (3.5-5.1); Sodium 138 mmol/L (136-145)
[2019-10-10 15:38] LABS: Appearance Urine Clear (Clear); Bacteria Urine Automated Negative (Negative); Blood Urine Negative (Negative); Color Urine Dark Yellow; Epithelial Cell Urine Auto 20-30 /lpf (0-5); Glucose Urine UA Negative (Negative); Ketones Urine Negative (Negative); Leukocyte Esterase Urine Trace (Negative); Nitrite Urine Negative (Negative); Protein Urine 1+ (Negative); RBC Urine Automated 0-4 /hpf (0-4); Specific Gravity Urine 1.025 (1.000-1.030); Urobilinogen Urine Negative (Negative)
[2019-10-10 15:40] LABS: Albumin Globulin Ratio 0.5 (0.9-2); Alkaline Phosphatase 88 U/L (45-117); Aspartate Aminotransferase 18 U/L (15-37); Bilirubin,Total 0.6 mg/dl (0.2-1); Globulin 6.2 gm/dl (2.5-4.0); Total Protein 9.2 gm/dl (6.4-8.2); Troponin I < 0.015 ng/ml (0-0.045)
[2019-10-10 15:46] LABS: Bilirubin Urine Negative (Negative); Ictotest Urine Negative (Negative)
[2019-10-10] MEDS ORDERED: SODIUM CHLORIDE 0.9% 1000ML 250 ML IV ONE (15:57)
[2019-10-10] MEDS ORDERED: LACTATED RINGER'S 1,000 ML IV ONE (15:57)
--- NOTE | 2019-10-10 16:03 | CT Scan Report ---
CT head/brain wo con CLINICAL HISTORY: lethargy HISTORY OF TRAUMA ONE WEEK AGO COMPARISON STUDY: 10/02/2019 TECHNIQUE: Axial CT of the brain is performed from the vertex to the skull base. IV contrast was not administered for this examination. A dose lowering technique was utilized adhering to the principles of ALARA. CT DOSE: 638.56 mGycm FINDINGS: No intra or extra-axial mass lesions are visualized. There is no CT evidence of acute cortical infarc tion. There is no evidence of midline shift. There is no acute hemorrhage. No calvarial fractures ar e visualized. There are moderate white matter hypodensities likely on a small vessel basis. 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 There is mild ventricular dilatation, likely secondary to volume loss. There is no evidence of acute sinusitis IMPRESSION: No acute intracranial findings ACT 112: Negative or not required by law. Electronically signed by: Glen Olvera M.D. 10/10/2019 4:02 PM
--- NOTE | 2019-10-10 16:09 | CT Scan Report ---
CT SCAN OF THE ABDOMEN AND PELVIS WITHOUT CONTRAST CLINICAL HISTORY: Lethargy. Upper abdominal pain. COMPARISON STUDY: The 14/02/2020 TECHNIQUE: CT scan of the abdomen and pelvis was performed from the lung bases to the proximal femurs . Images are reviewed in the axial, sagittal, and coronal planes. IV contrast was not administered fo r this examination. A dose lowering technique was utilized adhering to the principles of ALARA. CT DOSE: 939.78 mGycm FINDINGS: Lower chest: There are calcified subcarinal lymph nodes. There is respiratory motion artifact. There is dependent atelectasis. There is a calcified right lower lobe granuloma. Liver: There are multiple hypodense hepatic lesions, likely representing cysts. One of the lesions is complex containing a mural nodule/internal debris. Gallbladder: There is cholelithiasis. There is mild gallbladder wall edema. There is increased gallbl adder attenuation, likely secondary to vicarious excretion. Clinical correlation regards to acute cho lecystitis is recommended. Spleen: Normal in size and attenuation. Pancreas: Unremarkable. Adrenal glands: Unremarkable. Kidneys: No renal, ureteral, or bladder calculi are identified. Bowel: There are no transition zones to indicate bowel obstruction. There is colonic diverticulosis. There is no evidence of acute diverticulitis. There are no findings to indicate acute appendicitis. Peritoneum: There is no intraperitoneal free air or abdominal ascites. Vasculature: The abdominal aorta is normal in course and caliber. Adenopathy: None. Pelvic viscera: The bladder, and pelvic viscera are unremarkable. Skeletal structures: The bones are osteopenic. There is an old superior endplate T12 compression defo rmity. IMPRESSION: 1. Moderately limited study due to technical standpoint secondary to significant motion artifact 2. Cholelithiasis, mild gallbladder distention, and suspected gallbladder wall thickening. Clinical c orrelation in regards to acute cholecystitis is recommended. A follow-up ultrasound or nuclear medici ne hepatic biliary study could be obtained as deemed clinically appropriate 3. No evidence of bowel obstruction. No evidence of free air 4. No evidence of acute appendicitis. Diverticulosis. No evidence of acute diverticulitis. 5. Multiple hepatic cysts including a 5 cm complex cystic lesion within the right hepatic lobe simila r in appearance to the preceding study ACT 112: Negative or not required by law. Electronically signed by: Glen Olvera M.D. 10/10/2019 4:08 PM
[2019-10-10 16:17] LABS: Influenza A virus by PCR Neg for Influ A (Neg); Influenza B virus by PCR Neg for Influ B (Neg)
--- NOTE | 2019-10-10 17:26 | Ultrasound Report ---
ULTRASOUND RIGHT UPPER QUADRANT ABDOMEN CLINICAL HISTORY: Right upper quadrant abdominal pain. COMPARISON STUDY: Abdominal CT dated 10/10/2019. TECHNIQUE: Real-time, grayscale, and color flow sonography of the right upper quadrant of the abdomen was performed. Images are reviewed in the transverse and longitudinal planes. The examination is deg raded by lack of patient cooperation. FINDINGS: Liver: The liver is normal in size and echotexture. There is no intrahepatic biliary ductal dilatatio n. The main portal vein is patent. A complex cyst is again seen in the right lobe and measures up to 5.0 cm. Additional simple cysts are identified. Gallbladder: The gallbladder is distended and filled with stones and sludge. The gallbladder wall is thickened and edematous, measuring up to 6 mm. A sonographic Rader's sign is reportedly absent. The common bile duct measures up to 0.3 cm in diameter. Pancreas: Visualized portions of the pancreatic head are normal in appearance. The majority of the pa ncreas is not well-visualized. Right kidney: Survey images of the right kidney demonstrate cortical atrophy. There is no hydronephro sis. Ascites: None. IMPRESSION: 1. The gallbladder is distended and filled with both stones and sludge. The gallbladder wall is thick ened and edematous, and the appearance is highly concerning for acute cholecystitis. Clinical correla tion will be essential. If cholecystitis does not fit the clinical presentation a nuclear hepatobilia ry scan could be considered for confirmation. 2. A 5 cm complex cyst is again seen in the right hepatic lobe. 3. There is no intra or extrahepatic biliary ductal dilatation. ACT 112: Negative or not required by law. Electronically signed by: Michael Go M.D. 10/10/2019 5:25 PM
--- NOTE | 2019-10-10 19:01 | History & Physical Report ---
Date of Service October 10, 2019 Assessment & Plan (1) Cholecystitis: (2) Dehydration: (3) TSEVEN (acute kidney injury): (4) CAD (coronary artery disease): (5) SIMÓN (obstructive sleep apnea): (6) Hypertension: (7) Altered mental status: (8) Dementia: (9) Hyperlipemia: IVFs, Surgery eval, Unasyn, Continue OP meds where appropriate, observation status, likely her LT 2 MNs History of Present Illness 84 yo male c PMH below and includes dementia, was DCd 10/06 and treated after a fall and confusion. Today he comes in confused with abd pain. He was found to have a leukocytosis and a distended GB. Dr Vale said he would see the patient. Primary Care Provider: ANDREA CHRISTOPHER Allergies Allergy/AdvReac Type Severity Reaction Status Date / Time pseudoephedrine Allergy Severe URINARY Unverified 10/10/19 14:46 RETENTION guaifenesin Allergy Unknown inability Verified 10/10/19 14:46 to urinate Sulfa (Sulfonamide Allergy Unknown _ Unverified 10/10/19 14:46 Antibiotics) latex AdvReac Intermediate ITCHING/BUR Unverified 10/10/19 14:46 DONNIE Home Medications Home Medications Medication Instructions Recorded Confirmed Type aspirin [Aspir-81] 81 mg PO QAM 10/06/18 10/10/19 History atorvastatin 10 mg PO HS 10/06/18 10/10/19 History famotidine 20 mg PO BID 10/06/18 10/10/19 History finasteride 5 mg PO QAM 10/06/18 10/10/19 History isosorbide mononitrate 30 mg PO QAM 10/06/18 10/10/19 History metoprolol succinate 50 mg PO QAM 10/06/18 10/10/19 History timolol maleate 1 dose OPB HS 10/06/18 10/10/19 History cetirizine 10 mg PO HS 10/09/18 10/10/19 History lisinopril [Zestril] 10 mg PO QAM #30 tab 10/14/18 10/10/19 Rx melatonin 5 mg PO HS 10/02/19 10/10/19 History multivitamin 1 tab PO QAM 10/02/19 10/10/19 History Past Med/Surg History Medical History Angina pectoris (Chronic) CAD (coronary artery disease) (Chronic) Dementia (Chronic) History of DVT in adulthood Hyperlipemia (Chronic) Hypertension (Chronic) Monoclonal paraproteinemia SIMÓN (obstructive sleep apnea) (Chronic) noncompliant with CPAP per patient Surgical History H/O total hip arthroplasty R Hx of cardiac cath (Resolved) Hx of cataract removal with insertion of prosthetic lens (Resolved) Hx of inguinal hernia repair (Resolved) Family History Other Family history unknown Social History Preferred Language: Kazakh Communication Ability: Effective Wood Fence 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 Required: Yes Beliefs That Will Affect Care: None Current Living Situation: Personal Care Facility Feels Safe at Home: Yes Smoking Status: Unknown if ever smoked Physical Exam 2 Physical Exam: ROS-Offers no reliable ROS Physical Exam Gen-NAD, Afebrile, Butterfly rosacea rash Head-NCAT, EOMI, PERRLA, Anicteric Sclera, No Posterior Pharyngeal Erythema Neck-Supple, No JVD, No Thyromegaly, No Masses, No LAD, No Bruits Lungs-Clear to Auscultation Bilaterally, No Rales, No Rhonchi, No Wheezing, No Crepitus Chest-No S4, +S1, +S2, No S3, No Murmurs, No Rubs, No Gallops, No Ectopy Abdomen-Soft, Bowel Sounds Present, RUQ Tender, Non Distended, No Hepatomegaly, No Splenomegaly, No Palpable Masses, No Rebound, No Rigidity, No Guarding Musculoskeletal-Full Range of Motion Bilaterally, No CVAT Extremities-No Cyanosis, No Clubbing, No Edema Nuero-Cranial Nerves II-XII grossly intact, Motor WNL, DTRs WNL, Strength WNL, Non Focal Psych-Flat Results & Data Vital Signs (Past 12 Hours) Vital Signs Temp Pulse Pulse Resp BP BP Pulse Ox 10/10/19 18:30 65 21 153/75 H 95 10/10/19 18:01 63 19 95 10/10/19 18:00 63 24 137/78 93 10/10/19 17:43 70 16 154/83 H 95 10/10/19 17:41 69 20 156/83 H 96 10/10/19 17:39 68 22 10/10/19 16:30 70 20 164/96 H 95 10/10/19 16:01 73 22 10/10/19 15:30 63 13 111/81 95 10/10/19 15:07 67 22 95 10/10/19 15:06 68 20 132/91 95 10/10/19 15:00 69 22 10/10/19 14:30 66 12 133/74 94 10/10/19 14:26 96 10/10/19 14:05 71 20 92 10/10/19 14:04 36.9 C 73 18 111/69 91 10/10/19 14:00 68 21 107/69 95 Allergies pseudoephedrine Allergy (Severe, Unverified 10/10/19 14:46) URINARY RETENTION guaifenesin Allergy (Unknown, Verified 10/10/19 14:46) inability to urinate Sulfa (Sulfonamide Antibiotics) Allergy (Unknown, Unverified 10/10/19 14:46) _ latex Adverse Reaction (Intermediate, Unverified 10/10/19 14:46) ITCHING/BURNING Height/Weight/Isolation Height 5 ft 10 in Weight 71.8 kg Chemistry 10/10/19 14:47 Sodium 138 Potassium 4.1 Chloride 108 H Carbon Dioxide 26 Anion Gap 4.0 BUN 30 H Creatinine 1.81 H Glucose 139 H Urinalysis 10/10/19 15:00 Urine Color Dark Yellow Urine Appearance Clear Urine pH 5.0 Ur Specific [place] 1.025 Urine Protein 1+ H Urine Glucose (UA) Negative Urine Ketones Negative Urine Blood Negative Urine Nitrite Negative Urine Bilirubin Negative Microbiology 10/10/19 14:47 Blood Aerobic Blood Culture - Pending 10/10/19 14:47 Blood Anaerobic Blood Culture - Pending 10/10/19 14:47 Blood Aerobic Blood Culture - Pending 10/10/19 14:47 Blood Anaerobic Blood Culture - Pending Code Status & VTE Plan VTE Prophylaxis Plan VTE Prophylaxis will be ordered: Yes (1) CAD (coronary artery disease) Associated angina: without angina Coronary Disease-Associated Artery/Lesion type: [place] artery [place] vs. transplanted heart: [place] heart Qualified Code(s): I25.10 - Atherosclerotic heart disease of [place] coronary artery without angina pectoris (2) Dementia Alzheimer's disease onset: unspecified onset Dementia behavioral disturbance: without behavioral disturbance Dementia type: Alzheimer's disease Qualified Code(s): G30.9 - Alzheimer's disease, unspecified; F02.80 - Dementia in other diseases classified elsewhere without behavioral disturbance (3) Hypertension Hypertension type: essential hypertension Qualified Code(s): I10 - Essential (primary) hypertension
[2019-10-10] MEDS ORDERED: ONDANSETRON INJ 2 MG/ML 2 ML VIAL IV PRN (20:14)
[2019-10-10] MEDS ORDERED: ALUMINUM/MAGNESIUM SUSP 30 ML UDC PO PRN (20:14)
[2019-10-10] MEDS ORDERED: POLYETHYLENE (MIRALAX) 17 GM PACK PO PRN (20:14)
[2019-10-10] MEDS ORDERED: ACETAMINOPHEN 325 MG TAB PO PRN (20:14)
--- NOTE | 2019-10-10 20:25 | Surgery Consultation ---
Date of Consultation October 10, 2019 Assessment & Plan (1) Cholelithiasis: This patient has cholelithiasis and an elevated white count with possible wall thickening but at present he is not tender. I cannot obtain a history about pain as he is not responsive to those questions. I spoke to the daughter regarding options which would include admission with antibiotics versus surgical intervention. We can also obtain a hepatobiliary scan which if negative would then obviate the need for surgery. The daughter is going to think about whether or not she would want surgery for her father. She is his power of district attorney. I would also await medicines evaluation as to the medical feasibility for surgical intervention as well. History of Present Illness Reason for Consultation: Change in bowel habits and vomiting Requesting Physician: Hussain Salas DO Attending Physician: Hussain Salas DO History of Present Illness This is an 84-year-old male who was brought to the emergency room from his senior care in an ambulance and was unaccompanied. There was nobody to provide a history from the facility. The patient has severe dementia and was not able to give a history. I received the history from the emergency room staff as well as from his daughter who I spoke to on the phone. The patient apparently had a low-grade fever yesterday and then developed some vomiting today. He seemed to be more confused today than was his usual. There was difficult to determine at that time whether or not he had abdominal pain although the emergency room physician felt that during his initial exam he may have had some abdominal pain but then it seemed to resolve as his emergency room stay progressed. He underwent a CT scan of the abdomen and pelvis that showed cholelithiasis and gallbladder sludge. There was no ductal thickening. There is no definitive evidence of cholecystitis. He then had an ultrasound of the gallbladder that confirmed the sludge and gallstones but the gallbladder wall appeared to be thickened at 6 mm. Allergies Allergy/AdvReac Type Severity Reaction Status Date / Time pseudoephedrine Allergy Severe URINARY Unverified 10/10/19 14:46 RETENTION guaifenesin Allergy Unknown inability Verified 10/10/19 14:46 to urinate Sulfa (Sulfonamide Allergy Unknown _ Unverified 10/10/19 14:46 Antibiotics) latex AdvReac Intermediate ITCHING/BUR Unverified 10/10/19 14:46 DONNIE Home Medications Home Medications Medication Instructions Recorded Confirmed Type aspirin [Aspir-81] 81 mg PO QAM 10/06/18 10/10/19 History atorvastatin 10 mg PO HS 10/06/18 10/10/19 History famotidine 20 mg PO BID 10/06/18 10/10/19 History finasteride 5 mg PO QAM 10/06/18 10/10/19 History isosorbide mononitrate 30 mg PO QAM 10/06/18 10/10/19 History metoprolol succinate 50 mg PO QAM 10/06/18 10/10/19 History timolol maleate 1 dose OPB HS 10/06/18 10/10/19 History cetirizine 10 mg PO HS 10/09/18 10/10/19 History lisinopril [Zestril] 10 mg PO QAM #30 tab 10/14/18 10/10/19 Rx melatonin 5 mg PO HS 10/02/19 10/10/19 History multivitamin 1 tab PO QAM 10/02/19 10/10/19 History Patient History Medical History Angina pectoris (Chronic) CAD (coronary artery disease) (Chronic) Dementia (Chronic) History of DVT in adulthood Hyperlipemia (Chronic) Hypertension (Chronic) Monoclonal paraproteinemia SIMÓN (obstructive sleep apnea) (Chronic) noncompliant with CPAP per patient Surgical History H/O total hip arthroplasty R Hx of cardiac cath (Resolved) Hx of cataract removal with insertion of prosthetic lens (Resolved) Hx of inguinal hernia repair (Resolved) Family History Other Family history unknown Social History Preferred Language: Taiwanese Communication Ability: Effective 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 In fact he was sleeping when I entered the room Neck: trachea midline Respiratory: normal respiratory effort, lungs clear to auscultation Cardiovascular: Rate/Rhythm: regular rate and regular rhythm Gastrointestinal (Abdomen): Inspection/Auscultation: normal bowel sounds; abdomen not distended Percussion/Palpation: abdomen soft; abdomen nontender Skin: no rashes, warm and dry Lymphatic: no cervical lymphadenopathy Results & Data Vital Signs (Past 12 Hours) Vital Signs Temp Pulse Pulse Resp BP BP Pulse Ox 10/10/19 19:00 67 24 124/74 92 10/10/19 18:30 65 21 153/75 H 95 10/10/19 18:01 63 19 95 10/10/19 18:00 63 24 137/78 93 10/10/19 17:43 70 16 154/83 H 95 10/10/19 17:41 69 20 156/83 H 96 10/10/19 17:39 68 22 10/10/19 16:30 70 20 164/96 H 95 10/10/19 16:01 73 22 10/10/19 15:30 63 13 111/81 95 10/10/19 15:07 67 22 95 10/10/19 15:06 68 20 132/91 95 10/10/19 15:00 69 22 10/10/19 14:30 66 12 133/74 94 10/10/19 14:26 96 10/10/19 14:05 71 20 92 10/10/19 14:04 36.9 C 73 18 111/69 91 10/10/19 14:00 68 21 107/69 95 Laboratory Results 10/10/19 10/10/19 10/10/19 Range/Units 18:41 15:06 15:00 WBC (4.8-10.8) K/uL RBC (4.7-6.1) M/uL Hgb (14.0-18.0) g/dL Hct (42-52) % MCV (80-100) fL MCH (25-34) pg MCHC (32-36) g/dL RDW Std Deviation (36.4-46.3) fL RDW Coeff of Geraldine (11.5-14.5) % Plt Count (130-400) K/uL MPV (7.4-10.4) fL Immature Gran % (Auto) % Neut % (Auto) % Lymph % (Auto) % Pep[place] % (Auto) % Eos % (Auto) % Baso % (Auto) % Immature Gran # (Auto) (0.00-0.02) K/uL Neut # (Auto) (1.4-6.5) K/uL Lymph # (Auto) (1.2-3.4) K/uL [place] # (Auto) (0.11-0.59) K/uL Eos # (Auto) (0-0.5) K/uL Baso # (Auto) (0-0.2) K/uL VBG pH (7.36-7.41) VBG pCO2 (38-50) mmHg VBG pO2 mmHg VBG HCO3 mmol/L VBG O2 Saturation % VBG Base Excess mEq/L Barometric Pressure mm/Hg Sodium (136-145) mmol/L Potassium (3.5-5.1) mmol/L Chloride (98-107) mmol/L Carbon Dioxide (21-32) mmol/L Anion Gap (3-11) BUN (7-18) mg/dl Creatinine (0.6-1.4) mg/dl Est Cr Clr Drug Dosing ml/min Est GFR ( Amer) Est GFR (Non-Af Amer) BUN/Creatinine Ratio (10-20) Glucose (70-99) mg/dl Lactate 2.9 H* Calcium (8.5-10.1) mg/dl Total Bilirubin (0.2-1) mg/dl AST (15-37) U/L ALT (12-78) U/L Alkaline Phosphatase (45-117) U/L Troponin I (0-0.045) ng/ml Total Protein (6.4-8.2) gm/dl Albumin (3.4-5.0) gm/dl Globulin (2.5-4.0) gm/dl Albumin/Globulin Ratio (0.9-2) Procalcitonin (0-0.5) ng/ml TSH (0.300-4.500) uIu/ml Urine Color Dark Yellow Urine Appearance Clear (Clear) Urine pH 5.0 (4.5-7.5) Ur Specific [place] 1.025 (1.000-1.030) Urine Protein 1+ H (Negative) Urine Glucose (UA) Negative (Negative) Urine Ketones Negative (Negative) Urine Blood Negative (Negative) Urine Nitrite Negative (Negative) Urine Bilirubin Negative (Negative) Urine Urobilinogen Negative (Negative) Ur Leukocyte Esterase Trace H (Negative) Urine WBC (Auto) 1-5 (0-5) /hpf Urine RBC (Auto) 0-4 (0-4) /hpf U Hyaline Cast (Auto) 10-30 H (0-5) /lpf U Epithel Cells (Auto) 20-30 H (0-5) /lpf Urine Bacteria (Auto) Negative (Negative) Influenza Type A (PCR) Neg for Influ A (Neg) Influenza Type B (PCR) Neg for Influ B (Neg) 10/10/19 10/10/19 10/10/19 Range/Units 14:47 14:47 14:47 WBC (4.8-10.8) K/uL RBC (4.7-6.1) M/uL Hgb (14.0-18.0) g/dL Hct (42-52) % MCV (80-100) fL MCH (25-34) pg MCHC (32-36) g/dL RDW Std Deviation (36.4-46.3) fL RDW Coeff of Geraldine (11.5-14.5) % Plt Count (130-400) K/uL MPV (7.4-10.4) fL Immature Gran % (Auto) % Neut % (Auto) % Lymph % (Auto) % [place] % (Auto) % Eos % (Auto) % Baso % (Auto) % Immature Gran # (Auto) (0.00-0.02) K/uL Neut # (Auto) (1.4-6.5) K/uL Lymph # (Auto) (1.2-3.4) K/uL Pep[place] # (Auto) (0.11-0.59) K/uL Eos # (Auto) (0-0.5) K/uL Baso # (Auto) (0-0.2) K/uL VBG pH 7.36 (7.36-7.41) VBG pCO2 44 (38-50) mmHg VBG pO2 23 mmHg VBG HCO3 25 mmol/L VBG O2 Saturation > 60.0 % VBG Base Excess -1.0 mEq/L Barometric Pressure 741.3 mm/Hg Sodium (136-145) mmol/L Potassium (3.5-5.1) mmol/L Chloride (98-107) mmol/L Carbon Dioxide (21-32) mmol/L Anion Gap (3-11) BUN (7-18) mg/dl Creatinine (0.6-1.4) mg/dl Est Cr Clr Drug Dosing ml/min Est GFR ( Amer) Est GFR (Non-Af Amer) BUN/Creatinine Ratio (10-20) Glucose (70-99) mg/dl Lactate 2.9 H* Calcium (8.5-10.1) mg/dl Total Bilirubin (0.2-1) mg/dl AST (15-37) U/L ALT (12-78) U/L Alkaline Phosphatase (45-117) U/L Troponin I (0-0.045) ng/ml Total Protein (6.4-8.2) gm/dl Albumin (3.4-5.0) gm/dl Globulin (2.5-4.0) gm/dl Albumin/Globulin Ratio (0.9-2) Procalcitonin 0.23 (0-0.5) ng/ml TSH (0.300-4.500) uIu/ml Urine Color Urine Appearance (Clear) Urine pH (4.5-7.5) Ur Specific [place] (1.000-1.030) Urine Protein (Negative) Urine Glucose (UA) (Negative) Urine Ketones (Negative) Urine Blood (Negative) Urine Nitrite (Negative) Urine Bilirubin (Negative) Urine Urobilinogen (Negative) Ur Leukocyte Esterase (Negative) Urine WBC (Auto) (0-5) /hpf Urine RBC (Auto) (0-4) /hpf U Hyaline Cast (Auto) (0-5) /lpf U Epithel Cells (Auto) (0-5) /lpf Urine Bacteria (Auto) (Negative) Influenza Type A (PCR) (Neg) Influenza Type B (PCR) (Neg) 10/10/19 10/10/19 10/10/19 Range/Units 14:47 14:47 14:47 WBC 16.60 H (4.8-10.8) K/uL RBC 4.40 L (4.7-6.1) M/uL Hgb 13.4 L (14.0-18.0) g/dL Hct 40.1 L (42-52) % MCV 91.1 (80-100) fL MCH 30.5 (25-34) pg MCHC 33.4 (32-36) g/dL RDW Std Deviation 49.9 H (36.4-46.3) fL RDW Coeff of Geraldine 14.7 H (11.5-14.5) % Plt Count 280 (130-400) K/uL MPV 10.4 (7.4-10.4) fL Immature Gran % (Auto) 0.3 % Neut % (Auto) 82.4 % Lymph % (Auto) 8.3 % Pepin % (Auto) 8.9 % Eos % (Auto) 0.0 % Baso % (Auto) 0.1 % Immature Gran # (Auto) 0.05 H (0.00-0.02) K/uL Neut # (Auto) 13.68 H (1.4-6.5) K/uL Lymph # (Auto) 1.38 (1.2-3.4) K/uL [place] # (Auto) 1.47 H (0.11-0.59) K/uL Eos # (Auto) 0.00 (0-0.5) K/uL Baso # (Auto) 0.02 (0-0.2) K/uL VBG pH (7.36-7.41) VBG pCO2 (38-50) mmHg VBG pO2 mmHg VBG HCO3 mmol/L VBG O2 Saturation % VBG Base Excess mEq/L Barometric Pressure mm/Hg Sodium 138 (136-145) mmol/L Potassium 4.1 (3.5-5.1) mmol/L Chloride 108 H (98-107) mmol/L Carbon Dioxide 26 (21-32) mmol/L Anion Gap 4.0 (3-11) BUN 30 H (7-18) mg/dl Creatinine 1.81 H (0.6-1.4) mg/dl Est Cr Clr Drug Dosing 30.3 ml/min Est GFR ( Amer) 38.6 Est GFR (Non-Af Amer) 33.3 BUN/Creatinine Ratio 16.7 (10-20) Glucose 139 H (70-99) mg/dl Lactate Cancelled Calcium 9.9 (8.5-10.1) mg/dl Total Bilirubin 0.6 (0.2-1) mg/dl AST 18 (15-37) U/L ALT 23 (12-78) U/L Alkaline Phosphatase 88 (45-117) U/L Troponin I < 0.015 (0-0.045) ng/ml Total Protein 9.2 H (6.4-8.2) gm/dl Albumin 3.0 L (3.4-5.0) gm/dl Globulin 6.2 H (2.5-4.0) gm/dl Albumin/Globulin Ratio 0.5 L (0.9-2) Procalcitonin (0-0.5) ng/ml TSH 2.710 (0.300-4.500) uIu/ml Urine Color Urine Appearance (Clear) Urine pH (4.5-7.5) Ur Specific [place] (1.000-1.030) Urine Protein (Negative) Urine Glucose (UA) (Negative) Urine Ketones (Negative) Urine Blood (Negative) Urine Nitrite (Negative) Urine Bilirubin (Negative) Urine Urobilinogen (Negative) Ur Leukocyte Esterase (Negative) Urine WBC (Auto) (0-5) /hpf Urine RBC (Auto) (0-4) /hpf U Hyaline Cast (Auto) (0-5) /lpf U Epithel Cells (Auto) (0-5) /lpf Urine Bacteria (Auto) (Negative) Influenza Type A (PCR) (Neg) Influenza Type B (PCR) (Neg) Diagnostic Findings CT SCAN OF THE ABDOMEN AND PELVIS WITHOUT CONTRAST CLINICAL HISTORY: Lethargy. Upper abdominal pain. COMPARISON STUDY: The 14/02/2020 TECHNIQUE: CT scan of the abdomen and pelvis was performed from the lung bases to the proximal femurs. Images are reviewed in the axial, sagittal, and coronal planes. IV contrast was not administered for this examination. A dose lowering technique was utilized adhering to the principles of ALARA. CT DOSE: 939.78 mGycm FINDINGS: Lower chest: There are calcified subcarinal lymph nodes. There is respiratory motion artifact. There is dependent atelectasis. There is a calcified right lower lobe granuloma. Liver: There are multiple hypodense hepatic lesions, likely representing cysts. One of the lesions is complex containing a mural nodule/internal debris. Gallbladder: There is cholelithiasis. There is mild gallbladder wall edema. There is increased gallbladder attenuation, likely secondary to vicarious excretion. Clinical correlation regards to acute cholecystitis is recommended. Spleen: Normal in size and attenuation. Pancreas: Unremarkable. Adrenal glands: Unremarkable. Kidneys: No renal, ureteral, or bladder calculi are identified. Bowel: There are no transition zones to indicate bowel obstruction. There is colonic diverticulosis. There is no evidence of acute diverticulitis. There are no findings to indicate acute appendicitis. Peritoneum: There is no intraperitoneal free air or abdominal ascites. Vasculature: The abdominal aorta is normal in course and caliber. Adenopathy: None. Pelvic viscera: The bladder, and pelvic viscera are unremarkable. Skeletal structures: The bones are osteopenic. There is an old superior endplate T12 compression deformity. IMPRESSION: 1. Moderately limited study due to technical standpoint secondary to significant motion artifact 2. Cholelithiasis, mild gallbladder distention, and suspected gallbladder wall thickening. Clinical correlation in regards to acute cholecystitis is recommended. A follow-up ultrasound or nuclear medicine hepatic biliary study could be obtained as deemed clinically appropriate 3. No evidence of bowel obstruction. No evidence of free air 4. No evidence of acute appendicitis. Diverticulosis. No evidence of acute diverticulitis. 5. Multiple hepatic cysts including a 5 cm complex cystic lesion within the right hepatic lobe similar in appearance to the preceding study ULTRASOUND RIGHT UPPER QUADRANT ABDOMEN CLINICAL HISTORY: Right upper quadrant abdominal pain. COMPARISON STUDY: Abdominal CT dated 10/10/2019. TECHNIQUE: Real-time, grayscale, and color flow sonography of the right upper quadrant of the abdomen was performed. Images are reviewed in the transverse and longitudinal planes. The examination is degraded by lack of patient cooperation. FINDINGS: Liver: The liver is normal in size and echotexture. There is no intrahepatic biliary ductal dilatation. The main portal vein is patent. A complex cyst is again seen in the right lobe and measures up to 5.0 cm. Additional simple cysts are identified. Gallbladder: The gallbladder is distended and filled with stones and sludge. The gallbladder wall is thickened and edematous, measuring up to 6 mm. A sonographic Rader's sign is reportedly absent. The common bile duct measures up to 0.3 cm in diameter. Pancreas: Visualized portions of the pancreatic head are normal in appearance. The majority of the pancreas is not well-visualized. Right kidney: Survey images of the right kidney demonstrate cortical atrophy. There is no hydronephrosis. Ascites: None. IMPRESSION: 1. The gallbladder is distended and filled with both stones and sludge. The gallbladder wall is thickened and edematous, and the appearance is highly concerning for acute cholecystitis. Clinical correlation will be essential. If cholecystitis does not fit the clinical presentation a nuclear hepatobiliary scan could be considered for confirmation. 2. A 5 cm complex cyst is again seen in the right hepatic lobe. 3. There is no intra or extrahepatic biliary ductal dilatation.
[2019-10-10] MEDS ORDERED: NON-FORMULARY MEDICATION (Melatonin 5 MG) PO SCH (21:00)
[2019-10-10] MEDS: AMPICILLIN/SULBACTAM SOD 1,500 MG in 0.9 % SODIUM CHLORIDE 100 ML IV SCH (21:12)
[2019-10-10] MEDS: SODIUM CHLORIDE 0.9% 1000ML 1,000 ML IV SCH (21:12)
[2019-10-10] MEDS: ATORVASTATIN 10 MG TAB PO SCH (21:22)
[2019-10-10] MEDS: FAMOTIDINE 20 MG TAB PO SCH (21:22)
[2019-10-10] MEDS: HEPARIN SOD 5,000 UNIT/0.5 ML VIAL SQ SCH (21:23)
[2019-10-10] MEDS: CETIRIZINE HCL 10 MG TABLET PO SCH (21:23)
[2019-10-10] MEDS: TIMOLOL MALEATE 0.25% OP SOLN 5 ML BTL OPB SCH (21:23)
--- NOTE | 2019-10-10 22:06 | Emergency Department Note ---
Entered by Ange Conklin acting as a scribe for History of Present Illness General Chief complaint: Lethargic Time Seen by Provider: 10/10/19 14:09 Source: patient and other (nurse) Mode of arrival: EMS Limitations: other (dementia) History of Present Illness Provider complaint: Lethargy Onset (ago): hour(s) (today) Location: head Radiation: non-radiation Pain Consistency: + other (worsening) Quality: + other (lethargy) Associated symptoms: + other (Additional symptoms: hypoxia) Treatments prior to arrival: none The patient is an 84 year old male with a history of dementia, CAD, DVT, hypertension, hyperlipidemia, SIMÓN, total hip arthroplasty, and cardiac catheterization who presents to the Emergency Room with complaints of worsening lethargy starting today. Per nurse, the staff at [facility] thought that the patient had a low O2 sat as well. The patient states that he slept well last night. HPI limited secondary to dementia. Home Medications Home Medications Medication Instructions Recorded Confirmed Type aspirin [Aspir-81] 81 mg PO QAM 10/06/18 10/10/19 History atorvastatin 10 mg PO HS 10/06/18 10/10/19 History famotidine 20 mg PO BID 10/06/18 10/10/19 History finasteride 5 mg PO QAM 10/06/18 10/10/19 History isosorbide mononitrate 30 mg PO QAM 10/06/18 10/10/19 History metoprolol succinate 50 mg PO QAM 10/06/18 10/10/19 History timolol maleate 1 dose OPB HS 10/06/18 10/10/19 History cetirizine 10 mg PO HS 10/09/18 10/10/19 History lisinopril [Zestril] 10 mg PO QAM #30 tab 10/14/18 10/10/19 Rx melatonin 5 mg PO HS 10/02/19 10/10/19 History multivitamin 1 tab PO QAM 10/02/19 10/10/19 History Allergies Allergy/AdvReac Type Severity Reaction Status Date / Time pseudoephedrine Allergy Severe URINARY Unverified 10/10/19 14:46 RETENTION guaifenesin Allergy Unknown inability Verified 10/10/19 14:46 to urinate Sulfa (Sulfonamide Allergy Unknown _ Unverified 02/14/20 14:46 Antibiotics) latex AdvReac Intermediate ITCHING/BUR Unverified 10/10/19 14:46 DONNIE Past Med/Surg History Medical History Angina pectoris (Chronic) CAD (coronary artery disease) (Chronic) Dementia (Chronic) History of DVT in adulthood Hyperlipemia (Chronic) Hypertension (Chronic) Monoclonal paraproteinemia SIMÓN (obstructive sleep apnea) (Chronic) noncompliant with CPAP per patient Surgical History H/O total hip arthroplasty R Hx of cardiac cath (Resolved) Hx of cataract removal with insertion of prosthetic lens (Resolved) Hx of inguinal hernia repair (Resolved) Family History Other Family history unknown Social History Preferred Language: Macedonian Communication Ability: Effective Manager Strategic Required: Yes Beliefs That Will Affect Care: None Current Living Situation: Personal Care Facility Feels Safe at Home: Yes Smoking Status: Unknown if ever smoked Review of Systems Other (Limited secondary to dementia) Physical Exam Vital Signs Vital Signs - 24 hr 10/10/19 14:00 10/10/19 14:04 10/10/19 14:05 Temperature 36.9 C Temperature Source Oral Pulse Rate 68 73 71 Pulse Rate [Apical] Pulse Rate from SpO2 Sensor 70 72 Respiratory Rate 21 18 20 Respiratory Effort / Characteristics Respiratory Depth Respiratory Pattern Blood Pressure 107/69 111/69 Blood Pressure [Left Arm] Blood Pressure Mean 75 83 Blood Pressure Mean [Left Arm] Pulse Oximetry 95 91 92 Oxygen Delivery Method Sepsis Recent Fever Within 48 Hours No Sepsis New/Unexplained Change in Mental Status No Sepsis Action Taken by Nursing No Action Required 10/10/19 14:26 10/10/19 14:30 10/10/19 15:00 Temperature Temperature Source Pulse Rate 66 69 Pulse Rate [Apical] Pulse Rate from SpO2 Sensor 66 Respiratory Rate 12 22 Respiratory Effort / Characteristics Respiratory Depth Respiratory Pattern Blood Pressure 133/74 Blood Pressure [Left Arm] Blood Pressure Mean 85 Blood Pressure Mean [Left Arm] Pulse Oximetry 96 94 Oxygen Delivery Method Room Air Sepsis Recent Fever Within 48 Hours Sepsis New/Unexplained Change in Mental Status Sepsis Action Taken by Nursing 10/10/19 15:06 10/10/19 15:07 10/10/19 15:30 Temperature Temperature Source Pulse Rate 68 67 63 Pulse Rate [Apical] Pulse Rate from SpO2 Sensor 69 67 63 Respiratory Rate 20 22 13 Respiratory Effort / Characteristics Respiratory Depth Respiratory Pattern Blood Pressure 132/91 111/81 Blood Pressure [Left Arm] Blood Pressure Mean 105 95 Blood Pressure Mean [Left Arm] Pulse Oximetry 95 95 95 Oxygen Delivery Method Sepsis Recent Fever Within 48 Hours Sepsis New/Unexplained Change in Mental Status Sepsis Action Taken by Nursing 10/10/19 16:01 10/10/19 16:30 10/10/19 17:39 Temperature Temperature Source Pulse Rate 73 70 68 Pulse Rate [Apical] Pulse Rate from SpO2 Sensor 69 Respiratory Rate 22 20 22 Respiratory Effort / Characteristics Respiratory Depth Respiratory Pattern Blood Pressure 164/96 H Blood Pressure [Left Arm] Blood Pressure Mean 125 Blood Pressure Mean [Left Arm] Pulse Oximetry 95 Oxygen Delivery Method Sepsis Recent Fever Within 48 Hours Sepsis New/Unexplained Change in Mental Status Sepsis Action Taken by Nursing 10/10/19 17:41 10/10/19 17:43 10/10/19 18:00 Temperature Temperature Source Pulse Rate 69 63 Pulse Rate [Apical] 70 Pulse Rate from SpO2 Sensor 69 64 Respiratory Rate 20 16 24 Respiratory Effort / Characteristics Non-Labored Spontaneous Respiratory Depth Normal Respiratory Pattern Regular Blood Pressure 156/83 H 137/78 Blood Pressure [Left Arm] 154/83 H Blood Pressure Mean 113 105 Blood Pressure Mean [Left Arm] 106 Pulse Oximetry 96 95 93 Oxygen Delivery Method Room Air Sepsis Recent Fever Within 48 Hours Sepsis New/Unexplained Change in Mental Status Sepsis Action Taken by Nursing 10/10/19 18:01 10/10/19 18:30 Temperature Temperature Source Pulse Rate 63 65 Pulse Rate [Apical] Pulse Rate from SpO2 Sensor 63 65 Respiratory Rate 19 21 Respiratory Effort / Characteristics Respiratory Depth Respiratory Pattern Blood Pressure 153/75 H Blood Pressure [Left Arm] Blood Pressure Mean 87 Blood Pressure Mean [Left Arm] Pulse Oximetry 95 95 Oxygen Delivery Method Sepsis Recent Fever Within 48 Hours Sepsis New/Unexplained Change in Mental Status Sepsis Action Taken by Nursing GENERAL: Awake, alert to voice, in no distress, resting with eyes closed in room. HENT: Normocephalic, atraumatic. Dry mucous membranes. EYES: Normal conjunctiva. Sclera non-icteric. PERRL. Mild to moderate right- sided cataract. NECK: Supple. No nuchal rigidity. RESPIRATORY: Clear to auscultation. No wheezes. Normal respiratory effort. CARDIAC: Normal rate. Normal rhythm. Extremities warm and well perfused. GI: Soft, non-distended. Moderate R sided tenderness to palpation initially. RECTAL: Deferred. MUSCULOSKELETAL: Atraumatic. Chest examination reveals no tenderness. LOWER EXTREMITIES: Calves are equal size bilaterally and non-tender. NEURO: Moves extremities to command. Oriented to person and birthday. Not oriented to events. Falls asleep during questioning. SKIN: Warm and dry. No jaundice noted. Course Course 1416: The patient was evaluated in room B8, and a complete history and physical examination were performed. 1429: I spoke to the patient's daughter on the phone and updated her on the patient's condition. 1732: I updated the patient's daughter over the phone and she verbalized agreement of the treatment plan. 1743: I reviewed the patient's case with Rosangela Nunez. Dr. Vale recommended medical admission and biliary study. 1811: I discussed the patient's case with Jennifer Harper PA-C. Dr. Salas - [facility] will evaluate the patient for further management. Consultations Consultation #1: I reviewed the patient's case with Rosangela Nunez. Dr. Vale recommended medical admission and biliary study. Time: 17:43 Consultation #2: I discussed the patient's case with Jennifer Harper PA-C. Dr. Salas - [facility] will evaluate the patient for further ma nagement. Time: 18:11 Administered Medications Atorvastatin Calcium (Lipitor) 10 mg PO HS ANGEL Stop: 11/09/19 20:59 Last Admin: 10/10/19 21:22 Dose: 10 mg Documented by: [id number] Cetirizine HCl (Zyrtec) 10 mg PO HS ANGEL Stop: 11/09/19 20:59 Last Admin: 10/10/19 21:23 Dose: 10 mg Documented by: [id number] Famotidine (Pepcid) 20 mg PO BID ANGEL Stop: 11/09/19 20:59 Last Admin: 10/10/19 21:22 Dose: 20 mg Documented by: [id number] Heparin Sodium (Porcine) (Heparin Sodium (Porcine)) 5,000 units SQ Q8 ANGEL Stop: 11/09/19 21:59 Last Admin: 10/10/19 21:23 Dose: 5,000 units Documented by: [id number] Cosigned by: [id number] Ampicillin Sodium/Sulbactam Sodium 1,500 mg/ Sodium Chloride 104 mls @ 200 mls/hr IV Q6H ANGEL; Protocol Stop: 10/20/19 20:59 Last Admin: 10/10/19 21:12 Dose: 200 mls/hr Documented by: [id number] Sodium Chloride (Nss 1000ml) 1,000 mls @ 100 mls/hr IV .Q10H ANGEL Stop: 11/09/19 20:59 Last Admin: 10/10/19 21:12 Dose: 100 mls/hr Documented by: [id number] Timolol Maleate (Timoptic 0.25% Oph) 1 drops OPB HS [facility] Stop: 11/09/19 20:59 Last Admin: 10/10/19 21:23 Dose: 1 drops Documented by: [id number] Discontinued Medications Sodium Chloride (Nss 1000ml) 1,000 mls @ 999 mls/hr IV .Q1H1M ONE Stop: 10/10/19 15:34 Last Infusion: 10/10/19 16:56 Dose: 0 mls/hr Documented by: [id number] Admin: 10/10/19 15:35 Dose: 999 mls/hr Documented by: [id number] Lactated Ringer's (Lr) 1,000 mls @ 999 mls/hr IV .Q1H1M ONE Stop: 10/10/19 16:57 Last Infusion: 10/10/19 18:28 Dose: 0 mls/hr Documented by: [id number] Admin: 10/10/19 16:10 Dose: 999 mls/hr Documented by: [id number] Sodium Chloride (Nss 1000ml) 250 mls @ 999 mls/hr IV .Q16M ONE Stop: 10/10/19 16:12 Last Infusion: 10/10/19 18:28 Dose: 0 mls/hr Documented by: [id number] Admin: 10/10/19 16:10 Dose: 999 mls/hr Documented by: [id number] Medical Decision Making Differential Diagnosis Differential diagnosis: Etiologies such as metabolic, infection, hypo/hyperglycemia, electrolyte abnormalities, cardiac sources, intracerebral event, toxicologic, neurologic, as well as others were entertained. Medical Records Attestation: I reviewed the patient's medical records. Home Medications Current Medication List: was personally reviewed by me Laboratory Data Attestation: I reviewed the patient's lab results. Result diagrams: 10/10/19 14:47 10/10/19 14:47 Lab Results 10/10/19 10/10/19 10/10/19 Range/Units 14:47 14:47 14:47 WBC 16.60 H (4.8-10.8) K/uL RBC 4.40 L (4.7-6.1) M/uL Hgb 13.4 L (14.0-18.0) g/dL Hct 40.1 L (42-52) % MCV 91.1 (80-100) fL MCH 30.5 (25-34) pg MCHC 33.4 (32-36) g/dL RDW Std Deviation 49.9 H (36.4-46.3) fL RDW Coeff of Geraldine 14.7 H (11.5-14.5) % Plt Count 280 (130-400) K/uL MPV 10.4 (7.4-10.4) fL Immature Gran % (Auto) 0.3 % Neut % (Auto) 82.4 % Lymph % (Auto) 8.3 % Ocean % (Auto) 8.9 % Eos % (Auto) 0.0 % Baso % (Auto) 0.1 % Immature Gran # (Auto) 0.05 H (0.00-0.02) K/uL Neut # (Auto) 13.68 H (1.4-6.5) K/uL Lymph # (Auto) 1.38 (1.2-3.4) K/uL Ocean # (Auto) 1.47 H (0.11-0.59) K/uL Eos # (Auto) 0.00 (0-0.5) K/uL Baso # (Auto) 0.02 (0-0.2) K/uL VBG pH (7.36-7.41) VBG pCO2 (38-50) mmHg VBG pO2 mmHg VBG HCO3 mmol/L VBG O2 Saturation % VBG Base Excess mEq/L Barometric Pressure mm/Hg Sodium 138 (136-145) mmol/L Potassium 4.1 (3.5-5.1) mmol/L Chloride 108 H (98-107) mmol/L Carbon Dioxide 26 (21-32) mmol/L Anion Gap 4.0 (3-11) BUN 30 H (7-18) mg/dl Creatinine 1.81 H (0.6-1.4) mg/dl Est Cr Clr Drug Dosing 30.3 ml/min Est GFR ( Amer) 38.6 Est GFR (Non-Af Amer) 33.3 BUN/Creatinine Ratio 16.7 (10-20) Glucose 139 H (70-99) mg/dl Lactate Cancelled Calcium 9.9 (8.5-10.1) mg/dl Total Bilirubin 0.6 (0.2-1) mg/dl AST 18 (15-37) U/L ALT 23 (12-78) U/L Alkaline Phosphatase 88 (45-117) U/L Troponin I < 0.015 (0-0.045) ng/ml Total Protein 9.2 H (6.4-8.2) gm/dl Albumin 3.0 L (3.4-5.0) gm/dl Globulin 6.2 H (2.5-4.0) gm/dl Albumin/Globulin Ratio 0.5 L (0.9-2) Procalcitonin (0-0.5) ng/ml TSH 2.710 (0.300-4.500) uIu/ml Urine Color Urine Appearance (Clear) Urine pH (4.5-7.5) Ur Specific [place] (1.000-1.030) Urine Protein (Negative) Urine Glucose (UA) (Negative) Urine Ketones (Negative) Urine Blood (Negative) Urine Nitrite (Negative) Urine Bilirubin (Negative) Urine Urobilinogen (Negative) Ur Leukocyte Esterase (Negative) Urine WBC (Auto) (0-5) /hpf Urine RBC (Auto) (0-4) /hpf U Hyaline Cast (Auto) (0-5) /lpf U Epithel Cells (Auto) (0-5) /lpf Urine Bacteria (Auto) (Negative) Influenza Type A (PCR) (Neg) Influenza Type B (PCR) (Neg) 10/10/19 10/10/19 10/10/19 Range/Units 14:47 14:47 14:47 WBC (4.8-10.8) K/uL RBC (4.7-6.1) M/uL Hgb (14.0-18.0) g/dL Hct (42-52) % MCV (80-100) fL MCH (25-34) pg MCHC (32-36) g/dL RDW Std Deviation (36.4-46.3) fL RDW Coeff of Geraldine (11.5-14.5) % Plt Count (130-400) K/uL MPV (7.4-10.4) fL Immature Gran % (Auto) % Neut % (Auto) % Lymph % (Auto) % Ocean % (Auto) % Eos % (Auto) % Baso % (Auto) % Immature Gran # (Auto) (0.00-0.02) K/uL Neut # (Auto) (1.4-6.5) K/uL Lymph # (Auto) (1.2-3.4) K/uL Ocean # (Auto) (0.11-0.59) K/uL Eos # (Auto) (0-0.5) K/uL Baso # (Auto) (0-0.2) K/uL VBG pH 7.36 (7.36-7.41) VBG pCO2 44 (38-50) mmHg VBG pO2 23 mmHg VBG HCO3 25 mmol/L VBG O2 Saturation > 60.0 % VBG Base Excess -1.0 mEq/L Barometric Pressure 741.3 mm/Hg Sodium (136-145) mmol/L Potassium (3.5-5.1) mmol/L Chloride (98-107) mmol/L Carbon Dioxide (21-32) mmol/L Anion Gap (3-11) BUN (7-18) mg/dl Creatinine (0.6-1.4) mg/dl Est Cr Clr Drug Dosing ml/min Est GFR ( Amer) Est GFR (Non-Af Amer) BUN/Creatinine Ratio (10-20) Glucose (70-99) mg/dl Lactate 2.9 H* Calcium (8.5-10.1) mg/dl Total Bilirubin (0.2-1) mg/dl AST (15-37) U/L ALT (12-78) U/L Alkaline Phosphatase (45-117) U/L Troponin I (0-0.045) ng/ml Total Protein (6.4-8.2) gm/dl Albumin (3.4-5.0) gm/dl Globulin (2.5-4.0) gm/dl Albumin/Globulin Ratio (0.9-2) Procalcitonin 0.23 (0-0.5) ng/ml TSH (0.300-4.500) uIu/ml Urine Color Urine Appearance (Clear) Urine pH (4.5-7.5) Ur Specific [place] (1.000-1.030) Urine Protein (Negative) Urine Glucose (UA) (Negative) Urine Ketones (Negative) Urine Blood (Negative) Urine Nitrite (Negative) Urine Bilirubin (Negative) Urine Urobilinogen (Negative) Ur Leukocyte Esterase (Negative) Urine WBC (Auto) (0-5) /hpf Urine RBC (Auto) (0-4) /hpf U Hyaline Cast (Auto) (0-5) /lpf U Epithel Cells (Auto) (0-5) /lpf Urine Bacteria (Auto) (Negative) Influenza Type A (PCR) (Neg) Influenza Type B (PCR) (Neg) 10/10/19 10/10/19 10/10/19 Range/Units 15:00 15:06 18:41 WBC (4.8-10.8) K/uL RBC (4.7-6.1) M/uL Hgb (14.0-18.0) g/dL Hct (42-52) % MCV (80-100) fL MCH (25-34) pg MCHC (32-36) g/dL RDW Std Deviation (36.4-46.3) fL RDW Coeff of Geraldine (11.5-14.5) % Plt Count (130-400) K/uL MPV (7.4-10.4) fL Immature Gran % (Auto) % Neut % (Auto) % Lymph % (Auto) % Ocean % (Auto) % Eos % (Auto) % Baso % (Auto) % Immature Gran # (Auto) (0.00-0.02) K/uL Neut # (Auto) (1.4-6.5) K/uL Lymph # (Auto) (1.2-3.4) K/uL Ocean # (Auto) (0.11-0.59) K/uL Eos # (Auto) (0-0.5) K/uL Baso # (Auto) (0-0.2) K/uL VBG pH (7.36-7.41) VBG pCO2 (38-50) mmHg VBG pO2 mmHg VBG HCO3 mmol/L VBG O2 Saturation % VBG Base Excess mEq/L Barometric Pressure mm/Hg Sodium (136-145) mmol/L Potassium (3.5-5.1) mmol/L Chloride (98-107) mmol/L Carbon Dioxide (21-32) mmol/L Anion Gap (3-11) BUN (7-18) mg/dl Creatinine (0.6-1.4) mg/dl Est Cr Clr Drug Dosing ml/min Est GFR ( Amer) Est GFR (Non-Af Amer) BUN/Creatinine Ratio (10-20) Glucose (70-99) mg/dl Lactate 2.9 H* Calcium (8.5-10.1) mg/dl Total Bilirubin (0.2-1) mg/dl AST (15-37) U/L ALT (12-78) U/L Alkaline Phosphatase (45-117) U/L Troponin I (0-0.045) ng/ml Total Protein (6.4-8.2) gm/dl Albumin (3.4-5.0) gm/dl Globulin (2.5-4.0) gm/dl Albumin/Globulin Ratio (0.9-2) Procalcitonin (0-0.5) ng/ml TSH (0.300-4.500) uIu/ml Urine Color Dark Yellow Urine Appearance Clear (Clear) Urine pH 5.0 (4.5-7.5) Ur Specific [place] 1.025 (1.000-1.030) Urine Protein 1+ H (Negative) Urine Glucose (UA) Negative (Negative) Urine Ketones Negative (Negative) Urine Blood Negative (Negative) Urine Nitrite Negative (Negative) Urine Bilirubin Negative (Negative) Urine Urobilinogen Negative (Negative) Ur Leukocyte Esterase Trace H (Negative) Urine WBC (Auto) 1-5 (0-5) /hpf Urine RBC (Auto) 0-4 (0-4) /hpf U Hyaline Cast (Auto) 10-30 H (0-5) /lpf U Epithel Cells (Auto) 20-30 H (0-5) /lpf Urine Bacteria (Auto) Negative (Negative) Influenza Type A (PCR) Neg for Influ A (Neg) Influenza Type B (PCR) Neg for Influ B (Neg) Imaging Data Radiologist's Impression: Radiology results as stated below per my review and the radiologist's interpretation: XR chest 1V portable CLINICAL HISTORY: Weakness, hypoxia. COMPARISON STUDY: October 02, 2019 FINDINGS: The heart remains enlarged. There are low lung volumes with basilar opacity statistically atelectatic. There is mild vascular prominence without evidence of overt failure. There are no significant pleural effusions. There is an old proximal left humeral deformity.[ IMPRESSION: Mild cardiomegaly. Low lung volumes with basilar opacities, statistically atelectatic ACT 112: Negative or not required by law. Electronically signed by: Glen Olvera M.D. 10/10/2019 3:[address] head/brain wo con CLINICAL HISTORY: lethargy HISTORY OF TRAUMA ONE WEEK AGO COMPARISON STUDY: 10/02/2019 TECHNIQUE: Axial CT of the brain is performed from the vertex to the skull base. IV contrast was not administered for this examination. A dose lowering technique was utilized adhering to the principles of ALARA. CT DOSE: 638.56 mGycm FINDINGS: No intra or extra-axial mass lesions are visualized. There is no CT evidence of acute cortical infarction. There is no evidence of midline shift. There is no acute hemorrhage. No calvarial fractures are visualized. There are moderate white matter hypodensities likely on a small vessel basis. 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 There is mild ventricular dilatation, likely secondary to volume loss. There is no evidence of acute sinusitis IMPRESSION: No acute intracranial findings ACT 112: Negative or not required by law. Electronically signed by: Glen Olvera M.D. 10/10/2019 4:[address] SCAN OF THE ABDOMEN AND PELVIS WITHOUT CONTRAST CLINICAL HISTORY: Lethargy. Upper abdominal pain. COMPARISON STUDY: The 14/02/2020 TECHNIQUE: CT scan of the abdomen and pelvis was performed from the lung bases to the proximal femurs. Images are reviewed in the axial, sagittal, and coronal planes. IV contrast was not administered for this examination. A dose lowering technique was utilized adhering to the principles of ALARA. CT DOSE: 939.78 mGycm FINDINGS: Lower chest: There are calcified subcarinal lymph nodes. There is respiratory motion artifact. There is dependent atelectasis. There is a calcified right lower lobe granuloma. Liver: There are multiple hypodense hepatic lesions, likely representing cysts. One of the lesions is complex containing a mural nodule/internal debris. Gallbladder: There is cholelithiasis. There is mild gallbladder wall edema. There is increased gallbladder attenuation, likely secondary to vicarious excre tion. Clinical correlation regards to acute cholecystitis is recommended. Spleen: Normal in size and attenuation. Pancreas: Unremarkable. Adrenal glands: Unremarkable. Kidneys: No renal, ureteral, or bladder calculi are identified. Bowel: There are no transition zones to indicate bowel obstruction. There is colonic diverticulosis. There is no evidence of acute diverticulitis. There are no findings to indicate acute appendicitis. Peritoneum: There is no intraperitoneal free air or abdominal ascites. Vasculature: The abdominal aorta is normal in course and caliber. Adenopathy: None. Pelvic viscera: The bladder, and pelvic viscera are unremarkable. Skeletal structures: The bones are osteopenic. There is an old superior endplate T12 compression deformity. IMPRESSION: 1. Moderately limited study due to technical standpoint secondary to significant motion artifact 2. Cholelithiasis, mild gallbladder distention, and suspected gallbladder wall thickening. Clinical correlation in regards to acute cholecystitis is recommended. A follow-up ultrasound or nuclear medicine hepatic biliary study could be obtained as deemed clinically appropriate 3. No evidence of bowel obstruction. No evidence of free air 4. No evidence of acute appendicitis. Diverticulosis. No evidence of acute div erticulitis. 5. Multiple hepatic cysts including a 5 cm complex cystic lesion within the right hepatic lobe similar in appearance to the preceding study ACT 112: Negative or not required by law. Electronically signed by: Glen Olvera M.D. 10/10/2019 4:08 PM ULTRASOUND RIGHT UPPER QUADRANT ABDOMEN CLINICAL HISTORY: Right upper quadrant abdominal pain. COMPARISON STUDY: Abdominal CT dated 10/10/2019. TECHNIQUE: Real-time, grayscale, and color flow sonography of the right upper quadrant of the abdomen was performed. Images are reviewed in the transverse and longitudinal planes. The examination is degraded by lack of patient cooperation. FINDINGS: Liver: The liver is normal in size and echotexture. There is no intrahepatic biliary ductal dilatation. The main portal vein is patent. A complex cyst is again seen in the right lobe and measures up to 5.0 cm. Additional simple cysts are identified. Gallbladder: The gallbladder is distended and filled with stones and sludge. The gallbladder wall is thickened and edematous, measuring up to 6 mm. A sonographic Rader's sign is reportedly absent. The common bile duct measures up to 0.3 cm in diameter. Pancreas: Visualized portions of the pancreatic head are normal in appearance. The majority of the pancreas is not well-visualized. Right kidney: Survey images of the right kidney demonstrate cortical atrophy. There is no hydronephrosis. Ascites: None. IMPRESSION: 1. The gallbladder is distended and filled with both stones and sludge. The gallbladder wall is thickened and edematous, and the appearance is highly concerning for acute cholecystitis. Clinical correlation will be essential. If cholecystitis does not fit the clinical presentation a nuclear hepatobiliary scan could be considered for confirmation. 2. A 5 cm complex cyst is again seen in the right hepatic lobe. 3. There is no intra or extrahepatic biliary ductal dilatation. ACT 112: Negative or not required by law. Electronically signed by: Michael Go M.D. 10/10/2019 5:25 PM ECG Data Attestation: I personally reviewed and interpreted this ECG as follows: Indication: + other (lethargy) Rate (beats per minute): 72 Rhythm: + sinus with SA ECG Intervals/blocks: + Normal QT-c ECG Byron: + Left axis deviation ECG ST segments: no ST elevation ECG Findings: no PVCs Blood Pressure Blood Pressure Findings: Elevated blood pressure Blood Pressure Disposition: further management by hospitalist OSCAR Ugalde Patient is an 84-year-old gentleman with a past medical history including dementia, lower extremity DVT , PAD, hypertension, CAD presenting from [facility] with report of increased confusion today. Recently treated and admitted here for UTI. Patient also is reported to have some low O2 readings at the facility. Upon arrival here he is afebrile normotensive without hypoxia. No new trauma has been reported. Appears the patient finishes outpatient course of ciprofloxacin. Patient's Eliquis was stopped 4 days ago after recent hospitalization as is been more than a year since his DVT. Some reported histo ry of dysphasia. Lower suspicion this represents acute PE however just several days since discontinuing anticoagulation and has been satting in the 90s here. Somewhat fatigued. VBG ordered. CT the head was completed to look for possible other causes of his somnolence. Does answer questions but falls asleep during questioning. Discussed with the patient's daughter and also the facility is yaquelin ing at they state that he has been more sleepy since returning home to the facility. Facility reports that on Sunday 2 days ago he had nausea and fever. Initially was doing okay and then today was very fatigued without urination. They report that his pulse ox was low there and his feet seem blue at some point. Patient does appear clinically dry. Given a fluid bolus. Given the additional history obtained blood cultures and lactate were ordered. Chest x-ray without significant findings. Leukocytosis of 16 is noted. No hypercarbia. Patient does have an elevated lactate of 2.9 and a bumped creatinine of 1.8. Urinalysis is negative. Again chest x-ray is unremarkable. Doubt this is acute meningitis. Procalcitonin 0.23. CT head unremarkable. CT scan of the abdomen pelvis with questioning of some gallbladder distention and suspected gallbladder wall thickening. Given his earlier tenderness to here a ultrasound was obtained in this area. No evidence of significant abnormality was noted on hepatic laboratory studies. On reevaluation the patient now without right upper quadrant tenderness. Ultrasound was however concerning for acute cholecystitis - negative sonographic rader's. Did discuss with general surgery after discussion with patient daughter via phone. Surgery recommended medical admission and additional biliary study. Hospitalist contacted. Impression & Plan Dehydration, Altered mental status, Cholelithiasis, STEVEN (acute kidney injury) Discharge Plan Visit Data *Final* Discharge Date/Time: 10/10/19 19:33 Chief Complaint: Lethargic ED Provider: Justice Chaudhry Discharge Problem: Dehydration, Altered mental status, Cholelithiasis, STEVNE (acute kidney injury) Patient Disposition: Admitted As Inpatient Discharge Instructions Interventions: ED Discharge Assessment Last Done: 10/10/19 19:33 Discharge Problem: Altered mental status Qualifiers: Altered mental status type: somnolence Qualified Code(s): R40.0 - Somnolence Cholelithiasis Qualifiers: Cholelithiasis location: gallbladder Biliary obstruction: without biliary obstruction The scribe's documentation has been prepared under my direction and personally reviewed by me in its entirety. I confirm that the note above accurately reflects all work, treatment, procedures, and medical decision making performed by me.
[2019-10-11] MEDS: AMPICILLIN/SULBACTAM SOD 1,500 MG in 0.9 % SODIUM CHLORIDE 100 ML IV SCH ×4 (05:00→22:44)
[2019-10-11] MEDS: HEPARIN SOD 5,000 UNIT/0.5 ML VIAL SQ SCH ×3 (05:01→22:43)
[2019-10-11] MEDS: SODIUM CHLORIDE 0.9% 1000ML 1,000 ML IV SCH ×2 (07:41→16:27)
--- NOTE | 2019-10-11 08:17 | Electrocardiogram Report ---
Test Reason : Blood Pressure : / mmHG Vent. Rate : 072 BPM Atrial Rate : 072 BPM P-R Int : 180 ms QRS Dur : 088 ms QT Int : 410 ms P-R-T Axes : 059 -38 013 degrees QTc Int : 448 ms Poor data quality, interpretation may be adversely affected Normal sinus rhythm with premature atrial beats Left axis deviation Minimal voltage criteria for LVH, may be normal variant Abnormal ECG When compared with ECG of 09-OCT-2018 22:37, No significant change Confirmed by Axel Morales ([id number]) on 10/11/2019 8:16:34 AM Referred By: Confirmed By:Axel Morales
[2019-10-11 08:59] LABS: Hematocrit (blood only) 37.9 % (42-52); Hemoglobin 12.4 g/dL (14.0-18.0); Mean Corpuscular Hemoglobin 30.5 pg (25-34); Mean Corpuscular Hgb Conc 32.7 g/dL (32-36); Mean Corpuscular Volume 93.3 fL (80-100); Mean Platelet Volume 11.1 fL (7.4-10.4); Platelet Count 190 K/uL (130-400); RDW Coefficient of Variation 14.6 % (11.5-14.5); RDW Standard Deviation 49.9 fL (36.4-46.3); Red Blood Count 4.06 M/uL (4.7-6.1); White Blood Count 11.61 K/uL (4.8-10.8)
--- NOTE | 2019-10-11 09:34 | Surgery Progress Note ---
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 who is his daughter regarding surgery May wish to consider hepatobiliary scan to confirm or deny acute cholecystitis Subjective More awake this morning Answered questions Denies pain Has not had vomiting Physical Exam Gastrointestinal (Abdomen): Inspection/Auscultation: normal bowel sounds; abdomen not distended Percussion/Palpation: abdomen soft; abdomen nontender Results & Data Vital Signs (Past 12 Hours) Vital Signs Temp Pulse Pulse Resp BP BP Pulse Ox 10/11/19 08:00 36.5 C 69 20 168/66 H 96 10/11/19 00:05 37.0 C 68 18 162/88 H 96 Laboratory Results 10/11/19 10/11/19 10/11/19 Range/Units 08:52 08:52 08:52 WBC 11.61 H (4.8-10.8) K/uL RBC 4.06 L (4.7-6.1) M/uL Hgb 12.4 L (14.0-18.0) g/dL Hct 37.9 L (42-52) % MCV 93.3 (80-100) fL MCH 30.5 (25-34) pg MCHC 32.7 (32-36) g/dL RDW Std Deviation 49.9 H (36.4-46.3) fL RDW Coeff of Geraldine 14.6 H (11.5-14.5) % Plt Count 190 (130-400) K/uL MPV 11.1 H (7.4-10.4) fL Immature Gran % (Auto) % Neut % (Auto) % Lymph % (Auto) % [place] % (Auto) % Eos % (Auto) % Baso % (Auto) % Immature Gran # (Auto) (0.00-0.02) K/uL Neut # (Auto) (1.4-6.5) K/uL Lymph # (Auto) (1.2-3.4) K/uL [place] # (Auto) (0.11-0.59) K/uL Eos # (Auto) (0-0.5) K/uL Baso # (Auto) (0-0.2) K/uL VBG pH (7.36-7.41) VBG pCO2 (38-50) mmHg VBG pO2 mmHg VBG HCO3 mmol/L VBG O2 Saturation % VBG Base Excess mEq/L Barometric Pressure mm/Hg Sodium Pending (136-145) mmol/L Potassium Pending (3.5-5.1) mmol/L Chloride Pending (98-107) mmol/L Carbon Dioxide Pending (21-32) mmol/L Anion Gap Pending (3-11) BUN Pending (7-18) mg/dl Creatinine Pending (0.6-1.4) mg/dl Est Cr Clr Drug Dosing Pending ml/min Est GFR ( Amer) Pending Est GFR (Non-Af Amer) Pending BUN/Creatinine Ratio Pending (10-20) Glucose Pending (70-99) mg/dl Lactate Pending Calcium Pending (8.5-10.1) mg/dl Total Bilirubin (0.2-1) mg/dl AST (15-37) U/L ALT (12-78) U/L Alkaline Phosphatase (45-117) U/L Troponin I (0-0.045) ng/ml Total Protein (6.4-8.2) gm/dl Albumin (3.4-5.0) gm/dl Globulin (2.5-4.0) gm/dl Albumin/Globulin Ratio (0.9-2) Procalcitonin (0-0.5) ng/ml TSH (0.300-4.500) uIu/ml Urine Color Urine Appearance (Clear) Urine pH (4.5-7.5) Ur Specific [place] (1.000-1.030) Urine Protein (Negative) Urine Glucose (UA) (Negative) Urine Ketones (Negative) Urine Blood (Negative) Urine Nitrite (Negative) Urine Bilirubin (Negative) Urine Urobilinogen (Negative) Ur Leukocyte Esterase (Negative) Urine WBC (Auto) (0-5) /hpf Urine RBC (Auto) (0-4) /hpf U Hyaline Cast (Auto) (0-5) /lpf U Epithel Cells (Auto) (0-5) /lpf Urine Bacteria (Auto) (Negative) Influenza Type A (PCR) (Neg) Influenza Type B (PCR) (Neg) 02/10/10/19 10/10/19 Range/Units 18:41 15:06 15:00 WBC (4.8-10.8) K/uL RBC (4.7-6.1) M/uL Hgb (14.0-18.0) g/dL Hct (42-52) % MCV (80-100) fL MCH (25-34) pg MCHC (32-36) g/dL RDW Std Deviation (36.4-46.3) fL RDW Coeff of Geraldine (11.5-14.5) % Plt Count (130-400) K/uL MPV (7.4-10.4) fL Immature Gran % (Auto) % Neut % (Auto) % Lymph % (Auto) % [place] % (Auto) % Eos % (Auto) % Baso % (Auto) % Immature Gran # (Auto) (0.00-0.02) K/uL Neut # (Auto) (1.4-6.5) K/uL Lymph # (Auto) (1.2-3.4) K/uL [place] # (Auto) (0.11-0.59) K/uL Eos # (Auto) (0-0.5) K/uL Baso # (Auto) (0-0.2) K/uL VBG pH (7.36-7.41) VBG pCO2 (38-50) mmHg VBG pO2 mmHg VBG HCO3 mmol/L VBG O2 Saturation % VBG Base Excess mEq/L Barometric Pressure mm/Hg Sodium (136-145) mmol/L Potassium (3.5-5.1) mmol/L Chloride (98-107) mmol/L Carbon Dioxide (21-32) mmol/L Anion Gap (3-11) BUN (7-18) mg/dl Creatinine (0.6-1.4) mg/dl Est Cr Clr Drug Dosing ml/min Est GFR ( Amer) Est GFR (Non-Af Amer) BUN/Creatinine Ratio (10-20) Glucose (70-99) mg/dl Lactate 2.9 H* Calcium (8.5-10.1) mg/dl Total Bilirubin (0.2-1) mg/dl AST (15-37) U/L ALT (12-78) U/L Alkaline Phosphatase (45-117) U/L Troponin I (0-0.045) ng/ml Total Protein (6.4-8.2) gm/dl Albumin (3.4-5.0) gm/dl Globulin (2.5-4.0) gm/dl Albumin/Globulin Ratio (0.9-2) Procalcitonin (0-0.5) ng/ml TSH (0.300-4.500) uIu/ml Urine Color Dark Yellow Urine Appearance Clear (Clear) Urine pH 5.0 (4.5-7.5) Ur Specific [place] 1.025 (1.000-1.030) Urine Protein 1+ H (Negative) Urine Glucose (UA) Negative (Negative) Urine Ketones Negative (Negative) Urine Blood Negative (Negative) Urine Nitrite Negative (Negative) Urine Bilirubin Negative (Negative) Urine Urobilinogen Negative (Negative) Ur Leukocyte Esterase Trace H (Negative) Urine WBC (Auto) 1-5 (0-5) /hpf Urine RBC (Auto) 0-4 (0-4) /hpf U Hyaline Cast (Auto) 10-30 H (0-5) /lpf U Epithel Cells (Auto) 20-30 H (0-5) /lpf Urine Bacteria (Auto) Negative (Negative) Influenza Type A (PCR) Neg for Influ A (Neg) Influenza Type B (PCR) Neg for Influ B (Neg) 10/10/19 10/10/19 10/10/19 Range/Units 14:47 14:47 14:47 WBC (4.8-10.8) K/uL RBC (4.7-6.1) M/uL Hgb (14.0-18.0) g/dL Hct (42-52) % MCV (80-100) fL MCH (25-34) pg MCHC (32-36) g/dL RDW Std Deviation (36.4-46.3) fL RDW Coeff of Geraldine (11.5-14.5) % Plt Count (130-400) K/uL MPV (7.4-10.4) fL Immature Gran % (Auto) % Neut % (Auto) % Lymph % (Auto) % [place] % (Auto) % Eos % (Auto) % Baso % (Auto) % Immature Gran # (Auto) (0.00-0.02) K/uL Neut # (Auto) (1.4-6.5) K/uL Lymph # (Auto) (1.2-3.4) K/uL [place] # (Auto) (0.11-0.59) K/uL Eos # (Auto) (0-0.5) K/uL Baso # (Auto) (0-0.2) K/uL VBG pH 7.36 (7.36-7.41) VBG pCO2 44 (38-50) mmHg VBG pO2 23 mmHg VBG HCO3 25 mmol/L VBG O2 Saturation > 60.0 % VBG Base Excess -1.0 mEq/L Barometric Pressure 741.3 mm/Hg Sodium (136-145) mmol/L Potassium (3.5-5.1) mmol/L Chloride (98-107) mmol/L Carbon Dioxide (21-32) mmol/L Anion Gap (3-11) BUN (7-18) mg/dl Creatinine (0.6-1.4) mg/dl Est Cr Clr Drug Dosing ml/min Est GFR ( Amer) Est GFR (Non-Af Amer) BUN/Creatinine Ratio (10-20) Glucose (70-99) mg/dl Lactate 2.9 H* Calcium (8.5-10.1) mg/dl Total Bilirubin (0.2-1) mg/dl AST (15-37) U/L ALT (12-78) U/L Alkaline Phosphatase (45-117) U/L Troponin I (0-0.045) ng/ml Total Protein (6.4-8.2) gm/dl Albumin (3.4-5.0) gm/dl Globulin (2.5-4.0) gm/dl Albumin/Globulin Ratio (0.9-2) Procalcitonin 0.23 (0-0.5) ng/ml TSH (0.300-4.500) uIu/ml Urine Color Urine Appearance (Clear) Urine pH (4.5-7.5) Ur Specific [place] (1.000-1.030) Urine Protein (Negative) Urine Glucose (UA) (Negative) Urine Ketones (Negative) Urine Blood (Negative) Urine Nitrite (Negative) Urine Bilirubin (Negative) Urine Urobilinogen (Negative) Ur Leukocyte Esterase (Negative) Urine WBC (Auto) (0-5) /hpf Urine RBC (Auto) (0-4) /hpf U Hyaline Cast (Auto) (0-5) /lpf U Epithel Cells (Auto) (0-5) /lpf Urine Bacteria (Auto) (Negative) Influenza Type A (PCR) (Neg) Influenza Type B (PCR) (Neg) 10/10/19 10/10/19 10/10/19 Range/Units 14:47 14:47 14:47 WBC 16.60 H (4.8-10.8) K/uL RBC 4.40 L (4.7-6.1) M/uL Hgb 13.4 L (14.0-18.0) g/dL Hct 40.1 L (42-52) % MCV 91.1 (80-100) fL MCH 30.5 (25-34) pg MCHC 33.4 (32-36) g/dL RDW Std Deviation 49.9 H (36.4-46.3) fL RDW Coeff of Geraldine 14.7 H (11.5-14.5) % Plt Count 280 (130-400) K/uL MPV 10.4 (7.4-10.4) fL Immature Gran % (Auto) 0.3 % Neut % (Auto) 82.4 % Lymph % (Auto) 8.3 % [place] % (Auto) 8.9 % Eos % (Auto) 0.0 % Baso % (Auto) 0.1 % Immature Gran # (Auto) 0.05 H (0.00-0.02) K/uL Neut # (Auto) 13.68 H (1.4-6.5) K/uL Lymph # (Auto) 1.38 (1.2-3.4) K/uL [place] # (Auto) 1.47 H (0.11-0.59) K/uL Eos # (Auto) 0.00 (0-0.5) K/uL Baso # (Auto) 0.02 (0-0.2) K/uL VBG pH (7.36-7.41) VBG pCO2 (38-50) mmHg VBG pO2 mmHg VBG HCO3 mmol/L VBG O2 Saturation % VBG Base Excess mEq/L Barometric Pressure mm/Hg Sodium 138 (136-145) mmol/L Potassium 4.1 (3.5-5.1) mmol/L Chloride 108 H (98-107) mmol/L Carbon Dioxide 26 (21-32) mmol/L Anion Gap 4.0 (3-11) BUN 30 H (7-18) mg/dl Creatinine 1.81 H (0.6-1.4) mg/dl Est Cr Clr Drug Dosing 30.3 ml/min Est GFR ( Amer) 38.6 Est GFR (Non-Af Amer) 33.3 BUN/Creatinine Ratio 16.7 (10-20) Glucose 139 H (70-99) mg/dl Lactate Cancelled Calcium 9.9 (8.5-10.1) mg/dl Total Bilirubin 0.6 (0.2-1) mg/dl AST 18 (15-37) U/L ALT 23 (12-78) U/L Alkaline Phosphatase 88 (45-117) U/L Troponin I < 0.015 (0-0.045) ng/ml Total Protein 9.2 H (6.4-8.2) gm/dl Albumin 3.0 L (3.4-5.0) gm/dl Globulin 6.2 H (2.5-4.0) gm/dl Albumin/Globulin Ratio 0.5 L (0.9-2) Procalcitonin (0-0.5) ng/ml TSH 2.710 (0.300-4.500) uIu/ml Urine Color Urine Appearance (Clear) Urine pH (4.5-7.5) Ur Specific [place] (1.000-1.030) Urine Protein (Negative) Urine Glucose (UA) (Negative) Urine Ketones (Negative) Urine Blood (Negative) Urine Nitrite (Negative) Urine Bilirubin (Negative) Urine Urobilinogen (Negative) Ur Leukocyte Esterase (Negative) Urine WBC (Auto) (0-5) /hpf Urine RBC (Auto) (0-4) /hpf U Hyaline Cast (Auto) (0-5) /lpf U Epithel Cells (Auto) (0-5) /lpf Urine Bacteria (Auto) (Negative) Influenza Type A (PCR) (Neg) Influenza Type B (PCR) (Neg) (1) Cholelithiasis Biliary obstruction: without biliary obstruction Cholelithiasis location: gallbladder
[2019-10-11 09:36] LABS: BUN Creatinine Ratio 19.9 (10-20); Calcium 9.1 mg/dl (8.5-10.1); Creatinine Clr Calc Pharmacy 46.2 ml/min; Est GFR (African American) 64.2; Est GFR (Non-African American) 55.4; Potassium 3.9 mmol/L (3.5-5.1)
[2019-10-11] MEDS: ASPIRIN 81 MG ECTAB PO SCH (09:36)
[2019-10-11] MEDS: ISOSORBIDE MONO EXTENDED REL 30 MG TABCR PO SCH (09:37)
[2019-10-11] MEDS: lisinopriL 10 MG TAB PO SCH (09:37)
[2019-10-11] MEDS: METOPROLOL SUCC 50MG EXT REL TAB PO SCH (09:37)
[2019-10-11] MEDS: FINASTERIDE 5 MG TAB PO SCH (09:38)
[2019-10-11] MEDS: MULTIVITAMIN TAB PO SCH (09:38)
[2019-10-11] MEDS: FAMOTIDINE 20 MG TAB PO SCH ×2 (09:38→20:52)
--- NOTE | 2019-10-11 17:11 | Hospitalist Progress Note ---
Date of Service October 11, 2019 Assessment & Plan (1) Cholecystitis: Unable to tell if pt had any abdominal pain on admission CT abd/pelvis showed cholelithiasis, mild gallbladder distention, and suspected gallbladder wall thickening Liver u/s showed gallbladder is distended and filled with both stones and sludge. The gallbladder wall is thickened and edematous, and the appearance is highly concerning for acute cholecystitis Surgery on board Currently pt denies any abdominal pain with palpation Tolerated diet Daughter who the POA will not want to proceed to surgery if requires Consider to get an HIDA scan Continue IV abx with Unasyn Continue monitor closely (2) STEVEN (acute kidney injury): Possible related to dehydration Creatinine on admission 1.8 that improves to 1.1 Will decrease IVF Continue monitor BMP (3) CAD (coronary artery disease): Denies any chest pain Continue asa, statin, lisinopril, metoprolol and isosorbide mononitrate Stable (4) Hypertension: BP stable Continue outpatient BP med (5) Altered mental status: (6) Dementia: seems to be back to baseline as per daughter CT head showed no acute intracranial findings Stable (7) Hyperlipemia: Continue statin DVT px on heparin subq Code Status DNR/DNI Admission and Anticipated Discharge Date Admission Date: October 10, 2019 Subjective Pt was seen and examined Lying in bed with no distress with daughter at bedside Pt said that he does not have any abdominal pain currently Daughter said that pt was discharged on Sunday She said that on Sunday pt had an episode of vomiting Denies any chest pain, palpitation, dizziness and SOB Physical Exam Physical Exam: General- No acute distress Head- atraumatic Eyes- PERRL, EOMI, ENT- oropharynx clear Neck- supple, no JVD Lungs- clear to auscultation Heart- regular rhythm Abdomen- normal bowel sounds, soft, nontender Extremities- no calf tenderness Neuro- alert, awake, no dysarthria Skin- warm & dry Results & Data ([facility]) Vital Signs (Past 12 Hours) Vital Signs Temp Pulse Pulse Resp BP Pulse Ox 10/11/19 15:23 36.4 C L 60 17 135/75 94 10/11/19 08:00 36.5 C 69 20 168/66 H 96 (1) CAD (coronary artery disease) Associated angina: without angina Coronary Disease-Associated Artery/Lesion type: [place] artery [place] vs. transplanted heart: [place] heart Qualified Code(s): I25.10 - Atherosclerotic heart disease of [place] coronary artery without angina pectoris (2) Dementia Alzheimer's disease onset: unspecified onset Dementia behavioral disturbance: without behavioral disturbance Dementia type: Alzheimer's disease Qualified Code(s): G30.9 - Alzheimer's disease, unspecified; F02.80 - Dementia in other diseases classified elsewhere without behavioral disturbance (3) Hypertension Hypertension type: essential hypertension Qualified Code(s): I10 - Essential (primary) hypertension
[2019-10-11] MEDS: TIMOLOL MALEATE 0.25% OP SOLN 5 ML BTL OPB SCH (20:52)
[2019-10-11] MEDS: CETIRIZINE HCL 10 MG TABLET PO SCH (20:52)
[2019-10-11] MEDS: ATORVASTATIN 10 MG TAB PO SCH (20:52)
[2019-10-12] MEDS: AMPICILLIN/SULBACTAM SOD 1,500 MG in 0.9 % SODIUM CHLORIDE 100 ML IV SCH ×4 (02:16→21:56)
[2019-10-12] MEDS: HEPARIN SOD 5,000 UNIT/0.5 ML VIAL SQ SCH ×3 (05:43→21:53)
[2019-10-12 06:12] LABS: Hematocrit (blood only) 32.9 % (42-52); Mean Corpuscular Hemoglobin 30.2 pg (25-34); Mean Corpuscular Hgb Conc 33.4 g/dL (32-36); Mean Corpuscular Volume 90.4 fL (80-100); Mean Platelet Volume 10.5 fL (7.4-10.4); Platelet Count 205 K/uL (130-400); RDW Coefficient of Variation 14.4 % (11.5-14.5); RDW Standard Deviation 48.1 fL (36.4-46.3); Red Blood Count 3.64 M/uL (4.7-6.1)
[2019-10-12] MEDS: MULTIVITAMIN TAB PO SCH (09:12)
[2019-10-12] MEDS: ISOSORBIDE MONO EXTENDED REL 30 MG TABCR PO SCH (09:12)
[2019-10-12] MEDS: ASPIRIN 81 MG ECTAB PO SCH (09:12)
[2019-10-12] MEDS: METOPROLOL SUCC 50MG EXT REL TAB PO SCH (09:13)
[2019-10-12] MEDS: FAMOTIDINE 20 MG TAB PO SCH ×2 (09:13→20:23)
[2019-10-12] MEDS: lisinopriL 10 MG TAB PO SCH (09:14)
[2019-10-12] MEDS: FINASTERIDE 5 MG TAB PO SCH (09:14)
--- NOTE | 2019-10-12 09:45 | Surgery Progress Note ---
Date of Service October 12, 2019 Assessment & Plan (1) Cholelithiasis: No abdominal pain with minimal tenderness Daughter has expressed wish for no surgery at this time Continue with antibiotics White blood cell count has returned to normal Subjective Sleeping when I entered the room but did arouse with stimulation Denies abdominal pain Has not had nausea or vomiting Had bowel movement this morning Physical Exam Gastrointestinal (Abdomen): Inspection/Auscultation: normal bowel sounds; abdomen not distended Percussion/Palpation: + abdomen tender (Minimal right upper quadrant) and abdomen soft; no abdominal mass Results & Data Vital Signs (Past 12 Hours) Vital Signs Temp Pulse Pulse Resp BP Pulse Ox 10/12/19 07:03 36.4 C L 63 16 190/89 H 95 10/11/19 23:37 37.5 C 61 18 172/91 H 97 Laboratory Results 10/12/19 Range/Units 05:36 WBC 9.60 (4.8-10.8) K/uL RBC 3.64 L (4.7-6.1) M/uL Hgb 11.0 L (14.0-18.0) g/dL Hct 32.9 L (42-52) % MCV 90.4 (80-100) fL MCH 30.2 (25-34) pg MCHC 33.4 (32-36) g/dL RDW Std Deviation 48.1 H (36.4-46.3) fL RDW Coeff of Geraldine 14.4 (11.5-14.5) % Plt Count 205 (130-400) K/uL MPV 10.5 H (7.4-10.4) fL (1) Cholelithiasis Biliary obstruction: without biliary obstruction Cholelithiasis location: gallbladder
--- NOTE | 2019-10-12 14:57 | Hospitalist Progress Note ---
Date of Service October 12, 2019 Assessment & Plan (1) Cholecystitis: Unable to tell if pt had any abdominal pain on admission CT abd/pelvis showed cholelithiasis, mild gallbladder distention, and suspected gallbladder wall thickening Liver u/s showed gallbladder is distended and filled with both stones and sludge. The gallbladder wall is thickened and edematous, and the appearance is highly concerning for acute cholecystitis Surgery on board Currently pt denies any abdominal pain with palpation Tolerated diet Daughter who the POA will not want to proceed to surgery since pt does not have any abdominal pain Continue IV abx with Unasyn Continue monitor closely (2) STEVEN (acute kidney injury): Possible related to dehydration Creatinine on admission 1.8 that improves to 1.1 Will decrease IVF Continue monitor BMP (3) CAD (coronary artery disease): Denies any chest pain Continue asa, statin, lisinopril, metoprolol and isosorbide mononitrate Stable (4) Hypertension: BP elevated Will increase lisinopril to 20mg daily Will add hydralazine IV prn Continue monitor BP (5) Altered mental status: (6) Dementia: seems to be back to baseline as per daughter CT head showed no acute intracranial findings Stable (7) Hyperlipemia: Continue statin DVT px on heparin subq Code Status DNR/DNI Admission and Anticipated Discharge Date Admission Date: October 10, 2019 Subjective Pt was seen and examined Lying in bed with no distress with daughter at bedside Pt continues denying any abdominal pain When I pressed on his abdomen, he denies any pain Denies any chest pain, palpitation, dizziness and SOB Physical Exam Physical Exam: General- No acute distress Head- atraumatic Eyes- PERRL, EOMI, ENT- oropharynx clear Neck- supple, no JVD Lungs- clear to auscultation Heart- regular rhythm Abdomen- normal bowel sounds, soft, nontender Extremities- no calf tenderness Neuro- alert, awake, no dysarthria Skin- warm & dry Results & Data ([facility]) Vital Signs (Past 12 Hours) Vital Signs Temp Pulse Resp BP Pulse Ox 10/12/19 12:25 59 L 17 168/93 H 93 10/12/19 07:03 36.4 C L 63 16 190/89 H 95 (1) CAD (coronary artery disease) Associated angina: without angina Coronary Disease-Associated Artery/Lesion type: [place] artery [place] vs. transplanted heart: [place] heart Qualified Code(s): I25.10 - Atherosclerotic heart disease of [place] coronary artery without angina pectoris (2) Dementia Alzheimer's disease onset: unspecified onset Dementia behavioral disturbance: without behavioral disturbance Dementia type: Alzheimer's disease Qualified Code(s): G30.9 - Alzheimer's disease, unspecified; F02.80 - Dementia in other diseases classified elsewhere without behavioral disturbance (3) Hypertension Hypertension type: essential hypertension Qualified Code(s): I10 - Essential (primary) hypertension
[2019-10-12] MEDS ORDERED: HydrALAZINE HCL 20 MG/ML VIAL IV PRN (15:23)
[2019-10-12] MEDS: ATORVASTATIN 10 MG TAB PO SCH (20:23)
[2019-10-12] MEDS: TIMOLOL MALEATE 0.25% OP SOLN 5 ML BTL OPB SCH (20:23)
[2019-10-12] MEDS: CETIRIZINE HCL 10 MG TABLET PO SCH (20:24)
[2019-10-13] MEDS: AMPICILLIN/SULBACTAM SOD 1,500 MG in 0.9 % SODIUM CHLORIDE 100 ML IV SCH ×4 (04:21→21:03)
[2019-10-13] MEDS: HEPARIN SOD 5,000 UNIT/0.5 ML VIAL SQ SCH ×3 (04:21→20:51)
[2019-10-13] MEDS: ASPIRIN 81 MG CHEW PO SCH (12:43)
[2019-10-13] MEDS: METOPROLOL SUCC 50MG EXT REL TAB PO SCH (12:44)
[2019-10-13] MEDS: lisinopriL 20 MG TAB PO SCH (12:44)
[2019-10-13] MEDS: ISOSORBIDE MONO EXTENDED REL 30 MG TABCR PO SCH (12:45)
[2019-10-13] MEDS: FINASTERIDE 5 MG TAB PO SCH (12:45)
[2019-10-13] MEDS: MULTIVITAMIN TAB PO SCH (12:47)
[2019-10-13] MEDS: FAMOTIDINE 20 MG TAB PO SCH ×2 (12:47→20:51)
[2019-10-13] MEDS: ASPIRIN 81 MG ECTAB PO SCH (12:49)
--- NOTE | 2019-10-13 20:02 | Hospitalist Progress Note ---
Date of Service October 13, 2019 Assessment & Plan (1) Cholecystitis: Unable to tell if pt had any abdominal pain on admission CT abd/pelvis showed cholelithiasis, mild gallbladder distention, and suspected gallbladder wall thickening Liver u/s showed gallbladder is distended and filled with both stones and sludge. The gallbladder wall is thickened and edematous, and the appearance is highly concerning for acute cholecystitis Surgery on board Currently pt denies any abdominal pain with palpation Tolerated diet Daughter who the POA will not want to proceed to surgery since pt does not have any abdominal pain Continue IV abx with Unasyn Continue monitor closely (2) STEVEN (acute kidney injury): Possible related to dehydration Creatinine on admission 1.8 that improves to 1.1 Will decrease IVF Continue monitor BMP (3) CAD (coronary artery disease): Denies any chest pain Continue asa, statin, lisinopril, metoprolol and isosorbide mononitrate Stable (4) Hypertension: BP elevated Will increase lisinopril to 20mg daily Will add hydralazine IV prn Continue monitor BP (5) Altered mental status: (6) Dementia: seems to be back to baseline as per daughter CT head showed no acute intracranial findings Plan to transition to hospice (7) Hyperlipemia: Continue statin DVT px on heparin subq Code Status DNR/DNI Admission and Anticipated Discharge Date Admission Date: October 10, 2019 Subjective Pt was seen and examined Lying in bed with no distress with daughter at bedside Pt slept alot today He only got up to eat his meal Denies any chest pain, palpitation, and abdominal pain Physical Exam Physical Exam: General- No acute distress Head- atraumatic Eyes- PERRL, EOMI, ENT- oropharynx clear Neck- supple, no JVD Lungs- clear to auscultation Heart- regular rhythm Abdomen- normal bowel sounds, soft, nontender Extremities- no calf tenderness Neuro- alert, awake, no dysarthria Skin- warm & dry Results & Data ([facility]) Vital Signs (Past 12 Hours) Vital Signs Temp Pulse Resp BP Pulse Ox 10/13/19 14:57 36.9 C 53 L 17 157/77 H 94 10/13/19 12:40 60 20 174/97 H 94 10/13/19 10:04 60 152/82 H (1) CAD (coronary artery disease) Associated angina: without angina Coronary Disease-Associated Artery/Lesion type: [place] artery [place] vs. transplanted heart: [place] heart Qualified Code(s): I25.10 - Atherosclerotic heart disease of [place] coronary artery without angina pectoris (2) Dementia Alzheimer's disease onset: unspecified onset Dementia behavioral disturbance: without behavioral disturbance Dementia type: Alzheimer's disease Qualified Code(s): G30.9 - Alzheimer's disease, unspecified; F02.80 - Dementia in other diseases classified elsewhere without behavioral disturbance (3) Hypertension Hypertension type: essential hypertension Qualified Code(s): I10 - Essential (primary) hypertension
[2019-10-13] MEDS: TIMOLOL MALEATE 0.25% OP SOLN 5 ML BTL OPB SCH (20:46)
[2019-10-13] MEDS: ATORVASTATIN 10 MG TAB PO SCH (20:51)
[2019-10-13] MEDS: CETIRIZINE HCL 10 MG TABLET PO SCH (20:51)
[2019-10-14] MEDS: AMPICILLIN/SULBACTAM SOD 1,500 MG in 0.9 % SODIUM CHLORIDE 100 ML IV SCH ×4 (03:45→21:51)
[2019-10-14] MEDS: HEPARIN SOD 5,000 UNIT/0.5 ML VIAL SQ SCH ×3 (06:00→20:52)
[2019-10-14 06:18] LABS: Hematocrit (blood only) 31.1 % (42-52); Hemoglobin 10.3 g/dL (14.0-18.0); Mean Corpuscular Hemoglobin 29.8 pg (25-34); Mean Corpuscular Hgb Conc 33.1 g/dL (32-36); Mean Corpuscular Volume 89.9 fL (80-100); Mean Platelet Volume 10.9 fL (7.4-10.4); Platelet Count 204 K/uL (130-400); RDW Coefficient of Variation 14.2 % (11.5-14.5); RDW Standard Deviation 47.3 fL (36.4-46.3); Red Blood Count 3.46 M/uL (4.7-6.1); White Blood Count 9.07 K/uL (4.8-10.8)
[2019-10-14 06:52] LABS: Calcium 8.9 mg/dl (8.5-10.1); Creatinine Clr Calc Pharmacy 50.5 ml/min; Est GFR (African American) 71.4; Est GFR (Non-African American) 61.6; Potassium 3.4 mmol/L (3.5-5.1)
[2019-10-14] MEDS: METOPROLOL SUCC 50MG EXT REL TAB PO SCH (09:02)
[2019-10-14] MEDS: lisinopriL 20 MG TAB PO SCH (09:04)
[2019-10-14] MEDS: POTASSIUM CHLORIDE / WTR 10 MEQ/100 ML PLCT IV SCH ×2 (10:17→11:15)
[2019-10-14] MEDS: ASPIRIN 81 MG CHEW PO SCH (11:25)
[2019-10-14] MEDS: FINASTERIDE 5 MG TAB PO SCH (11:27)
[2019-10-14] MEDS: FAMOTIDINE 20 MG TAB PO SCH ×2 (11:28→20:56)
[2019-10-14] MEDS: MULTIVITAMIN TAB PO SCH (11:31)
[2019-10-14] MEDS: ISOSORBIDE MONO EXTENDED REL 30 MG TABCR PO SCH (11:46)
--- NOTE | 2019-10-14 13:34 | Surgery Progress Note ---
Date of Service October 14, 2019 Assessment & Plan (1) Cholelithiasis: possible cholecystitis some abdominal pain per patient today. minimal tenderness RUQ on exam, no rigidity, guarding, or rebound. low grade fever last night,Tmax of 38.1, afebrile today No leukocytosis Hemodynamically stable Blood cultures ntd Daughter has expressed wish for no surgery and return to [facility] tomorrow with [facility] hospice Continue with antibiotics and conservative measures continue medical management Dr. Carrillo was present during my examination and agrees with above. Subjective patient lying in bed sleeping upon encounter when asked if he is having abdominal pain he states yes but cannot tell me where it is at unable to obtain ROS given baseline dementia No family at bedside Physical Exam Constitutional: WD/WN, vitals as above no acute distress Respiratory: normal respiratory effort; no respiratory distress Gastrointestinal (Abdomen): Inspection/Auscultation: abdomen normal to inspection; abdomen not distended Percussion/Palpation: + abdomen tender (RUQ but no guarding, peritonitis) and abdomen soft; no guarding and abdomen not rigid Skin: no rashes, warm and dry Psychiatric: sleeping upon entering room baseline dementia no eye contact, eyes stayed closed Results & Data Vital Signs (Past 12 Hours) Vital Signs Temp Pulse Pulse Resp BP Pulse Ox 10/14/19 12:57 144/92 H 10/14/19 11:15 62 178/92 H 10/14/19 10:00 59 L 158/90 H 10/14/19 09:00 54 L 178/81 H 10/14/19 07:52 36.7 C 52 L 24 163/89 H 92 Laboratory Results 10/14/19 10/14/19 Range/Units 05:38 05:38 WBC 9.07 (4.8-10.8) K/uL RBC 3.46 L (4.7-6.1) M/uL Hgb 10.3 L (14.0-18.0) g/dL Hct 31.1 L (42-52) % MCV 89.9 (80-100) fL MCH 29.8 (25-34) pg MCHC 33.1 (32-36) g/dL RDW Std Deviation 47.3 H (36.4-46.3) fL RDW Coeff of Geraldine 14.2 (11.5-14.5) % Plt Count 204 (130-400) K/uL MPV 10.9 H (7.4-10.4) fL Sodium 138 (136-145) mmol/L Potassium 3.4 L (3.5-5.1) mmol/L Chloride 109 H (98-107) mmol/L Carbon Dioxide 23 (21-32) mmol/L Anion Gap 6.0 (3-11) BUN 16 (7-18) mg/dl Creatinine 1.09 (0.6-1.4) mg/dl Est Cr Clr Drug Dosing 50.5 ml/min Est GFR ( Amer) 71.4 Est GFR (Non-Af Amer) 61.6 BUN/Creatinine Ratio 15.0 (10-20) Glucose 89 (70-99) mg/dl Calcium 8.9 (8.5-10.1) mg/dl (1) Cholelithiasis Biliary obstruction: without biliary obstruction Cholelithiasis location: gallbladder
--- NOTE | 2019-10-14 19:00 | Hospitalist Progress Note ---
Date of Service October 14, 2019 Assessment & Plan (1) Cholecystitis: Unable to tell if pt had any abdominal pain on admission CT abd/pelvis showed cholelithiasis, mild gallbladder distention, and suspected gallbladder wall thickening Liver u/s showed gallbladder is distended and filled with both stones and sludge. The gallbladder wall is thickened and edematous, and the appearance is highly concerning for acute cholecystitis Surgery on board Currently pt denies any abdominal pain with palpation Tolerated diet Daughter who the POA will not want to proceed to surgery since pt does not have any abdominal pain Continue IV abx with Unasyn Continue monitor closely Plan to transition to home hospice (2) STEVEN (acute kidney injury): Possible related to dehydration Creatinine on admission 1.8 that improves to 1.1 Continue monitor BMP (3) CAD (coronary artery disease): Denies any chest pain Continue asa, statin, lisinopril, metoprolol and isosorbide mononitrate Stable (4) Hypertension: BP elevated On lisinopril to 20mg daily On hydralazine IV prn Continue monitor BP (5) Altered mental status: (6) Dementia: seems to be back to baseline as per daughter CT head showed no acute intracranial findings Plan to transition to hospice (7) Hyperlipemia: Continue statin DVT px on heparin subq Code Status DNR/DNI Admission and Anticipated Discharge Date Admission Date: October 14, 2019 Subjective Pt was seen and and examined Lying in bed with no distress Pt has been sleeping alot today He spiked temp 38.1 last night Plan to discharge on home hospice Physical Exam Physical Exam: General- No acute distress Head- atraumatic Eyes- PERRL, EOMI, ENT- oropharynx clear Neck- supple, no JVD Lungs- clear to auscultation Heart- regular rhythm Abdomen- normal bowel sounds, soft, nontender Extremities- no calf tenderness Neuro- alert, awake, no dysarthria Skin- warm & dry Results & Data ([facility]) Vital Signs (Past 12 Hours) Vital Signs Temp Pulse Pulse Resp BP Pulse Ox 10/14/19 15:05 36.8 C 55 L 16 116/73 96 10/14/19 12:57 144/92 H 10/14/19 11:15 62 178/92 H 10/14/19 10:00 59 L 158/90 H 10/14/19 09:00 54 L 178/81 H 10/14/19 07:52 36.7 C 52 L 24 163/89 H 92 (1) CAD (coronary artery disease) Coronary Disease-Associated Artery/Lesion type: [place] artery [place] vs. transplanted heart: ch[place] heart Associated angina: without angina Qualified Code(s): I25.10 - Atherosclerotic heart disease of [place] coronary artery without angina pectoris (2) Hypertension Hypertension type: essential hypertension Qualified Code(s): I10 - Essential (primary) hypertension (3) Dementia Dementia type: Alzheimer's disease Alzheimer's disease onset: unspecified onset Dementia behavioral disturbance: without behavioral disturbance Qual ified Code(s): G30.9 - Alzheimer's disease, unspecified; F02.80 - Dementia in other diseases classified elsewhere without behavioral disturbance
[2019-10-14] MEDS: ATORVASTATIN 10 MG TAB PO SCH (20:55)
[2019-10-14] MEDS: TIMOLOL MALEATE 0.25% OP SOLN 5 ML BTL OPB SCH (20:55)
[2019-10-14] MEDS: CETIRIZINE HCL 10 MG TABLET PO SCH (20:55)
[2019-10-15] MEDS: AMPICILLIN/SULBACTAM SOD 1,500 MG in 0.9 % SODIUM CHLORIDE 100 ML IV SCH ×3 (04:52→15:20)
[2019-10-15] MEDS: HEPARIN SOD 5,000 UNIT/0.5 ML VIAL SQ SCH ×2 (04:52→14:34)
--- NOTE | 2019-10-15 07:32 | Surgery Progress Note ---
Date of Service October 15, 2019 Assessment & Plan (1) Cholelithiasis: Abdomen is benign patient does not appear to be having pain. His white count had decreased to normal No plan for surgical intervention at this time Patient's daughter who has power of insurance defense attorney does not want surgery at the present time. Can discharge from surgical standpoint Subjective Sleeping this morning Does not demonstrate that he is having any pain Having bowel movements and passing flatus Tolerated regular minced diet without nausea or vomiting Physical Exam Gastrointestinal (Abdomen): Inspection/Auscultation: normal bowel sounds; abdomen not distended Percussion/Palpation: abdomen soft; abdomen nontender Results & Data Vital Signs (Past 12 Hours) Vital Signs Temp Pulse Pulse Pulse Resp BP Pulse Ox 10/15/19 07:26 37.4 C 66 20 159/88 H 94 10/15/19 03:30 69 176/83 H 10/15/19 00:13 37 C 63 18 182/100 H 95 (1) Cholelithiasis Biliary obstruction: without biliary obstruction Cholelithiasis location: gallbladder
[2019-10-15] MEDS: MULTIVITAMIN TAB PO SCH (08:01)
[2019-10-15] MEDS: METOPROLOL SUCC 50MG EXT REL TAB PO SCH (08:01)
[2019-10-15] MEDS: ASPIRIN 81 MG CHEW PO SCH (08:01)
[2019-10-15] MEDS: FINASTERIDE 5 MG TAB PO SCH (08:01)
[2019-10-15] MEDS: ISOSORBIDE MONO EXTENDED REL 30 MG TABCR PO SCH (08:01)
[2019-10-15] MEDS: FAMOTIDINE 20 MG TAB PO SCH (08:02)
[2019-10-15] MEDS: lisinopriL 20 MG TAB PO SCH (08:02)
--- NOTE | 2019-10-15 11:45 | Discharge Summary ---
Date of Service October 15, 2019 Admission HPI Per Admitting Provider 84 yo male c PMH below and includes dementia, was DCd 10/06 and treated after a fall and confusion. Today he comes in confused with abd pain. He was found to have a leukocytosis and a distended GB. Dr Vale said he would see the patient. Admission Exam Per Admitting Provider Physical Exam Gen-NAD, Afebrile, Butterfly rosacea rash Head-NCAT, EOMI, PERRLA, Anicteric Sclera, No Posterior Pharyngeal Erythema Neck-Supple, No JVD, No Thyromegaly, No Masses, No LAD, No Bruits Lungs-Clear to Auscultation Bilaterally, No Rales, No Rhonchi, No Wheezing, No Crepitus Chest-No S4, +S1, +S2, No S3, No Murmurs, No Rubs, No Gallops, No Ectopy Abdomen-Soft, Bowel Sounds Present, RUQ Tender, Non Distended, No Hepatomegaly, No Splenomegaly, No Palpable Masses, No Rebound, No Rigidity, No Guarding Musculoskeletal-Full Range of Motion Bilaterally, No CVAT Extremities-No Cyanosis, No Clubbing, No Edema Nuero-Cranial Nerves II-XII grossly intact, Motor WNL, DTRs WNL, Strength WNL, Non Focal Psych-Flat Principal Diagnosis Cholecystitis Cholelithiasis STEVEN Altered mental status Discharge Exam Constitutional no acute distress Neck trachea midline, no thyromegaly Respiratory normal respiratory effort, lungs clear to auscultation Cardiovascular RRR, no murmur, no edema Gastrointestinal (Abdomen) normal bowel sounds, soft, nontender, no hepatosplenomegaly Neurologic + confused Cranial Nerves: PERRL and EOM intact bilaterally Psychiatric Orientation: alert; + not oriented to person, + not oriented to place, + not oriented to time and + uncooperative Discharge Data Allergies Allergy/AdvReac Type Severity Reaction Status Date / Time pseudoephedrine Allergy Severe URINARY Unverified 10/10/19 14:46 RETENTION guaifenesin Allergy Unknown inability Verified 10/10/19 14:46 to urinate Sulfa (Sulfonamide Allergy Unknown _ Unverified 10/10/19 14:46 Antibiotics) latex AdvReac Intermediate ITCHING/BUR Unverified 10/10/19 14:46 DONNIE Consultations 10/10/19 18:11 ED Decision to Admit Stat 10/10/19 20:14 Consult General Surgery Routine Ordered Studies 10/10/19 14:31 CT abd pelvis wo con Stat CT head/brain wo con Stat 10/10/19 16:21 US RUQ [US liver] Stat Hospital Course (1) Cholecystitis: Unable to tell if pt had any abdominal pain on admission CT abd/pelvis showed cholelithiasis, mild gallbladder distention, and suspected gallbladder wall thickening Liver u/s showed gallbladder is distended and filled with both stones and sludge. The gallbladder wall is thickened and edematous, and the appearance is highly concerning for acute cholecystitis. Was evaluated by surgery. However, daughter who is the POA does not want to proceed to surgery and wanted hospice care on discharge. Got iv unasyn while in the hospital Spoke with daughter today. Updated her on the patient and she confirmed that she does not want surgical therapy or antibiotics on discharge Discharge on hospice care today (2) STEVEN (acute kidney injury): Possible related to dehydration Resolved Creatinine on admission 1.8 that improves to 1.09 (3) CAD (coronary artery disease): Continue asa, statin, lisinopril, metoprolol and isosorbide mononitrate Stable (4) Hypertension: BP elevated Was on lisinopril to 20mg daily Continue lisinopril at increased dose of 20mg daily on discharge from 10mg on home med list (5) Altered mental status: (6) Dementia: Seems to be back to baseline as per daughter CT head showed no acute intracranial findings (7) Hyperlipemia: Continue statin Code Status DNR/DNI Total Time Total Time Spent Total Time Spent (In Minutes): 35 Total Time Includes: Examination of the Patient, Discharge Planning, Medication Reconciliation and Other (Communicating with daughter) Discharge Plan Discharge Items Patient Disposition: Hospice - Medical Facility Reason For Visit: CHOLECYSTITIS,ABDOMINAL PAIN Discharge Diagnosis: Cholecystitis Cholelithiasis Acute kidney injury Condition on Discharge: Fair Activity: Resume your previous activity Non-emergency contact: Primary Care Provider Call non-emergency contact if: you have any medication questions Follow-up/Referrals: ASHWIN MARTINEZ [Primary Care Provider] - Diet: Regular Liquid Consistency: Honey thick Diet Comment: Minced and moist Addtl Attending Provider Instructions: Mr Arriaga presented to the hospital for confusion and abdominal pain. Evaluation showed galls stones and inflammation. He was started on iv antibiotics. Patient's daughter who is the POA opted for no surgical therapy and wanted patient to be discharged on hospice. Pending Studies at Discharge: No Stand-Alone Forms: My [facility] Skilled Items Patient informed of condition?: No (Altered mental status. Daughter informed) DNR: Yes Discharge Level of Care: Other Communicable Disease: No Discharge Prognosis: Stable Lines: None Urinary Catheter: No Medications and DC Order Prescriptions: New lisinopril 20 mg Tablet 20 mg PO QAM Qty: 30 RF: 0 Continued atorvastatin 10 mg tablet 10 mg PO HS RF: 0 metoprolol succinate 50 mg tablet extended release 24 hr 50 mg PO QAM RF: 0 isosorbide mononitrate 30 mg tablet extended release 24 hr 30 mg PO QAM RF: 0 famotidine 20 mg tablet 20 mg PO BID RF: 0 timolol maleate 0.5 % drops 1 dose OPB HS RF: 0 finasteride 5 mg tablet 5 mg PO QAM RF: 0 aspirin [Aspir-81] 81 mg Tablet,Delayed Release (Dr/Ec) 81 mg PO QAM RF: 0 multivitamin Tablet 1 tab PO QAM RF: 0 melatonin 5 mg Tablet 5 mg PO HS RF: 0 Discontinued cetirizine 10 mg tablet 10 mg PO HS RF: 0 lisinopril [Zestril] 10 mg Tablet 10 mg PO QAM Qty: 30 RF: 0 Discharge Orders: Discharge Order (Routine); Ordered 10/15/19 Ordered By: Madhavi Vallejo Admission Data Admit Date/Time: 10/14/19 07:51 Attending Provider: Madhavi Vallejo I. Admit Provider: Hussain Salas Primary Care Provider: ASHWIN MARTINEZ Other Providers: Hussain Salas ; Desean Vale ; Aileen Shields ; Filipe Silva ; Magy Duke ; Niall Trejo ; Gen Boykin ; Temitope Amor ; Benny Langston ; Leta Rai ; Gurpreet Freedman Jr ; Harmeet Carrillo ; Elena Saha ; Jose Sánchez Other Interventions: Discharge Summary Assessment (RN) Last Done: 10/15/19 12:14
== END 2019-10-15 17:30 | disposition hospice, inpatient (51) | DRG 445 ==
LOC: ED 13:52 → INTOOBSV 18:53 → SUATTDRO 18:53 → 3N 18:53 → SUATTDRO 10-14 07:51